=== PATIENT | female | born 1940 | race Caucasian/White ===

== ENCOUNTER → 2016-12-29 | Outpatient (CLI) | payer MEDICARE ==
[~2016-12-29] MED LIST: ALBU0.632 IH; ALBU0.8322 IH; AMLO5TAB2 PO; ASCO500T20 PO; ASP81TEC PO; CALC-755 PO; CHOL200035 PO; EPIN0.3P2 IM; FLC100T1 PO; FLUT1DIS26 IH; LEVO500T78 PO; LORA1TAB PO; MULT-963 PO; OMEP40CA36 PO; PRD20T PO
--- NOTE | 2016-12-29 15:51 | Diagnostic Imaging Report ---
PROCEDURE: Lung cancer screening CT chest without contrast. TECHNIQUE: Multiple contiguous axial images were obtained through the chest without the use of intravenous contrast. This is performed with a low-dose protocol. INDICATION: Currently asymptomatic patient with 40 pack years history of smoking Comparison: No prior similar studies are available for comparison. Findings: There is upper lobe predominant centrilobular emphysema. 2 mm calcified granuloma is noted in the superior segment of the right lower lobe. There is a tiny focus of scarring or atelectasis suggested in the inferior lingula with no significant consolidation, mass or suspicious nodule seen. No significant fibrotic changes or bronchiectasis. The heart size is normal. No pericardial or pleural effusion. Prominent coronary artery atherosclerotic calcifications are noted. No axillary lymphadenopathy is seen. The osseous structures demonstrate scoliosis convex to the right side with advanced degenerative changes. IMPRESSION: Upper lobe predominant centrilobular emphysema. No suspicious nodule seen. Lung Rads Category 2. Benign findings. Recommendations: Annual screening low-dose CT scan. Dictated by: Dictated on workstation # [id number]
== END ==
LOC: RAD 13:01
PROVIDERS: ATTEND Family Medicine
DX: Z12.2 Encounter for screening for malignant neoplasm of respiratory organs (principal); J43.9 Emphysema, unspecified; F17.210 Nicotine dependence, cigarettes, uncomplicated

== ENCOUNTER 2017-03-04 09:58 | Inpatient (IN) | payer MEDICARE ==
[~2017-03-04] VITALS: Ht 167.6 cm; Wt 71.2 kg
--- OUTSIDE RECORDS SUMMARY | 2017-03-04 10:03 | XMS REPORT | Continuity of Care Document ---
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 08/11/2011 Ot 477.9 ALLERGIC RHINITIS NOS 08/11/2011 Ot 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 08/28/2012 LAKSHMI MATAMOROS MD Ot 553.3 DIAPHRAGMATIC HERNIA 08/28/2012 LAKSHMI MATAMOROS MD Ot 562.10 DIVERTICULOSIS COLON (W/O MENT OF HEMORR 08/28/2012 SATURNINO FOSTER, LAKSHMI Lazar Ot V12.72 PERSONAL HISTORY OF COLONIC POLYPS 08/28/2012 SATURNINO FOSTER, LAKSHMI Lazar Ot V76.51 SCREEN MAL NEOP-COLON 11/17/2014 Ot 733.00 11/17/2014 Ot 781.91 11/17/2014 Ot V76.12 11/17/2014 Ot 305.1 11/17/2014 Ot 786.2 11/17/2014 Ot 733.00 11/17/2014 Ot V76.12 11/17/2014 Ot 719.07 11/17/2014 Ot 719.47 11/17/2014 Ot 733.00 11/17/2014 Ot 473.9 11/17/2014 LAKSHMI MATAMOROS MD Ot V72.84 11/17/2014 JANNY JOSEPH DO Ot 789.01 12/10/2014 STANISLAV KIRKPATRICK Ot 786.09 12/10/2014 STANISLAV KIRKPATRICK COTTON BALL BAGGER Ot 786.2 12/18/2014 VANBECSTANISLAV KHOURY [employer] B[employer] BAGGER Ot 786.09 12/18/2014 STANISLAV KIRKPATRICK COTTON BALL BAGGER Ot 786.2 03/11/2015 OPAL ROSSJANNY S Ot I65.23 03/19/2015 OPAL NGUYEN JANYN S Ot I65.23 12/29/2016 Ot 473.9 CHRONIC SINUSITIS NOS 12/29/2016 LAKSHMI MATAMOROS MD Ot V72.84 EXAM PRE-OPERATIVE NOS 12/29/2016 OPAL JANNY S Ot 789.01 ABDOMINAL PAIN, RIGHT UPPER QUADRANT 12/29/2016 STANISLAV KIRKPATRICK [employer] BAGGER Ot 786.09 RESPIRATORY ABNORM NEC 12/29/2016 STANISLAV KIRKPATRICK [employer] BAGGER Ot 786.2 COUGH 12/29/2016 ENDERIRIS NGUYEN JANNY S Ot I65.23 OCCLUSION AND STENOSIS OF BILATERAL FUENTES 12/29/2016 Ot 473.9 CHRONIC SINUSITIS NOS 12/29/2016 LAKSHMI MATAMOROS MD Ot V72.84 EXAM PRE-OPERATIVE NOS 12/29/2016 KIPCORETTA NGUYEN JANNY S Ot 789.01 ABDOMINAL PAIN, RIGHT UPPER QUADRANT 12/29/2016 STANISLAV KIRKPATRICK [employer]ALL BAGGER Ot 786.09 RESPIRATORY ABNORM NEC 12/29/2016 STANISLAV KIRKPATRICK [employer] BAGGER Ot 786.2 COUGH 12/29/2016 ENDERWILLIAM SIMMONS DOQUELINE S Ot I65.23 OCCLUSION AND STENOSIS OF BILATERAL FUENTES 01/18/2017 WILLIAM JOSEPH DOQUELINE S Ot F17.210 NICOTINE DEPENDENCE, CIGARETTES, UNCOMPL 01/18/2017 WILLIAM JOSEPH DOQUELINE S Ot J43.9 EMPHYSEMA, UNSPECIFIED 01/18/2017 WILLIAM JOSEPH DOQUELINE S Ot Z12.2 ENCNTR SCREEN FOR MALIGNANT NEOPLASM OF Procedures Results Encounters ACCT No. Visit Date/Time Discharge Status Pt. Type Provider Facility Loc./Unit Complaint [id number] 12/29/2016 13:01:00 2016 23:59:59 [facility] Outpatient ROSS JOSEPH DOLINE S [facility] RAD SCREENING [id number] 02/16/2015 10:12:00 2014 23:59:59 C[facility] Outpatient KIPER ROSSJANNY S [facility] RAD LT CAROTID BRUIT [id number] 11/17/2014 11:14:00 2014 23:59:59 CLS Outpatient STANISLAV KIRKPATRICK [facility] RAD COUGH [id number] 01/31/2013 08:56:00 2012 23:59:59 CLS Outpatient OPAL DO JANNY S [facility] RAD RUQ PAIN [id number] 08/28/2012 08:12:00 2012 12:15:00 DIS Outpatient LAKSHMI MATAMOROS MD [facility] [address] DYSPHAGIA,COLON POLYPS [id number] 08/23/2012 07:21:00 2012 23:59:59 CLS Outpatient LAKSHMI MATAMOROS MD [facility] PREOP DYSPHAGIA; COLON POLYPS [id number] 11/17/2014 11:14:00 Document Registration [id number] 11/17/2014 11:14:00 Document Registration [id number] 11/17/2014 11:14:00 Document Registration [id number] 09/16/2011 09:56:00 Document Registration [id number] 08/08/2011 12:38:00 Document Registration [id number] 04/15/2011 10:46:00 Document Registration [id number] 08/03/2010 10:17:00 Document Registration
[2017-03-04] MEDS ORDERED: RT-ALBUTEROL SULF 2.5 MG/3 ML PRE-MIX VIAL INH STA (10:13)
[2017-03-04] MEDS ORDERED: RT-ALBUTEROL/IPRATROPIUM 3 ML (DUONEB) VIAL INH ONE (10:15)
--- NOTE | 2017-03-04 10:26 | ED General ---
General Stated Complaint: COUGHING UP STUFF, BREATHING PROBLEMS Source of Information: Patient Exam Limitations: No Limitations History of Present Illness Time Seen by Provider: 10:08 Initial Comments Here with shortness of air and cough and feeling like she needs oxygen. This is been worsening over the last 2 days. Unsure about fever. Denies vomiting or diarrhea. Denies other symptoms other than breathing problems. She did do a breathing treatment this morning which helped a little bit. Does have significant history of COPD. Complains of dyspnea on exertion and wheezing. Timing/Duration: 2-3 Days, Getting Worse Severity: Moderate Associated Systoms: Cough, Fever/Chills, No Nausea/Vomiting, Shortness of Air, No Weakness Allergies and Home Medications Allergies Coded Allergies: bee venom (honey bee) (Verified Allergy, Severe, 08/08/11) Codeine (Unverified Allergy, Unknown, 03/02/10) Home Medications Albuterol Sulfate 2.5 Mg/3 Ml Solution, 2.5 MG IH Q6HR PRN, (Reported) PRN SOB Amlodipine Besylate 5 Mg Tablet, 5 MG PO DAILY, (Reported) Aspirin 81 Mg Tabec, 81 MG PO GRIMM, TU, REFUGIO, SA, (Reported) Epinephrine 0.3 Mg/0.3/Syringe Pen.injctr, 0.3 MG IM NEEDED, (Reported) PRN ALLERGIC REACTION TO BEE STINGS Fluticasone/Salmeterol 1 Disk Inhp, 1 PUFF IH BID, (Reported) 1 PUFF Lorazepam 1 Mg Tablet, 0.5 MG PO TID PRN, (Reported) TAKE 1/2 OF A 1MG TABLET PRN ANXIETY Multivitamin 1 Each Tablet, 1 TAB PO DAILY, (Reported) Omeprazole 40 Mg Capsule.dr, 40 MG PO DAILY, (Reported) Constitutional: see HPI, chills, No diaphoresis, fever, No weakness EENTM: nose congestion, No throat pain Respiratory: cough, short of breath, wheezing Cardiovascular: no symptoms reported Gastrointestinal: No nausea, No vomiting Genitourinary: no symptoms reported Musculoskeletal: no symptoms reported Skin: no symptoms reported, No rash Psychiatric/Neurological: No Symptoms Reported All Other Systems Reviewed Negative Unless Noted: Yes Past Apdfdul-Ainikf-Qewscv Hx Patient Social History Alcohol Use: Denies Use Recreational Drug Use: No Smoking Status: Current Everyday Smoker Type Used: Cigarettes Recent Foreign Travel: No Contact w/Someone Who Travel: No Immunizations Up To Date Date of Influenza Vaccine: Jan 17, 2012 Surgeries History of Surgeries: Yes Surgeries: Bladder Surgery, Hysterectomy, Orthopedic Respiratory History of Respiratory Disorde: Yes Respiratory Disorders: COPD Cardiovascular Cardiac Disorders: Hypertension Neurological History of Neurological Disord: No Reproductive System Hx Reproductive Disorders: No Genitourinary History of Genitourinary Disor: No Gastrointestinal History of Gastrointestinal Di: Yes Gastrointestinal Disorders: Gastroesophageal Reflux Musculoskeletal History of Musculoskeletal Dis: No Reviewed Nursing Assessment Reviewed/Agree w Nursing PMH: Yes Family Medical History Significant Family History: No Pertinent Family Hx Physical Exam-Suspected Sepsis Physical Exam Vital Signs Vital Sign - Last 12Hours 03/04/17 03/04/17 03/04/17 10:23 10:27 10:30 Temp 100.3 Pulse 95 Resp 16 B/P (MAP) 134/60 (84) Pulse Ox 93 O2 Delivery Nasal Cannula O2 Flow Rate 2.00 FiO2 28 Capillary Refill : General Appearance: WD/WN, Anxious HEENT: PERRL/EOMI, Pharyngeal Erythema, Other (mild to moderate nasal congestion with moderate erythema and some purulent mucus within the naris bilaterally) Neck: Normal Inspection, Non Tender, Supple Respiratory: No Accessory Muscle Use, No Respiratory Distress, Crackles (left lower lobe), Wheezing (here) Cardiovascular: Regular Rate, Rhythm, No Murmur Gastrointestinal: Non Tender, Soft Back: Normal Inspection, No CVA Tenderness, No Vertebral Tenderness Extremity: Normal Capillary Refill, Normal Inspection, Normal Range of Motion, Non Tender, No Calf Tenderness Neurologic/Psychiatric: Alert, Oriented x3 Skin: normal color, warm/dry, No rash, No ulcerations Focused Exam Evaluation Lactate Level Laboratory Tests 03/04/17 10:18: Lactic Acid Level 1.24 Lactic Acid Level Laboratory Tests Test 03/04/17 10:18 Lactic Acid Level 1.24 MMOL/L (0.50-2.00) Progress/Results/Core Measures Suspected Sepsis SIRS Temperature: Pulse: Respiratory Rate: Laboratory Tests 03/04/17 10:18: White Blood Count 8.1 Blood Pressure / Mean: Laboratory Tests 03/04/17 10:18: Lactic Acid Level 1.24 Laboratory Tests 03/04/17 10:18: Creatinine 0.94, INR Comment 1.2, Platelet Count 148, Total Bilirubin 0.2 Results/Orders Lab Results Laboratory Tests Test 03/04/17 10:18 Range/Units White Blood Count 8.1 4.3-11.0 10^3/uL Red Blood Count 2.83 L 4.35-5.85 10^6/uL Hemoglobin 8.8 L 11.5-16.0 G/DL Hematocrit 27 L 35-52 % Mean Corpuscular Volume 95 80-99 FL Mean Corpuscular Hemoglobin 31 25-34 PG Mean Corpuscular Hemoglobin Concent 33 32-36 G/DL Red Cell Distribution Width 17.6 H 10.0-14.5 % Platelet Count 148 130-400 10^3/uL Mean Platelet Volume 10.8 H 7.4-10.4 FL Neutrophils (%) (Auto) 73 42-75 % Lymphocytes (%) (Auto) 13 12-44 % Monocytes (%) (Auto) 13 H 0-12 % Eosinophils (%) (Auto) 0 0-10 % Basophils (%) (Auto) 0 0-10 % Neutrophils # (Auto) 5.9 1.8-7.8 X 10^3 Lymphocytes # (Auto) 1.1 1.0-4.0 X 10^3 Monocytes # (Auto) 1.1 H 0.0-1.0 X 10^3 Eosinophils # (Auto) 0.0 0.0-0.3 10^3/uL Basophils # (Auto) 0.0 0.0-0.1 10^3/uL Prothrombin Time 15.4 H 12.2-14.7 SEC INR Comment 1.2 0.8-1.4 Activated Partial Thromboplast Time 38 H 24-35 SEC Sodium Level 138 135-145 MMOL/L Potassium Level 3.3 L 3.6-5.0 MMOL/L Chloride Level 100 98-107 MMOL/L Carbon Dioxide Level 21 21-32 MMOL/L Anion Gap 17 H 5-14 MMOL/L Blood Urea Nitrogen 20 H 7-18 MG/DL Creatinine 0.94 0.60-1.30 MG/DL Estimat Glomerular Filtration Rate 58 BUN/Creatinine Ratio 21 Glucose Level 86 70-105 MG/DL Lactic Acid Level 1.24 0.50-2.00 MMOL/L Calcium Level 9.0 8.5-10.1 MG/DL Total Bilirubin 0.2 0.1-1.0 MG/DL Aspartate Amino Transf (AST/SGOT) 23 5-34 U/L Alanine Aminotransferase (ALT/SGPT) 14 0-55 U/L Alkaline Phosphatase 60 40-136 U/L Total Protein 9.7 H 6.4-8.2 GM/DL Albumin 2.5 L 3.2-4.5 GM/DL Micro Results Microbiology 03/04/17 Influenza Types A,B Antigen (JOANIE) - Final, Complete My Orders Orders - KRISTEN ROMERO MD Cbc With Automated Diff (03/04/17 10:13) Comprehensive Metabolic Panel (03/04/17 10:13) Lactic Acid Analyzer (03/04/17 10:13) Blood Culture (03/04/17 10:13) Sputum Culture (03/04/17 10:13) Ua Culture If Indicated (03/04/17 10:13) Protime With Inr (03/04/17 10:13) Partial Thromboplastin Time (03/04/17 10:13) Chest 1 View, Ap/Pa Only (03/04/17 10:13) O2 (03/04/17 10:13) Saline Lock/Iv-Start (03/04/17 10:13) Vital Signs Adult Sepsis Patie Q1H (03/04/17 10:13) Remove Rings In Anticipation O (03/04/17 10:13) Influenza A And B Antigens (03/04/17 10:13) Albuterol Pre-Mix Nebs (Rt) (Proventil (03/04/17 10:13) Albuterol/Ipra Inhalation Soln (Duoneb I (03/04/17 10:15) Svn Sm Volume Nebulizer Rt-Rfs (03/04/17 10:13) Svn Sm Volume Nebulizer Rt-Rfs (03/04/17 10:13) Ceftriaxone Injection (Rocephin Injectio (03/04/17 12:15) Medications Given in ED Current Medications Medications Dose Ordered Sig/David Route Start Time Stop Time Status Last Admin Dose Admin Albuterol/ Ipratropium 3 ml ONCE ONCE INH 03/04/17 10:15 03/04/17 10:16 DC 03/04/17 10:22 3 ML Vital Signs/I&O Vital Sign - Last 12Hours 03/04/17 03/04/17 03/04/17 10:23 10:27 10:30 Temp 100.3 Pulse 95 Resp 16 B/P (MAP) 134/60 (84) Pulse Ox 93 O2 Delivery Nasal Cannula O2 Flow Rate 2.00 2.00 FiO2 28 Capillary Refill : Progress Note : Progress Note Seen and evaluated. IV, labs, UA, chest x-ray, rapid influenza screen, blood cultures and lactic acid ordered. DuoNeb and albuterol treatment initiated. Patient reported subjective shortness of air so oxygen initiated at 2 L via nasal cannula although patient's oxygen saturation was 90 percent resting without oxygen. Monitor patient. 1215: Concerns for left lower lobe pneumonia and/or bibasilar pneumonia. Patient does have complications of COPD. I do not believe that she would benefit from outpatient therapy given her underlying medical problems and difficulty with breathing currently. I did discuss case with Dr. Escobar on-call for Dr. Crawford. He accepts patient for admission, inpatient status. Rocephin 1 g IV ordered. Admit, inpatient status. Patient and family agree with plan. Diagnostic Imaging Diagonstic Imaging: Xray Plain Films/CT/US/NM/MRI: chest Comments [facility]. [place], [place] NAME: COLLEEN PERSAUD [facility] REC#: [id number] PT STATUS: REG ER : 1940 PHYSICIAN: KRISTEN ROMERO MD ADMIT DATE: 03/04/17/ER Draft Date of Exam:03/04/17 CHEST 1 VIEW, AP/PA ONLY INDICATION: Shortness of air, cough Comparison: 11/17/2014 Technique: Single frontal radiograph of the chest dated 03/04/2017 Findings: The cardiac silhouette is within normal limits. No significant pulmonary vascular congestion. Vascular calcifications. Background prominence of the pulmonary interstitium is again identified, felt to relate to background interstitial lung disease. The lungs are again noted to be hyperinflated. Interstitial opacities within the lung bases appear slightly increased since the prior examination in 2014. No additional dense focal consolidation. No pleural effusion. No pneumothorax. No acute osseous abnormality. IMPRESSION: Background chronic obstructive pulmonary disease with associated interstitial lung disease. Minimally increased interstitial opacities within the lung bases are present which may relate to interval progression of interstitial lung disease, though additional pneumonitis could appear similar. Dictated on workstation # [id number] Dict: 03/04/17 1113 Trans: 03/04/17 [facility] [id number] Interpreted by: PINO DELVALLE MD Electronically signed by: Reviewed: Reviewed by Me Departure Communication (Admissions) Time/Spoke to Admitting Phy: 12:10 Impression Impression: Primary Impression: Left lower lobe pneumonia Qualified Codes: J18.1 - Lobar pneumonia, unspecified organism Additional Impression: COPD with acute exacerbation Disposition: ADMITTED INPATIENT Condition: Stable Admissions Decision to Admit Reason: Admit from ER (General) Decision to Admit/Date: Mar 04, 2017 Time/Decision to Admit Time: 12:10 Departure-Patient Inst. Referrals: JANNY CRAWFORD DO (PCP/Family) Primary Care Physician KRISTEN ROMERO MD Mar 04, 2017 10:26
[2017-03-04 10:33] LABS: BASOPHILS % (AUTO) 0 % (0-10); EOSINOPHILS % (AUTO) 0 % (0-10); LYMPHOCYTES # (AUTO) 1.1 X 10^3 (1.0-4.0); LYMPHOCYTES % (AUTO) 13 % (12-44); MEAN CORPUSCULAR HEMOGLOBIN 31 PG (25-34); MEAN CORPUSCULAR HGB CONC 33 G/DL (32-36); MEAN CORPUSCULAR VOLUME 95 FL (80-99); MEAN PLATELET VOLUME 10.8 FL (7.4-10.4); MONOCYTES # (AUTO) 1.1 X 10^3 (0.0-1.0); MONOCYTES % (AUTO) 13 % (0-12); NEUTROPHILS # (AUTO) 5.9 X 10^3 (1.8-7.8); NEUTROPHILS % (AUTO) 73 % (42-75); PLATELET COUNT 148 10^3/uL (130-400); RED BLOOD COUNT 2.83 10^6/uL (4.35-5.85); RED CELL DISTRIBUTION WIDTH 17.6 % (10.0-14.5); WHITE BLOOD COUNT 8.1 10^3/uL (4.3-11.0)
[2017-03-04 10:41] LABS: INR 1.2 (0.8-1.4); PROTHROMBIN TIME PATIENT 15.4 SEC (12.2-14.7)
[2017-03-04 10:52] LABS: ALBUMIN 2.5 GM/DL (3.2-4.5); BILIRUBIN,TOTAL 0.2 MG/DL (0.1-1.0); CREATININE SERUM 0.94 MG/DL (0.60-1.30); POTASSIUM 3.3 MMOL/L (3.6-5.0); TOTAL PROTEIN 9.7 GM/DL (6.4-8.2)
--- NOTE | 2017-03-04 11:22 | Diagnostic Imaging Report ---
INDICATION: Shortness of air, cough Comparison: 11/17/2014 Technique: Single frontal radiograph of the chest dated 03/04/2017 Findings: The cardiac silhouette is within normal limits. No significant pulmonary vascular congestion. Vascular calcifications. Background prominence of the pulmonary interstitium is again identified, felt to relate to background interstitial lung disease. The lungs are again noted to be hyperinflated. Interstitial opacities within the lung bases appear slightly increased since the prior examination in 2014. No additional dense focal consolidation. No pleural effusion. No pneumothorax. No acute osseous abnormality. IMPRESSION: Background chronic obstructive pulmonary disease with associated interstitial lung disease. Minimally increased interstitial opacities within the lung bases are present which may relate to interval progression of interstitial lung disease, though additional pneumonitis could appear similar. Dictated by: Dictated on workstation # [id number]
[2017-03-04] MEDS ORDERED: cefTRIAXone INJECTION 1,000 MG in NS (IVPB) 50 ML IV ONE (12:15)
[2017-03-04 12:33] LABS: BILIRUBIN,URINE NEGATIVE (NEGATIVE); KETONES,URINE NEGATIVE (NEGATIVE); LEUKOCYTE ESTERASE ,URINE 1+ (NEGATIVE); NITRITE,URINE NEGATIVE (NEGATIVE); PH,URINE 5 (5-9); PROTEIN,URINE 3+ (NEGATIVE); UROBILINOGEN,URINE NORMAL (NORMAL)
[2017-03-04 12:49] LABS: GRANULAR CASTS,URINE 0-2 /LPF
[2017-03-04] MEDS ORDERED: ONDANSETRON 4 MG/2 ML (SDV) Z0FRAN IV PRN (13:30)
[2017-03-04] MEDS ORDERED: AZITHROMYCIN 500 MG/NS 250 ML IVPB IV ONE ×2 (13:30)
[2017-03-04] MEDS ORDERED: RT-ALBUTEROL SULF 2.5 MG/3 ML PRE-MIX VIAL IH PRN (15:00)
[2017-03-04] MEDS ORDERED: EPINEPHrine INJECTION 1 MG/ML AMP IM PRN (15:30)
[2017-03-04] MEDS ORDERED: CHOL500044 PO (15:33)
[2017-03-04] MEDS ORDERED: CYAN100088 PO (15:33)
[2017-03-04] MEDS ORDERED: CALC-308 PO (15:39)
[2017-03-04] MEDS ORDERED: LORazepam 0.5 MG (ATIVAN) TABLET PO PRN ×2 (15:45)
[2017-03-04 15:59] VITALS: BP 115/63
[2017-03-04] MEDS: ACETAMINOPHEN 325 MG TABLET/CAPLET (TYLENOL) PO PRN (16:11)
[2017-03-04 19:11] VITALS: BP 111/58
[2017-03-04] MEDS: RT-ALBUTEROL SULF 2.5 MG/3 ML PRE-MIX VIAL IH SCH ×2 (19:48→23:22)
[2017-03-04] MEDS: RT-ADVAIR HFA 115/21 MCG PER PUFF IH SCH (19:49)
[2017-03-04] MEDS ORDERED: RT-ALBUTEROL SULF 2.5 MG/3 ML PRE-MIX VIAL IH SCH (21:00)
[2017-03-05] VITALS: BP 121/58
[2017-03-05] MEDS: RT-ALBUTEROL SULF 2.5 MG/3 ML PRE-MIX VIAL IH SCH ×6 (03:03→22:50)
[2017-03-05 04:00] VITALS: BP 116/64
[2017-03-05 05:02] LABS: PEP REPORT SEE PATH REPORT
[2017-03-05 05:04] LABS: BASOPHILS % (AUTO) 0 % (0-10); EOSINOPHILS % (AUTO) 0 % (0-10); LYMPHOCYTES # (AUTO) 1.4 X 10^3 (1.0-4.0); LYMPHOCYTES % (AUTO) 14 % (12-44); MEAN CORPUSCULAR HEMOGLOBIN 31 PG (25-34); MEAN CORPUSCULAR HGB CONC 32 G/DL (32-36); MEAN CORPUSCULAR VOLUME 96 FL (80-99); MEAN PLATELET VOLUME 11.6 FL (7.4-10.4); MONOCYTES % (AUTO) 9 % (0-12); NEUTROPHILS # (AUTO) 8.1 X 10^3 (1.8-7.8); NEUTROPHILS % (AUTO) 77 % (42-75); PLATELET COUNT 137 10^3/uL (130-400); RED BLOOD COUNT 2.72 10^6/uL (4.35-5.85); RED CELL DISTRIBUTION WIDTH 17.6 % (10.0-14.5); RETICULOCYTE % 0.79 % (0.50-2.40); WHITE BLOOD COUNT 10.5 10^3/uL (4.3-11.0)
[2017-03-05 05:30] LABS: ALANINE AMINOTRANSFERASE 14 U/L (0-55); ALBUMIN 2.3 GM/DL (3.2-4.5); ANION GAP 15 MMOL/L (5-14); ASPARTATE AMINO TRANSFERASE 27 U/L (5-34); BLOOD UREA NITROGEN 18 MG/DL (7-18); BUN/CREATININE RATIO 22; CALCIUM 8.8 MG/DL (8.5-10.1); CARBON DIOXIDE 21 MMOL/L (21-32); CHLORIDE 104 MMOL/L (98-107); CREATININE SERUM 0.82 MG/DL (0.60-1.30); GFR ESTIMATED > 60; GLUCOSE 86 MG/DL (70-105); POTASSIUM 2.9 MMOL/L (3.6-5.0); SODIUM 140 MMOL/L (135-145); TOTAL PROTEIN 9.1 GM/DL (6.4-8.2)
[2017-03-05 05:58] LABS: BILIRUBIN,TOTAL 0.2 MG/DL (0.1-1.0)
[2017-03-05] MEDS: CALCIUM CARBONATE 600 MG (CALCARB) TAB PO SCH (06:26)
[2017-03-05] MEDS: RT-ADVAIR HFA 115/21 MCG PER PUFF IH SCH ×2 (06:43→18:38)
[2017-03-05] MEDS ORDERED: KCL 10 MEQ TAB (MICRO K) PO ONE (07:30)
[2017-03-05] MEDS: PANTOPRAZOLE 40 MG (PROTONIX) TAB PO SCH (07:31)
[2017-03-05 08:00] VITALS: BP 112/62
[2017-03-05] MEDS: cefTRIAXone 1 GM/NS 50 ML IVPB IV SCH ×2 (08:46)
[2017-03-05] MEDS: ASPIRIN E.C. 81 MG (ECOTRIN) TAB PO SCH (08:47)
[2017-03-05] MEDS: CYANOCOBALAMIN 500 MCG TAB (VITAMIN B-12) PO SCH (08:47)
[2017-03-05] MEDS: amLODIPine 5 MG (NORVASC) TAB PO SCH (08:47)
[2017-03-05] MEDS: AZITHROMYCIN 250 MG TAB (ZITHROMAX) PO SCH (08:47)
[2017-03-05] MEDS: MULTIVIT W/MINERALS TAB (THERAGRAN M) PO SCH (08:47)
[2017-03-05] MEDS: VITAMIN D3 5,000 UNITS (CHOLECALCIFEROL ) CAPSULE PO SCH (08:47)
[2017-03-05] MEDS ORDERED: AMLO5TAB2 PO (10:51)
[2017-03-05] MEDS ORDERED: OMEP20CA12 PO (10:51)
[2017-03-05] MEDS ORDERED: FLUT1DIS26 IH (10:51)
[2017-03-05] MEDS ORDERED: EPIN0.3A3 IM (10:51)
[2017-03-05 12:00] VITALS: BP 113/63
--- NOTE | 2017-03-05 13:11 | History & Physical-Hospitalist ---
HPI History of Present Illness: HPI/Chief Complaint The patient is a 76-year-old white female who noted at least a week history of increased cough she reports that it is productive but she swallows sputum and does not spit it out. Symptoms became acutely worse over the past 48 hours and she presented to the emergency room secondary to shortness of breath. She denied chills or fever. She reports over the last year she has lost 50 pounds secondary to loss of appetite. She's had increased fatigue with progressive weakness. When asked about pain specifically bone related she has noted increased pain over the coccyx and sacral area. Date Seen 03/05/17 Time Seen by Provider: 08:00 Attending Physician Sarahy Crawford DO PCP Sarahy Crawford DO Referring Physician Date of Admission Mar 04, 2017 at 12:10 Home Medications & Allergies Home Medications Reviewed patient Home Medication Reconciliation Form Allergies Allergies Coded Allergies venom-honey bee (Verified Allergy, Severe, 08/08/11) codeine (Unverified Allergy, Unknown, 03/02/10) Past Mmxecli-Rytrlm-Jbabxx Hx Patient Social History Alcohol Use: Denies Use Recreational Drug Use: No Smoking Status: Current Everyday Smoker Type Used: Cigarettes Physical Abuse Screen: No Sexual Abuse: No Recent Foreign Travel: No Contact w/other who traveled: No Recent Hopitalizations: No Recent Infectious Disease Expo: No Immunizations Up To Date Pediatric: Yes Date of Pneumonia Vaccine: Feb 01, 2017 Date of Influenza Vaccine: Feb 01, 2017 Surgeries Yes Bladder Surgery, Hysterectomy, Orthopedic Respiratory Yes Currently Using CPAP: No Currently Using BIPAP: No Cardiovascular Yes (PT DENIES-HOWEVER PT TAKES BP MEDS) Hypertension Neurological No Reproductive System Hx Reproductive Disorders: No Sexually Transmitted Disease: No HIV/AIDS: No Genitourinary Yes (BLADDER SLING) Gastrointestinal Yes Gastroesophageal Reflux Musculoskeletal No Endocrine History of Endocrine Disorders: No HEENT History of HEENT Disorders: Yes HEENT Disorders: Cataract Cancer No Psychosocial History of Psychiatric Problem: No Integumentary History of Skin or Integumenta: No Blood Transfusions History of Blood Disorders: No Reviewed Nursing Assessment Reviewed/Agree w Nursing PMH: Yes Family Medical History Significant Family History: No Pertinent Family Hx Family Hx: Cardiovascular disease G8 BROTHER Neoplasm 19 MOTHER (LIVER CANCER) G8 BROTHER (THROAT CANCER) Review of Systems Constitutional: weakness, weight loss Respiratory: see HPI, cough, dyspnea on exertion, No hemoptysis, No orthopnea, phlegm, short of breath, No stridor, No wheezing, No other Cardiovascular: no symptoms reported Physical Exam Physical Exam Vital Signs Vital Sign - Last 12Hours 03/04/17 03/04/17 03/04/17 10:23 10:27 10:30 Temp 100.3 Pulse 95 Resp 16 B/P (MAP) 134/60 (84) Pulse Ox 93 O2 Delivery Nasal Cannula O2 Flow Rate 2.00 FiO2 28 Capillary Refill : Less Than 3 Seconds General Appearance: No Apparent Distress, Chronically ill HEENT: Pale Conjunctivae (L), Other (right sided conjunctival injection without exudate) Respiratory: Chest Non Tender, No Accessory Muscle Use, No Respiratory Distress , Other (basilar rales and rhonchi left greater than right no wheezing appreciated.) Cardiovascular: Regular Rate, Rhythm, No Edema, No Gallop, No JVD, No Murmur, Normal Peripheral Pulses Gastrointestinal: Normal Bowel Sounds, No Organomegaly, No Pulsatile Mass, Non Tender, Soft Extremity: Normal Capillary Refill, Normal Inspection, Normal Range of Motion, Non Tender, No Calf Tenderness, No Pedal Edema Skin: Pallor, Other (peripheral or petechia noted.) Results Results/Procedures Lab Laboratory Tests 03/04/17 10:18 03/05/17 04:41 Assessment/Plan Admission Diagnosis 1. Left lower lobe pneumonia community-acquired continue Rocephin and azithromycin. 2. Significantly elevated protein level with likely anemia of chronic disease and 50 pound weight loss over the past year all concerning for plasma cell dyscrasia/multiple myeloma in addition to an increase in sacral and coccygeal related pain. Serum protein electrophoresis pending. My concerns were discussed with the patient and her daughter after I was asked specifically if I felt anything 'bad" was going on. in evaluation and discussion of concerns with the patient and her daughter over 45 minutes care time spent. Copy Copies To 1: SARAHY CRAWFORD DO Clinical Quality Measures DVT/VTE Risk/Contraindication: Risk Factor Score Per Nursin RFS Level Per Nursing on Admit: 4+=Very High LAKSHMI MATAMOROS MD Mar 05, 2017 13:11
[2017-03-05] MEDS ORDERED: FLUT16SP22 NSEACH (13:29)
[2017-03-05] MEDS ORDERED: ASPI-983 PO (13:29)
[2017-03-05] MEDS ORDERED: CHOL10007 PO (13:29)
[2017-03-05] MEDS ORDERED: ALBU2.5V4 IH (13:29)
[2017-03-05] MEDS ORDERED: LORA1TAB PO (13:29)
[2017-03-05] MEDS ORDERED: MULT1TAB69 PO (13:29)
[2017-03-05] MEDS ORDERED: CA C1TAB80 PO (13:29)
[2017-03-05] MEDS: ACETAMINOPHEN 325 MG TABLET/CAPLET (TYLENOL) PO PRN (14:32)
[2017-03-05 15:40] VITALS: BP 116/55
[2017-03-05] MEDS: KCL 10 MEQ TAB (MICRO K) PO SCH (16:13)
[2017-03-05 16:22] LABS: %SAT TOTAL IRON BINDING CAPIC 10 % (15-50); TIBC 145 ug/dL (280-380)
[2017-03-05 19:20] VITALS: BP 119/56
[2017-03-06 00:28] VITALS: BP 115/63
[2017-03-06] MEDS: RT-ALBUTEROL SULF 2.5 MG/3 ML PRE-MIX VIAL IH SCH ×6 (02:55→22:34)
[2017-03-06 04:05] VITALS: BP 117/67
[2017-03-06] MEDS: KCL 10 MEQ TAB (MICRO K) PO SCH ×2 (06:29→17:54)
[2017-03-06] MEDS: CALCIUM CARBONATE 600 MG (CALCARB) TAB PO SCH (06:29)
[2017-03-06 06:47] LABS: ANION GAP 15 MMOL/L (5-14); BLOOD UREA NITROGEN 13 MG/DL (7-18); BUN/CREATININE RATIO 17; CALCIUM 8.7 MG/DL (8.5-10.1); CARBON DIOXIDE 23 MMOL/L (21-32); CHLORIDE 105 MMOL/L (98-107); CREATININE SERUM 0.75 MG/DL (0.60-1.30); GFR ESTIMATED > 60; GLUCOSE 80 MG/DL (70-105); SODIUM 143 MMOL/L (135-145)
[2017-03-06] MEDS: RT-ADVAIR HFA 115/21 MCG PER PUFF IH SCH ×2 (07:25→22:34)
[2017-03-06 08:00] VITALS: BP 113/56
[2017-03-06] MEDS: VITAMIN D3 5,000 UNITS (CHOLECALCIFEROL ) CAPSULE PO SCH (08:40)
[2017-03-06] MEDS: PANTOPRAZOLE 40 MG (PROTONIX) TAB PO SCH (08:41)
[2017-03-06] MEDS: CYANOCOBALAMIN 500 MCG TAB (VITAMIN B-12) PO SCH (08:41)
[2017-03-06] MEDS: AZITHROMYCIN 250 MG TAB (ZITHROMAX) PO SCH (08:41)
[2017-03-06] MEDS: MULTIVIT W/MINERALS TAB (THERAGRAN M) PO SCH (08:41)
[2017-03-06] MEDS: amLODIPine 5 MG (NORVASC) TAB PO SCH (08:41)
[2017-03-06] MEDS: ASPIRIN E.C. 81 MG (ECOTRIN) TAB PO SCH (08:41)
[2017-03-06] MEDS: cefTRIAXone 1 GM/NS 50 ML IVPB IV SCH ×2 (08:41)
[2017-03-06 12:00] VITALS: BP 112/64
[2017-03-06] MEDS ORDERED: MAGNESIUM OXIDE (MAG-OX)400 MG TAB PO NR (12:26)
[2017-03-06] MEDS ORDERED: KCL 20 MEQ TAB (K-DUR) PO NR (12:27)
[2017-03-06] MEDS ORDERED: SENNA W/DOCUSATE (SENOKOT S) TABLET PO NR (12:28)
--- NOTE | 2017-03-06 12:28 | Progress Note (SOAP) ---
Subjective Date Seen by Provider: Mar 06, 2017 Time Seen by Provider: 12:28 Subjective/Events-last exam Fwup acute pneumonia, COPD exacerbation, weakness, abnormal weight loss, anemia , hypokalemia. Still with cough but improving. Very weak. Objective Exam Vital Signs Date Time Temp Pulse Resp B/P (MAP) Pulse Ox O2 Delivery O2 Flow Rate FiO2 03/06/17 10:32 94 Nasal Cannula 2.00 03/06/17 08:00 97.0 77 20 113/56 (75) 96 Nasal Cannula 3.50 03/06/17 08:00 Nasal Cannula 2.00 03/06/17 07:27 93 Nasal Cannula 2.00 03/06/17 07:25 93 Nasal Cannula 2.00 03/06/17 04:05 98.6 70 16 117/67 (84) 97 Nasal Cannula 3.50 03/06/17 02:55 92 Nasal Cannula 2.00 03/06/17 00:28 98.4 69 18 115/63 (80) 98 Nasal Cannula 3.50 03/05/17 22:50 96 Nasal Cannula 3.00 03/05/17 19:40 Nasal Cannula 3.50 03/05/17 19:20 99.8 77 18 119/56 (77) 92 Nasal Cannula 3.50 03/05/17 18:38 Nasal Cannula 3.00 03/05/17 18:37 96 Nasal Cannula 3.00 03/05/17 15:40 98.9 75 20 116/55 (75) 94 Nasal Cannula 3.50 03/05/17 14:25 95 Nasal Cannula 4.00 I & O 03/07/17 07:00 Intake Total 50 ml Balance 50 ml Capillary Refill : Less Than 3 Seconds General Appearance: Mild Distress Neck: Supple Respiratory: Decreased Breath Sounds, Respiratory Distress, Rhonci, Wheezing Gastrointestinal: normal bowel sounds, non tender, soft Extremity: Non Tender, No Calf Tenderness, No Pedal Edema Neurologic/Psychiatric: Alert, Oriented x3 Skin: Normal Color, Warm/Dry Results Lab Laboratory Tests 03/06/17 05:58: Sodium Level 143, Potassium Level 3.0L, Chloride Level 105, Carbon Dioxide Level 23, Anion Gap 15H, Blood Urea Nitrogen 13, Creatinine 0.75, Estimat Glomerular Filtration Rate > 60, BUN/Creatinine Ratio 17, Glucose Level 80, Calcium Level 8.7 Microbiology 03/04/17 Blood Culture - Preliminary, Resulted No growth 03/04/17 Gram Stain - Final, Complete 03/04/17 Sputum Culture - Final, Complete Haemophilus Influenza Normal jeancarlos Presumptive Vianca Albicans Assessment/Plan Assessment/Plan Assess & Plan/Chief Complaint 1. Acute Pneumonia--continue abx, repeat CXR 2. Exacerbation of COPD--add solumedrol, continue oxygen and SVNs 3. Weakness--multifactorial, start PT, will likely need SWING bed 4. Anemia--Check CBC in AM, SPEP pending 5. Hypokalemia--replace potassium and check magnesium level Clinical Quality Measures DVT/VTE Risk/Contraindication: Risk Factor Score Per Nursin RFS Level Per Nursing on Admit: 4+=Very High JANNY JOSEPH DO Mar 06, 2017 12:28
[2017-03-06] MEDS ORDERED: methylPREDNISolone 40 MG/ML (Solu-MEDROL) VIAL IV NR (12:37)
--- NOTE | 2017-03-06 15:02 | Physical Therapy Evaluation ---
PT Evaluation-General Medical Diagnosis Admission Date Mar 04, 2017 at 12:10 Medical Diagnosis: Pneumonia LLL, COPD Onset Date: Mar 04, 2017 Therapy Diagnosis Therapy Diagnosis: weakness Height/Weight Height (Feet): 5 Height (Inches): 6.00 Weight (Pounds): 156 Weight (Ounces): 15.5 Precautions Precautions/Isolations: Standard Precautions Weight Bear Status Right Lower Extremity: Right Full Weight Bearing Left Lower Extremity: Left Full Weight Bearing Referral Physician: Sarahy Crawford DO Reason for Referral: Evaluation/Treatment Medical History Pertinent Medical History: HTN, Smoking Additional Medical History reflux, hysterectomy Reviewed History: Yes Social History Home: Single Level Current Living Status: Alone Entry Into Home: Stairs With Railing PT Steps Into Home: 3 Prior/Core FIM Prior Level of Function Functional [place] Measure 0=Not Assessed/NA 4=Minimal Assistance 1=Total Assistance 5=Supervision or Setup 2=Maximal Assistance 6=Modified [place] 3=Moderate Assistance 7=Complete [place] Bed Mobility: 7 Transfers (B,C,W/C) (FIM): 7 Gait: 7 Locomotion: 7 States she owns a FWW, but does not use at this point PT Evaluation-Current Subjective Patient is supine in bed upon PT entering the room. She states she is starting to feel better since admission into the hospital. She states that her balance has been getting worse as of late, so she grabs onto rails or objects if she feels unsteady. She agrees to PT eval. Pain Numeric Pain Scale: 0-No Pain Location: No Pain Reported Pt/Family Goals Patient wishes to return home and be able to live independently. Objective Patient Orientation: Normal For Age Problem Solving: Good Attachments: Oxygen 3.0 L of O2 ROM/Strength ROM Upper Extremities WNL ROM Lower Extremities WNL Strength Upper Extremities WNL Strength Lower Extremities WNL Integumentary/Posture Integumentary intact Bowel Incontinence: No Bladder Incontinence: No Neuromuscular (Tone, Coordination, Reflexes) normal Sensory Vision: Functional Hearing: Functional Sensation Right Upper Extremit: Intact Sensation Left Upper Extremity: Intact Sensation Right Lower Extremit: Intact Sensation Left Lower Extremity: Intact Transfers Functional [place] Measure 0=Not Assessed/NA 4=Minimal Assistance 1=Total Assistance 5=Supervision or Setup 2=Maximal Assistance 6=Modified [place] 3=Moderate Assistance 7=Complete [place] Transfers (B, C, W/C) (FIM): 7 Scootin Rollin Supine to/from Sit: 7 Sit to/from Stand: 7 Patient performed all bed mobility and nish to stand independently in a safe manner. Gait Mode of Locomotion: Walk Anticipated Mode of Locomotion: Walk Gait (FIM): 6 Distance: 300' Gait Level of Assist: 6 Gait Assistive Device: FWW Comments/Gait Description Patient ambulated safely with FWW. Patient states that she feels as if she can walk much faster and safer with an assistive device. Patient started to have some SOB at end of walking. Balance Sitting Static: Normal Standing Static: Normal Standing Dynamic: Normal Assessment/Needs Patient is doing well considering her recent illness. Patient would benefit from therapeutic exercise and gait progression to improve functional activity tolerance and strength. Rehab Potential: Good PT Fpc Goals Wastewater Treatment Supervisor Goals PT Fpc Goals Time Frame: Mar 10, 2017 Transfers (B,C,W/C) (FIM): 7 Gait (FIM): 6 Distance: 500' Gait Level of Assist: 6 Gait Assistive Device: FWW PT Plan Problem List Problem List: Activity Tolerance, Functional Strength, Safety, Balance, Gait Treatment/Plan Treatment Plan: Continue Plan of Care Treatment Plan: Education, Functional Activity Juma, Functional Strength, Gait , Safety, Therapeutic Exercise Treatment Duration: Mar 10, 2017 Frequency: 5 times per week Estimated Hrs Per Day: .25 hour per day Patient and/or Family Agrees t: Yes Safety Risks/Education Patient Education: Gait Training, Reviewed Precautions, Safety Issues Teaching Recipient: Patient Teaching Methods: Demonstration, Discussion Response to Teaching: Verbalize Understanding, Return Demonstration Discharge Recommendations Therapy D/C Recommendations: Home Independently Equpiment Recommendations-D/C: Front Wheeled Walker Time/GCodes Time In: 1434 Time Out: 1449 Total Billed Treatment Time: 15 Total Billed Treatment 1 visit EVM 15 min DARLINE CAIN PT Mar 06, 2017 15:02
[2017-03-06 16:00] VITALS: BP 117/69
[2017-03-06 16:07] LABS: FERRITIN 620.6 ng/mL (15.0-150.0); UIBC 130 ug/dL (55-450)
[2017-03-06] MEDS: MAGNESIUM OXIDE (MAG-OX)400 MG TAB PO SCH (17:53)
[2017-03-06] MEDS: methylPREDNISolone 40 MG/ML (Solu-MEDROL) VIAL IV SCH ×2 (17:54→23:43)
[2017-03-06 19:37] VITALS: BP 120/56
[2017-03-06] MEDS: SENNA W/DOCUSATE (SENOKOT S) TABLET PO SCH (20:09)
[2017-03-07 00:40] VITALS: BP 107/49
[2017-03-07] MEDS: RT-ALBUTEROL SULF 2.5 MG/3 ML PRE-MIX VIAL IH SCH ×6 (02:34→23:03)
[2017-03-07 04:56] VITALS: BP 104/55
[2017-03-07] MEDS: methylPREDNISolone 40 MG/ML (Solu-MEDROL) VIAL IV SCH ×4 (06:09→23:42)
[2017-03-07] MEDS: CALCIUM CARBONATE 600 MG (CALCARB) TAB PO SCH (06:09)
[2017-03-07] MEDS: KCL 10 MEQ TAB (MICRO K) PO SCH ×2 (06:09→17:33)
[2017-03-07 06:22] LABS: BASOPHILS % (AUTO) 0 % (0-10); EOSINOPHILS % (AUTO) 0 % (0-10); LYMPHOCYTES % (AUTO) 8 % (12-44); MEAN CORPUSCULAR HEMOGLOBIN 31 PG (25-34); MEAN CORPUSCULAR HGB CONC 32 G/DL (32-36); MEAN CORPUSCULAR VOLUME 97 FL (80-99); MEAN PLATELET VOLUME 11.9 FL (7.4-10.4); MONOCYTES # (AUTO) 0.2 X 10^3 (0.0-1.0); MONOCYTES % (AUTO) 2 % (0-12); NEUTROPHILS # (AUTO) 10.5 X 10^3 (1.8-7.8); NEUTROPHILS % (AUTO) 90 % (42-75); PLATELET COUNT 143 10^3/uL (130-400); RED BLOOD COUNT 2.65 10^6/uL (4.35-5.85); RED CELL DISTRIBUTION WIDTH 17.3 % (10.0-14.5); WHITE BLOOD COUNT 11.6 10^3/uL (4.3-11.0)
[2017-03-07 06:38] LABS: ANION GAP 14 MMOL/L (5-14); BLOOD UREA NITROGEN 18 MG/DL (7-18); BUN/CREATININE RATIO 25; CALCIUM 9.4 MG/DL (8.5-10.1); CARBON DIOXIDE 23 MMOL/L (21-32); CHLORIDE 102 MMOL/L (98-107); CREATININE SERUM 0.71 MG/DL (0.60-1.30); GFR ESTIMATED > 60; GLUCOSE 168 MG/DL (70-105); MAGNESIUM 1.5 MG/DL (1.8-2.4); POTASSIUM 4.1 MMOL/L (3.6-5.0); SODIUM 139 MMOL/L (135-145)
[2017-03-07] MEDS: RT-ADVAIR HFA 115/21 MCG PER PUFF IH SCH ×2 (06:51→18:52)
--- NOTE | 2017-03-07 07:54 | Diagnostic Imaging Report ---
INDICATION: Cough. COMPARISON: 03/04/2017. FINDINGS: Heterogeneous opacities in the left mid and lower lung zone have improved. No new airspace disease. No pleural effusion or pneumothorax. Heart remains borderline enlarged. Atherosclerotic aorta is unchanged. IMPRESSION: Improving left basilar heterogeneous consolidations likely due to resolving pneumonia as per patient's history. Dictated by: Dictated on workstation # [id number]
[2017-03-07 08:00] VITALS: BP 128/58
[2017-03-07] MEDS: SENNA W/DOCUSATE (SENOKOT S) TABLET PO SCH ×2 (08:40→19:48)
[2017-03-07] MEDS: MULTIVIT W/MINERALS TAB (THERAGRAN M) PO SCH (08:40)
[2017-03-07] MEDS: MAGNESIUM OXIDE (MAG-OX)400 MG TAB PO SCH ×2 (08:40→17:33)
[2017-03-07] MEDS: VITAMIN D3 5,000 UNITS (CHOLECALCIFEROL ) CAPSULE PO SCH (08:40)
[2017-03-07] MEDS: CYANOCOBALAMIN 500 MCG TAB (VITAMIN B-12) PO SCH (08:40)
[2017-03-07] MEDS: ASPIRIN E.C. 81 MG (ECOTRIN) TAB PO SCH (08:41)
[2017-03-07] MEDS: PANTOPRAZOLE 40 MG (PROTONIX) TAB PO SCH (08:41)
[2017-03-07] MEDS: AZITHROMYCIN 250 MG TAB (ZITHROMAX) PO SCH (08:41)
[2017-03-07] MEDS: amLODIPine 5 MG (NORVASC) TAB PO SCH (08:41)
[2017-03-07] MEDS: cefTRIAXone 1 GM/NS 50 ML IVPB IV SCH ×2 (08:41)
--- NOTE | 2017-03-07 11:31 | Physical Therapy Daily Note ---
PT Daily Note-Current Subjective Patient reports improved condition since admission into the hospital. She agrees to PT. Pain Numeric Pain Scale: 0-No Pain Location: No Pain Reported Appearance Patient appears generally healthy. She is left post tx in bed with call light in reach. Mental Status Patient Orientation: Normal For Age Transfers Functional [place] Measure 0=Not Assessed/NA 4=Minimal Assistance 1=Total Assistance 5=Supervision or Setup 2=Maximal Assistance 6=Modified [place] 3=Moderate Assistance 7=Complete IndependenceIRFPAI Quality Coding Scale 6 Independent with activity with or without an assistive device 5 Patient requires set up or clean up by helper. Patient completes activity by themselves 4 Supervision or touching assist (CGA). [place] provide cues , steadying assist 3 The helper provides less than half the effort to complete the activity 2 The helper provides more than half the effort to complete the activity 1 Dependent. The helper does all the effort to complete an activity 7 Patient refused to complete or attempt activity 9 The patient did not perform the activity before the current illness or injury 88 Not attempted due to Medical conditions or safety concerns Transfers (B, C, W/C) (FIM): 7 Scootin Rollin Supine to/from Sit: 7 Sit to/from Stand: 7 Patient is independent with transfers. Weight Bearing Right Lower Extremity: Right Full Weight Bearing Left Lower Extremity: Left Full Weight Bearing Gait Training Gait (FIM): 6 Distance: >300' Gait Level of Assist: 6 Gait Assistive Device: FWW Patient ambulates normally with FWW. Exercises Seated Therapy Exercises: Long arc quads, Hip flexion Seated Reps: 20 Standing: Hamstring curls, Heel/toe raises, Marching Standing Reps: 20 Assessment Current Status: Good Progress Patient is mostly independent with transfers and gait .She states today gave her a good workout. Her main limitation is SOB with activity. PT Senior Care Goals Concession Supervisor Goals PT Senior Care Goals Time Frame: Mar 10, 2017 Transfers (B,C,W/C) (FIM): 7 Gait (FIM): 6 Distance: 500' Gait Level of Assist: 6 Gait Assistive Device: FWW PT Plan Problem List Problem List: Activity Tolerance, Functional Strength, Safety, Balance, Gait Treatment/Plan Treatment Plan: Continue Plan of Care Treatment Plan: Education, Functional Activity Juma, Functional Strength, Gait , Safety, Therapeutic Exercise Treatment Duration: Mar 10, 2017 Frequency: 5 times per week Estimated Hrs Per Day: .25 hour per day Patient and/or Family Agrees t: Yes Time/GCodes Time In: 1013 Time Out: 1036 Total Billed Treatment Time: 23 Total Billed Treatment 1 visit 12 min GT 11 min EX DARLINE CAIN PT Mar 07, 2017 11:31
[2017-03-07 12:00] VITALS: BP 118/55
--- NOTE | 2017-03-07 14:40 | Progress Note (SOAP) ---
Subjective Date Seen by Provider: Mar 07, 2017 Time Seen by Provider: 12:35 Subjective/Events-last exam Fwup acute pneumonia, COPD exacerbation, weakness, abnormal weight loss, anemia , hypokalemia. Started PT. Not as short of air. Still no BM but feels like could go. Objective Exam Vital Signs Date Time Temp Pulse Resp B/P (MAP) Pulse Ox O2 Delivery O2 Flow Rate FiO2 03/07/17 14:13 94 Nasal Cannula 2.00 03/07/17 12:00 98.6 83 20 118/55 (76) 95 Nasal Cannula 2.00 03/07/17 10:53 94 Nasal Cannula 2.00 03/07/17 08:05 Nasal Cannula 2.00 03/07/17 08:00 96.8 81 20 128/58 (81) 93 Nasal Cannula 2.00 03/07/17 06:49 95 Nasal Cannula 2.00 03/07/17 04:56 97.7 82 20 104/55 (71) 95 Nasal Cannula 2.00 03/07/17 02:34 94 Nasal Cannula 2.00 03/07/17 00:40 97.5 72 18 107/49 (68) 99 Nasal Cannula 2.00 03/06/17 22:39 Nasal Cannula 2.00 03/06/17 22:34 95 Nasal Cannula 2.00 03/06/17 19:45 Nasal Cannula 2.00 03/06/17 19:37 97.1 78 20 120/56 (77) 92 Nasal Cannula 3.50 03/06/17 16:00 96.9 74 18 117/69 (85) 94 Nasal Cannula 3.50 03/06/17 15:12 95 Nasal Cannula 2.00 I & O 03/07/17 07:00 Intake Total 1790 ml Balance 1790 ml Capillary Refill : Less Than 3 Seconds General Appearance: No Apparent Distress Neck: Supple Respiratory: Decreased Breath Sounds, Rhonci Cardiovascular: Regular Rate, Rhythm Gastrointestinal: normal bowel sounds, non tender, soft Extremity: Non Tender, No Calf Tenderness, No Pedal Edema Neurologic/Psychiatric: Alert, Oriented x3 Skin: Normal Color Results Lab Laboratory Tests 03/06/17 16:46: Stool Occult Blood Immunoassay NEGATIVE 03/07/17 05:15: White Blood Count 11.6H, Red Blood Count 2.65L, Hemoglobin 8.1L, Hematocrit 26L , Mean Corpuscular Volume 97, Mean Corpuscular Hemoglobin 31, Mean Corpuscular Hemoglobin Concent 32, Red Cell Distribution Width 17.3H, Platelet Count 143, Mean Platelet Volume 11.9H, Neutrophils (%) (Auto) 90H, Lymphocytes (%) (Auto) 8L, Monocytes (%) (Auto) 2, Eosinophils (%) (Auto) 0, Basophils (%) (Auto) 0, Neutrophils # (Auto) 10.5H, Lymphocytes # (Auto) 1.0, Monocytes # (Auto) 0.2, Eosinophils # (Auto) 0.0, Basophils # (Auto) 0.0, Sodium Level 139, Potassium Level 4.1, Chloride Level 102, Carbon Dioxide Level 23, Anion Gap 14, Blood Urea Nitrogen 18, Creatinine 0.71, Estimat Glomerular Filtration Rate > 60, BUN/ Creatinine Ratio 25, Glucose Level 168H, Calcium Level 9.4, Magnesium Level 1.5L Microbiology 03/04/17 Blood Culture - Preliminary, Resulted No growth 03/04/17 Gram Stain - Final, Complete 03/04/17 Sputum Culture - Final, Complete Haemophilus Influenza Normal jeancarlos Presumptive Vianca Albicans Assessment/Plan Assessment/Plan Assess & Plan/Chief Complaint 1. Acute Pneumonia--continue abx, CXR improving 2. Exacerbation of COPD--continue solumedrol, continue oxygen and SVNs 3. Weakness--multifactorial, continue PT, SWING bed eval 4. Anemia--Check CBC in AM, SPEP pending 5. Hypokalemia--potassium improved 6. Hypomagnesemia--replace magnesium Clinical Quality Measures DVT/VTE Risk/Contraindication: Risk Factor Score Per Nursin RFS Level Per Nursing on Admit: 4+=Very High JANNY JOSEPH DO Mar 07, 2017 14:40
[2017-03-07 15:27] VITALS: BP 126/59
[2017-03-07] MEDS: MAGNESIUM 1 GM/100 ML IVPB 100 ML IV SCH ×2 (15:48→16:56)
[2017-03-07 20:00] VITALS: BP 115/56
[2017-03-08] VITALS: BP 114/56
[2017-03-08] MEDS: RT-ALBUTEROL SULF 2.5 MG/3 ML PRE-MIX VIAL IH SCH ×3 (02:54→10:57)
[2017-03-08 04:00] VITALS: BP 119/57
[2017-03-08] MEDS: methylPREDNISolone 40 MG/ML (Solu-MEDROL) VIAL IV SCH ×2 (06:05→12:46)
[2017-03-08] MEDS: CALCIUM CARBONATE 600 MG (CALCARB) TAB PO SCH (06:05)
[2017-03-08] MEDS: KCL 10 MEQ TAB (MICRO K) PO SCH (06:05)
[2017-03-08 06:26] LABS: BASOPHILS % (AUTO) 0 % (0-10); EOSINOPHILS % (AUTO) 0 % (0-10); LYMPHOCYTES # (AUTO) 0.5 X 10^3 (1.0-4.0); LYMPHOCYTES % (AUTO) 5 % (12-44); MEAN CORPUSCULAR HEMOGLOBIN 31 PG (25-34); MEAN CORPUSCULAR HGB CONC 32 G/DL (32-36); MEAN CORPUSCULAR VOLUME 98 FL (80-99); MEAN PLATELET VOLUME 11.3 FL (7.4-10.4); MONOCYTES # (AUTO) 0.5 X 10^3 (0.0-1.0); MONOCYTES % (AUTO) 5 % (0-12); NEUTROPHILS # (AUTO) 8.8 X 10^3 (1.8-7.8); NEUTROPHILS % (AUTO) 90 % (42-75); PLATELET COUNT 156 10^3/uL (130-400); RED BLOOD COUNT 2.62 10^6/uL (4.35-5.85); RED CELL DISTRIBUTION WIDTH 17.4 % (10.0-14.5); WHITE BLOOD COUNT 9.7 10^3/uL (4.3-11.0)
[2017-03-08 06:49] LABS: ANION GAP 12 MMOL/L (5-14); BLOOD UREA NITROGEN 19 MG/DL (7-18); BUN/CREATININE RATIO 29; CALCIUM 8.6 MG/DL (8.5-10.1); CARBON DIOXIDE 25 MMOL/L (21-32); CHLORIDE 105 MMOL/L (98-107); CREATININE SERUM 0.66 MG/DL (0.60-1.30); GFR ESTIMATED > 60; GLUCOSE 149 MG/DL (70-105); MAGNESIUM 1.9 MG/DL (1.8-2.4); POTASSIUM 4.1 MMOL/L (3.6-5.0); SODIUM 142 MMOL/L (135-145)
[2017-03-08] MEDS: RT-ADVAIR HFA 115/21 MCG PER PUFF IH SCH (07:01)
--- NOTE | 2017-03-08 07:16 | Physician Query-Pneumonia ---
Physician Query-Pneumonia Query to Physician: We need your assistance to accurately assign a code / DRG. Physician participation is requested in all cases of women's health care nurse practitioner uncertainty to minimize errors in code assignment and to avoid compliance issues. Based on documentation of pneumonia in the record, a review of the record revealed: Risk Factors-COPD with acute exacerbation Dyspnea on exertion/Wheezing Clinical Findings: Chest xray of 03/07/17 impression: Improving left basilar heterogeneous consolidations likely due to resolving pneumonia. Treatment: IV Rocephin, IV Azithromycin Positive sputum culture for: Haemophilus Influenza, Normal [place], Presumptive Vianca Albicans Record revealed: Infiltrate on chest x-ray, Worsening/cough,dyspnea Treatment: IV Rocephine, IV Azithromycin PHYSICIAN RESPONSE: Specific type of pneumonia: Vianca, H.Influenzae If you have questions please contact: Counter Clerk [employer]:Dustin Lazo [facility] Ext:[phone] or [phone] Thank you for your time and cooperation. Clinical Sequins Winder/Counter [employer] This is a permanent part of the medical record DUSTIN LAZO Mar 08, 2017 07:16 JANNY JOSEPH DO Mar 10, 2017 10:57
[2017-03-08 07:29] VITALS: BP 115/56
[2017-03-08 08:07] LABS: IMMUNOFIX PATH REPORT NUMBER Complete (Complete)
[2017-03-08] MEDS: amLODIPine 5 MG (NORVASC) TAB PO SCH (08:39)
[2017-03-08] MEDS: MAGNESIUM OXIDE (MAG-OX)400 MG TAB PO SCH (08:39)
[2017-03-08] MEDS: CYANOCOBALAMIN 500 MCG TAB (VITAMIN B-12) PO SCH (08:39)
[2017-03-08] MEDS: AZITHROMYCIN 250 MG TAB (ZITHROMAX) PO SCH (08:39)
[2017-03-08] MEDS: ASPIRIN E.C. 81 MG (ECOTRIN) TAB PO SCH (08:39)
[2017-03-08] MEDS: MULTIVIT W/MINERALS TAB (THERAGRAN M) PO SCH (08:39)
[2017-03-08] MEDS: SENNA W/DOCUSATE (SENOKOT S) TABLET PO SCH (08:39)
[2017-03-08] MEDS: VITAMIN D3 5,000 UNITS (CHOLECALCIFEROL ) CAPSULE PO SCH (08:39)
[2017-03-08] MEDS: PANTOPRAZOLE 40 MG (PROTONIX) TAB PO SCH (08:39)
[2017-03-08] MEDS: cefTRIAXone 1 GM/NS 50 ML IVPB IV SCH ×2 (08:40)
--- NOTE | 2017-03-08 10:37 | Physical Therapy Daily Note ---
PT Daily Note-Current Subjective Patient is doing well this a.m. She inquires if she has been accepted for swing bed yet. She agrees to PT. Pain Numeric Pain Scale: 0-No Pain Location: No Pain Reported Appearance Patient appears in good health. Mental Status Patient Orientation: Normal For Age Attachments: Oxygen 2.0 L nasal canula Transfers Functional [place] Measure 0=Not Assessed/NA 4=Minimal Assistance 1=Total Assistance 5=Supervision or Setup 2=Maximal Assistance 6=Modified [place] 3=Moderate Assistance 7=Complete IndependenceIRFPAI Quality Coding Scale 6 Independent with activity with or without an assistive device 5 Patient requires set up or clean up by helper. Patient completes activity by themselves 4 Supervision or touching assist (CGA). [place] provide cues , steadying assist 3 The helper provides less than half the effort to complete the activity 2 The helper provides more than half the effort to complete the activity 1 Dependent. The helper does all the effort to complete an activity 7 Patient refused to complete or attempt activity 9 The patient did not perform the activity before the current illness or injury 88 Not attempted due to Medical conditions or safety concerns Transfers (B, C, W/C) (FIM): 7 Scootin Rollin Supine to/from Sit: 7 Sit to/from Stand: 7 Patient is independent in the room. Weight Bearing Right Lower Extremity: Right Full Weight Bearing Left Lower Extremity: Left Full Weight Bearing Gait Training Gait (FIM): 6 Distance: 800' Gait Level of Assist: 6 Gait Assistive Device: FWW Patient walks independently in the room, but she ambulates with a FWW in the hallway. Patient gait pattern is safe reciprocal gait pattern. Treatments transfers, ambulation Assessment Current Status: Good Progress Patient has good tolerance for gait. Patient did not have any reported shortness of breath on this date with ambulation. PT will continue extended gait distance to improve aerobic capacity as well perform therapeutic exercise to improve muscular strength and endurance. PT Residential Goals Pipelaying Fitter Goals PT Pipelaying Fitter Goals Time Frame: Mar 10, 2017 Transfers (B,C,W/C) (FIM): 7 Gait (FIM): 6 Distance: 500' Gait Level of Assist: 6 Gait Assistive Device: FWW PT Plan Problem List Problem List: Activity Tolerance, Functional Strength, Safety, Balance, Gait Treatment/Plan Treatment Plan: Continue Plan of Care Treatment Plan: Education, Functional Activity Juma, Functional Strength, Gait , Safety, Therapeutic Exercise Treatment Duration: Mar 10, 2017 Frequency: 5 times per week Estimated Hrs Per Day: .25 hour per day Patient and/or Family Agrees t: Yes Safety Risks/Education Patient Education: Gait Training, Transfer Techniques, Correct Positioning, Safety Issues Teaching Recipient: Patient Teaching Methods: Demonstration, Discussion Response to Teaching: Reinforcement Needed Time/GCodes Time In: 1020 Time Out: 1034 Total Billed Treatment Time: 14 Total Billed Treatment 1 visit GT 14 min VICKY DONATO PT Mar 08, 2017 10:37
--- NOTE | 2017-03-10 10:56 | Discharge Summary ---
Diagnosis/Chief Complaint Date of Admission Mar 04, 2017 at 12:10 Date of Discharge Mar 08, 2017 at 12:49 Discharge Date: Mar 08, 2017 Discharge Diagnosis 1. Acute LLL Pneumonia with Haemophilus influenza and parish albicans-- improving 2. Exacerbation of COPD--improving 3. Iron Deficiency Anemia--H/H stable, started on IV venofer 4. Hypertension--stable 5. Weakness--PT/OT on SWING bed 6. Hypokalemia--resolved 7. Hypomagnesemia--resolved 8. Constipation 9. Weight loss, arthralgias and elevated protein--awaiting SPEP and then possible oncology evaluation--may need bone marrow Discharge Summary Hospital Course Hospital Course This is a 76 year old female brought to the emergency room with cough and shortness of air. She was found to have a left lower lobe pneumonia. She was also found to be anemic with an elevated protein level. She was admitted and placed on IV rocephin and zithromax as well as oxygen and nebulizer treatments with duoneb. IV solumedrol had to be added for wheezing and rhonchi for COPD exacerbation. Her CXR improved with the rocephin and zithromax and clinically her rhonchi and wheezing improved with the addition of IV solumedrol. A SPEP was ordered and results are still pending at the time of her discharge to SWING bed but have discussed need for oncology evaluation once results obtained and may need bone marrow biopsy. Her iron studies were low so IV venofer will be added for her anemia. Her hemoglobin has been stable at low 8s. She did have hypokalemia which was corrected orally as well as low magnesium. She also had constipation and senokot-s as well as miralax were added for this. PT was started for strengthening and it was decided she would need a SWING bed evaluation for further treatment and strengthening. She did qualify and at this time will be transferred to SWING bed status. Labs Laboratory Tests 03/08/17 05:42: Red Blood Count 2.62L, Hemoglobin 8.1L, Hematocrit 26L, Red Cell Distribution Width 17.4H, Mean Platelet Volume 11.3H, Neutrophils (%) (Auto) 90H, Lymphocytes (%) (Auto) 5L, Neutrophils # (Auto) 8.8H, Lymphocytes # (Auto) 0.5L , Blood Urea Nitrogen 19H, Glucose Level 149H Procedures None. Discharge Physical Examination Allergies: Coded Allergies: venom-honey bee (Verified Allergy, Severe, 08/08/11) codeine (Unverified Allergy, Unknown, 03/02/10) Vitals & I&Os Vital Signs Date Time Temp Pulse Resp B/P (MAP) Pulse Ox O2 Delivery O2 Flow Rate FiO2 03/08/17 10:57 97 Nasal Cannula 2.00 03/08/17 07:29 96.7 81 20 115/56 (75) 03/04/17 15:11 28 General Appearance: Alert, Oriented X3, No Acute Distress Respiratory: Clear to Auscultation Cardiovascular: Regular Rate Abdominal: Normal Bowel Sounds, Soft, No Tenderness Extremities: No Clubbing, No Cyanosis, No Edema Skin: No Rashes Psych/Mental Status: Mental Status NL, Mood NL Discharge Home Medications Reviewed and agree with Discharge Medication list on patient's Discharge Instruction sheet Instructions to Patient/Family Please see electronic discharge instructions given to patient. Clinical Quality Measures DVT/VTE Risk/Contraindication: Risk Factor Score Per Nursin RFS Level Per Nursing on Admit: 4+=Very High JANNY JOSEPH DO Mar 10, 2017 10:56
[2017-03-13] MEDS ORDERED: MAGN400T6 PO (12:21)
[2017-03-13] MEDS ORDERED: PRD20T PO (12:21)
== END 2017-03-08 12:49 | disposition swing bed (61) | DRG 177 ==
LOC: EDUNIT# 09:58 → ER 10:00 → 4TH 12:10
PROVIDERS: ADMIT Internal Medicine; ATTEND Family Medicine
DX: B37.1 Pulmonary candidiasis (principal); J14 Pneumonia due to Hemophilus influenzae; J44.1 Chronic obstructive pulmonary disease with (acute) exacerbation; J44.0 Chronic obstructive pulmonary disease with (acute) lower respiratory infection; I10 Essential (primary) hypertension; K21.9 Gastro-esophageal reflux disease without esophagitis; F17.210 Nicotine dependence, cigarettes, uncomplicated; Z66 Do not resuscitate; R63.4 Abnormal weight loss; D50.9 Iron deficiency anemia, unspecified; E87.6 Hypokalemia; E83.42 Hypomagnesemia; R77.9 Abnormality of plasma protein, unspecified; M53.3 Sacrococcygeal disorders, not elsewhere classified; R63.0 Anorexia; R53.83 Other fatigue; R53.1 Weakness; K59.00 Constipation, unspecified
CPT/HCPCS: 36415; 71010; 71020; 80048; 80053; 81000; 82274; 82607; 82728; 83540; 83605; 83735; 83883; 84155; 84165; 85025; 85045; 85610; 85730; 86334; 87040; 87070; 87077; 87205; 87804; 94640; 94664; 94760; 96365

== ENCOUNTER 2017-03-08 12:56 | Inpatient (IN) | payer MEDICARE ==
[~2017-03-08] VITALS: Ht 167.6 cm; Wt 71.2 kg
[~2017-03-08 12:56] MED LIST changes: +ALBU2.5V4 IH; +ASPI-983 PO; +CA C1TAB80 PO; +CALC-308 PO; +CHOL10007 PO; +CHOL500044 PO; +CYAN100088 PO; +EPIN0.3A3 IM; +FLUT16SP22 NSEACH; +MULT1TAB69 PO; +OMEP20CA12 PO
[2017-03-08] MEDS ORDERED: ONDANSETRON 4 MG/2 ML (SDV) Z0FRAN IV PRN (13:00)
[2017-03-08] MEDS ORDERED: ACETAMINOPHEN 325 MG TABLET/CAPLET (TYLENOL) PO PRN (13:00)
[2017-03-08] MEDS ORDERED: RT-ALBUTEROL SULF 2.5 MG/3 ML PRE-MIX VIAL IH PRN (13:00)
[2017-03-08] MEDS ORDERED: LORazepam 0.5 MG (ATIVAN) TABLET PO PRN (13:00)
[2017-03-08] MEDS ORDERED: MILK OF MAGNESIA 400 MG/5 ML 30 ML UDC PO NR (13:15)
[2017-03-08] MEDS ORDERED: CATHETER FLUSH 10 ML SYR IV PRN (13:30)
[2017-03-08] MEDS: IRON SUCROSE INJECTION 200 MG in NS (IVPB) 100 ML IV SCH (13:45)
[2017-03-08] MEDS: CATHETER FLUSH 10 ML SYR IV SCH ×2 (13:53→21:19)
--- NOTE | 2017-03-08 15:17 | Physical Therapy Evaluation ---
PT Evaluation-General Medical Diagnosis Admission Date Mar 08, 2017 at 12:56 Medical Diagnosis: Pneumonia LLL, COPD Onset Date: Mar 06, 2017 Therapy Diagnosis Therapy Diagnosis: weakness, SOB with activity Height/Weight Height (Feet): 5 Height (Inches): 6.00 Weight (Pounds): 156 Weight (Ounces): 15.5 Precautions Precautions/Isolations: Fall Prevention, Standard Precautions Weight Bear Status Right Lower Extremity: Right Full Weight Bearing Left Lower Extremity: Left Full Weight Bearing Referral Physician: Yvette Reason for Referral: Evaluation/Treatment, Strengthening, Gait Medical History Pertinent Medical History: HTN, Smoking Additional Medical History reflux, hysterectomy Social History Home: Single Level Current Living Status: Alone Entry Into Home: Stairs With Railing PT Steps Into Home: 3 Prior/Core FIM Prior Level of Function Functional [place] Measure 0=Not Assessed/NA 4=Minimal Assistance 1=Total Assistance 5=Supervision or Setup 2=Maximal Assistance 6=Modified [place] 3=Moderate Assistance 7=Complete [place] Bed Mobility: 7 Transfers (B,C,W/C) (FIM): 7 Gait: 7 Locomotion: 7 PT Evaluation-Current Subjective Patient states she is doing well this afternoon. She agrees to PT eval. Pain Numeric Pain Scale: 0-No Pain Location: No Pain Reported Pt/Family Goals Patient wishes to return to normal function at home. Objective Patient Orientation: Person, Place, Time, Situation Attachments: Oxygen 2.0 L nasal canula ROM/Strength ROM Upper Extremities WNL ROM Lower Extremities WNL Strength Upper Extremities WNL Strenght Lower Extremities bilateral hip flexion 4/5; knee flexion/extension 5/5 Integumentary/Posture Integumentary intact Bowel Incontinence: No Bladder Incontinence: No Neuromuscular (Tone, Coordination, Reflexes) normal Sensory Vision: Functional Hearing: Functional Sensation Right Upper Extremit: Intact Sensation Left Upper Extremity: Intact Sensation Right Lower Extremit: Intact Sensation Left Lower Extremity: Intact Transfers Functional [place] Measure 0=Not Assessed/NA 4=Minimal Assistance 1=Total Assistance 5=Supervision or Setup 2=Maximal Assistance 6=Modified [place] 3=Moderate Assistance 7=Complete [place] Transfers (B, C, W/C) (FIM): 6 Scootin Rollin Supine to/from Sit: 6 Sit to/from Stand: 6 Sit to Lying (QC): 6 Lying to Sitting/Side of Bed(Q: 6 Sit to Stand (QC): 6 Chair/[id number] Xfer(QC): 6 Patient ambulates safely mod I in the room. Patient is safe with all transfers and bed mobility. Gait Does the Patient Walk?: Yes Mode of Locomotion: Walk Anticipated Mode of Locomotion: Walk Gait (FIM): 6 Distance: 800' Walk 50 ft with 2 Turns(QC): 6 Walk 150 ft (QC): 6 Gait Level of Assist: 6 Gait Assistive Device: FWW Comments/Gait Description Patient ambulates with normal reciprocal gait pattern with FWW in hallways. Balance Sitting Static: Normal Sitting Dynamic: Normal Standing Static: Normal Standing Dynamic: Normal Treatment Patient performs therapeutic exercise including standing marching and hip flexion/extension/abduction, 20 repetitions bilaterally. Assessment/Needs Patient functions nearly independent in the room. Patient does have some shortness of breath with activity. PT will provide interventions to improve aerobic capacity and activity tolerance. Rehab Potential: Good PT Short Term Goals Short Term Goals Gait Assistive Device: FWW PT Penitentiary Goals Penitentiary Goals PT Penitentiary Goals Time Frame: Mar 15, 2017 Gait (FIM): 6 Distance: 1000' Walk 50ft with 2 Turns (QC): 6 Walk 150 ft (QC): 6 Gait Assistive Device: FWW PT Plan Problem List Problem List: Activity Tolerance, Functional Strength, Safety, Balance, Gait Treatment/Plan Treatment Plan: Continue Plan of Care Treatment Plan: Education, Functional Activity Juma, Functional Strength, Gait , Safety, Therapeutic Exercise Treatment Duration: Mar 15, 2017 Frequency: 6 times per week Estimated Hrs Per Day: .25 hour per day (15-30 min) Patient and/or Family Agrees t: Yes Safety Risks/Education Patient Education: Gait Training, Transfer Techniques, Correct Positioning, Safety Issues Teaching Recipient: Patient Teaching Methods: Demonstration, Discussion Response to Teaching: Verbalize Understanding, Return Demonstration Discharge Recommendations Plan Patient will perform bed mobility and transfer training, balance and endurance training, functional strengthening, stair training, gait training, and education , to improve functional mobility and independence at home. Therapy D/C Recommendations: Home w/ Family Support, Home Independently Equpiment Recommendations-D/C: Front Wheeled Walker Time/GCodes Time In: 1443 Time Out: 1513 Total Billed Treatment Time: 30 Total Billed Treatment 1 visit EVL 30 min VICKY DONATO PT Mar 08, 2017 15:17
[2017-03-08] MEDS: RT-ALBUTEROL SULF 2.5 MG/3 ML PRE-MIX VIAL IH SCH ×3 (15:29→22:22)
--- NOTE | 2017-03-08 16:30 | Occupational Therapy Eval ---
OT Evaluation-General/PLF Medical Diagnosis Admission Date Mar 08, 2017 at 12:56 Medical Diagnosis: Pneumonia LLL, COPD Onset Date: Mar 06, 2017 Therapy Diagnosis Therapy Diagnosis: Weakness Height/Weight Height (Feet): 5 Height (Inches): 6.00 Weight (Pounds): 156 Weight (Ounces): 15.5 Precautions Precautions/Isolations: Fall Prevention, Standard Precautions Weight Bear Status Weight Bearing Restriction: Weight Bearing/Tolerated Referral Physician: Yvette Referral Reason: Activity Tolerance, Self Care, Evaluation/Treatment, Strengthening/ROM Medical History Pertinent Medical History: HTN, Smoking Additional Medical History Right knee replacement, bladder surgery, hysterectomy Current History Pt. states that she was recently diagnosed with Cancer. Became ill. States, "they are running a bunch of blood tests." Reviewed History: Yes Social History Home: Single Level Current Living Status: Alone Entry Into Home: Stairs With Railing Steps Into Home: 3 ADL-Prior Level of Function ADL PLOF Comments Pt. lives alone but states that there are "lots of people in and out." Pt. states that she is independent with daily skills. DME/Equipment: Tub/Shower DME/Equipment Comments Pt. has a cane and walker that has no wheels. Drive Self: Yes OT Current Status Subjective OT offers pt. shower. Pt. states, "I just had one." No pain reported. Appearance Pt. in bed. Agrees to work with OT. Mental Status/Objective Patient Orientation: Person, Place, Time Attachments: Oxygen Current Glasses/Contacts: Yes Upper Extremity ROM WFL Upper Extremity Strength 4/5 bilateral UE strength ADL-Treatment Functional [place] Measure 0=Not Assessed/NA 4=Minimal Assistance 1=Total Assistance 5=Supervision or Setup 2=Maximal Assistance 6=Modified [place] 3=Moderate Assistance 7=Complete IndependenceIRFPAI Quality Coding Scale 6 Independent with activity with or without an assistive device 5 Patient requires set up or clean up by helper. Patient completes activity by themselves 4 Supervision or touching assist (CGA). [place] provide cues , steadying assist 3 The helper provides less than half the effort to complete the activity 2 The helper provides more than half the effort to complete the activity 1 Dependent. The helper does all the effort to complete an activity 7 Patient refused to complete or attempt activity 9 The patient did not perform the activity before the current illness or injury 88 Not attempted due to Medical conditions or safety concerns Lower Body Dressing (FIM): 6 (Pt. able to don socks with no difficulty by holding onto bedrail.) Transfers (B, C, W/C) (FIM): 6 (Mod I with walker. Pt. able to transfer supine -sit, sit-stand, and back to supine.) Other Treatments Pt. demonstrates good balance and ADL skills with some fatigue issues. OT educated her on ADL goals and strengthening goals. Pt. verbalizes understanding. OT will follow pt. and provide HEP to increase overall strength and endurance. Education OT Patient Education: Progress toward Goal/Update tx plan, Purpose of tx/ functional activities, Reviewed precautions, Rehab process Teaching Recipient: Patient Teaching Methods: Demonstration, Discussion Response to Teaching: Verbalize Understanding, Return Demonstration OT Short Term Goals Short Term Goals 1=Demonstrate adherence to instructed precautions during ADL tasks. 2=Patient will verbalize/demonstrate understanding of assistive devices/ modifications for ADL. 3=Patient will improve strength/tolerance for activity to enable patient to perform ADL's. OT [place] Stitcher Goals [place] Stitcher Goals Time Frame: Mar 15, 2017 Eating (FIM): 6 Eating (QC): 6 Groomin Oral Hygiene (QC): 6 Bathing(FIM): 6 Upper Body Dressing(FIM): 6 Lower Body Dressing(FIM): 6 Toileting(FIM): 6 Toileting Hygiene (QC): 6 Transfers (B,C,W/C) (FIM): 6 Toilet/Commode Transfer(FIM): 6 Toilet/Commode Transfer (QC): 6 Tub Transfer(FIM): 6 Shower Transfer(FIM): 6 Additional Goals: 1-Demonstrate ADL Tasks, 2-Verbalize Understanding, 3- ImproveStrength/Juma 1=Demonstrate adherence to instructed precautions during ADL tasks. 2=Patient will verbalize/demonstrate understanding of assistive devices/ modifications for ADL. 3=Patient will improve strength/tolerance for activity to enable patient to perform ADL's. OT Education/Plan Problem List/Assessment Assessment: Decreased Activ Tolerance, Decreased UE Strength, Impaired I ADL's Discharge Recommendations Plan/Recommendations: Continue POC Therapy D/C Recommendations: Home w/ Family Support Equpiment Recommendations-D/C: Bath Chair Treatment Plan/Plan of Care Treatment,Training & Education: Yes Patient would benefit from OT for education, treatment and training to promote independence in ADL's, mobility, safety and/or upper extremity function for ADL' s. Plan of Care: ADL Retraining, Functional Mobility, UE Funct Exercise/Act Treatment Duration: Mar 15, 2017 Frequency: 5 times per week Estimated Hrs Per Day: .25 hour per day Agreement: Yes Rehab Potential: Good Time/GCodes Start Time: 16:00 Stop Time: 16:25 Total Time Billed (hr/min): 25 Billed Treatment Time 1, EVL x 10minutes, ADL x 15minutes JAYCEE SHAH OT Mar 08, 2017 16:30
[2017-03-08] MEDS: KCL 10 MEQ TAB (MICRO K) PO SCH (17:37)
[2017-03-08] MEDS: MAGNESIUM OXIDE (MAG-OX)400 MG TAB PO SCH (17:37)
[2017-03-08 18:00] VITALS: BP 109/67
[2017-03-08] MEDS: RT-ADVAIR HFA 115/21 MCG PER PUFF IH SCH (18:32)
[2017-03-08] MEDS ORDERED: SENNA W/DOCUSATE (SENOKOT S) TABLET PO SCH (21:00)
[2017-03-08] MEDS: SENNA W/DOCUSATE (SENOKOT S) TABLET PO SCH (21:19)
[2017-03-08] MEDS: POLYETHYLENE GLYCOL 17 GM (MIRALAX) PACK PO SCH (21:19)
[2017-03-08] MEDS: methylPREDNISolone 40 MG/ML (Solu-MEDROL) VIAL IV SCH (21:19)
[2017-03-09] MEDS: RT-ALBUTEROL SULF 2.5 MG/3 ML PRE-MIX VIAL IH SCH ×5 (02:38→18:44)
[2017-03-09 06:00] VITALS: BP 123/59
[2017-03-09] MEDS: MULTIVIT W/MINERALS TAB (THERAGRAN M) PO SCH (06:16)
[2017-03-09] MEDS: CALCIUM CARBONATE 600 MG (CALCARB) TAB PO SCH (06:16)
[2017-03-09] MEDS: PANTOPRAZOLE 40 MG (PROTONIX) TAB PO SCH (06:16)
[2017-03-09] MEDS: KCL 10 MEQ TAB (MICRO K) PO SCH (06:16)
[2017-03-09] MEDS: CATHETER FLUSH 10 ML SYR IV SCH ×3 (06:17→20:45)
[2017-03-09 06:23] LABS: BASOPHILS % (AUTO) 0 % (0-10); EOSINOPHILS % (AUTO) 0 % (0-10); LYMPHOCYTES # (AUTO) 0.5 X 10^3 (1.0-4.0); LYMPHOCYTES % (AUTO) 6 % (12-44); MEAN CORPUSCULAR HEMOGLOBIN 31 PG (25-34); MEAN CORPUSCULAR HGB CONC 31 G/DL (32-36); MEAN CORPUSCULAR VOLUME 100 FL (80-99); MEAN PLATELET VOLUME 11.3 FL (7.4-10.4); MONOCYTES # (AUTO) 0.6 X 10^3 (0.0-1.0); MONOCYTES % (AUTO) 7 % (0-12); NEUTROPHILS # (AUTO) 7.8 X 10^3 (1.8-7.8); NEUTROPHILS % (AUTO) 87 % (42-75); PLATELET COUNT 187 10^3/uL (130-400); RED CELL DISTRIBUTION WIDTH 17.8 % (10.0-14.5); WHITE BLOOD COUNT 8.9 10^3/uL (4.3-11.0)
[2017-03-09 06:32] LABS: ANION GAP 11 MMOL/L (5-14); BLOOD UREA NITROGEN 16 MG/DL (7-18); BUN/CREATININE RATIO 25; CALCIUM 9.4 MG/DL (8.5-10.1); CARBON DIOXIDE 27 MMOL/L (21-32); CHLORIDE 103 MMOL/L (98-107); CREATININE SERUM 0.65 MG/DL (0.60-1.30); GFR ESTIMATED > 60; GLUCOSE 107 MG/DL (70-105); POTASSIUM 4.6 MMOL/L (3.6-5.0); SODIUM 141 MMOL/L (135-145)
[2017-03-09 06:47] LABS: ANISOCYTOSIS MODERATE; BAND NEUTROPHILS 1 %; BASOPHILS % (MANUAL) 0 %; EOSINOPHILS % (MANUAL) 0 %; HYPOCHROMASIA SLIGHT; LYMPHOCYTES % (MANUAL) 4 %; NEUTROPHILS % (MANUAL) 89 %; POLYCHROMASIA SLIGHT
[2017-03-09 06:48] LABS: ROULEAUX SLIGHT
[2017-03-09] MEDS: RT-ADVAIR HFA 115/21 MCG PER PUFF IH SCH ×2 (07:18→18:44)
[2017-03-09] MEDS: amLODIPine 5 MG (NORVASC) TAB PO SCH (09:01)
[2017-03-09] MEDS: MAGNESIUM OXIDE (MAG-OX)400 MG TAB PO SCH ×2 (09:01→17:15)
[2017-03-09] MEDS: CYANOCOBALAMIN 500 MCG TAB (VITAMIN B-12) PO SCH (09:01)
[2017-03-09] MEDS: methylPREDNISolone 40 MG/ML (Solu-MEDROL) VIAL IV SCH (09:01)
[2017-03-09] MEDS: SENNA W/DOCUSATE (SENOKOT S) TABLET PO SCH ×2 (09:01→20:46)
[2017-03-09] MEDS: VITAMIN D3 5,000 UNITS (CHOLECALCIFEROL ) CAPSULE PO SCH (09:01)
[2017-03-09] MEDS: ASPIRIN E.C. 81 MG (ECOTRIN) TAB PO SCH (09:02)
[2017-03-09] MEDS: cefTRIAXone INJECTION 1,000 MG in NS (IVPB) 50 ML IV SCH (09:02)
--- NOTE | 2017-03-09 09:49 | Occupational Ther Daily Note ---
OT Current Status-Daily Note Subjective Pt alert, lying in bed. Pt stated she was grumpy today and just gotten hooked up to IV. Mental Status/Objective Functional [place] Measure 0=Not Assessed/NA 4=Minimal Assistance 1=Total Assistance 5=Supervision or Setup 2=Maximal Assistance 6=Modified [place] 3=Moderate Assistance 7=Complete [place] ADL-Treatment Functional [place] Measure 0=Not Assessed/NA 4=Minimal Assistance 1=Total Assistance 5=Supervision or Setup 2=Maximal Assistance 6=Modified [place] 3=Moderate Assistance 7=Complete IndependenceIRFPAI Quality Coding Scale 6 Independent with activity with or without an assistive device 5 Patient requires set up or clean up by helper. Patient completes activity by themselves 4 Supervision or touching assist (CGA). [place] provide cues , steadying assist 3 The helper provides less than half the effort to complete the activity 2 The helper provides more than half the effort to complete the activity 1 Dependent. The helper does all the effort to complete an activity 7 Patient refused to complete or attempt activity 9 The patient did not perform the activity before the current illness or injury 88 Not attempted due to Medical conditions or safety concerns Other Treatment Pt stated that she wanted her daughter to complete shower with her this evening. MATHIAS discussed home environment and AE for safety in bathroom, bedroom and kitchen. Pt given a AE magazine for reference on AE that was discussed. After therapy, pt lying in bed with call light/phone in reach. All needs met in room. OT Short Term Goals Short Term Goals 1=Demonstrate adherence to instructed precautions during ADL tasks. 2=Patient will verbalize/demonstrate understanding of assistive devices/ modifications for ADL. 3=Patient will improve strength/tolerance for activity to enable patient to perform ADL's. OT Wire Weaver Helper Goals Correction Goals Time Frame: Mar 15, 2017 Eating (FIM): 6 Eating (QC): 6 Groomin Oral Hygiene (QC): 6 Bathing(FIM): 6 Upper Body Dressing(FIM): 6 Lower Body Dressing(FIM): 6 Toileting(FIM): 6 Toileting Hygiene (QC): 6 Transfers (B,C,W/C) (FIM): 6 Toilet/Commode Transfer(FIM): 6 Toilet/Commode Transfer (QC): 6 Tub Transfer(FIM): 6 Shower Transfer(FIM): 6 Additional Goals: 1-Demonstrate ADL Tasks, 2-Verbalize Understanding, 3- ImproveStrength/Juma 1=Demonstrate adherence to instructed precautions during ADL tasks. 2=Patient will verbalize/demonstrate understanding of assistive devices/ modifications for ADL. 3=Patient will improve strength/tolerance for activity to enable patient to perform ADL's. OT Education/Plan Discharge Recommendations Plan/Recommendations: Continue POC Treatment Plan/Plan of Care Patient would benefit from OT for education, treatment and training to promote independence in ADL's, mobility, safety and/or upper extremity function for ADL' s. Plan of Care: ADL Retraining, Functional Mobility, UE Funct Exercise/Act Treatment Duration: Mar 15, 2017 Frequency: 5 times per week Estimated Hrs Per Day: .25 hour per day Agreement: Yes Rehab Potential: Good Time/GCodes Start Time: 09:20 Stop Time: 09:43 Total Time Billed (hr/min): 23 Billed Treatment Time 1 visit-FA 2 (23 min) RICHY SWIFT Mar 09, 2017 09:49
--- NOTE | 2017-03-09 11:21 | Physical Therapy Daily Note ---
PT Daily Note-Current Subjective Patient is seated in chair upon PT entering the room. She states she is grumpy today, and she does not know why. Patient agrees to PT. Pain Numeric Pain Scale: 0-No Pain Location: No Pain Reported Appearance Patient appears in good health. Patient is left post treatment seated in chair with call light in reach. Mental Status Patient Orientation: Normal For Age Attachments: Oxygen 2.0 L of O2 Transfers Functional [place] Measure 0=Not Assessed/NA 4=Minimal Assistance 1=Total Assistance 5=Supervision or Setup 2=Maximal Assistance 6=Modified [place] 3=Moderate Assistance 7=Complete IndependenceIRFPAI Quality Coding Scale 6 Independent with activity with or without an assistive device 5 Patient requires set up or clean up by helper. Patient completes activity by themselves 4 Supervision or touching assist (CGA). [place] provide cues , steadying assist 3 The helper provides less than half the effort to complete the activity 2 The helper provides more than half the effort to complete the activity 1 Dependent. The helper does all the effort to complete an activity 7 Patient refused to complete or attempt activity 9 The patient did not perform the activity before the current illness or injury 88 Not attempted due to Medical conditions or safety concerns Transfers (B, C, W/C) (FIM): 6 Sit to/from Stand: 6 Sit to/from stand is only transfer observed on this visit. Patient states she is independent in the room. Patient transfer is deemed safe. Weight Bearing Right Lower Extremity: Right Full Weight Bearing Left Lower Extremity: Left Full Weight Bearing Gait Training Does the Patient Walk?: Yes Gait (FIM): 6 Distance: 800' Gait Level of Assist: 6 Gait Assistive Device: FWW Patient ambulates safely with normal gait pattern in the FWW in the hallways. Exercises Standing: Hip Abduction, Heel/toe raises, 3 way Ex=Flex, Abd, Ext, Marching Standing Reps: 20 Assessment Current Status: Good Progress Patient has good tolerance for gait and therapeutic exercise on this date. She is agreeable to therapeutic intervention. Patient does have some shortness of breath with exercise. PT Short Term Goals Short Term Goals Gait Assistive Device: FWW PT Correction Goals Correction Goals PT Lemon Picker Goals Time Frame: Mar 15, 2017 Rollin Gait (FIM): 6 Distance: 1000' Walk 50ft with 2 Turns (QC): 6 Walk 150 ft (QC): 6 Gait Assistive Device: FWW PT Plan Problem List Problem List: Activity Tolerance, Functional Strength, Safety, Balance, Gait Treatment/Plan Treatment Plan: Continue Plan of Care Treatment Plan: Education, Functional Activity Juma, Functional Strength, Gait , Safety, Therapeutic Exercise Treatment Duration: Mar 15, 2017 Frequency: 6 times per week Estimated Hrs Per Day: .25 hour per day (15-30 min) Patient and/or Family Agrees t: Yes Time/GCodes Time In: 1009 Time Out: 1032 Total Billed Treatment Time: 23 Total Billed Treatment 1 visit EX 10 min GT 13 min DARLINE CAIN PT Mar 09, 2017 11:21
--- NOTE | 2017-03-09 12:30 | Progress Note (SOAP) ---
Subjective Date Seen by Provider: Mar 09, 2017 Time Seen by Provider: 12:26 Subjective/Events-last exam Fwup pneumonia, COPD exacerbation, weakness, constipation, HTN, iron deficiency anemia. Only had small BM. Now admitting to pains in right shoulder, shins etc. Objective Exam Vital Signs Date Time Temp Pulse Resp B/P (MAP) Pulse Ox O2 Delivery O2 Flow Rate FiO2 03/09/17 09:00 Nasal Cannula 2.00 03/09/17 07:21 95 Nasal Cannula 2.00 03/09/17 06:00 97.8 71 20 123/59 (80) 93 03/09/17 02:38 97 Nasal Cannula 2.00 03/08/17 22:22 93 Nasal Cannula 2.00 03/08/17 21:00 Nasal Cannula 2.00 03/08/17 18:32 92 Nasal Cannula 2.00 03/08/17 18:00 97.8 77 18 109/67 (81) 95 03/08/17 15:29 94 Nasal Cannula 2.00 I & O 03/09/17 07:00 Intake Total 3850 ml Output Total 1550 ml Balance 2300 ml Capillary Refill : General Appearance: No Apparent Distress Neck: Supple Respiratory: Lungs Clear Cardiovascular: Regular Rate, Rhythm, Gallop/S4 Gastrointestinal: normal bowel sounds, non tender, soft Extremity: Non Tender, No Calf Tenderness, No Pedal Edema Neurologic/Psychiatric: Alert, Oriented x3 Results Lab Laboratory Tests 03/09/17 05:33: White Blood Count 8.9, Red Blood Count 2.80L, Hemoglobin 8.6L, Hematocrit 28L, Mean Corpuscular Volume 100H, Mean Corpuscular Hemoglobin 31, Mean Corpuscular Hemoglobin Concent 31L, Red Cell Distribution Width 17.8H, Platelet Count 187, Mean Platelet Volume 11.3H, Neutrophils (%) (Auto) 87H, Lymphocytes (%) (Auto) 6L, Monocytes (%) (Auto) 7, Eosinophils (%) (Auto) 0, Basophils (%) (Auto) 0, Neutrophils # (Auto) 7.8, Lymphocytes # (Auto) 0.5L, Monocytes # (Auto) 0.6, Eosinophils # (Auto) 0.0, Basophils # (Auto) 0.0, Neutrophils % (Manual) 89, Lymphocytes % (Manual) 4, Monocytes % (Manual) 6, Eosinophils % (Manual) 0, Basophils % (Manual) 0, Band Neutrophils 1, Toxic Granulation 1+, Polychromasia SLIGHT, Hypochromasia SLIGHT, Anisocytosis MODERATE, Macrocytosis MODERATE, Rouleau SLIGHT, Sodium Level 141, Potassium Level 4.6, Chloride Level 103, Carbon Dioxide Level 27, Anion Gap 11, Blood Urea Nitrogen 16, Creatinine 0.65, Estimat Glomerular Filtration Rate > 60, BUN/Creatinine Ratio 25, Glucose Level 107H, Calcium Level 9.4 Assessment/Plan Assessment/Plan Assess & Plan/Chief Complaint 1. Pneumonia--improving 2. COPD exacerbation--improved so will change to oral prednisone 3. HTN--stable 4. Weakness--continue PT/OT 5. Iron Def Anemia--on Venofer 6. Hypokalemia--resolved, decrease potassium dose 7. Bone pain with increased protein--awaiting final on SPEP and pathology--may need bone marrow biopsy Clinical Quality Measures DVT/VTE Risk/Contraindication: Risk Factor Score Per Nursin JANNY JOSEPH DO Mar 09, 2017 12:30
[2017-03-09] MEDS ORDERED: BISACODYL 10 MG SUPP (DULCOLAX) PR NR (14:15)
--- NOTE | 2017-03-09 17:09 | Diagnostic Imaging Report ---
BONE SURVEY COMPLETE COMPARISON: None available. INDICATION: Monoclonal gammopathy. TECHNIQUE: Multiple projections of the skull, appendicular and axial skeleton were obtained for a total of 21 views. FINDINGS: Skull: No focal lytic lesion in the calvarium. Cervical, thoracic and lumbar spine: Diffuse osteoporosis limits assessment of the vertebral bodies. Allowing for this, no pathologic compression fracture. There is degenerative levocurvature of the lumbar spine. Multilevel degenerative changes are noted. Atherosclerotic calcifications of the aorta. Chest: No definitive expansile lytic lesions in the ribs. Pelvis: No bubbly expansile lytic lesion in the pelvis to suggest plasmacytoma. Lower extremities: No focal lytic lesions or periosteal reaction. Right total knee arthroplasty. Upper extremities: No focal lytic lesions or abnormal periosteal reaction. IMPRESSION: 1. No evidence of focal lytic myelomatous lesion. Dictated by: Dictated on workstation # [id number]
[2017-03-09] MEDS: predniSONE 20 MG TAB PO SCH (17:15)
[2017-03-09 18:00] VITALS: BP 147/72
--- NOTE | 2017-03-09 19:09 | CONSULTATION REPORT ---
DATE OF SERVICE: 03/09/2017 Referring and primary physician: Sarahy Crawford M.D. The patient is admitted to room 412. ASSESSMENT: 1. A 76-year-old female admitted with a left lower lobe pneumonia and exacerbation of chronic obstructive pulmonary disease. 2. Elevated total protein noted at the time of admission. 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 Rule out multiple myeloma. RECOMMENDATIONS: 1. Continue management of pneumonia as you are doing. 2. I will obtain a skeletal survey, quantitative immunoglobulins, and beta-2 microglobulin level. 3. I will schedule the patient for a bone marrow aspiration and biopsy for next week. 4. I will follow the patient up in 7to 10 days after the bone marrow aspiration and biopsy to review the results and discuss about the findings. 5. If the patient is discharged prior to the scheduled bone marrow aspiration and biopsy, I will perform the testing on an outpatient basis. 6. Contact the Cancer Center prior to the patient being discharged so as to schedule the bone marrow aspiration biopsy as well as to follow up visit on an outpatient basis. BRIEF HISTORY: The patient is a 76-year-old female who was admitted to the hospital with increasing cough and shortness of breath. She was found to have a left lower lobe infiltrate and admitted to the hospital with a community-acquired pneumonia and exacerbation of COPD. Admission lab work showed an elevated total protein level and a serum protein electrophoresis was obtained. This showed a monoclonal gammopathy identified as IgA kappa at more than 4 grams per deciliter. Hence, an oncology consultation was requested. The patient mentioned that she has had increasing aches and pains in her lower back since the last several months. She also gives a history of 50 pound weight loss over the last year which was not intentional. She denied her mouth being dry all the time. She has had upper respiratory infections intermittently but no major infections requiring hospitalization other than the current admission. No diarrhea, hematochezia or melena, but had tendency for constipation. No chest pain, palpitations, orthopnea or PND. No tingling, numbness or weakness of the extremities. PAST MEDICAL HISTORY: Significant for hypertension and she has been on treatment for several years. She denied coronary artery disease and gives a history of cardiac catheterization several years ago. She has a significant COPD and has been using a bronchodilators for several years. She gives a history of gastroesophageal reflux disease. PAST SURGICAL HISTORY: Include hysterectomy, bladder sling surgery, and cataract surgeries. SOCIAL HISTORY: The patient is and lives by herself in [place], [place]. She has 5 children, 1 son and 4 daughters, all of whom live close by. 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 She gave significant exposure to pesticides in her young age as she [place]. She was smoking up to a pack of cigarettes a day of now but was smoking heavier in the past. In aggregate, she has approximately 70 to 27-[id number]-[id number] history of tobacco use. She denied any alcohol or other recreational drug use. FAMILY HISTORY: Significant for her mother who had metastatic cancer to the liver and lungs. Maternal grandmother had head and neck cancer and her brother had throat cancer. No other malignancies in the family that the patient knows of. PHYSICAL EXAMINATION: GENERAL: Today showed an elderly female, well nourished, awake and oriented, in no acute distress. VITAL SIGNS: Temperature was 97.8, pulse rate of 71, respirations 20, blood pressure 123/59 with 96% saturation on 2 liters of oxygen by nasal cannula. HEENT: Normocephalic, extraocular muscles intact, conjunctivae slightly pale, oral mucosa moist. NECK: Supple, with no JVD. No cervical, supraclavicular or axillary lymphadenopathy palpable. CHEST: Symmetrical. LUNGS: With diminished breath sounds bilaterally without wheezes or rales. CARDIOVASCULAR EXAM: Regular rate and rhythm with an occasional missed beat. No murmurs or gallops heard. ABDOMEN: Soft, nontender with no hepatosplenomegaly or other masses palpable. EXTREMITIES: Showed no edema. NEUROLOGIC: Grossly intact without focal motor deficits. LABORATORY DATA: CBC done today showed WBC 8.9, hemoglobin 8.6, MCV 100, platelet count 187,000 with neutrophil count of 7.8 and lymphocyte count of 0.5. Absolute reticulocyte count done on 03/05/2017 was below normal at 22,000. BMP done today showed normal electrolytes. BUN was 16 and creatinine 0.65 with GFR more than 60 mL per minute. CMP done on 03/05/2017 showed normal liver function studies except albumin level of 2.3. Total protein was elevated at 8.5. Serum iron studies done on 03/05/2017 showed serum iron below normal at 15, TIBC below normal at 145 and serum ferritin level of 620.6. Serum light chain ratio showed a free kappa elevated at 2796 with free lambda at 2.9 and a ratio of 964.14. Serum protein electrophoresis and immunofixation showed a monoclonal paraprotein to be of IgG kappa specificity and was quantitated at 4.4 grams per deciliter. Chest x-ray done at the time of admission showed background COPD with associated interstitial lung disease. Minimally increased interstitial opacities within the lung bases. Follow up chest x-ray done on 03/07/2017 showed improving left basilar heterogeneous consolidations, likely due to resolving pneumonia. Thank you for allowing me to participate in this patient's care. I will follow the patient with you and make appropriate recommendations. Job ID: [id number] DocumentID: [id number] Dictated Date: 03/09/2017 17:29:50 Job Development Specialist Date: 03/09/2017 19:08:48 Dictated By: RAAD ANTONIO MD
[2017-03-09] MEDS: POLYETHYLENE GLYCOL 17 GM (MIRALAX) PACK PO SCH (20:45)
[2017-03-10] VITALS: BP 136/64
[2017-03-10] MEDS: RT-ALBUTEROL SULF 2.5 MG/3 ML PRE-MIX VIAL IH SCH ×7 (00:02→22:11)
[2017-03-10 06:00] VITALS: BP 129/69
[2017-03-10] MEDS: CATHETER FLUSH 10 ML SYR IV SCH ×3 (06:18→20:34)
[2017-03-10] MEDS: PANTOPRAZOLE 40 MG (PROTONIX) TAB PO SCH (06:18)
[2017-03-10] MEDS: KCL 10 MEQ TAB (MICRO K) PO SCH (06:18)
[2017-03-10] MEDS: CALCIUM CARBONATE 600 MG (CALCARB) TAB PO SCH (06:19)
[2017-03-10] MEDS: MULTIVIT W/MINERALS TAB (THERAGRAN M) PO SCH (06:19)
[2017-03-10] MEDS: predniSONE 20 MG TAB PO SCH ×2 (06:19→16:38)
[2017-03-10] MEDS: RT-ADVAIR HFA 115/21 MCG PER PUFF IH SCH ×2 (07:33→19:14)
[2017-03-10] MEDS: CYANOCOBALAMIN 500 MCG TAB (VITAMIN B-12) PO SCH (09:05)
[2017-03-10] MEDS: SENNA W/DOCUSATE (SENOKOT S) TABLET PO SCH ×2 (09:06→20:34)
[2017-03-10] MEDS: VITAMIN D3 5,000 UNITS (CHOLECALCIFEROL ) CAPSULE PO SCH (09:06)
[2017-03-10] MEDS: ASPIRIN E.C. 81 MG (ECOTRIN) TAB PO SCH (09:06)
[2017-03-10] MEDS: amLODIPine 5 MG (NORVASC) TAB PO SCH (09:06)
[2017-03-10] MEDS: MAGNESIUM OXIDE (MAG-OX)400 MG TAB PO SCH ×2 (09:06→18:55)
[2017-03-10] MEDS: cefTRIAXone INJECTION 1,000 MG in NS (IVPB) 50 ML IV SCH (09:07)
--- NOTE | 2017-03-10 10:41 | Progress Note (SOAP) ---
Subjective Date Seen by Provider: Mar 10, 2017 Time Seen by Provider: 10:37 Subjective/Events-last exam Fwup pneumonia, COPD exacerbation, weakness, constipation, HTN, iron deficiency anemia, elevated protein. Still with some cough but much improved. Appetite good. Still no BM but states stomach is rumbling more so thinks may have one today. Objective Exam Vital Signs Date Time Temp Pulse Resp B/P (MAP) Pulse Ox O2 Delivery O2 Flow Rate FiO2 03/10/17 09:00 93 Nasal Cannula 0.50 03/10/17 07:34 95 Nasal Cannula 1.00 03/10/17 07:33 95 Nasal Cannula 1.00 03/10/17 06:00 97.8 78 18 129/69 (89) 96 Nasal Cannula 2.00 03/10/17 02:50 94 Nasal Cannula 1.00 03/10/17 00:00 98.2 81 18 136/64 (88) 97 Nasal Cannula 2.00 03/09/17 21:00 Nasal Cannula 2.00 03/09/17 18:44 95 Nasal Cannula 1.00 03/09/17 18:00 97.1 77 20 147/72 (97) 96 03/09/17 13:29 96 Nasal Cannula 2.00 I & O 03/10/17 07:00 Intake Total 2190 ml Output Total 700 ml Balance 1490 ml Capillary Refill : General Appearance: No Apparent Distress Neck: Supple Respiratory: Lungs Clear Cardiovascular: Regular Rate, Rhythm, Systolic Murmur Gastrointestinal: normal bowel sounds, non tender, soft Neurologic/Psychiatric: Alert, Oriented x3 Assessment/Plan Assessment/Plan Assess & Plan/Chief Complaint 1. Pneumonia--improving, repeat CXR on 2. COPD exacerbation--improved, switched to oral prednisone 3. HTN--stable 4. Weakness--continue PT/OT 5. Iron Def Anemia--on Venofer, repeat CBC on Mar 13 6. Hypokalemia--resolved 7. Bone pain with increased protein--SPEP inconclusive, bone skeletal survey negative, oncology consulted and bone marrow biopsy scheduled for next week 8. Constipation--on senokot-s and miralax, will do enema today if no BM by late afternoon Clinical Quality Measures DVT/VTE Risk/Contraindication: Risk Factor Score Per Nursin JANNY JOSEPH DO Mar 10, 2017 10:41 am
[2017-03-10] MEDS ORDERED: fluCOnazole (DIFLUCAN) 100 MG TAB PO NR (10:45)
[2017-03-10] MEDS ORDERED: FLEET ENEMA ADULT 1 EA BTL PR PRN (10:45)
--- NOTE | 2017-03-10 11:28 | Occupational Ther Daily Note ---
OT Current Status-Daily Note Subjective Pt alert, sitting up in bed. Pt agreed to therapy. No c/o pain, but stated that she needed to eat things because she had just taken medicine. Pt given coffee and had a cookie from a visitor. Mental Status/Objective Patient Orientation: Person, Place, Time, Situation Functional [place] Measure 0=Not Assessed/NA 4=Minimal Assistance 1=Total Assistance 5=Supervision or Setup 2=Maximal Assistance 6=Modified [place] 3=Moderate Assistance 7=Complete [place] Attachments: IV, Oxygen ADL-Treatment Functional [place] Measure 0=Not Assessed/NA 4=Minimal Assistance 1=Total Assistance 5=Supervision or Setup 2=Maximal Assistance 6=Modified [place] 3=Moderate Assistance 7=Complete IndependenceIRFPAI Quality Coding Scale 6 Independent with activity with or without an assistive device 5 Patient requires set up or clean up by helper. Patient completes activity by themselves 4 Supervision or touching assist (CGA). [place] provide cues , steadying assist 3 The helper provides less than half the effort to complete the activity 2 The helper provides more than half the effort to complete the activity 1 Dependent. The helper does all the effort to complete an activity 7 Patient refused to complete or attempt activity 9 The patient did not perform the activity before the current illness or injury 88 Not attempted due to Medical conditions or safety concerns Grooming (FIM): 7 (Pt able to complete all grooming by self. Ambulated into bathroom and completed at sink. Pt did drop item and was able to slat pickler off of the ground without difficulty.) Oral Hygiene (QC): 6 Bathing (FIM): 6 (Standing at sink, pt completed sponge bath.) Pt declined to switch out socks. Pt has hospital gown on with IV site. Unable to don/doff upper body clothing due to IV by self. After therapy, pt sitting up in bed with call light/phone in reach. All needs met in room. OT Short Term Goals Short Term Goals 1=Demonstrate adherence to instructed precautions during ADL tasks. 2=Patient will verbalize/demonstrate understanding of assistive devices/ modifications for ADL. 3=Patient will improve strength/tolerance for activity to enable patient to perform ADL's. OT Drawbridge Tender Goals Drawbridge Tender Goals Time Frame: Mar 15, 2017 Eating (FIM): 6 Eating (QC): 6 Groomin Oral Hygiene (QC): 6 Bathing(FIM): 6 Upper Body Dressing(FIM): 6 Lower Body Dressing(FIM): 6 Toileting(FIM): 6 Toileting Hygiene (QC): 6 Transfers (B,C,W/C) (FIM): 6 Toilet/Commode Transfer(FIM): 6 Toilet/Commode Transfer (QC): 6 Tub Transfer(FIM): 6 Shower Transfer(FIM): 6 Additional Goals: 1-Demonstrate ADL Tasks, 2-Verbalize Understanding, 3- ImproveStrength/Juma 1=Demonstrate adherence to instructed precautions during ADL tasks. 2=Patient will verbalize/demonstrate understanding of assistive devices/ modifications for ADL. 3=Patient will improve strength/tolerance for activity to enable patient to perform ADL's. OT Education/Plan Discharge Recommendations Plan/Recommendations: Continue POC Treatment Plan/Plan of Care Patient would benefit from OT for education, treatment and training to promote independence in ADL's, mobility, safety and/or upper extremity function for ADL' s. Plan of Care: ADL Retraining, Functional Mobility, UE Funct Exercise/Act Treatment Duration: Mar 15, 2017 Frequency: 5 times per week Estimated Hrs Per Day: .25 hour per day Agreement: Yes Rehab Potential: Good Time/GCodes Start Time: 09:15 Stop Time: 09:40 Total Time Billed (hr/min): 25 Billed Treatment Time 1 visit-ADL 2 (25 min) RICHY SWIFT Mar 10, 2017 11:28
--- NOTE | 2017-03-10 11:32 | Physical Therapy Daily Note ---
PT Daily Note-Current Subjective Patient is seated edge of bed upon PT entering the room with family members present. Patient is agreeable to PT. Pain Numeric Pain Scale: 0-No Pain Location: No Pain Reported Comment: states that lungs are improved; getting over her cough Appearance Patient appears to have improved health. She is left post tx seated edge of bed with call light in reach. Mental Status Patient Orientation: Normal For Age Attachments: Oxygen 2.0 L of O2 Transfers Functional [place] Measure 0=Not Assessed/NA 4=Minimal Assistance 1=Total Assistance 5=Supervision or Setup 2=Maximal Assistance 6=Modified [place] 3=Moderate Assistance 7=Complete IndependenceIRFPAI Quality Coding Scale 6 Independent with activity with or without an assistive device 5 Patient requires set up or clean up by helper. Patient completes activity by themselves 4 Supervision or touching assist (CGA). [place] provide cues , steadying assist 3 The helper provides less than half the effort to complete the activity 2 The helper provides more than half the effort to complete the activity 1 Dependent. The helper does all the effort to complete an activity 7 Patient refused to complete or attempt activity 9 The patient did not perform the activity before the current illness or injury 88 Not attempted due to Medical conditions or safety concerns Transfers (B, C, W/C) (FIM): 7 Scootin Supine to/from Sit: 7 Sit to/from Stand: 7 Patient transfers and ambulates safely in the room independently. Weight Bearing Right Lower Extremity: Right Full Weight Bearing Left Lower Extremity: Left Full Weight Bearing Gait Training Does the Patient Walk?: Yes Gait (FIM): 6 Distance: 800' Gait Level of Assist: 6 Gait Persons Needed: 1 Gait Assistive Device: FWW Patient ambulates safely with FWW in the hallways. She reports no SOB with ambulation today. Exercises Standing: Hip Abduction, Heel/toe raises, 3 way Ex=Flex, Abd, Ext, Marching Standing Reps: 20 (states "feels her lungs working at end of exercises") Assessment Current Status: Good Progress Patient health appears to have improved which has correlated with greater tolerance for gait distance and therapeutic exercise. PT will continue to progress therapeutic exercises and gait as patient tolerates. PT Short Term Goals Short Term Goals Gait Assistive Device: FWW PT Mcfp Goals Mcfp Goals PT Mcfp Goals Time Frame: Mar 15, 2017 Rollin Gait (FIM): 6 Distance: 1000' Walk 50ft with 2 Turns (QC): 6 Walk 150 ft (QC): 6 Gait Assistive Device: FWW PT Plan Problem List Problem List: Activity Tolerance, Functional Strength, Safety, Balance, Gait Treatment/Plan Treatment Plan: Continue Plan of Care Treatment Plan: Education, Functional Activity Juma, Functional Strength, Gait , Safety, Therapeutic Exercise Treatment Duration: Mar 15, 2017 Frequency: 6 times per week Estimated Hrs Per Day: .25 hour per day (15-30 min) Patient and/or Family Agrees t: Yes Time/GCodes Time In: 1047 Time Out: 1110 Total Billed Treatment Time: 23 Total Billed Treatment 1 visit GT 13 min EX 10 min DARLINE CAIN PT Mar 10, 2017 11:32
[2017-03-10] MEDS: IRON SUCROSE INJECTION 200 MG in NS (IVPB) 100 ML IV SCH (13:24)
[2017-03-10 17:08] VITALS: BP 127/62
[2017-03-10] MEDS: POLYETHYLENE GLYCOL 17 GM (MIRALAX) PACK PO SCH (20:34)
[2017-03-11] MEDS: RT-ALBUTEROL SULF 2.5 MG/3 ML PRE-MIX VIAL IH SCH ×5 (02:00→19:20)
[2017-03-11 05:23] LABS: IMMUNOGLOBULIN IGA >2800 mg/dL (71-263); IMMUNOGLOBULIN IGG 99 mg/dL (672-1680)
[2017-03-11 06:00] VITALS: BP 109/56
[2017-03-11] MEDS: RT-ADVAIR HFA 115/21 MCG PER PUFF IH SCH ×2 (06:21→19:20)
[2017-03-11] MEDS: PANTOPRAZOLE 40 MG (PROTONIX) TAB PO SCH (06:28)
[2017-03-11] MEDS: KCL 10 MEQ TAB (MICRO K) PO SCH (06:28)
[2017-03-11] MEDS: predniSONE 20 MG TAB PO SCH ×2 (06:28→16:27)
[2017-03-11] MEDS: CALCIUM CARBONATE 600 MG (CALCARB) TAB PO SCH (06:28)
[2017-03-11] MEDS: MULTIVIT W/MINERALS TAB (THERAGRAN M) PO SCH (06:28)
[2017-03-11] MEDS: CATHETER FLUSH 10 ML SYR IV SCH ×3 (06:29→22:15)
[2017-03-11] MEDS: VITAMIN D3 5,000 UNITS (CHOLECALCIFEROL ) CAPSULE PO SCH (08:05)
[2017-03-11] MEDS: ASPIRIN E.C. 81 MG (ECOTRIN) TAB PO SCH (08:05)
[2017-03-11] MEDS: amLODIPine 5 MG (NORVASC) TAB PO SCH (08:05)
[2017-03-11] MEDS: SENNA W/DOCUSATE (SENOKOT S) TABLET PO SCH ×2 (08:05→20:19)
[2017-03-11] MEDS: fluCOnazole (DIFLUCAN) 100 MG TAB PO SCH (08:05)
[2017-03-11] MEDS: CYANOCOBALAMIN 500 MCG TAB (VITAMIN B-12) PO SCH (08:05)
[2017-03-11] MEDS: MAGNESIUM OXIDE (MAG-OX)400 MG TAB PO SCH ×2 (08:05→16:27)
--- NOTE | 2017-03-11 11:14 | Physical Therapy Daily Note ---
PT Daily Note-Current Subjective Pt up in chair, agreeable. Anxious to ambulate. Off O2 at present. Mental Status Patient Orientation: Person, Place, Time, Situation Transfers Functional [place] Measure 0=Not Assessed/NA 4=Minimal Assistance 1=Total Assistance 5=Supervision or Setup 2=Maximal Assistance 6=Modified [place] 3=Moderate Assistance 7=Complete IndependenceIRFPAI Quality Coding Scale 6 Independent with activity with or without an assistive device 5 Patient requires set up or clean up by helper. Patient completes activity by themselves 4 Supervision or touching assist (CGA). [place] provide cues , steadying assist 3 The helper provides less than half the effort to complete the activity 2 The helper provides more than half the effort to complete the activity 1 Dependent. The helper does all the effort to complete an activity 7 Patient refused to complete or attempt activity 9 The patient did not perform the activity before the current illness or injury 88 Not attempted due to Medical conditions or safety concerns Sit to Stand (QC): 6 Weight Bearing Right Lower Extremity: Right Full Weight Bearing Left Lower Extremity: Left Full Weight Bearing Gait Training Does the Patient Walk?: Yes Gait (FIM): 6 Distance (FIM): 3=150 ft Distance: 800 Walk 50 ft with 2 Turns(QC): 6 Walk 150 ft (QC): 6 Gait Level of Assist: 6 Gait Persons Needed: 0 Gait Assistive Device: FWW Pt ambulated with safe, smooth gait with safe use of FWW. O2 on RA 97% post session. Up in chair with needs met. Treatments Ambulation with FWW. Assessment Current Status: Good Progress Pt tolerated very well. Safe to be up ad afia from PT standpoint, with FWW. Nursing notified. PT Short Term Goals Short Term Goals Gait Assistive Device: FWW PT Senior Living Goals Senior Living Goals PT [employer] Farmer Goals Time Frame: Mar 15, 2017 Rollin Gait (FIM): 6 Distance: 1000' Walk 50ft with 2 Turns (QC): 6 Walk 150 ft (QC): 6 Gait Assistive Device: FWW PT Plan Problem List Problem List: Activity Tolerance, Functional Strength, Balance, Gait Treatment/Plan Treatment Plan: Continue Plan of Care Treatment Plan: Education, Functional Activity Juma, Functional Strength, Gait , Safety, Therapeutic Exercise Treatment Duration: Mar 15, 2017 Frequency: 6 times per week Estimated Hrs Per Day: .25 hour per day (15-30 min) Patient and/or Family Agrees t: Yes Safety Risks/Education Teaching Recipient: Patient Teaching Methods: Discussion Response to Teaching: Verbalize Understanding Pursed lip breathing with activity Time/GCodes Time In: 1006 Time Out: 1021 Total Billed Treatment Time: 15 Total Billed Treatment 1, FA x 15 G Codes Necessary: SHAUNA Armando DPT Mar 11, 2017 11:14
--- NOTE | 2017-03-11 12:11 | Progress Note-Hospitalist ---
Progress Note Progress Notes/Assess & Plan Date Seen 03/11/17 Time Seen by Provider: 11:30 Diagonsis/Assessment & Plan Pt feels good, denies pain except her tailbone No major evacuation of her bowels so will start lactulose and give SSE since Fleets did produce small results Does not feel abdominal pain but + flatus Checked meds and labs AFVSS, Pleasant, sitting chair, family at bedside RRR, CTAB except subtle crackles lower bases bilateral No edema Assessment: 1. Pneumonia--improving, repeat CXR on Monday, 2. COPD exacerbation--improved, switched to oral prednisone 3. HTN--stable 4. Weakness--continue PT/OT 5. Iron Def Anemia--on Venofer, repeat CBC on Mar 13 6. Hypokalemia--resolved 7. Bone pain with increased protein--SPEP inconclusive, bone skeletal survey negative, oncology consulted and bone marrow biopsy scheduled for next week 8. Constipation--s/p senokot-s and miralax and minimal results so will add Lactulose and SSE Plan: Bowel meds Monitor labs Continue treatment SALOMÓN PEREZ DO Mar 11, 2017 12:10
[2017-03-11] MEDS: LACTULOSE SYRUP 10GM/15ML (ENULOSE) 30ML UDC PO SCH ×2 (12:49→16:33)
[2017-03-11 13:56] LABS: IMMUNOGLOBULIN IGM <10 mg/dL (47-209)
[2017-03-11 15:13] VITALS: BP 122/57
[2017-03-11 17:10] VITALS: BP 134/65
[2017-03-11] MEDS: POLYETHYLENE GLYCOL 17 GM (MIRALAX) PACK PO SCH (20:18)
[2017-03-12 06:00] VITALS: BP 104/51
[2017-03-12] MEDS: MULTIVIT W/MINERALS TAB (THERAGRAN M) PO SCH (06:26)
[2017-03-12] MEDS: PANTOPRAZOLE 40 MG (PROTONIX) TAB PO SCH (06:26)
[2017-03-12] MEDS: predniSONE 20 MG TAB PO SCH ×2 (06:26→17:59)
[2017-03-12] MEDS: KCL 10 MEQ TAB (MICRO K) PO SCH (06:26)
[2017-03-12] MEDS: CALCIUM CARBONATE 600 MG (CALCARB) TAB PO SCH (06:26)
[2017-03-12] MEDS: CATHETER FLUSH 10 ML SYR IV SCH ×3 (06:27→20:03)
[2017-03-12] MEDS: RT-ALBUTEROL SULF 2.5 MG/3 ML PRE-MIX VIAL IH SCH ×4 (07:19→21:00)
[2017-03-12] MEDS: RT-ADVAIR HFA 115/21 MCG PER PUFF IH SCH ×2 (07:19→21:00)
[2017-03-12] MEDS: amLODIPine 5 MG (NORVASC) TAB PO SCH (07:55)
[2017-03-12] MEDS: VITAMIN D3 5,000 UNITS (CHOLECALCIFEROL ) CAPSULE PO SCH (07:55)
[2017-03-12] MEDS: ASPIRIN E.C. 81 MG (ECOTRIN) TAB PO SCH (07:56)
[2017-03-12] MEDS: SENNA W/DOCUSATE (SENOKOT S) TABLET PO SCH ×2 (07:56→20:03)
[2017-03-12] MEDS: fluCOnazole (DIFLUCAN) 100 MG TAB PO SCH (07:56)
[2017-03-12] MEDS: LACTULOSE SYRUP 10GM/15ML (ENULOSE) 30ML UDC PO SCH ×2 (07:56→20:02)
[2017-03-12] MEDS: CYANOCOBALAMIN 500 MCG TAB (VITAMIN B-12) PO SCH (07:56)
[2017-03-12] MEDS: MAGNESIUM OXIDE (MAG-OX)400 MG TAB PO SCH ×2 (07:56→17:59)
--- NOTE | 2017-03-12 11:43 | Progress Note-Hospitalist ---
Progress Note Progress Notes/Assess & Plan Date Seen 03/12/17 Time Seen by Provider: 10:40 Diagonsis/Assessment & Plan Pt feels good, and was seen ambulating around the unit doing well s/p 7 BM's after SSE yesterday Checked meds and labs AFVSS, Pleasant, walking around on unit with walker RRR, CTAB except subtle crackles lower bases bilateral but much improved from yesterday No edema Assessment: 1. Pneumonia--improving, repeat CXR on Monday, 2. COPD exacerbation--improved, switched to oral prednisone 3. HTN--stable 4. Weakness--continue PT/OT 5. Iron Def Anemia--on Venofer, repeat CBC on Mar 13 6. Hypokalemia--resolved 7. Bone pain with increased protein--SPEP inconclusive, bone skeletal survey negative, oncology consulted and bone marrow biopsy scheduled for next week 8. Constipation--s/p resolution after SSU Plan: Bowel meds Monitor labs Continue treatment SALOMÓN PEREZ DO Mar 12, 2017 11:43
[2017-03-12] MEDS: IRON SUCROSE INJECTION 200 MG in NS (IVPB) 100 ML IV SCH (12:39)
[2017-03-12 18:00] VITALS: BP 125/62
[2017-03-12] MEDS: POLYETHYLENE GLYCOL 17 GM (MIRALAX) PACK PO SCH (20:03)
[2017-03-13] MEDS: predniSONE 20 MG TAB PO SCH (06:07)
[2017-03-13] MEDS: KCL 10 MEQ TAB (MICRO K) PO SCH (06:07)
[2017-03-13] MEDS: MULTIVIT W/MINERALS TAB (THERAGRAN M) PO SCH (06:07)
[2017-03-13] MEDS: CALCIUM CARBONATE 600 MG (CALCARB) TAB PO SCH (06:07)
[2017-03-13] MEDS: CATHETER FLUSH 10 ML SYR IV SCH (06:07)
[2017-03-13] MEDS: PANTOPRAZOLE 40 MG (PROTONIX) TAB PO SCH (06:07)
[2017-03-13 06:14] LABS: BASOPHILS % (AUTO) 0 % (0-10); EOSINOPHILS % (AUTO) 0 % (0-10); LYMPHOCYTES # (AUTO) 2.4 X 10^3 (1.0-4.0); LYMPHOCYTES % (AUTO) 11 % (12-44); MEAN CORPUSCULAR HEMOGLOBIN 31 PG (25-34); MEAN CORPUSCULAR HGB CONC 31 G/DL (32-36); MEAN CORPUSCULAR VOLUME 100 FL (80-99); MEAN PLATELET VOLUME 10.5 FL (7.4-10.4); MONOCYTES # (AUTO) 1.7 X 10^3 (0.0-1.0); MONOCYTES % (AUTO) 8 % (0-12); NEUTROPHILS # (AUTO) 18.5 X 10^3 (1.8-7.8); NEUTROPHILS % (AUTO) 82 % (42-75); PLATELET COUNT 468 10^3/uL (130-400); RED BLOOD COUNT 3.07 10^6/uL (4.35-5.85); RED CELL DISTRIBUTION WIDTH 18.6 % (10.0-14.5); WHITE BLOOD COUNT 22.7 10^3/uL (4.3-11.0)
[2017-03-13 06:32] LABS: ANISOCYTOSIS MODERATE; BAND NEUTROPHILS 2 %; BASOPHILS % (MANUAL) 0 %; EOSINOPHILS % (MANUAL) 2 %; HYPOCHROMASIA SLIGHT; LYMPHOCYTES % (MANUAL) 9 %; MICROCYTOSIS SLIGHT; NEUTROPHILS % (MANUAL) 78 %; POLYCHROMASIA SLIGHT; STOMATOCYTES SLIGHT
[2017-03-13 06:33] LABS: ALANINE AMINOTRANSFERASE 27 U/L (0-55); ALBUMIN 2.9 GM/DL (3.2-4.5); ANION GAP 15 MMOL/L (5-14); ASPARTATE AMINO TRANSFERASE 17 U/L (5-34); BILIRUBIN,TOTAL 0.3 MG/DL (0.1-1.0); BLOOD UREA NITROGEN 17 MG/DL (7-18); BUN/CREATININE RATIO 25; CALCIUM 9.6 MG/DL (8.5-10.1); CARBON DIOXIDE 29 MMOL/L (21-32); CHLORIDE 100 MMOL/L (98-107); CREATININE SERUM 0.68 MG/DL (0.60-1.30); GFR ESTIMATED > 60; GLUCOSE 67 MG/DL (70-105); POTASSIUM 3.6 MMOL/L (3.6-5.0); SODIUM 144 MMOL/L (135-145)
[2017-03-13 06:45] VITALS: BP 118/69
[2017-03-13] MEDS: RT-ALBUTEROL SULF 2.5 MG/3 ML PRE-MIX VIAL IH SCH ×2 (06:58→11:16)
[2017-03-13] MEDS: RT-ADVAIR HFA 115/21 MCG PER PUFF IH SCH (07:00)
[2017-03-13] MEDS: MAGNESIUM OXIDE (MAG-OX)400 MG TAB PO SCH (08:27)
[2017-03-13] MEDS: amLODIPine 5 MG (NORVASC) TAB PO SCH (08:27)
[2017-03-13] MEDS: VITAMIN D3 5,000 UNITS (CHOLECALCIFEROL ) CAPSULE PO SCH (08:27)
[2017-03-13] MEDS: fluCOnazole (DIFLUCAN) 100 MG TAB PO SCH (08:28)
[2017-03-13] MEDS: ASPIRIN E.C. 81 MG (ECOTRIN) TAB PO SCH (08:28)
[2017-03-13] MEDS: SENNA W/DOCUSATE (SENOKOT S) TABLET PO SCH (08:28)
[2017-03-13] MEDS: CYANOCOBALAMIN 500 MCG TAB (VITAMIN B-12) PO SCH (08:28)
[2017-03-13] MEDS: LACTULOSE SYRUP 10GM/15ML (ENULOSE) 30ML UDC PO SCH (08:28)
--- NOTE | 2017-03-13 09:12 | Diagnostic Imaging Report ---
INDICATION: Pneumonia, followup. TECHNIQUE: Two view chest at 7:31 AM. CORRELATION STUDY: 03/07/2017. FINDINGS: The heart size, mediastinum, and vasculature are generally stable. The mediastinal anatomy is somewhat distorted by rightward curvature of the thoracic spine. The lung mos[place] are with improved aeration on followup. There are some minimal areas of discoid atelectasis or perhaps scarring about the left lung base. Otherwise, no significant infiltrate. Bony demineralization. There is loss of height of multiple thoracic vertebral bodies. IMPRESSION: Improved aeration of the left lung. Minimal atelectasis or scarring is suggested about the left lung base. Dictated by: Dictated on workstation # [id number]
--- NOTE | 2017-03-13 09:29 | Physical Therapy Daily Note ---
PT Daily Note-Current Subjective Patient is up independently in room and agrees to PT. Pain Numeric Pain Scale: 0-No Pain Location: No Pain Reported Mental Status Patient Orientation: Normal For Age Transfers Functional [place] Measure 0=Not Assessed/NA 4=Minimal Assistance 1=Total Assistance 5=Supervision or Setup 2=Maximal Assistance 6=Modified [place] 3=Moderate Assistance 7=Complete IndependenceIRFPAI Quality Coding Scale 6 Independent with activity with or without an assistive device 5 Patient requires set up or clean up by helper. Patient completes activity by themselves 4 Supervision or touching assist (CGA). [place] provide cues , steadying assist 3 The helper provides less than half the effort to complete the activity 2 The helper provides more than half the effort to complete the activity 1 Dependent. The helper does all the effort to complete an activity 7 Patient refused to complete or attempt activity 9 The patient did not perform the activity before the current illness or injury 88 Not attempted due to Medical conditions or safety concerns Transfers (B, C, W/C) (FIM): 6 Scootin Roll Left to Right (QC): 6 Supine to/from Sit: 6 Sit to/from Stand: 6 Sit to Lying (QC): 6 Sit to Stand (QC): 6 Weight Bearing Right Lower Extremity: Right Full Weight Bearing Left Lower Extremity: Left Full Weight Bearing Gait Training Does the Patient Walk?: Yes Gait (FIM): 6 Distance (FIM): 3=150 ft Distance: 600' Walk 50 ft with 2 Turns(QC): 6 Walk 150 ft (QC): 6 Gait Level of Assist: 6 Gait Assistive Device: FWW safe and functional gait sequence with FWW. Patient demonstrates increase in stability and function with FWW and will require one upon dismissal. Exercises Seated Therapy Exercises: Ankle pumps, Long arc quads Seated Reps: 15 Assessment Patient is currently at [facility] with all gross motor skills. Upon evaluation, patient required CGA to SBA with functional mobility for safety. She was on O2 due to decrease in pulmonary function. She is currently on RA and has attained all functional goals and is safe to return to home, from a PT standpoint. PT to dismiss patient from services at this time. PT Short Term Goals Short Term Goals Gait Assistive Device: FWW PT Substitute Bus Driver Goals Substitute Bus Driver Goals PT Mcc Goals Time Frame: Mar 15, 2017 Transfers (B,C,W/C) (FIM): 6 (attained 03/13/17) Sit to Lying (QC): 6 (attained 03/13/17) Lying-Sitting on Side/Bed(QC): 6 (attained 03/13/17) Sit to Stand (QC): 6 (attained 03/13/17) Rollin (attained 03/13/17) Chair/Gih-xd-Qaeml Xfer(QC): 6 (attained 03/13/17) Gait (FIM): 6 (attained 03/13/17) Distance: 1000' Walk 50ft with 2 Turns (QC): 6 (attained 03/13/17) Walk 150 ft (QC): 6 (attained 03/13/17) Gait Assistive Device: FWW PT Plan Treatment/Plan Treatment Plan: Continue Plan of Care Treatment Plan: Education, Functional Activity Juma, Functional Strength, Gait , Safety, Therapeutic Exercise Treatment Duration: Mar 15, 2017 Frequency: 6 times per week Estimated Hrs Per Day: .25 hour per day (15-30 min) Patient and/or Family Agrees t: Yes Discharge Recommendations Therapy D/C Recommendations: Home w/ Family Support Equpiment Recommendations-D/C: Front Wheeled Walker, Shower Chair Time/GCodes Time In: 850 Time Out: 905 Total Billed Treatment Time: 15 Total Billed Treatment 1 visit FA 15 min DARLINE CAIN PT Mar 13, 2017 09:29
--- NOTE | 2017-03-13 09:30 | Therapy Team Discharge Summary ---
Therapy Discharge Summary Discharge Recommendations Date of Discharge Therapy D/C Recommendations: Home w/ Family Support Physical Therapy Patient is currently at [facility] with all gross motor skills. Upon evaluation, patient required CGA to SBA with functional mobility for safety. She was on O2 due to decrease in pulmonary function. She is currently on RA and has attained all functional goals and is safe to return to home, from a PT standpoint. PT to dismiss patient from services at this time. Occupational Therapy Decreased Activ Tolerance, Decreased UE Strength, Impaired I ADL's PT Group Home Goals Cupola Operator Insulation Goals PT Cupola Operator Insulation Goals Time Frame: Mar 15, 2017 Transfers (B,C,W/C) (FIM): 6 (attained 03/13/17) Sit to Lying (QC): 6 (attained 03/13/17) Lying-Sitting on Side/Bed(QC): 6 (attained 03/13/17) Sit to Stand (QC): 6 (attained 03/13/17) Rollin (attained 03/13/17) Chair/Zul-vt-Zuvcf Xfer(QC): 6 (attained 03/13/17) Gait (FIM): 6 (attained 03/13/17) Distance: 1000' Walk 50ft with 2 Turns (QC): 6 (attained 03/13/17) Walk 150 ft (QC): 6 (attained 03/13/17) Gait Assistive Device: FWW OT Group Home Goals Group Home Goals Time Frame: Mar 15, 2017 Eating (FIM): 6 Eating (QC): 6 Groomin Oral Hygiene (QC): 6 Bathing(FIM): 6 Upper Body Dressing(FIM): 6 Lower Body Dressing(FIM): 6 Toileting(FIM): 6 Toileting Hygiene (QC): 6 Transfers (B,C,W/C) (FIM): 6 Toilet/Commode Transfer(FIM): 6 Toilet/Commode Transfer (QC): 6 Tub Transfer(FIM): 6 Shower Transfer(FIM): 6 Additional Goals: 1-Demonstrate ADL Tasks, 2-Verbalize Understanding, 3- ImproveStrength/Juma 1=Demonstrate adherence to instructed precautions during ADL tasks. 2=Patient will verbalize/demonstrate understanding of assistive devices/ modifications for ADL. 3=Patient will improve strength/tolerance for activity to enable patient to perform ADL's. DARLINE CAIN PT Mar 13, 2017 09:30
[2017-03-13] MEDS ORDERED: PRD20T PO (12:21)
[2017-03-13] MEDS ORDERED: MAGN400T6 PO (12:21)
--- NOTE | 2017-03-13 12:22 | Discharge Inst-Simple/Standard ---
Discharge Inst-Standard Discharge Medications New, Converted or Re-Newed RX: Transmitted to Pharmacy Patient Instructions/Follow Up Plan of Care/Instructions/FU: Fwup 2 weeks Activity as Tolerated: Yes Discharge Diet: No Restrictions Other Inst to Patient Make sure MV has iron in it JANNY JOSEPH DO Mar 13, 2017 12:22
--- NOTE | 2017-03-14 08:33 | Therapy Team Discharge Summary ---
Therapy Discharge Summary Discharge Recommendations Date of Discharge Mar 13, 2017 at 13:35 Therapy D/C Recommendations: Home w/ Family Support Occupational Therapy Pt. was seen briefly by occupational therapy to assess ADL skills and continue with strengthening for functional return home. Pt. was provided information and education regarding home safety and equipment needs. Pt. also met goals of mod I with bathing and transfers, toileting. Declined dressing with OT. Pt. discharged home with family assist. No further OT warranted at this time. Decreased Activ Tolerance, Decreased UE Strength, Impaired I ADL's PT Client Support Analyst Goals Client Support Analyst Goals PT Client Support Analyst Goals Time Frame: Mar 15, 2017 Transfers (B,C,W/C) (FIM): 6 (attained 03/13/17) Sit to Lying (QC): 6 (attained 03/13/17) Lying-Sitting on Side/Bed(QC): 6 (attained 03/13/17) Sit to Stand (QC): 6 (attained 03/13/17) Rollin (attained 03/13/17) Chair/Ugw-ij-Edkjl Xfer(QC): 6 (attained 03/13/17) Gait (FIM): 6 (attained 03/13/17) Distance: 1000' Walk 50ft with 2 Turns (QC): 6 (attained 03/13/17) Walk 150 ft (QC): 6 (attained 03/13/17) Gait Assistive Device: FWW OT Halfway Goals Client Support Analyst Goals Time Frame: Mar 15, 2017 Eating (FIM): 6 (met) Eating (QC): 6 (met) Groomin (met) Oral Hygiene (QC): 6 (met) Bathing(FIM): 6 (met) Upper Body Dressing(FIM): 6 (not met as pt. declined practicing with OT. Completed with daughter assist.) Lower Body Dressing(FIM): 6 (not met as pt. declined practicing with OT. Practiced with daughter assist.) Toileting(FIM): 6 (met) Toileting Hygiene (QC): 6 (met) Transfers (B,C,W/C) (FIM): 6 (met) Toilet/Commode Transfer(FIM): 6 (met) Toilet/Commode Transfer (QC): 6 (met) Tub Transfer(FIM): 6 (not met) Shower Transfer(FIM): 6 (not met as daughter assisted her.) Additional Goals: 1-Demonstrate ADL Tasks, 2-Verbalize Understanding, 3- ImproveStrength/Juma 1=Demonstrate adherence to instructed precautions during ADL tasks. 2=Patient will verbalize/demonstrate understanding of assistive devices/ modifications for ADL. 3=Patient will improve strength/tolerance for activity to enable patient to perform ADL's. JAYCEE SHAH OT Mar 14, 2017 08:33
== END 2017-03-13 13:35 | disposition home or self-care (01) | DRG 177 ==
LOC: 4TH 12:56
PROVIDERS: ADMIT Family Medicine; ATTEND Family Medicine
DX: B37.1 Pulmonary candidiasis (principal); J14 Pneumonia due to Hemophilus influenzae; J44.1 Chronic obstructive pulmonary disease with (acute) exacerbation; J44.0 Chronic obstructive pulmonary disease with (acute) lower respiratory infection; I10 Essential (primary) hypertension; K21.9 Gastro-esophageal reflux disease without esophagitis; F17.210 Nicotine dependence, cigarettes, uncomplicated; Z66 Do not resuscitate; D50.9 Iron deficiency anemia, unspecified; R53.83 Other fatigue; R53.1 Weakness; K59.00 Constipation, unspecified; R77.9 Abnormality of plasma protein, unspecified
CPT/HCPCS: 36415; 71020; 77075; 80048; 80053; 82232; 82784; 85007; 85027; 94640; 94760

== ENCOUNTER 2017-06-07 12:07 | Outpatient (RCR) | payer MEDICARE ==
[2017-03-15 11:57] LABS: ABSOLUTE RETIC # 136 10e9/L (24-90); BASOPHILS % (AUTO) 0 % (0-10); EOSINOPHILS # (AUTO) 0.1 10^3/uL (0.0-0.3); EOSINOPHILS % (AUTO) 0 % (0-10); HEMATOCRIT 32 % (35-52); HEMOGLOBIN 10.1 G/DL (11.5-16.0); LYMPHOCYTES # (AUTO) 1.2 X 10^3 (1.0-4.0); LYMPHOCYTES % (AUTO) 6 % (12-44); MEAN CORPUSCULAR HEMOGLOBIN 31 PG (25-34); MEAN CORPUSCULAR HGB CONC 32 G/DL (32-36); MEAN CORPUSCULAR VOLUME 99 FL (80-99); MEAN PLATELET VOLUME 9.7 FL (7.4-10.4); MONOCYTES # (AUTO) 0.5 X 10^3 (0.0-1.0); MONOCYTES % (AUTO) 3 % (0-12); NEUTROPHILS # (AUTO) 18.3 X 10^3 (1.8-7.8); NEUTROPHILS % (AUTO) 91 % (42-75); PLATELET COUNT 449 10^3/uL (130-400); RED BLOOD COUNT 3.22 10^6/uL (4.35-5.85); RED CELL DISTRIBUTION WIDTH 19.1 % (10.0-14.5); RETICULOCYTE % 4.23 % (0.50-2.40); WHITE BLOOD COUNT 20.1 10^3/uL (4.3-11.0)
[2017-03-15 12:50] LABS: BAND NEUTROPHILS 4 %; BASOPHILS % (MANUAL) 1 %; EOSINOPHILS % (MANUAL) 0 %; LYMPHOCYTES % (MANUAL) 11 %; MONOCYTES % (MANUAL) 1 %; NEUTROPHILS % (MANUAL) 83 %
[2017-03-15 12:51] LABS: ANISOCYTOSIS SLIGHT; POLYCHROMASIA SLIGHT
[2017-04-10 14:55] LABS: BASOPHILS # (AUTO) 0.1 10^3/uL (0.0-0.1); BASOPHILS % (AUTO) 0 % (0-10); EOSINOPHILS # (AUTO) 0.2 10^3/uL (0.0-0.3); EOSINOPHILS % (AUTO) 1 % (0-10); HEMATOCRIT 33 % (35-52); HEMOGLOBIN 10.9 G/DL (11.5-16.0); LYMPHOCYTES # (AUTO) 2.4 X 10^3 (1.0-4.0); LYMPHOCYTES % (AUTO) 14 % (12-44); MEAN CORPUSCULAR HEMOGLOBIN 32 PG (25-34); MEAN CORPUSCULAR HGB CONC 33 G/DL (32-36); MEAN CORPUSCULAR VOLUME 97 FL (80-99); MEAN PLATELET VOLUME 11.1 FL (7.4-10.4); MONOCYTES # (AUTO) 1.2 X 10^3 (0.0-1.0); MONOCYTES % (AUTO) 7 % (0-12); NEUTROPHILS # (AUTO) 13.7 X 10^3 (1.8-7.8); NEUTROPHILS % (AUTO) 78 % (42-75); PLATELET COUNT 211 10^3/uL (130-400); RED BLOOD COUNT 3.41 10^6/uL (4.35-5.85); RED CELL DISTRIBUTION WIDTH 17.4 % (10.0-14.5); WHITE BLOOD COUNT 17.6 10^3/uL (4.3-11.0)
[2017-04-10 15:09] LABS: ALANINE AMINOTRANSFERASE 14 U/L (0-55); ALKALINE PHOSPHATASE 94 U/L (40-136); BILIRUBIN,TOTAL 0.2 MG/DL (0.1-1.0); BUN/CREATININE RATIO 14; CALCIUM 9.6 MG/DL (8.5-10.1); CARBON DIOXIDE 24 MMOL/L (21-32); CHLORIDE 100 MMOL/L (98-107); CREATININE SERUM 0.78 MG/DL (0.60-1.30); GFR ESTIMATED > 60; GLUCOSE 101 MG/DL (70-105); POTASSIUM 3.6 MMOL/L (3.6-5.0); SODIUM 141 MMOL/L (135-145); TOTAL PROTEIN 10.4 GM/DL (6.4-8.2)
[2017-05-03 13:10] LABS: BASOPHILS % (AUTO) 0 % (0-10); EOSINOPHILS # (AUTO) 0.2 10^3/uL (0.0-0.3); EOSINOPHILS % (AUTO) 1 % (0-10); HEMATOCRIT 32 % (35-52); HEMOGLOBIN 10.7 G/DL (11.5-16.0); LYMPHOCYTES # (AUTO) 2.3 X 10^3 (1.0-4.0); LYMPHOCYTES % (AUTO) 13 % (12-44); MEAN CORPUSCULAR HEMOGLOBIN 32 PG (25-34); MEAN CORPUSCULAR HGB CONC 33 G/DL (32-36); MEAN CORPUSCULAR VOLUME 98 FL (80-99); MONOCYTES # (AUTO) 0.9 X 10^3 (0.0-1.0); MONOCYTES % (AUTO) 5 % (0-12); NEUTROPHILS # (AUTO) 14.2 X 10^3 (1.8-7.8); NEUTROPHILS % (AUTO) 81 % (42-75); PLATELET COUNT 146 10^3/uL (130-400); RED CELL DISTRIBUTION WIDTH 16.7 % (10.0-14.5); WHITE BLOOD COUNT 17.5 10^3/uL (4.3-11.0)
[2017-05-03 13:27] LABS: BUN/CREATININE RATIO 18; CALCIUM 10.1 MG/DL (8.5-10.1); CARBON DIOXIDE 23 MMOL/L (21-32); CHLORIDE 100 MMOL/L (98-107); CREATININE SERUM 0.79 MG/DL (0.60-1.30); GFR ESTIMATED > 60; GLUCOSE 93 MG/DL (70-105); POTASSIUM 3.7 MMOL/L (3.6-5.0); SODIUM 141 MMOL/L (135-145)
[2017-05-10 13:13] LABS: BASOPHILS % (AUTO) 1 % (0-10); EOSINOPHILS # (AUTO) 0.2 10^3/uL (0.0-0.3); EOSINOPHILS % (AUTO) 3 % (0-10); HEMATOCRIT 32 % (35-52); HEMOGLOBIN 10.4 G/DL (11.5-16.0); LYMPHOCYTES # (AUTO) 1.1 X 10^3 (1.0-4.0); LYMPHOCYTES % (AUTO) 16 % (12-44); MEAN CORPUSCULAR HEMOGLOBIN 32 PG (25-34); MEAN CORPUSCULAR HGB CONC 33 G/DL (32-36); MEAN CORPUSCULAR VOLUME 97 FL (80-99); MEAN PLATELET VOLUME 11.9 FL (7.4-10.4); MONOCYTES # (AUTO) 0.3 X 10^3 (0.0-1.0); MONOCYTES % (AUTO) 5 % (0-12); NEUTROPHILS # (AUTO) 5.5 X 10^3 (1.8-7.8); NEUTROPHILS % (AUTO) 76 % (42-75); PLATELET COUNT 135 10^3/uL (130-400); RED BLOOD COUNT 3.25 10^6/uL (4.35-5.85); RED CELL DISTRIBUTION WIDTH 16.1 % (10.0-14.5); WHITE BLOOD COUNT 7.2 10^3/uL (4.3-11.0)
[2017-05-10 13:29] LABS: BUN/CREATININE RATIO 18; CALCIUM 9.7 MG/DL (8.5-10.1); CARBON DIOXIDE 22 MMOL/L (21-32); CHLORIDE 100 MMOL/L (98-107); CREATININE SERUM 0.74 MG/DL (0.60-1.30); GFR ESTIMATED > 60; GLUCOSE 92 MG/DL (70-105); POTASSIUM 3.6 MMOL/L (3.6-5.0); SODIUM 140 MMOL/L (135-145)
[2017-05-17 12:26] LABS: BASOPHILS % (AUTO) 0 % (0-10); EOSINOPHILS # (AUTO) 0.2 10^3/uL (0.0-0.3); EOSINOPHILS % (AUTO) 4 % (0-10); HEMATOCRIT 31 % (35-52); HEMOGLOBIN 10.4 G/DL (11.5-16.0); LYMPHOCYTES # (AUTO) 1.3 X 10^3 (1.0-4.0); LYMPHOCYTES % (AUTO) 26 % (12-44); MEAN CORPUSCULAR HEMOGLOBIN 32 PG (25-34); MEAN CORPUSCULAR HGB CONC 33 G/DL (32-36); MEAN CORPUSCULAR VOLUME 96 FL (80-99); MEAN PLATELET VOLUME 11.8 FL (7.4-10.4); MONOCYTES # (AUTO) 0.8 X 10^3 (0.0-1.0); MONOCYTES % (AUTO) 15 % (0-12); NEUTROPHILS # (AUTO) 2.7 X 10^3 (1.8-7.8); NEUTROPHILS % (AUTO) 54 % (42-75); PLATELET COUNT 193 10^3/uL (130-400); RED BLOOD COUNT 3.23 10^6/uL (4.35-5.85); RED CELL DISTRIBUTION WIDTH 15.4 % (10.0-14.5); WHITE BLOOD COUNT 4.9 10^3/uL (4.3-11.0)
[2017-05-17 12:45] LABS: BUN/CREATININE RATIO 24; CALCIUM 9.5 MG/DL (8.5-10.1); CARBON DIOXIDE 26 MMOL/L (21-32); CHLORIDE 101 MMOL/L (98-107); CREATININE SERUM 0.68 MG/DL (0.60-1.30); GFR ESTIMATED > 60; GLUCOSE 88 MG/DL (70-105); POTASSIUM 3.3 MMOL/L (3.6-5.0); SODIUM 139 MMOL/L (135-145)
[2017-05-24 13:40] LABS: BASOPHILS % (AUTO) 1 % (0-10); EOSINOPHILS # (AUTO) 0.3 10^3/uL (0.0-0.3); EOSINOPHILS % (AUTO) 6 % (0-10); HEMATOCRIT 33 % (35-52); HEMOGLOBIN 10.9 G/DL (11.5-16.0); LYMPHOCYTES # (AUTO) 1.2 X 10^3 (1.0-4.0); LYMPHOCYTES % (AUTO) 29 % (12-44); MEAN CORPUSCULAR HEMOGLOBIN 32 PG (25-34); MEAN CORPUSCULAR HGB CONC 33 G/DL (32-36); MEAN CORPUSCULAR VOLUME 96 FL (80-99); MEAN PLATELET VOLUME 11.5 FL (7.4-10.4); MONOCYTES # (AUTO) 0.7 X 10^3 (0.0-1.0); MONOCYTES % (AUTO) 18 % (0-12); NEUTROPHILS # (AUTO) 1.9 X 10^3 (1.8-7.8); NEUTROPHILS % (AUTO) 46 % (42-75); PLATELET COUNT 160 10^3/uL (130-400); RED BLOOD COUNT 3.43 10^6/uL (4.35-5.85); RED CELL DISTRIBUTION WIDTH 15.2 % (10.0-14.5); WHITE BLOOD COUNT 4.1 10^3/uL (4.3-11.0)
[2017-05-24 14:01] LABS: BUN/CREATININE RATIO 24; CALCIUM 8.7 MG/DL (8.5-10.1); CARBON DIOXIDE 25 MMOL/L (21-32); CHLORIDE 103 MMOL/L (98-107); CREATININE SERUM 0.63 MG/DL (0.60-1.30); GFR ESTIMATED > 60; GLUCOSE 91 MG/DL (70-105); SODIUM 141 MMOL/L (135-145)
[2017-05-25 15:43] LABS: MAGNESIUM 1.9 MG/DL (1.8-2.4)
[2017-05-31 09:09] LABS: BASOPHILS # (AUTO) 0.1 10^3/uL (0.0-0.1); BASOPHILS % (AUTO) 2 % (0-10); EOSINOPHILS # (AUTO) 0.1 10^3/uL (0.0-0.3); EOSINOPHILS % (AUTO) 1 % (0-10); HEMATOCRIT 36 % (35-52); HEMOGLOBIN 12.1 G/DL (11.5-16.0); LYMPHOCYTES # (AUTO) 1.4 X 10^3 (1.0-4.0); LYMPHOCYTES % (AUTO) 30 % (12-44); MEAN CORPUSCULAR HEMOGLOBIN 32 PG (25-34); MEAN CORPUSCULAR HGB CONC 33 G/DL (32-36); MEAN CORPUSCULAR VOLUME 95 FL (80-99); MEAN PLATELET VOLUME 11.2 FL (7.4-10.4); MONOCYTES # (AUTO) 0.8 X 10^3 (0.0-1.0); MONOCYTES % (AUTO) 17 % (0-12); NEUTROPHILS # (AUTO) 2.4 X 10^3 (1.8-7.8); NEUTROPHILS % (AUTO) 51 % (42-75); PLATELET COUNT 198 10^3/uL (130-400); RED BLOOD COUNT 3.81 10^6/uL (4.35-5.85); RED CELL DISTRIBUTION WIDTH 14.9 % (10.0-14.5); WHITE BLOOD COUNT 4.7 10^3/uL (4.3-11.0)
[2017-05-31 09:32] LABS: ALANINE AMINOTRANSFERASE 11 U/L (0-55); ALBUMIN 3.6 GM/DL (3.2-4.5); ALKALINE PHOSPHATASE 94 U/L (40-136); BILIRUBIN,TOTAL 0.4 MG/DL (0.1-1.0); BUN/CREATININE RATIO 20; CARBON DIOXIDE 28 MMOL/L (21-32); CHLORIDE 104 MMOL/L (98-107); CREATININE SERUM 0.64 MG/DL (0.60-1.30); GFR ESTIMATED > 60; GLUCOSE 91 MG/DL (70-105); POTASSIUM 3.5 MMOL/L (3.6-5.0); SODIUM 141 MMOL/L (135-145); TOTAL PROTEIN 6.7 GM/DL (6.4-8.2)
[~2017-06-07 12:07] MED LIST changes: +BORTEZOMIB 3.5 MG VELCADE SC SCH; +MAGN400T6 PO
[2017-06-07 12:25] LABS: BASOPHILS # (AUTO) 0.1 10^3/uL (0.0-0.1); BASOPHILS % (AUTO) 1 % (0-10); EOSINOPHILS # (AUTO) 0.1 10^3/uL (0.0-0.3); EOSINOPHILS % (AUTO) 2 % (0-10); HEMATOCRIT 40 % (35-52); HEMOGLOBIN 13.3 G/DL (11.5-16.0); LYMPHOCYTES # (AUTO) 0.6 X 10^3 (1.0-4.0); LYMPHOCYTES % (AUTO) 8 % (12-44); MEAN CORPUSCULAR HEMOGLOBIN 31 PG (25-34); MEAN CORPUSCULAR HGB CONC 33 G/DL (32-36); MEAN CORPUSCULAR VOLUME 94 FL (80-99); MEAN PLATELET VOLUME 11.9 FL (7.4-10.4); MONOCYTES # (AUTO) 0.2 X 10^3 (0.0-1.0); MONOCYTES % (AUTO) 2 % (0-12); NEUTROPHILS # (AUTO) 6.2 X 10^3 (1.8-7.8); NEUTROPHILS % (AUTO) 87 % (42-75); PLATELET COUNT 202 10^3/uL (130-400); RED BLOOD COUNT 4.29 10^6/uL (4.35-5.85); RED CELL DISTRIBUTION WIDTH 14.8 % (10.0-14.5); WHITE BLOOD COUNT 7.1 10^3/uL (4.3-11.0)
[2017-06-07 12:39] LABS: BUN/CREATININE RATIO 18; CARBON DIOXIDE 27 MMOL/L (21-32); CHLORIDE 104 MMOL/L (98-107); CREATININE SERUM 0.65 MG/DL (0.60-1.30); GFR ESTIMATED > 60; GLUCOSE 109 MG/DL (70-105); POTASSIUM 3.8 MMOL/L (3.6-5.0); SODIUM 139 MMOL/L (135-145)
[2017-06-14 13:38] LABS: BASOPHILS # (AUTO) 0.1 10^3/uL (0.0-0.1); BASOPHILS % (AUTO) 1 % (0-10); EOSINOPHILS # (AUTO) 0.3 10^3/uL (0.0-0.3); EOSINOPHILS % (AUTO) 4 % (0-10); HEMATOCRIT 40 % (35-52); HEMOGLOBIN 13.4 G/DL (11.5-16.0); LYMPHOCYTES # (AUTO) 0.8 X 10^3 (1.0-4.0); LYMPHOCYTES % (AUTO) 12 % (12-44); MEAN CORPUSCULAR HEMOGLOBIN 31 PG (25-34); MEAN CORPUSCULAR HGB CONC 33 G/DL (32-36); MEAN CORPUSCULAR VOLUME 92 FL (80-99); MEAN PLATELET VOLUME 12.4 FL (7.4-10.4); MONOCYTES # (AUTO) 0.8 X 10^3 (0.0-1.0); MONOCYTES % (AUTO) 12 % (0-12); NEUTROPHILS # (AUTO) 4.6 X 10^3 (1.8-7.8); NEUTROPHILS % (AUTO) 70 % (42-75); PLATELET COUNT 195 10^3/uL (130-400); RED BLOOD COUNT 4.38 10^6/uL (4.35-5.85); RED CELL DISTRIBUTION WIDTH 14.3 % (10.0-14.5); WHITE BLOOD COUNT 6.6 10^3/uL (4.3-11.0)
[2017-06-14 13:53] LABS: BUN/CREATININE RATIO 26; CALCIUM 8.6 MG/DL (8.5-10.1); CARBON DIOXIDE 26 MMOL/L (21-32); CHLORIDE 102 MMOL/L (98-107); CREATININE SERUM 0.65 MG/DL (0.60-1.30); GFR ESTIMATED > 60; GLUCOSE 95 MG/DL (70-105); POTASSIUM 3.7 MMOL/L (3.6-5.0); SODIUM 137 MMOL/L (135-145)
== END 2017-06-13 | disposition home or self-care (01) ==
LOC: ONC 12:07
PROVIDERS: ATTEND Internal Medicine Hematology & Oncology
DX: C90.00 Multiple myeloma not having achieved remission (principal); D64.9 Anemia, unspecified; M81.0 Age-related osteoporosis without current pathological fracture; J44.9 Chronic obstructive pulmonary disease, unspecified; I10 Essential (primary) hypertension; E87.6 Hypokalemia; K21.9 Gastro-esophageal reflux disease without esophagitis; Z79.82 Long term (current) use of aspirin; Z79.899 Other long term (current) drug therapy
CPT/HCPCS: 36415; 38221; 80048; 80053; 82306; 82728; 82784; 83735; 83883; 84155; 84165; 85007; 85025; 85027; 85045; 88184; 88185; 88305; 88311; 88313; 96401; 96402; 99213

== ENCOUNTER 2017-06-21 13:22 | Outpatient (RCR) | payer MEDICARE ==
[2017-06-14 13:38] LABS: BASOPHILS # (AUTO) 0.1 10^3/uL (0.0-0.1); BASOPHILS % (AUTO) 1 % (0-10); EOSINOPHILS # (AUTO) 0.3 10^3/uL (0.0-0.3); EOSINOPHILS % (AUTO) 4 % (0-10); HEMATOCRIT 40 % (35-52); HEMOGLOBIN 13.4 G/DL (11.5-16.0); LYMPHOCYTES # (AUTO) 0.8 X 10^3 (1.0-4.0); LYMPHOCYTES % (AUTO) 12 % (12-44); MEAN CORPUSCULAR HEMOGLOBIN 31 PG (25-34); MEAN CORPUSCULAR HGB CONC 33 G/DL (32-36); MEAN CORPUSCULAR VOLUME 92 FL (80-99); MEAN PLATELET VOLUME 12.4 FL (7.4-10.4); MONOCYTES # (AUTO) 0.8 X 10^3 (0.0-1.0); MONOCYTES % (AUTO) 12 % (0-12); NEUTROPHILS # (AUTO) 4.6 X 10^3 (1.8-7.8); NEUTROPHILS % (AUTO) 70 % (42-75); PLATELET COUNT 195 10^3/uL (130-400); RED BLOOD COUNT 4.38 10^6/uL (4.35-5.85); RED CELL DISTRIBUTION WIDTH 14.3 % (10.0-14.5); WHITE BLOOD COUNT 6.6 10^3/uL (4.3-11.0)
[2017-06-14 13:53] LABS: BUN/CREATININE RATIO 26; CALCIUM 8.6 MG/DL (8.5-10.1); CARBON DIOXIDE 26 MMOL/L (21-32); CHLORIDE 102 MMOL/L (98-107); CREATININE SERUM 0.65 MG/DL (0.60-1.30); GFR ESTIMATED > 60; GLUCOSE 95 MG/DL (70-105); POTASSIUM 3.7 MMOL/L (3.6-5.0); SODIUM 137 MMOL/L (135-145)
[2017-06-21 13:45] LABS: BASOPHILS # (AUTO) 0.1 10^3/uL (0.0-0.1); BASOPHILS % (AUTO) 1 % (0-10); EOSINOPHILS # (AUTO) 0.2 10^3/uL (0.0-0.3); EOSINOPHILS % (AUTO) 4 % (0-10); HEMATOCRIT 42 % (35-52); HEMOGLOBIN 13.6 G/DL (11.5-16.0); LYMPHOCYTES # (AUTO) 0.7 X 10^3 (1.0-4.0); LYMPHOCYTES % (AUTO) 12 % (12-44); MEAN CORPUSCULAR HEMOGLOBIN 30 PG (25-34); MEAN CORPUSCULAR HGB CONC 33 G/DL (32-36); MEAN CORPUSCULAR VOLUME 93 FL (80-99); MEAN PLATELET VOLUME 12.1 FL (7.4-10.4); MONOCYTES # (AUTO) 0.4 X 10^3 (0.0-1.0); MONOCYTES % (AUTO) 7 % (0-12); NEUTROPHILS # (AUTO) 4.3 X 10^3 (1.8-7.8); NEUTROPHILS % (AUTO) 76 % (42-75); PLATELET COUNT 152 10^3/uL (130-400); RED BLOOD COUNT 4.48 10^6/uL (4.35-5.85); RED CELL DISTRIBUTION WIDTH 14.2 % (10.0-14.5); WHITE BLOOD COUNT 5.7 10^3/uL (4.3-11.0)
[2017-06-21 13:59] LABS: BUN/CREATININE RATIO 25; CALCIUM 8.9 MG/DL (8.5-10.1); CARBON DIOXIDE 25 MMOL/L (21-32); CHLORIDE 104 MMOL/L (98-107); CREATININE SERUM 0.61 MG/DL (0.60-1.30); GFR ESTIMATED > 60; GLUCOSE 107 MG/DL (70-105); POTASSIUM 3.6 MMOL/L (3.6-5.0); SODIUM 137 MMOL/L (135-145)
== END 2017-06-27 15:00 | disposition home or self-care (01) ==
LOC: ONC 13:22
PROVIDERS: ATTEND Internal Medicine Hematology & Oncology
DX: C90.00 Multiple myeloma not having achieved remission (principal); D64.9 Anemia, unspecified; M81.0 Age-related osteoporosis without current pathological fracture; J44.9 Chronic obstructive pulmonary disease, unspecified; I10 Essential (primary) hypertension; E87.6 Hypokalemia; K21.9 Gastro-esophageal reflux disease without esophagitis; Z79.82 Long term (current) use of aspirin; Z79.899 Other long term (current) drug therapy
CPT/HCPCS: 36415; 80048; 85025; 96401

== ENCOUNTER 2017-10-18 08:51 | Outpatient (RCR) | payer MEDICARE ==
[2017-07-26 13:16] LABS: BASOPHILS # (AUTO) 0.2 10^3/uL (0.0-0.1); BASOPHILS % (AUTO) 3 % (0-10); EOSINOPHILS # (AUTO) 0.3 10^3/uL (0.0-0.3); EOSINOPHILS % (AUTO) 5 % (0-10); HEMATOCRIT 43 % (35-52); HEMOGLOBIN 14.5 G/DL (11.5-16.0); LYMPHOCYTES % (AUTO) 38 % (12-44); MEAN CORPUSCULAR HEMOGLOBIN 29 PG (25-34); MEAN CORPUSCULAR HGB CONC 34 G/DL (32-36); MEAN CORPUSCULAR VOLUME 87 FL (80-99); MEAN PLATELET VOLUME 11.1 FL (7.4-10.4); MONOCYTES # (AUTO) 0.9 X 10^3 (0.0-1.0); MONOCYTES % (AUTO) 16 % (0-12); NEUTROPHILS % (AUTO) 38 % (42-75); PLATELET COUNT 242 10^3/uL (130-400); RED BLOOD COUNT 4.95 10^6/uL (4.35-5.85); RED CELL DISTRIBUTION WIDTH 14.8 % (10.0-14.5); WHITE BLOOD COUNT 5.4 10^3/uL (4.3-11.0)
[2017-07-26 13:37] LABS: ALANINE AMINOTRANSFERASE 8 U/L (0-55); ALBUMIN 3.8 GM/DL (3.2-4.5); ALKALINE PHOSPHATASE 86 U/L (40-136); BILIRUBIN,TOTAL 0.5 MG/DL (0.1-1.0); BUN/CREATININE RATIO 24; CALCIUM 9.2 MG/DL (8.5-10.1); CARBON DIOXIDE 27 MMOL/L (21-32); CHLORIDE 105 MMOL/L (98-107); CREATININE SERUM 0.63 MG/DL (0.60-1.30); GFR ESTIMATED > 60; GLUCOSE 87 MG/DL (70-105); POTASSIUM 3.5 MMOL/L (3.6-5.0); SODIUM 140 MMOL/L (135-145); TOTAL PROTEIN 6.3 GM/DL (6.4-8.2)
[2017-08-02 13:20] LABS: BASOPHILS # (AUTO) 0.1 10^3/uL (0.0-0.1); BASOPHILS % (AUTO) 1 % (0-10); EOSINOPHILS # (AUTO) 0.1 10^3/uL (0.0-0.3); EOSINOPHILS % (AUTO) 2 % (0-10); HEMATOCRIT 41 % (35-52); HEMOGLOBIN 13.9 G/DL (11.5-16.0); LYMPHOCYTES # (AUTO) 0.8 X 10^3 (1.0-4.0); LYMPHOCYTES % (AUTO) 13 % (12-44); MEAN CORPUSCULAR HEMOGLOBIN 30 PG (25-34); MEAN CORPUSCULAR HGB CONC 34 G/DL (32-36); MEAN CORPUSCULAR VOLUME 88 FL (80-99); MEAN PLATELET VOLUME 11.7 FL (7.4-10.4); MONOCYTES # (AUTO) 0.2 X 10^3 (0.0-1.0); MONOCYTES % (AUTO) 3 % (0-12); NEUTROPHILS # (AUTO) 5.2 X 10^3 (1.8-7.8); NEUTROPHILS % (AUTO) 81 % (42-75); PLATELET COUNT 247 10^3/uL (130-400); RED BLOOD COUNT 4.71 10^6/uL (4.35-5.85); RED CELL DISTRIBUTION WIDTH 15.6 % (10.0-14.5); WHITE BLOOD COUNT 6.4 10^3/uL (4.3-11.0)
[2017-08-02 13:37] LABS: BUN/CREATININE RATIO 18; CALCIUM 8.9 MG/DL (8.5-10.1); CARBON DIOXIDE 25 MMOL/L (21-32); CHLORIDE 107 MMOL/L (98-107); CREATININE SERUM 0.61 MG/DL (0.60-1.30); GFR ESTIMATED > 60; GLUCOSE 107 MG/DL (70-105); POTASSIUM 3.8 MMOL/L (3.6-5.0); SODIUM 139 MMOL/L (135-145)
[2017-08-09 13:13] LABS: BASOPHILS # (AUTO) 0.1 10^3/uL (0.0-0.1); BASOPHILS % (AUTO) 1 % (0-10); EOSINOPHILS # (AUTO) 0.2 10^3/uL (0.0-0.3); EOSINOPHILS % (AUTO) 3 % (0-10); HEMATOCRIT 43 % (35-52); HEMOGLOBIN 14.2 G/DL (11.5-16.0); LYMPHOCYTES # (AUTO) 0.6 X 10^3 (1.0-4.0); LYMPHOCYTES % (AUTO) 8 % (12-44); MEAN CORPUSCULAR HEMOGLOBIN 29 PG (25-34); MEAN CORPUSCULAR HGB CONC 33 G/DL (32-36); MEAN CORPUSCULAR VOLUME 87 FL (80-99); MEAN PLATELET VOLUME 11.8 FL (7.4-10.4); MONOCYTES # (AUTO) 0.3 X 10^3 (0.0-1.0); MONOCYTES % (AUTO) 4 % (0-12); NEUTROPHILS # (AUTO) 7.1 X 10^3 (1.8-7.8); NEUTROPHILS % (AUTO) 85 % (42-75); PLATELET COUNT 202 10^3/uL (130-400); RED CELL DISTRIBUTION WIDTH 15.6 % (10.0-14.5); WHITE BLOOD COUNT 8.3 10^3/uL (4.3-11.0)
[2017-08-09 13:29] LABS: BUN/CREATININE RATIO 22; CALCIUM 8.3 MG/DL (8.5-10.1); CARBON DIOXIDE 21 MMOL/L (21-32); CHLORIDE 108 MMOL/L (98-107); CREATININE SERUM 0.67 MG/DL (0.60-1.30); GFR ESTIMATED > 60; GLUCOSE 140 MG/DL (70-105); POTASSIUM 3.2 MMOL/L (3.6-5.0); SODIUM 140 MMOL/L (135-145)
[2017-08-16 13:30] LABS: BASOPHILS # (AUTO) 0.1 10^3/uL (0.0-0.1); BASOPHILS % (AUTO) 1 % (0-10); EOSINOPHILS # (AUTO) 0.3 10^3/uL (0.0-0.3); EOSINOPHILS % (AUTO) 6 % (0-10); HEMATOCRIT 42 % (35-52); LYMPHOCYTES # (AUTO) 0.8 X 10^3 (1.0-4.0); LYMPHOCYTES % (AUTO) 14 % (12-44); MEAN CORPUSCULAR HEMOGLOBIN 29 PG (25-34); MEAN CORPUSCULAR HGB CONC 33 G/DL (32-36); MEAN CORPUSCULAR VOLUME 87 FL (80-99); MEAN PLATELET VOLUME 11.5 FL (7.4-10.4); MONOCYTES # (AUTO) 0.5 X 10^3 (0.0-1.0); MONOCYTES % (AUTO) 9 % (0-12); NEUTROPHILS # (AUTO) 3.8 X 10^3 (1.8-7.8); NEUTROPHILS % (AUTO) 71 % (42-75); PLATELET COUNT 160 10^3/uL (130-400); RED BLOOD COUNT 4.83 10^6/uL (4.35-5.85); WHITE BLOOD COUNT 5.4 10^3/uL (4.3-11.0)
[2017-08-16 13:48] LABS: BUN/CREATININE RATIO 23; CALCIUM 8.7 MG/DL (8.5-10.1); CARBON DIOXIDE 21 MMOL/L (21-32); CHLORIDE 105 MMOL/L (98-107); CREATININE SERUM 0.61 MG/DL (0.60-1.30); GFR ESTIMATED > 60; GLUCOSE 98 MG/DL (70-105); POTASSIUM 3.5 MMOL/L (3.6-5.0); SODIUM 138 MMOL/L (135-145)
[2017-08-24 11:12] LABS: BASOPHILS # (AUTO) 0.2 10^3/uL (0.0-0.1); BASOPHILS % (AUTO) 3 % (0-10); EOSINOPHILS # (AUTO) 0.2 10^3/uL (0.0-0.3); EOSINOPHILS % (AUTO) 2 % (0-10); HEMATOCRIT 42 % (35-52); HEMOGLOBIN 13.9 G/DL (11.5-16.0); LYMPHOCYTES # (AUTO) 1.8 X 10^3 (1.0-4.0); LYMPHOCYTES % (AUTO) 25 % (12-44); MEAN CORPUSCULAR HEMOGLOBIN 29 PG (25-34); MEAN CORPUSCULAR HGB CONC 34 G/DL (32-36); MEAN CORPUSCULAR VOLUME 87 FL (80-99); MEAN PLATELET VOLUME 10.7 FL (7.4-10.4); MONOCYTES # (AUTO) 1.3 X 10^3 (0.0-1.0); MONOCYTES % (AUTO) 17 % (0-12); NEUTROPHILS # (AUTO) 3.8 X 10^3 (1.8-7.8); NEUTROPHILS % (AUTO) 53 % (42-75); PLATELET COUNT 298 10^3/uL (130-400); RED BLOOD COUNT 4.77 10^6/uL (4.35-5.85); RED CELL DISTRIBUTION WIDTH 17.1 % (10.0-14.5); WHITE BLOOD COUNT 7.2 10^3/uL (4.3-11.0)
[2017-08-24 11:36] LABS: ALANINE AMINOTRANSFERASE 12 U/L (0-55); ALBUMIN 3.8 GM/DL (3.2-4.5); ALKALINE PHOSPHATASE 69 U/L (40-136); BILIRUBIN,TOTAL 0.4 MG/DL (0.1-1.0); BUN/CREATININE RATIO 21; CALCIUM 9.2 MG/DL (8.5-10.1); CARBON DIOXIDE 22 MMOL/L (21-32); CHLORIDE 111 MMOL/L (98-107); CREATININE SERUM 0.63 MG/DL (0.60-1.30); GFR ESTIMATED > 60; GLUCOSE 80 MG/DL (70-105); POTASSIUM 3.9 MMOL/L (3.6-5.0); SODIUM 143 MMOL/L (135-145)
[2017-08-30 13:08] LABS: BASOPHILS # (AUTO) 0.1 10^3/uL (0.0-0.1); BASOPHILS % (AUTO) 1 % (0-10); EOSINOPHILS # (AUTO) 0.2 10^3/uL (0.0-0.3); EOSINOPHILS % (AUTO) 3 % (0-10); HEMATOCRIT 41 % (35-52); HEMOGLOBIN 13.7 G/DL (11.5-16.0); LYMPHOCYTES # (AUTO) 0.9 X 10^3 (1.0-4.0); LYMPHOCYTES % (AUTO) 14 % (12-44); MEAN CORPUSCULAR HEMOGLOBIN 29 PG (25-34); MEAN CORPUSCULAR HGB CONC 33 G/DL (32-36); MEAN CORPUSCULAR VOLUME 87 FL (80-99); MEAN PLATELET VOLUME 11.6 FL (7.4-10.4); MONOCYTES # (AUTO) 0.4 X 10^3 (0.0-1.0); MONOCYTES % (AUTO) 7 % (0-12); NEUTROPHILS # (AUTO) 4.7 X 10^3 (1.8-7.8); NEUTROPHILS % (AUTO) 75 % (42-75); PLATELET COUNT 245 10^3/uL (130-400); RED CELL DISTRIBUTION WIDTH 17.1 % (10.0-14.5); WHITE BLOOD COUNT 6.3 10^3/uL (4.3-11.0)
[2017-08-30 13:27] LABS: BUN/CREATININE RATIO 21; CALCIUM 8.9 MG/DL (8.5-10.1); CARBON DIOXIDE 23 MMOL/L (21-32); CHLORIDE 108 MMOL/L (98-107); CREATININE SERUM 0.61 MG/DL (0.60-1.30); GFR ESTIMATED > 60; GLUCOSE 115 MG/DL (70-105); POTASSIUM 3.5 MMOL/L (3.6-5.0); SODIUM 141 MMOL/L (135-145)
[2017-09-06 13:08] LABS: BASOPHILS # (AUTO) 0.1 10^3/uL (0.0-0.1); BASOPHILS % (AUTO) 1 % (0-10); EOSINOPHILS # (AUTO) 0.2 10^3/uL (0.0-0.3); EOSINOPHILS % (AUTO) 3 % (0-10); HEMATOCRIT 41 % (35-52); HEMOGLOBIN 14.2 G/DL (11.5-16.0); LYMPHOCYTES # (AUTO) 0.8 X 10^3 (1.0-4.0); LYMPHOCYTES % (AUTO) 9 % (12-44); MEAN CORPUSCULAR HEMOGLOBIN 30 PG (25-34); MEAN CORPUSCULAR HGB CONC 35 G/DL (32-36); MEAN CORPUSCULAR VOLUME 87 FL (80-99); MEAN PLATELET VOLUME 12.1 FL (7.4-10.4); MONOCYTES # (AUTO) 0.7 X 10^3 (0.0-1.0); MONOCYTES % (AUTO) 8 % (0-12); NEUTROPHILS # (AUTO) 7.3 X 10^3 (1.8-7.8); NEUTROPHILS % (AUTO) 80 % (42-75); PLATELET COUNT 212 10^3/uL (130-400); RED BLOOD COUNT 4.74 10^6/uL (4.35-5.85); RED CELL DISTRIBUTION WIDTH 16.7 % (10.0-14.5); WHITE BLOOD COUNT 9.1 10^3/uL (4.3-11.0)
[2017-09-06 13:25] LABS: BUN/CREATININE RATIO 22; CALCIUM 9.1 MG/DL (8.5-10.1); CARBON DIOXIDE 25 MMOL/L (21-32); CHLORIDE 106 MMOL/L (98-107); CREATININE SERUM 0.65 MG/DL (0.60-1.30); GFR ESTIMATED > 60; GLUCOSE 117 MG/DL (70-105); POTASSIUM 3.6 MMOL/L (3.6-5.0); SODIUM 141 MMOL/L (135-145)
[2017-09-13 13:12] LABS: BASOPHILS % (AUTO) 0 % (0-10); EOSINOPHILS # (AUTO) 0.2 10^3/uL (0.0-0.3); EOSINOPHILS % (AUTO) 3 % (0-10); HEMATOCRIT 42 % (35-52); HEMOGLOBIN 13.9 G/DL (11.5-16.0); LYMPHOCYTES # (AUTO) 0.7 X 10^3 (1.0-4.0); LYMPHOCYTES % (AUTO) 10 % (12-44); MEAN CORPUSCULAR HEMOGLOBIN 29 PG (25-34); MEAN CORPUSCULAR HGB CONC 33 G/DL (32-36); MEAN CORPUSCULAR VOLUME 87 FL (80-99); MONOCYTES # (AUTO) 0.6 X 10^3 (0.0-1.0); MONOCYTES % (AUTO) 8 % (0-12); NEUTROPHILS # (AUTO) 5.4 X 10^3 (1.8-7.8); NEUTROPHILS % (AUTO) 78 % (42-75); PLATELET COUNT 164 10^3/uL (130-400); RED BLOOD COUNT 4.84 10^6/uL (4.35-5.85); RED CELL DISTRIBUTION WIDTH 16.8 % (10.0-14.5); WHITE BLOOD COUNT 6.9 10^3/uL (4.3-11.0)
[2017-09-13 13:33] LABS: BUN/CREATININE RATIO 16; CALCIUM 8.9 MG/DL (8.5-10.1); CARBON DIOXIDE 23 MMOL/L (21-32); CHLORIDE 105 MMOL/L (98-107); CREATININE SERUM 0.67 MG/DL (0.60-1.30); GFR ESTIMATED > 60; GLUCOSE 121 MG/DL (70-105); POTASSIUM 3.3 MMOL/L (3.6-5.0); SODIUM 140 MMOL/L (135-145)
[2017-09-20 10:54] LABS: BASOPHILS # (AUTO) 0.1 10^3/uL (0.0-0.1); BASOPHILS % (AUTO) 1 % (0-10); EOSINOPHILS # (AUTO) 0.1 10^3/uL (0.0-0.3); EOSINOPHILS % (AUTO) 3 % (0-10); HEMATOCRIT 41 % (35-52); HEMOGLOBIN 14.3 G/DL (11.5-16.0); LYMPHOCYTES # (AUTO) 1.8 X 10^3 (1.0-4.0); LYMPHOCYTES % (AUTO) 35 % (12-44); MEAN CORPUSCULAR HEMOGLOBIN 30 PG (25-34); MEAN CORPUSCULAR HGB CONC 35 G/DL (32-36); MEAN CORPUSCULAR VOLUME 88 FL (80-99); MEAN PLATELET VOLUME 11.3 FL (7.4-10.4); MONOCYTES # (AUTO) 0.9 X 10^3 (0.0-1.0); MONOCYTES % (AUTO) 17 % (0-12); NEUTROPHILS # (AUTO) 2.4 X 10^3 (1.8-7.8); NEUTROPHILS % (AUTO) 44 % (42-75); PLATELET COUNT 219 10^3/uL (130-400); RED BLOOD COUNT 4.72 10^6/uL (4.35-5.85); RED CELL DISTRIBUTION WIDTH 16.7 % (10.0-14.5); WHITE BLOOD COUNT 5.3 10^3/uL (4.3-11.0)
[2017-09-20 11:18] LABS: ALANINE AMINOTRANSFERASE 14 U/L (0-55); ALBUMIN 3.8 GM/DL (3.2-4.5); ALKALINE PHOSPHATASE 65 U/L (40-136); BILIRUBIN,TOTAL 0.5 MG/DL (0.1-1.0); BUN/CREATININE RATIO 18; CARBON DIOXIDE 22 MMOL/L (21-32); CHLORIDE 108 MMOL/L (98-107); CREATININE SERUM 0.66 MG/DL (0.60-1.30); GFR ESTIMATED > 60; GLUCOSE 110 MG/DL (70-105); POTASSIUM 2.9 MMOL/L (3.6-5.0); SODIUM 143 MMOL/L (135-145)
[~2017-10-18] VITALS: Ht 166.4 cm; Wt 72.6 kg
[~2017-10-18 08:51] MED LIST changes: +DENOSUMAB 120 MG/1.7 ML (XGEVA) SQ SCH; -EPIN0.3A3 IM; +EPIN0.3P18 IM
[2017-10-18 09:12] LABS: BASOPHILS # (AUTO) 0.2 10^3/uL (0.0-0.1); BASOPHILS % (AUTO) 5 % (0-10); EOSINOPHILS # (AUTO) 0.2 10^3/uL (0.0-0.3); EOSINOPHILS % (AUTO) 5 % (0-10); HEMATOCRIT 42 % (35-52); HEMOGLOBIN 14.4 G/DL (11.5-16.0); LYMPHOCYTES # (AUTO) 1.7 X 10^3 (1.0-4.0); LYMPHOCYTES % (AUTO) 37 % (12-44); MEAN CORPUSCULAR HEMOGLOBIN 31 PG (25-34); MEAN CORPUSCULAR HGB CONC 34 G/DL (32-36); MEAN CORPUSCULAR VOLUME 91 FL (80-99); MEAN PLATELET VOLUME 10.8 FL (7.4-10.4); MONOCYTES # (AUTO) 0.9 X 10^3 (0.0-1.0); MONOCYTES % (AUTO) 19 % (0-12); NEUTROPHILS # (AUTO) 1.5 X 10^3 (1.8-7.8); NEUTROPHILS % (AUTO) 33 % (42-75); PLATELET COUNT 223 10^3/uL (130-400); RED BLOOD COUNT 4.63 10^6/uL (4.35-5.85); RED CELL DISTRIBUTION WIDTH 15.5 % (10.0-14.5); WHITE BLOOD COUNT 4.4 10^3/uL (4.3-11.0)
[2017-10-18 09:24] LABS: ALANINE AMINOTRANSFERASE 11 U/L (0-55); ALBUMIN 3.9 GM/DL (3.2-4.5); ALKALINE PHOSPHATASE 53 U/L (40-136); BILIRUBIN,TOTAL 0.5 MG/DL (0.1-1.0); BUN/CREATININE RATIO 27; CALCIUM 9.4 MG/DL (8.5-10.1); CARBON DIOXIDE 29 MMOL/L (21-32); CHLORIDE 108 MMOL/L (98-107); CREATININE SERUM 0.66 MG/DL (0.60-1.30); GFR ESTIMATED > 60; GLUCOSE 91 MG/DL (70-105); POTASSIUM 4.1 MMOL/L (3.6-5.0); SODIUM 142 MMOL/L (135-145); TOTAL PROTEIN 6.3 GM/DL (6.4-8.2)
== END 2017-10-24 | disposition home or self-care (01) ==
LOC: ONC 08:51
PROVIDERS: ATTEND Internal Medicine Hematology & Oncology
DX: C90.00 Multiple myeloma not having achieved remission (principal); D64.9 Anemia, unspecified; M81.0 Age-related osteoporosis without current pathological fracture; J44.9 Chronic obstructive pulmonary disease, unspecified; I10 Essential (primary) hypertension; E87.6 Hypokalemia; K21.9 Gastro-esophageal reflux disease without esophagitis; Z79.82 Long term (current) use of aspirin; Z79.899 Other long term (current) drug therapy
CPT/HCPCS: 36415; 80048; 80053; 82232; 82784; 83883; 85025; 96372; 96401

== ENCOUNTER 2017-11-15 10:29 | Outpatient (RCR) | payer MEDICARE ==
[~2017-11-15 10:29] MED LIST changes: +AMLO5TAB7 PO; -BORTEZOMIB 3.5 MG VELCADE SC SCH; -DENOSUMAB 120 MG/1.7 ML (XGEVA) SQ SCH
[2017-11-15 10:49] LABS: BASOPHILS # (AUTO) 0.1 10^3/uL (0.0-0.1); BASOPHILS % (AUTO) 3 % (0-10); EOSINOPHILS # (AUTO) 0.2 10^3/uL (0.0-0.3); EOSINOPHILS % (AUTO) 5 % (0-10); HEMATOCRIT 45 % (35-52); HEMOGLOBIN 15.1 G/DL (11.5-16.0); LYMPHOCYTES # (AUTO) 1.4 X 10^3 (1.0-4.0); LYMPHOCYTES % (AUTO) 33 % (12-44); MEAN CORPUSCULAR HEMOGLOBIN 30 PG (25-34); MEAN CORPUSCULAR HGB CONC 34 G/DL (32-36); MEAN CORPUSCULAR VOLUME 90 FL (80-99); MEAN PLATELET VOLUME 10.6 FL (7.4-10.4); MONOCYTES # (AUTO) 0.7 X 10^3 (0.0-1.0); MONOCYTES % (AUTO) 16 % (0-12); NEUTROPHILS # (AUTO) 1.9 X 10^3 (1.8-7.8); NEUTROPHILS % (AUTO) 44 % (42-75); PLATELET COUNT 217 10^3/uL (130-400); RED BLOOD COUNT 5.01 10^6/uL (4.35-5.85); RED CELL DISTRIBUTION WIDTH 14.6 % (10.0-14.5); WHITE BLOOD COUNT 4.3 10^3/uL (4.3-11.0)
[2017-11-15 11:06] LABS: ALANINE AMINOTRANSFERASE 23 U/L (0-55); ALKALINE PHOSPHATASE 51 U/L (40-136); BILIRUBIN,TOTAL 0.6 MG/DL (0.1-1.0); BUN/CREATININE RATIO 17; CALCIUM 9.2 MG/DL (8.5-10.1); CARBON DIOXIDE 24 MMOL/L (21-32); CHLORIDE 107 MMOL/L (98-107); CREATININE SERUM 0.64 MG/DL (0.60-1.30); GFR ESTIMATED > 60; GLUCOSE 99 MG/DL (70-105); POTASSIUM 3.4 MMOL/L (3.6-5.0); SODIUM 141 MMOL/L (135-145); TOTAL PROTEIN 6.4 GM/DL (6.4-8.2)
[2017-11-15] MEDS ORDERED: DENOSUMAB 120 MG/1.7 ML (XGEVA) SQ SCH (11:08)
== END 2017-12-12 16:32 | disposition home or self-care (01) ==
LOC: ONC 10:29
PROVIDERS: ATTEND Internal Medicine Hematology & Oncology
DX: C90.00 Multiple myeloma not having achieved remission (principal); D64.9 Anemia, unspecified; D70.9 Neutropenia, unspecified; Z79.899 Other long term (current) drug therapy
CPT/HCPCS: 36415; 80053; 82232; 82784; 83883; 85025; 96372

== ENCOUNTER 2017-12-13 09:42 | Outpatient (RCR) | payer MEDICARE ==
[~2017-12-13 09:42] MED LIST changes: +DENOSUMAB 120 MG/1.7 ML (XGEVA) SQ SCH
[2017-12-13 09:54] LABS: BASOPHILS # (AUTO) 0.2 10^3/uL (0.0-0.1); BASOPHILS % (AUTO) 4 % (0-10); EOSINOPHILS # (AUTO) 0.3 10^3/uL (0.0-0.3); EOSINOPHILS % (AUTO) 6 % (0-10); HEMATOCRIT 45 % (35-52); HEMOGLOBIN 15.4 G/DL (11.5-16.0); LYMPHOCYTES # (AUTO) 1.7 X 10^3 (1.0-4.0); LYMPHOCYTES % (AUTO) 37 % (12-44); MEAN CORPUSCULAR HEMOGLOBIN 30 PG (25-34); MEAN CORPUSCULAR HGB CONC 34 G/DL (32-36); MEAN CORPUSCULAR VOLUME 88 FL (80-99); MONOCYTES # (AUTO) 0.7 X 10^3 (0.0-1.0); MONOCYTES % (AUTO) 16 % (0-12); NEUTROPHILS # (AUTO) 1.7 X 10^3 (1.8-7.8); NEUTROPHILS % (AUTO) 38 % (42-75); PLATELET COUNT 216 10^3/uL (130-400); RED BLOOD COUNT 5.14 10^6/uL (4.35-5.85); RED CELL DISTRIBUTION WIDTH 14.5 % (10.0-14.5); WHITE BLOOD COUNT 4.6 10^3/uL (4.3-11.0)
[2017-12-13 10:21] LABS: ALANINE AMINOTRANSFERASE 20 U/L (0-55); ALKALINE PHOSPHATASE 51 U/L (40-136); BILIRUBIN,TOTAL 0.6 MG/DL (0.1-1.0); BUN/CREATININE RATIO 15; CALCIUM 9.3 MG/DL (8.5-10.1); CARBON DIOXIDE 25 MMOL/L (21-32); CHLORIDE 107 MMOL/L (98-107); CREATININE SERUM 0.67 MG/DL (0.60-1.30); GFR ESTIMATED > 60; GLUCOSE 98 MG/DL (70-105); POTASSIUM 3.2 MMOL/L (3.6-5.0); SODIUM 141 MMOL/L (135-145); TOTAL PROTEIN 6.5 GM/DL (6.4-8.2)
== END 2017-12-31 | disposition home or self-care (01) ==
LOC: ONC 09:42
PROVIDERS: ATTEND Internal Medicine Hematology & Oncology
DX: C90.00 Multiple myeloma not having achieved remission (principal); D70.9 Neutropenia, unspecified; D64.9 Anemia, unspecified; K21.9 Gastro-esophageal reflux disease without esophagitis; J44.9 Chronic obstructive pulmonary disease, unspecified; I10 Essential (primary) hypertension; Z79.899 Other long term (current) drug therapy
CPT/HCPCS: 36415; 80053; 82232; 82784; 83883; 85025; 96372

== ENCOUNTER 2018-04-05 10:04 | Outpatient (RCR) | payer MEDICARE ==
[2018-01-10 10:45] LABS: BASOPHILS # (AUTO) 0.1 10^3/uL (0.0-0.1); BASOPHILS % (AUTO) 3 % (0-10); EOSINOPHILS # (AUTO) 0.2 10^3/uL (0.0-0.3); EOSINOPHILS % (AUTO) 6 % (0-10); HEMATOCRIT 44 % (35-52); HEMOGLOBIN 15.1 G/DL (11.5-16.0); LYMPHOCYTES # (AUTO) 1.7 X 10^3 (1.0-4.0); LYMPHOCYTES % (AUTO) 39 % (12-44); MEAN CORPUSCULAR HEMOGLOBIN 30 PG (25-34); MEAN CORPUSCULAR HGB CONC 34 G/DL (32-36); MEAN CORPUSCULAR VOLUME 88 FL (80-99); MONOCYTES # (AUTO) 0.7 X 10^3 (0.0-1.0); MONOCYTES % (AUTO) 16 % (0-12); NEUTROPHILS # (AUTO) 1.6 X 10^3 (1.8-7.8); NEUTROPHILS % (AUTO) 37 % (42-75); PLATELET COUNT 185 10^3/uL (130-400); RED BLOOD COUNT 5.02 10^6/uL (4.35-5.85); RED CELL DISTRIBUTION WIDTH 14.9 % (10.0-14.5); WHITE BLOOD COUNT 4.3 10^3/uL (4.3-11.0)
[2018-01-10 11:06] LABS: ALANINE AMINOTRANSFERASE 29 U/L (0-55); ALKALINE PHOSPHATASE 58 U/L (40-136); BILIRUBIN,TOTAL 0.5 MG/DL (0.1-1.0); BUN/CREATININE RATIO 16; CARBON DIOXIDE 26 MMOL/L (21-32); CHLORIDE 106 MMOL/L (98-107); CREATININE SERUM 0.68 MG/DL (0.60-1.30); GFR ESTIMATED > 60; GLUCOSE 102 MG/DL (70-105); POTASSIUM 3.3 MMOL/L (3.6-5.0); SODIUM 142 MMOL/L (135-145); TOTAL PROTEIN 6.4 GM/DL (6.4-8.2)
[2018-02-07 11:07] LABS: BASOPHILS # (AUTO) 0.1 10^3/uL (0.0-0.1); BASOPHILS % (AUTO) 2 % (0-10); EOSINOPHILS # (AUTO) 0.2 10^3/uL (0.0-0.3); EOSINOPHILS % (AUTO) 5 % (0-10); HEMATOCRIT 45 % (35-52); HEMOGLOBIN 15.1 G/DL (11.5-16.0); LYMPHOCYTES # (AUTO) 1.8 X 10^3 (1.0-4.0); LYMPHOCYTES % (AUTO) 39 % (12-44); MEAN CORPUSCULAR HEMOGLOBIN 30 PG (25-34); MEAN CORPUSCULAR HGB CONC 34 G/DL (32-36); MEAN CORPUSCULAR VOLUME 89 FL (80-99); MEAN PLATELET VOLUME 11.1 FL (7.4-10.4); MONOCYTES # (AUTO) 0.6 X 10^3 (0.0-1.0); MONOCYTES % (AUTO) 14 % (0-12); NEUTROPHILS # (AUTO) 1.9 X 10^3 (1.8-7.8); NEUTROPHILS % (AUTO) 41 % (42-75); PLATELET COUNT 204 10^3/uL (130-400); RED BLOOD COUNT 5.03 10^6/uL (4.35-5.85); RED CELL DISTRIBUTION WIDTH 15.4 % (10.0-14.5); WHITE BLOOD COUNT 4.6 10^3/uL (4.3-11.0)
[2018-02-07 11:28] LABS: ALANINE AMINOTRANSFERASE 17 U/L (0-55); ALBUMIN 4.1 GM/DL (3.2-4.5); ALKALINE PHOSPHATASE 54 U/L (40-136); BILIRUBIN,TOTAL 0.6 MG/DL (0.1-1.0); BUN/CREATININE RATIO 16; CALCIUM 9.5 MG/DL (8.5-10.1); CARBON DIOXIDE 29 MMOL/L (21-32); CHLORIDE 104 MMOL/L (98-107); GFR ESTIMATED > 60; GLUCOSE 98 MG/DL (70-105); POTASSIUM 3.1 MMOL/L (3.6-5.0); SODIUM 142 MMOL/L (135-145); TOTAL PROTEIN 6.8 GM/DL (6.4-8.2)
[2018-03-06 13:41] LABS: BASOPHILS # (AUTO) 0.1 10^3/uL (0.0-0.1); BASOPHILS % (AUTO) 3 % (0-10); EOSINOPHILS # (AUTO) 0.2 10^3/uL (0.0-0.3); EOSINOPHILS % (AUTO) 5 % (0-10); HEMATOCRIT 43 % (35-52); HEMOGLOBIN 14.7 G/DL (11.5-16.0); LYMPHOCYTES # (AUTO) 1.6 X 10^3 (1.0-4.0); LYMPHOCYTES % (AUTO) 38 % (12-44); MEAN CORPUSCULAR HEMOGLOBIN 30 PG (25-34); MEAN CORPUSCULAR HGB CONC 34 G/DL (32-36); MEAN CORPUSCULAR VOLUME 89 FL (80-99); MEAN PLATELET VOLUME 11.1 FL (7.4-10.4); MONOCYTES # (AUTO) 0.6 X 10^3 (0.0-1.0); MONOCYTES % (AUTO) 14 % (0-12); NEUTROPHILS # (AUTO) 1.6 X 10^3 (1.8-7.8); NEUTROPHILS % (AUTO) 39 % (42-75); PLATELET COUNT 191 10^3/uL (130-400); RED BLOOD COUNT 4.85 10^6/uL (4.35-5.85); RED CELL DISTRIBUTION WIDTH 15.5 % (10.0-14.5); WHITE BLOOD COUNT 4.1 10^3/uL (4.3-11.0)
[2018-03-06 13:58] LABS: ALANINE AMINOTRANSFERASE 23 U/L (0-55); ALBUMIN 3.8 GM/DL (3.2-4.5); ALKALINE PHOSPHATASE 54 U/L (40-136); BILIRUBIN,TOTAL 0.4 MG/DL (0.1-1.0); BUN/CREATININE RATIO 15; CALCIUM 9.1 MG/DL (8.5-10.1); CARBON DIOXIDE 25 MMOL/L (21-32); CHLORIDE 106 MMOL/L (98-107); CREATININE SERUM 0.66 MG/DL (0.60-1.30); GFR ESTIMATED > 60; GLUCOSE 115 MG/DL (70-105); POTASSIUM 2.6 MMOL/L (3.6-5.0); SODIUM 141 MMOL/L (135-145); TOTAL PROTEIN 6.6 GM/DL (6.4-8.2)
[~2018-04-05 10:04] MED LIST changes: +ZOLEDRONIC ACID (CANCER CTR) 4 MG in NS (IVPB) CANCER CENTER 100 ML IV SCH
[2018-04-05 10:24] LABS: BASOPHILS # (AUTO) 0.1 10^3/uL (0.0-0.1); BASOPHILS % (AUTO) 3 % (0-10); EOSINOPHILS # (AUTO) 0.2 10^3/uL (0.0-0.3); EOSINOPHILS % (AUTO) 5 % (0-10); HEMATOCRIT 46 % (35-52); HEMOGLOBIN 15.1 G/DL (11.5-16.0); LYMPHOCYTES # (AUTO) 1.4 X 10^3 (1.0-4.0); LYMPHOCYTES % (AUTO) 35 % (12-44); MEAN CORPUSCULAR HEMOGLOBIN 30 PG (25-34); MEAN CORPUSCULAR HGB CONC 33 G/DL (32-36); MEAN CORPUSCULAR VOLUME 90 FL (80-99); MEAN PLATELET VOLUME 11.1 FL (7.4-10.4); MONOCYTES # (AUTO) 0.6 X 10^3 (0.0-1.0); MONOCYTES % (AUTO) 15 % (0-12); NEUTROPHILS # (AUTO) 1.6 X 10^3 (1.8-7.8); NEUTROPHILS % (AUTO) 41 % (42-75); PLATELET COUNT 168 10^3/uL (130-400); RED CELL DISTRIBUTION WIDTH 15.3 % (10.0-14.5); WHITE BLOOD COUNT 3.9 10^3/uL (4.3-11.0)
[2018-04-05 10:49] LABS: ALANINE AMINOTRANSFERASE 21 U/L (0-55); ALKALINE PHOSPHATASE 52 U/L (40-136); BILIRUBIN,TOTAL 0.6 MG/DL (0.1-1.0); BUN/CREATININE RATIO 17; CALCIUM 8.9 MG/DL (8.5-10.1); CARBON DIOXIDE 25 MMOL/L (21-32); CHLORIDE 105 MMOL/L (98-107); CREATININE SERUM 0.71 MG/DL (0.60-1.30); GFR ESTIMATED > 60; GLUCOSE 96 MG/DL (70-105); POTASSIUM 3.2 MMOL/L (3.6-5.0); SODIUM 139 MMOL/L (135-145); TOTAL PROTEIN 6.7 GM/DL (6.4-8.2)
== END 2018-04-10 | disposition home or self-care (01) ==
LOC: ONC 10:04
PROVIDERS: ATTEND Internal Medicine Hematology & Oncology
DX: Z51.11 Encounter for antineoplastic chemotherapy (principal); C90.00 Multiple myeloma not having achieved remission; D70.9 Neutropenia, unspecified; D64.9 Anemia, unspecified; M81.0 Age-related osteoporosis without current pathological fracture; K21.9 Gastro-esophageal reflux disease without esophagitis; J44.9 Chronic obstructive pulmonary disease, unspecified; I10 Essential (primary) hypertension; E87.6 Hypokalemia; Z79.82 Long term (current) use of aspirin; Z79.899 Other long term (current) drug therapy
CPT/HCPCS: 36415; 80053; 82232; 82784; 83735; 83883; 85025; 96365; 96413; 99213

== ENCOUNTER 2018-06-07 10:52 | Inpatient (IN) | payer MEDICARE ==
[2018-06-07] VITALS (7 sets, daily range): BP systolic 104–136; BP diastolic 55–72
[~2018-06-07] VITALS: Ht 170.2 cm; Wt 79.0 kg
[~2018-06-07 10:52] MED LIST changes: -ALBU2.5V4 IH; +ALBU2.5V4 NEB; -AMLO5TAB7 PO; +AMLO5TAB9 PO; -DENOSUMAB 120 MG/1.7 ML (XGEVA) SQ SCH; -ZOLEDRONIC ACID (CANCER CTR) 4 MG in NS (IVPB) CANCER CENTER 100 ML IV SCH
[2018-06-07 11:56] LABS: BASOPHILS % (AUTO) 2 % (0-10); EOSINOPHILS % (AUTO) 0 % (0-10); HEMATOCRIT 41 % (35-52); HEMOGLOBIN 14.2 G/DL (11.5-16.0); LYMPHOCYTES # (AUTO) 0.2 X 10^3 (1.0-4.0); LYMPHOCYTES % (AUTO) 13 % (12-44); MEAN CORPUSCULAR HEMOGLOBIN 30 PG (25-34); MEAN CORPUSCULAR HGB CONC 34 G/DL (32-36); MEAN CORPUSCULAR VOLUME 87 FL (80-99); MEAN PLATELET VOLUME 11.2 FL (7.4-10.4); MONOCYTES # (AUTO) 0.2 X 10^3 (0.0-1.0); MONOCYTES % (AUTO) 18 % (0-12); NEUTROPHILS # (AUTO) 0.9 X 10^3 (1.8-7.8); NEUTROPHILS % (AUTO) 68 % (42-75); PLATELET COUNT 116 10^3/uL (130-400); RED CELL DISTRIBUTION WIDTH 14.9 % (10.0-14.5)
[2018-06-07 11:57] LABS: WHITE BLOOD COUNT 1.4 10^3/uL (4.3-11.0)
[2018-06-07] MEDS ORDERED: RT-ALBUTEROL/IPRATROPIUM 3 ML (DUONEB) VIAL ONE (12:04)
[2018-06-07 12:08] LABS: BILIRUBIN,URINE NEGATIVE (NEGATIVE); CLARITY,URINE CLEAR; COLOR,URINE YELLOW; GLUCOSE, URINE (UA) NEGATIVE (NEGATIVE); KETONES,URINE 2+ (NEGATIVE); LEUKOCYTE ESTERASE ,URINE NEGATIVE (NEGATIVE); NITRITE,URINE NEGATIVE (NEGATIVE); PH,URINE 6 (5-9); PROTEIN,URINE 3+ (NEGATIVE); UROBILINOGEN,URINE NORMAL (NORMAL)
[2018-06-07 12:08] LABS: ALANINE AMINOTRANSFERASE 27 U/L (0-55); ALBUMIN 3.7 GM/DL (3.2-4.5); ALKALINE PHOSPHATASE 49 U/L (40-136); BILIRUBIN,TOTAL 0.4 MG/DL (0.1-1.0); BUN/CREATININE RATIO 18; CALCIUM 8.4 MG/DL (8.5-10.1); CARBON DIOXIDE 26 MMOL/L (21-32); CHLORIDE 91 MMOL/L (98-107); CREATININE SERUM 0.88 MG/DL (0.60-1.30); GFR ESTIMATED > 60; GLUCOSE 103 MG/DL (70-105); SODIUM 131 MMOL/L (135-145); TOTAL PROTEIN 6.6 GM/DL (6.4-8.2)
[2018-06-07 12:11] LABS: INR 0.9 (0.8-1.4); POTASSIUM 2.4 MMOL/L (3.6-5.0); PROTHROMBIN TIME PATIENT 12.4 SEC (12.2-14.7)
[2018-06-07] MEDS ORDERED: NS IV 1000 ML 1,000 ML IV ONE (12:13)
[2018-06-07] MEDS ORDERED: POTASSIUM CL 10MEQ/50ML IVPB 50 ML IV ONE (12:15)
[2018-06-07 12:22] LABS: AMORPHOUS SEDIMENT,UR FEW AMOR URATES /LPF; BACTERIA,URINE NEGATIVE /HPF; RBC,URINE RARE /HPF; SQUAMOUS EPITHELIAL CELL,UR RARE /HPF
[2018-06-07 12:23] LABS: GRANULAR CASTS,URINE RARE /LPF; HYALINE CASTS, URINE 0-2 /LPF
[2018-06-07] MEDS ORDERED: OSELTAMIVIR 75 MG (TAMIFLU) CAPSULE PO ONE (12:30)
--- NOTE | 2018-06-07 12:45 | Diagnostic Imaging Report ---
CLINICAL INDICATION: Patient with shortness of air and increased oxygen requirement. Patient fell this morning on the left side. Patient has history of cancer and has been feeling bad since Monday. EXAM: Portable chest x-ray upright view. COMPARISONS: Chest x-ray dated 03/13/2017. FINDINGS: There is mild groundglass airspace opacification involving both midlung moscoso in both lung bases. There is also development of mild patchy areas of consolidation in left lung base. There is no pleural effusion or pneumothorax. Cardiac silhouette and pulmonary vasculature is within normal limits. Again seen levoscoliosis of the thoracolumbar spine. IMPRESSION: 1: There is concern for mild left basilar infiltrates/pneumonia. In the setting of trauma, pulmonary contusions may also be considered. There is no gross bone fracture seen on this exam. 2: There is mild right lung base atelectasis versus infiltrate. Dictated by: Dictated on workstation # [id number]
--- NOTE | 2018-06-07 13:08 | NUR ---
PHARMACY CALLED AND SAID TO GIVE WHEN ADMITTED
--- NOTE | 2018-06-07 13:12 | ED General ---
General Chief Complaint: Respiratory Problems Stated Complaint: FALL;LEFT SIDE RIB PAIN Nursing Triage Note: PT TO ROOM 4 CO OF SOA, PT SAT 75% ON ROOM AIR TODAY, 02 4L/NC UP TO 84%, OXY MASK 10L UP TO 95%. PT FELL THIS AM ONTO L SIDE. PT HAS HX OF CA. HAS FELT BAD SINCE MONDAY Nursing Sepsis Screen: No Definite Risk Source of Information: Patient Exam Limitations: No Limitations History of Present Illness Date Seen by Provider: Jun 07, 2018 Time Seen by Provider: 11:45 Initial Comments This 78-year-old woman presents to the emergency room accompanied by her daughter with complaints of illness for about 4 days. Illness consists of cough , shortness of air, and fever. Patient reportedly fell at home due to weakness. She denies any obvious injury but states her left lateral chest wall is tender which she presumes is from coughing. There is no obvious sign of injury on exam. She is requiring oxygen on presentation. Her oxygen saturation on room air was noted to be 75 percent and 84 percent on nasal cannula at 4 L/m. She normally does not require oxygen. She has history of multiple myeloma and COPD. Allergies and Home Medications Allergies Coded Allergies: venom-honey bee (Verified Allergy, Severe, 08/08/11) codeine (Unverified Allergy, Unknown, 03/02/10) Home Medications Albuterol Sulfate 2.5 Mg/3 Ml Vial.neb, 2.5 MG NEB QID, (Reported) Albuterol Sulfate 1 Puff Puff, 2 PUFF IH Q4H PRN for SHORTNESS OF BREATH, ( Reported) Amlodipine Besylate 5 Mg Tablet, 5 MG PO DAILY, (Reported) Azithromycin 250 Mg Tablet, PO UD, (Reported) 5 DAY THERAPY FILLED 06-04-18 Calcium Carbonate/Vitamin D3 1 Each Tablet, 1 TAB PO DAILY, (Reported) Cholecalciferol (Vitamin D3) 5,000 Unit Capsule, 5,000 UNIT PO DAILY, (Reported) Cyanocobalamin (Vitamin B-12) 1,000 Mcg Tablet, 2,000 MCG PO DAILY, (Reported) TAKES 2 (1,000 UNIT) CAPSULES Duloxetine HCl 30 Mg Capsule.dr, 30 MG PO 1500, (Reported) Epinephrine 0.3 Mg/0.3 Ml Auto.injct, 0.3 MG IM UD PRN for ALLERGIC REACTION/ BEE STINGS, (Reported) Fluticasone/Salmeterol 1 Each Blst.w.dev, 1 PUFF IH BID, (Reported) Lenalidomide 10 Mg Capsule, 10 MG PO UD, (Reported) TAKES AT BEDTIME FOR 21 DAYS THEN OFF 7 DAYS THEN REPEAT Lorazepam 1 Mg Tablet, 1 MG PO BID PRN for ANXIETY, (Reported) Magnesium Oxide 400 Mg Tablet, 400 MG PO DAILY, (Reported) Omeprazole 20 Mg Capsule.dr, 40 MG PO DAILY, (Reported) TAKES 2 (20MG) CAPSULES Potassium Chloride 10 Meq Capsule.er, 10 MEQ PO BID, (Reported) Patient Home Medication List Home Medication List Reviewed: Yes Review of Systems Review of Systems Constitutional: see HPI, weakness EENTM: no symptoms reported Respiratory: see HPI Cardiovascular: no symptoms reported Gastrointestinal: no symptoms reported Genitourinary: no symptoms reported Musculoskeletal: see HPI Skin: no symptoms reported Psychiatric/Neurological: No Symptoms Reported Hematologic/Lymphatic: No Symptoms Reported Immunological/Allergic: no symptoms reported Past Lgleoet-Qlowbm-Kmbxbn Hx Patient Social History Alcohol Use: Denies Use Recreational Drug Use: No Smoking Status: Never a Smoker Type Used: Cigarettes Recent Foreign Travel: No Contact w/Someone Who Travel: No Recent Infectious Disease Expo: No Recent Hopitalizations: No Immunizations Up To Date PED Vaccines UTD: Yes Date of Pneumonia Vaccine: Feb 01, 2017 Date of Influenza Vaccine: Feb 01, 2017 Past Medical History Surgeries: Yes Bladder Surgery, Hysterectomy, Orthopedic Respiratory: Yes COPD Currently Using CPAP: No Currently Using BIPAP: No Cardiac: Yes (PT DENIES-HOWEVER PT TAKES BP MEDS) Hypertension Neurological: No Reproductive Disorders: No Sexually Transmitted Disease: No HIV/AIDS: No Genitourinary: Yes (BLADDER SLING) Gastrointestinal: Yes Gastroesophageal Reflux Musculoskeletal: No Endocrine: No HEENT: Yes Cataract Cancer: Yes (Multiple myeloma) Psychosocial: No Integumentary: No Blood Disorders: No Family Medical History Cardiovascular disease G8 BROTHER Neoplasm 19 MOTHER (LIVER CANCER) G8 BROTHER (THROAT CANCER) No Pertinent Family Hx Physical Exam Vital Signs Vital Signs - First Documented 06/07/18 06/07/18 06/07/18 11:35 11:40 15:35 Temp 99.6 Pulse 75 Resp 26 B/P (MAP) 150/68 (95) Pulse Ox 94 O2 Delivery OxyMask O2 Flow Rate 10.00 FiO2 36 Capillary Refill : Less Than 3 Seconds Height, Weight, BMI Height: 5'8.00" Weight: 170lbs. 15.5oz. 77.095190lc; 25.3 BMI Method:Stated General Appearance: No Apparent Distress, WD/WN, Other (Appears fatigued) HEENT: PERRL/EOMI, Normal ENT Inspection, Other (Oropharynx somewhat dry) Neck: Normal Inspection, Non Tender, Supple Respiratory: Lungs Clear, Normal Breath Sounds, No Accessory Muscle Use, No Respiratory Distress, Other (Left lower lateral ribs moderately tender to palpation) Cardiovascular: Regular Rate, Rhythm, No Edema, No Murmur Gastrointestinal: Normal Bowel Sounds, Non Tender, Soft Extremity: Normal Inspection, No Pedal Edema Neurologic/Psychiatric: Alert, Oriented x3, No Motor/Sensory Deficits, Normal Mood/Affect, occupational health physiotherapist II-XII Norm as Tested Skin: Normal Color, Warm/Dry Focused Exam Lactate Level 06/07/18 11:40: Lactic Acid Level 1.95 Lactic Acid Level Progress/Results/Core Measures Suspected Sepsis Recent Fever Within 48 Hours: No Infection Criteria Present: None New/Unexplained Altered Menta: No Sepsis Screen: No Definite Risk SIRS Temperature:99.6 Pulse: 75 Respiratory Rate: 26 Laboratory Tests 06/07/18 11:40: White Blood Count 1.4*L Blood Pressure 150 /68 Mean: 95 06/07/18 11:40: Lactic Acid Level 1.95 Laboratory Tests 06/07/18 11:40: Creatinine 0.88, INR Comment 0.9, Platelet Count 116L, Total Bilirubin 0.4 Results/Orders Lab Results Laboratory Tests Test 06/07/18 11:40 06/07/18 12:00 Range/Units White Blood Count 1.4 *L 4.3-11.0 10^3/uL Red Blood Count 4.75 4.35-5.85 10^6/uL Hemoglobin 14.2 11.5-16.0 G/DL Hematocrit 41 35-52 % Mean Corpuscular Volume 87 80-99 FL Mean Corpuscular Hemoglobin 30 25-34 PG Mean Corpuscular Hemoglobin Concent 34 32-36 G/DL Red Cell Distribution Width 14.9 H 10.0-14.5 % Platelet Count 116 L 130-400 10^3/uL Mean Platelet Volume 11.2 H 7.4-10.4 FL Neutrophils (%) (Auto) 68 42-75 % Lymphocytes (%) (Auto) 13 12-44 % Monocytes (%) (Auto) 18 H 0-12 % Eosinophils (%) (Auto) 0 0-10 % Basophils (%) (Auto) 2 0-10 % Neutrophils # (Auto) 0.9 L 1.8-7.8 X 10^3 Lymphocytes # (Auto) 0.2 L 1.0-4.0 X 10^3 Monocytes # (Auto) 0.2 0.0-1.0 X 10^3 Eosinophils # (Auto) 0.0 0.0-0.3 10^3/uL Basophils # (Auto) 0.0 0.0-0.1 10^3/uL Prothrombin Time 12.4 12.2-14.7 SEC INR Comment 0.9 0.8-1.4 Activated Partial Thromboplast Time 30 24-35 SEC Sodium Level 131 L 135-145 MMOL/L Potassium Level 2.4 *L 3.6-5.0 MMOL/L Chloride Level 91 L 98-107 MMOL/L Carbon Dioxide Level 26 21-32 MMOL/L Anion Gap 14 5-14 MMOL/L Blood Urea Nitrogen 16 7-18 MG/DL Creatinine 0.88 0.60-1.30 MG/DL Estimat Glomerular Filtration Rate > 60 BUN/Creatinine Ratio 18 Glucose Level 103 70-105 MG/DL Lactic Acid Level 1.95 0.50-2.00 MMOL/L Calcium Level 8.4 L 8.5-10.1 MG/DL Corrected Calcium 8.6 8.5-10.1 MG/DL Total Bilirubin 0.4 0.1-1.0 MG/DL Aspartate Amino Transf (AST/SGOT) 40 H 5-34 U/L Alanine Aminotransferase (ALT/SGPT) 27 0-55 U/L Alkaline Phosphatase 49 40-136 U/L C-Reactive Protein High Sensitivity 2.08 H 0.00-0.50 MG/DL B-Type Natriuretic Peptide 32.5 <100.0 PG/ML Total Protein 6.6 6.4-8.2 GM/DL Albumin 3.7 3.2-4.5 GM/DL Urine Color YELLOW Urine Clarity CLEAR Urine pH 6 5-9 Urine Specific [place] 1.020 1.016-1.022 Urine Protein 3+ H NEGATIVE Urine Glucose (UA) NEGATIVE NEGATIVE Urine Ketones 2+ H NEGATIVE Urine Nitrite NEGATIVE NEGATIVE Urine Bilirubin NEGATIVE NEGATIVE Urine Urobilinogen NORMAL NORMAL MG/DL Urine Leukocyte Esterase NEGATIVE NEGATIVE Urine RBC (Auto) 4+ H NEGATIVE Urine RBC RARE /HPF Urine WBC NONE /HPF Urine Squamous Epithelial Cells RARE /HPF Urine Crystals PRESENT H /LPF Urine Amorphous Sediment FEW JHONATHAN URATES H /LPF Urine Bacteria NEGATIVE /HPF Urine Casts PRESENT /LPF Urine Hyaline Casts 0-2 H /LPF Urine Granular Casts RARE /LPF Urine Mucus SMALL H /LPF Urine Culture Indicated NO Micro Results Microbiology 06/07/18 Influenza Types A,B Antigen (JOANIE) - Final, Complete My Orders Orders - RESHMA MONTALVO MD Cbc With Automated Diff (06/07/18 11:47) Comprehensive Metabolic Panel (06/07/18 11:47) Blood Culture (06/07/18 11:47) Sputum Culture (06/07/18 11:47) Urinalysis (06/07/18 11:47) Urine Culture (06/07/18 11:47) Protime With Inr (06/07/18 11:47) Partial Thromboplastin Time (06/07/18 11:47) Chest 1 View, Ap/Pa Only (06/07/18 11:47) Saline Lock/Iv-Start (06/07/18 11:47) Saline Lock/Iv-Start (06/07/18 11:47) Vital Signs Adult Sepsis Patie Q15M (06/07/18 11:47) O2 (06/07/18 11:47) Remove Rings In Anticipation O (06/07/18 11:47) Lactic Acid Analyzer (06/07/18 11:47) Influenza A And B Antigens (06/07/18 11:47) BNP (06/07/18 11:47) Hs C Reactive Protein (06/07/18 11:47) Albuterol/Ipra Inhalation Soln (Duoneb I (06/07/18 12:04) Potassium Cl 10meq/50ml Ivpb (Kcl 10 Meq (06/07/18 12:15) Ns Iv 1000 Ml (Sodium Chloride 0.9%) (06/07/18 12:13) Oseltamivir 75 Mg Capsule (Tamiflu 75 (06/07/18 12:30) Ribs, Left 2-3 Views (06/07/18 13:12) Medications Given in ED Current Medications Medications Dose Ordered Sig/David Route Start Time Stop Time Status Last Admin Dose Admin Albuterol/ Ipratropium 3 ml STK-MED ONCE .ROUTE 06/07/18 12:04 06/07/18 12:06 DC 06/07/18 12:08 3 ML Potassium Chloride 50 ml @ 50 mls/hr ONCE ONCE IV 06/07/18 12:15 06/07/18 13:14 DC 06/07/18 12:25 50 MLS/HR Sodium Chloride 1,000 ml @ 0 mls/hr Q0M ONCE IV 06/07/18 12:13 06/07/18 12:15 DC 06/07/18 12:25 500 MLS/HR Vital Signs/I&O 06/07/18 06/07/18 06/07/18 06/07/18 11:35 11:40 12:08 14:12 Temp 99.6 Pulse 75 72 Resp 26 28 B/P (MAP) 150/68 (95) 124/72 (89) Pulse Ox 94 96 97 O2 Delivery OxyMask OxyMask OxyMask O2 Flow Rate 10.00 10.00 10.00 06/07/18 06/07/18 06/07/18 06/07/18 14:40 14:45 15:08 15:35 Temp 99.6 99.6 Pulse 71 71 72 Resp 18 18 B/P (MAP) 136/68 (90) 136/68 Pulse Ox 92 91 91 97 O2 Delivery Nasal Cannula Nasal Cannula Nasal Cannula O2 Flow Rate 4.00 4.00 4.00 FiO2 36 06/07/18 06/07/18 06/07/18 06/07/18 15:41 15:48 16:30 16:50 Temp 101.5 101.1 99.8 Pulse 72 70 72 Resp 16 20 B/P (MAP) 128/65 (86) 129/70 (89) Pulse Ox 92 92 O2 Delivery Room Air 06/07/18 06/07/18 06/07/18 06/07/18 16:55 17:45 19:00 19:02 Temp 99.9 98.6 97.2 Pulse 67 72 70 Resp 20 20 B/P (MAP) 109/55 (73) 104/64 (77) Pulse Ox 91 91 O2 Delivery Nasal Cannula Nasal Cannula O2 Flow Rate 4.00 4.00 Capillary Refill : Less Than 3 Seconds Blood Pressure Mean: 95 Progress Note : Progress Note Patient was found to be severely hypokalemic. Potassium replacement was initiated in the ER with potassium 10 mEq by IV route. She was also hydrated with 1 L IV normal saline. She was found to be influenza positive. Tamiflu was ordered. Pneumonia was felt less likely, especially since CRP was not significantly elevated. Due to some tenderness over the ribs on the left, rib films were added to the x-rays. No rib fractures were identified. Patient received a DuoNeb treatment which did help her shortness of breath and hypoxia. Case was discussed with Dr. JOSEPH and Dr. Olivera. Admission was necessary due to patient's new hypoxia. Diagnostic Imaging Diagonstic Imaging: Xray Plain Films/CT/US/NM/MRI: chest Comments NAME: [facility] REC#: [id number] PT STATUS: ADM IN : 1940 PHYSICIAN: RESHMA MONTALVO MD ADMIT DATE: 06/07/18 Signed Date of Exam: 06/07/18 CHEST 1 VIEW, AP/PA ONLY CLINICAL INDICATION: Patient with shortness of air and increased oxygen requirement. Patient fell this morning on the left side. Patient has history of cancer and has been feeling bad since Monday. EXAM: Portable chest x-ray upright view. COMPARISONS: Chest x-ray dated 03/13/2017. FINDINGS: There is mild groundglass airspace opacification involving both midlung moscoso in both lung bases. There is also development of mild patchy areas of consolidation in left lung base. There is no pleural effusion or pneumothorax. Cardiac silhouette and pulmonary vasculature is within normal limits. Again seen levoscoliosis of the thoracolumbar spine. IMPRESSION: 1: There is concern for mild left basilar infiltrates/pneumonia. In the setting of trauma, pulmonary contusions may also be considered. There is no gross bone fracture seen on this exam. 2: There is mild right lung base atelectasis versus infiltrate. Dictated by: Dictated on workstation # [id number] Dict: 06/07/18 1239 Trans: 06/07/181715 Interpreted by: CRISTOPHER LUCERO MD Electronically signed by: CRISTOPHER LUCERO MD 06/07/18 171 Diagonstic Imaging: Xray Plain Films/CT/US/NM/MRI: other (left ribs) Comments NAME: [facility] REC#: [id number] PT STATUS: ADM IN : 1940 PHYSICIAN: RESHMA MONTALVO MD ADMIT DATE: 06/07/18 Draft Date of Exam:06/07/18 RIBS, LEFT 2-3 VIEWS INDICATION: Chest wall pain with cough. Recent fall. Rib pain. COMPARISON: Earlier same day FINDINGS: Three views of the left ribs were obtained. There is no fracture, dislocation, or other acute bony abnormality identified. Visualized portions of the left lung are clear. The surrounding soft tissues appear unremarkable. No radiopaque foreign bodies are seen. IMPRESSION: No healing or displaced left rib fractures. Dictated on workstation # [id number] Dict: 06/07/18 1348 Trans: 06/07/18 1351 [facility] [id number] Interpreted by: NANCY CARREON MD Departure Communication (Admissions) Time/Spoke to Admitting Phy: 12:25 Dr. JOSEPH Time/Spoke to Consulting Phy: 12:25 Dr. Olivera Impression Primary Impression: Respiratory failure with hypoxia Qualified Codes: J96.01 - Acute respiratory failure with hypoxia Additional Impressions: Influenza A Hypokalemia Multiple myeloma Qualified Codes: C90.00 - Multiple myeloma not having achieved remission Disposition: ADMITTED INPATIENT Condition: Improved Admissions Decision to Admit Reason: Admit from ER (General) Decision to Admit/Date: Jun 07, 2018 Time/Decision to Admit Time: 11:50 Departure-Patient Inst. Referrals: JANNY JOSEPH DO (PCP) Primary Care Physician RESHMA MONTALVO MD Jun 07, 2018 13:12
--- OUTSIDE RECORDS SUMMARY | 2018-06-07 13:34 | XMS REPORT | CCD ---
Author Author SEBASTIÁN LANDIN Unknown Address [address] [address] [place] [address] Care Team Providers Care Account Resolution Specialist Name Role Phone OBIE BURKS MD Attphys Allergies Allergy Code Allergy Type Reaction Status CODEINE 0 Drug allergy Active Active Medications Unknown or Not Available. Problems Unknown or Not Available. Procedures Procedure Code Procedure Type Date Cataract removal insertion of lens; (-LT Left side of body) 52942 CPT 11/28/2016 Results Unknown or Not Available. Function Status Unknown or Not Available. History of Immunizations Unknown or Not Available. Plan of Treatment Unknown or Not Available. Social History Smoking Status Code Start Date End Date Current every day smoker [id number] Vital Signs Unknown or Not Available. Function Status Unknown or Not Available. Goals Unknown or Not Available. ASSESSMENTS Unknown or Not Available. Health Concerns Section Unknown or Not Available.
--- OUTSIDE RECORDS SUMMARY | 2018-06-07 13:34 | XMS REPORT | CCD ---
Author Author SEBASTIÁN LANDIN Unknown Address [address] [facility] [address] [place] [address] Care Team Providers Care Negative Turner Apprentice Name Role Phone OBIE BURKS MD Attphys Allergies Allergy Code Allergy Type Reaction Status CODEINE 0 Drug allergy Active Active Medications Unknown or Not Available. Problems Unknown or Not Available. Procedures Procedure Code Procedure Type Date Cataract removal insertion of lens; (-LT Left side of body) 56016 CPT 11/28/2016 Results Unknown or Not Available. Function Status Unknown or Not Available. History of Immunizations Unknown or Not Available. Plan of Treatment Unknown or Not Available. Social History Smoking Status Code Start Date End Date Current every day smoker [id number] Vital Signs Unknown or Not Available. Function Status Unknown or Not Available. Goals Unknown or Not Available. ASSESSMENTS Unknown or Not Available. Health Concerns Section Unknown or Not Available.
--- OUTSIDE RECORDS SUMMARY | 2018-06-07 13:34 | XMS REPORT | CCD ---
Author Author SEBASTIÁN LANDIN Unknown Address [address] [facility] [address] [place] [address] Care Team Providers Care Convention Manager Name Role Phone OBIE BURKS MD Attphys Allergies Allergy Code Allergy Type Reaction Status CODEINE 0 Drug allergy Active Active Medications Unknown or Not Available. Problems Unknown or Not Available. Procedures Procedure Code Procedure Type Date Cataract removal insertion of lens; (-RT Right side of body) 96217 CPT 11/09/2016 Results Unknown or Not Available. Function Status Unknown or Not Available. History of Immunizations Unknown or Not Available. Plan of Treatment Unknown or Not Available. Social History Smoking Status Code Start Date End Date Current every day smoker [id number] Vital Signs Unknown or Not Available. Function Status Unknown or Not Available. Goals Unknown or Not Available. ASSESSMENTS Unknown or Not Available. Health Concerns Section Unknown or Not Available.
--- OUTSIDE RECORDS SUMMARY | 2018-06-07 13:36 | XMS REPORT | Continuity of Care Document ---
Author Author [facility] Organization [facility] Address Unknown Phone Unavailable Allergies Active Description Code Type Severity Reaction Onset Reported/Identified Relationship to Patient Clinical Status Yes CODEINE [id number] DRUG N/A N/A Yes codeine [id number] Drug Allergy Unknown N/A 03/02/2010 Yes bee venom (honey bee) [id number] Drug Allergy Severe N/A 08/08/2011 Yes venom-honey bee [id number] Drug Allergy Severe N/A 08/08/2011 Medications There is no data. Problems Date Dx Coded Attending Type Code Diagnosis Diagnosed By 03/02/1043 PETER MONTES MD, Ot 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 03/02/1043 PETER MONTES MD, Ot D64.9 ANEMIA, UNSPECIFIED 03/02/1043 PETER MONTES MD, Ot E87.6 HYPOKALEMIA 03/02/1043 PETER MONTES MD, Ot I10 ESSENTIAL (PRIMARY) HYPERTENSION 03/02/1043 PETER MONTES MD, Ot J44.9 CHRONIC OBSTRUCTIVE PULMONARY DISEASE, U 03/02/1043 PETER MONTES MD, Ot K21.9 GASTRO-ESOPHAGEAL REFLUX DISEASE WITHOUT 03/02/1043 PETER MONTES MD, Ot M81.0 AGE-RELATED OSTEOPOROSIS W/O CURRENT PAT 03/02/1043 PETER MONTES MD, Ot Z79.82 ENAMELER (CURRENT) USE OF ASPIRIN 03/02/1043 PETER MONTES MD, Ot Z79.899 OTHER HALF-WAY (CURRENT) DRUG THERAPY 03/02/1499 RAAD ANTONIO Ot 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 03/02/1499 RAAD ANTONIO Ot D64.9 ANEMIA, UNSPECIFIED 03/02/1499 RAAD ANTONIO Ot E87.6 HYPOKALEMIA 03/02/1499 RAAD ANTONIO Ot I10 ESSENTIAL (PRIMARY) HYPERTENSION 03/02/1499 PACO, BOBAN N Ot J44.9 CHRONIC OBSTRUCTIVE PULMONARY DISEASE, U 03/02/1499 RAAD ANTONIO Ot K21.9 GASTRO-ESOPHAGEAL REFLUX DISEASE WITHOUT 03/02/1499 RAAD ANTONIO Ot M81.0 AGE-RELATED OSTEOPOROSIS W/O CURRENT PAT 03/02/1499 RAAD ANTONIO Ot Z79.82 ENAMELER (CURRENT) USE OF ASPIRIN 03/02/1499 RAAD ANTONIO Ot Z79.899 OTHER ENAMELER (CURRENT) DRUG THERAPY 08/11/2011 Ot 305.1 TOBACCO USE DISORDER 08/11/2011 Ot 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 08/11/2011 Ot 477.9 ALLERGIC RHINITIS NOS 08/11/2011 Ot 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 08/28/2012 SATURNINO FOSTER, LAKSHMI Lazar Ot 553.3 DIAPHRAGMATIC HERNIA 08/28/2012 SATURNINO FOSTER, LAKSHMI Lazar Ot 562.10 DIVERTICULOSIS COLON (W/O MENT OF [...] 11/17/2014 LAKSHMI MATAMOROS MD Ot V72.84 11/17/2014 SARAHY CRAWFORD DO Ot 789.01 12/10/2014 STANISLAV KIRKPATRICK RATER ASSOCIATE Ot 786.09 12/10/2014 STANISLAV KIRKPATRICK RATER ASSOCIATE Ot 786.2 12/18/2014 STANISLAV KIRKPATRICK M RATER ASSOCIATE Ot 786.09 12/18/2014 STANISLAV KIRKPATRICK M RATER ASSOCIATE Ot 786.2 03/11/2015 SARAHY CRAWFORD DO Ot I65.23 03/19/2015 ORENDER DO, SARAHY S Ot I65.23 12/29/2016 Ot 473.9 CHRONIC SINUSITIS NOS 12/29/2016 SATURNINO OFSTER, LAKSHMI Lazar Ot V72.84 EXAM PRE-OPERATIVE NOS 12/29/2016 ENDERNDER DO, SARAHY S Ot 789.01 ABDOMINAL PAIN, RIGHT UPPER QUADRANT 12/29/2016 VANBECELAERE, STANISLAV M RATER ASSOCIATE Ot 786.09 RESPIRATORY ABNORM NEC 12/29/2016 VANBECELAERE, STANISLAV M RATER ASSOCIATE Ot 786.2 COUGH 12/29/2016 ORENDER DO, SARAHY S Ot I65.23 OCCLUSION AND STENOSIS OF BILATERAL FUENTES 12/29/2016 Ot 473.9 CHRONIC SINUSITIS NOS 12/29/2016 SATURNINO FOSTER, LAKSHMI Lazar Ot V72.84 EXAM PRE-OPERATIVE NOS 12/29/2016 ENDERNDER DO, SARAHY S Ot 789.01 ABDOMINAL PAIN, RIGHT UPPER QUADRANT 12/29/2016 VANBECELAERE, STANISLAV M RATER ASSOCIATE Ot 786.09 RESPIRATORY ABNORM NEC 12/29/2016 VANBECELAERE, STANISLAV M RATER ASSOCIATE Ot 786.2 COUGH 12/29/2016 ORENDER DO, SARAHY S Ot I65.23 OCCLUSION AND STENOSIS OF BILATERAL FUENTES 01/18/2017 ORENDER DO, SARAHY S Ot F17.210 NICOTINE DEPENDENCE, CIGARETTES, UNCOMPL 01/18/2017 ORENDER DO, SARAHY S Ot J43.9 EMPHYSEMA, UNSPECIFIED 01/18/2017 ORENDER DO, SARAHY S Ot Z12.2 ENCNTR SCREEN FOR MALIGNANT NEOPLASM OF 03/08/2017 ORENDER DO, SARAHY S Ot D63.8 ANEMIA IN OTHER CHRONIC DISEASES CLASSIF 03/08/2017 ORENDER DO, SARAHY S Ot E83.42 HYPOMAGNESEMIA 03/08/2017 ORENDER DO, SARAHY S Ot E87.6 HYPOKALEMIA 03/08/2017 ORENDER DO, SARAHY S Ot F17.210 NICOTINE DEPENDENCE, CIGARETTES, UNCOMPL 03/08/2017 ORENDER DO, SARAHY S Ot I10 ESSENTIAL (PRIMARY) HYPERTENSION 03/08/2017 ORENDER DO, SARAHY S Ot J18.9 PNEUMONIA, UNSPECIFIED ORGANISM 03/08/2017 ORENDER DO, SARAHY S Ot J44.0 CHRONIC OBSTRUCTIVE PULMON DISEASE W ACU 03/08/2017 ENDERNDER ROSS NGUYENLINE S Ot J44.1 CHRONIC OBSTRUCTIVE PULMONARY DISEASE W 03/08/2017 ENDERNDSARAHY HITCHCOCK DO S Ot K21.9 GASTRO-ESOPHAGEAL REFLUX DISEASE WITHOUT 03/08/2017 ENDERNDROSS HITCHCOCK DOLINE S Ot M53.3 SACROCOCCYGEAL DISORDERS, NOT ELSEWHERE 03/08/2017 SARAHY CRAWFORD DO S Ot R53.1 WEAKNESS 03/08/2017 ENDERNDROSS HITCHCOCK DOLINE S Ot R53.83 OTHER FATIGUE 03/08/2017 ENDERNDROSS HITCHCOCK DOLINE S Ot R63.0 ANOREXIA 03/08/2017 SARAHY CRAWFORD DO S Ot R63.4 ABNORMAL WEIGHT LOSS 03/08/2017 ROSS CRAWFORD DOLINE S Ot Z66 DO NOT RESUSCITATE 03/08/2017 ROSS CRAWFORD DOLINE S Ot B37.1 PULMONARY CANDIDIASIS 03/08/2017 ROSS CRAWFORD DOLINE S Ot D50.9 IRON DEFICIENCY ANEMIA, UNSPECIFIED 03/08/2017 WILLIAM CRAWFORD DOQUELINE S Ot E83.42 HYPOMAGNESEMIA 03/08/2017 ROSS CRAWFORD DOLINE S Ot E87.6 HYPOKALEMIA 03/08/2017 ROSS CRAWFORD DOLINE S Ot F17.210 NICOTINE DEPENDENCE, CIGARETTES, UNCOMPL 03/08/2017 OPAL NGUYEN SARAHY S Ot I10 ESSENTIAL (PRIMARY) HYPERTENSION 03/08/2017 SARAHY CRAWFORD DO S Ot J14 PNEUMONIA DUE TO HEMOPHILUS INFLUENZAE 03/08/2017 ROSS CRAWFORD DOLINE S Ot J44.0 CHRONIC OBSTRUCTIVE PULMON DISEASE W ACU 03/08/2017 ENDERNDER WILLIAM NGUYENSARAHY S Ot J44.1 CHRONIC OBSTRUCTIVE PULMONARY DISEASE W 03/08/2017 SARAHY CRAWFORD DO S Ot K21.9 GASTRO-ESOPHAGEAL REFLUX DISEASE WITHOUT 03/08/2017 ROSS CRAWFORD DOLINE S Ot K59.00 CONSTIPATION, UNSPECIFIED 03/08/2017 ROSS CRAWFORD DOLINE S Ot M53.3 SACROCOCCYGEAL DISORDERS, NOT ELSEWHERE 03/08/2017 ORENDER DO, SARAHY S Ot R53.1 WEAKNESS 03/08/2017 ORENDER DO, SARAHY S Ot R53.83 OTHER FATIGUE 03/08/2017 ENDERNDER DO, SARAHY S Ot R63.0 ANOREXIA 03/08/2017 ORENDER DO, SARAHY S Ot R63.4 ABNORMAL WEIGHT LOSS 03/08/2017 ENDERNDER DO, SARAHY S Ot R77.9 ABNORMALITY OF PLASMA PROTEIN, UNSPECIFI 03/08/2017 ORENDER DO, SARAHY S Ot Z66 DO NOT RESUSCITATE 03/13/2017 ENDERNDER DO, SARAHY S Ot B37.1 PULMONARY CANDIDIASIS 03/13/2017 ORENDER DO, SARAHY S Ot D50.9 IRON DEFICIENCY ANEMIA, UNSPECIFIED 03/13/2017 ORENDER DO, SARAHY S Ot F17.210 NICOTINE DEPENDENCE, CIGARETTES, UNCOMPL 03/13/2017 ORENDER DO, SARAHY S Ot I10 ESSENTIAL (PRIMARY) HYPERTENSION 03/13/2017 ENDERNDER DO, SARAHY S Ot J14 PNEUMONIA DUE TO HEMOPHILUS INFLUENZAE 03/13/2017 ENDERNDER DO, SARAHY S Ot J44.0 CHRONIC OBSTRUCTIVE PULMON DISEASE W ACU 03/13/2017 ENDERNDER , SARAHY S Ot J44.1 CHRONIC OBSTRUCTIVE PULMONARY DISEASE W 03/13/2017 ENDERNDER , SARAHY S Ot K21.9 GASTRO-ESOPHAGEAL REFLUX DISEASE WITHOUT 03/13/2017 ENDERNDER DO, SARAHY S Ot K59.00 CONSTIPATION, UNSPECIFIED 03/13/2017 ENDERNDER DO, SARAHY S Ot R53.1 WEAKNESS 03/13/2017 ENDERNDER DO, SARAHY S Ot R53.83 OTHER FATIGUE 03/13/2017 ENDERNDER DO, SARAHY S Ot R77.9 ABNORMALITY OF PLASMA PROTEIN, UNSPECIFI 03/13/2017 ENDERNDER DO, SARAHY S Ot Z66 DO NOT RESUSCITATE 03/15/2017 SATURNINO FOSTER, LAKSHMI Lazar Ot V72.84 EXAM PRE-OPERATIVE NOS 03/15/2017 ENDERNDER DO, SARAHY S Ot 789.01 ABDOMINAL PAIN, RIGHT UPPER QUADRANT 03/15/2017 STANISLAV KIRKPATRICK RATER ASSOCIATE Ot 786.09 RESPIRATORY ABNORM NEC 03/15/2017 STANISLAV KIRKPATRICK RATER ASSOCIATE Ot 786.2 COUGH 03/15/2017 ORENDER DO, SARAHY S Ot I65.23 OCCLUSION AND STENOSIS OF BILATERAL FUENTES 03/15/2017 ORENDER DO, SARAHY S Ot F17.210 NICOTINE DEPENDENCE, CIGARETTES, UNCOMPL 03/15/2017 ENDERNDER DO, SARAHY S Ot J43.9 EMPHYSEMA, UNSPECIFIED 03/15/2017 ENDERNDER DO, SARAHY S Ot Z12.2 ENCNTR SCREEN FOR MALIGNANT NEOPLASM OF 03/16/2017 RAAD ANTONIO Ot D47.2 MONOCLONAL GAMMOPATHY 05/01/2017 PACORAAD TAMAYO Ot D47.2 MONOCLONAL GAMMOPATHY 05/04/2017 PACORAAD TAMAYO Ot D47.2 MONOCLONAL GAMMOPATHY 05/31/2017 RAAD ANTONIO Ot D47.2 MONOCLONAL GAMMOPATHY 06/06/2017 RAAD ANTONIO Ot D47.2 MONOCLONAL GAMMOPATHY 06/13/2017 RAAD ANTONIO Ot 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 06/13/2017 RAAD ANTOINO Ot D47.2 MONOCLONAL GAMMOPATHY 06/13/2017 RAAD ANTONIO Ot D64.9 ANEMIA, UNSPECIFIED 06/13/2017 RAAD ANTONIO Ot E87.6 HYPOKALEMIA 06/13/2017 RAAD ANTONIO Ot I10 ESSENTIAL (PRIMARY) HYPERTENSION 06/13/2017 RAAD ANTONIO Ot J44.9 CHRONIC OBSTRUCTIVE PULMONARY DISEASE, U 06/13/2017 RAAD ANTONIO Ot K21.9 GASTRO-ESOPHAGEAL REFLUX DISEASE WITHOUT 06/13/2017 RAAD ANTONIO Ot M81.0 AGE-RELATED OSTEOPOROSIS W/O CURRENT PAT 06/13/2017 RAAD ANTONIO Ot Z79.82 ENAMELER (CURRENT) USE OF ASPIRIN 06/13/2017 RAAD ANTONIO Ot Z79.899 OTHER HALF-WAY (CURRENT) DRUG THERAPY 06/15/2017 RAAD ANTONIO Ot D47.2 MONOCLONAL GAMMOPATHY 06/27/2017 RAAD ANTONIO Ot 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 06/27/2017 RAAD ANTONIO Ot D64.9 ANEMIA, UNSPECIFIED 06/27/2017 RAAD ANTONIO Ot E87.6 HYPOKALEMIA 06/27/2017 RAAD ANTONIO N Ot I10 ESSENTIAL (PRIMARY) HYPERTENSION 06/27/2017 RAAD ANTONIO N Ot J44.9 CHRONIC OBSTRUCTIVE PULMONARY DISEASE, U 06/27/2017 RAAD ANTONIO Ot K21.9 GASTRO-ESOPHAGEAL REFLUX DISEASE WITHOUT 06/27/2017 RAAD ANTONIO Ot M81.0 AGE-RELATED OSTEOPOROSIS W/O CURRENT PAT 06/27/2017 RAAD ANTONIO Ot Z79.82 HALF-WAY (CURRENT) USE OF ASPIRIN 06/27/2017 RAAD ANTONIO N Ot Z79.899 OTHER HALF-WAY (CURRENT) DRUG THERAPY 06/27/2017 PETER MONTES MD Ot 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 06/27/2017 PETER MONTES MD, Ot D64.9 ANEMIA, UNSPECIFIED 06/27/2017 PETER MONTES MD Ot E87.6 HYPOKALEMIA 06/27/2017 PETER MONTES MD Ot I10 ESSENTIAL (PRIMARY) HYPERTENSION 06/27/2017 PETER MONTES MD, Ot J44.9 CHRONIC OBSTRUCTIVE PULMONARY DISEASE, U 06/27/2017 PETER MONTES MD Ot K21.9 GASTRO-ESOPHAGEAL REFLUX DISEASE WITHOUT 06/27/2017 PETER MONTES MD Ot M81.0 AGE-RELATED OSTEOPOROSIS W/O CURRENT PAT 06/27/2017 PETER MONTES MD Ot Z79.82 HALF-WAY (CURRENT) USE OF ASPIRIN 06/27/2017 PETER MONTES MD Ot Z79.899 OTHER HALF-WAY (CURRENT) DRUG THERAPY 06/28/2017 PETER MONTES MD, Ot 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 06/28/2017 PETER MONTES MD, Ot D64.9 ANEMIA, UNSPECIFIED 06/28/2017 PETER MONTES MD Ot E87.6 HYPOKALEMIA 06/28/2017 PETER MONTES MD Ot I10 ESSENTIAL (PRIMARY) HYPERTENSION 06/28/2017 PETER MONTES MD Ot J44.9 CHRONIC OBSTRUCTIVE PULMONARY DISEASE, U 06/28/2017 PETER MONTES MD Ot K21.9 GASTRO-ESOPHAGEAL REFLUX DISEASE WITHOUT 06/28/2017 PETER MONTES MD Ot M81.0 AGE-RELATED OSTEOPOROSIS W/O CURRENT PAT 06/28/2017 PETER MONTES MD Ot Z79.82 HALF-WAY (CURRENT) USE OF ASPIRIN 06/28/2017 PETER MONTES MD, Ot Z79.899 OTHER HALF-WAY (CURRENT) DRUG THERAPY 06/29/2017 PETER MONTES MD, Ot 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 06/29/2017 PETER MONTES MD, Ot D64.9 ANEMIA, UNSPECIFIED 06/29/2017 PETER MONTES MD, Ot E87.6 HYPOKALEMIA 06/29/2017 PETER MONTES MD Ot I10 ESSENTIAL (PRIMARY) HYPERTENSION 06/29/2017 PETER MONTES MD, Ot J44.9 CHRONIC OBSTRUCTIVE PULMONARY DISEASE, U 06/29/2017 PETER MONTES MD, Ot K21.9 GASTRO-ESOPHAGEAL REFLUX DISEASE WITHOUT 06/29/2017 PETER MONTES MD, Ot M81.0 AGE-RELATED OSTEOPOROSIS W/O CURRENT PAT 06/29/2017 PETER MONTES MD, Ot Z79.82 HALF-WAY (CURRENT) USE OF ASPIRIN 06/29/2017 PETER MONTES MD, Ot Z79.899 OTHER HALF-WAY (CURRENT) DRUG THERAPY 07/12/2017 SATURNINO FOSTER, LAKSHMI Lazar Ot V72.84 EXAM PRE-OPERATIVE NOS 07/12/2017 KIPER , SARAHY S Ot 789.01 ABDOMINAL PAIN, RIGHT UPPER QUADRANT 07/12/2017 VANSTANISLAV CAO M RATER ASSOCIATE Ot 786.09 RESPIRATORY ABNORM NEC 07/12/2017 STANISLAV KIRKPATRICK M RATER ASSOCIATE Ot 786.2 COUGH 07/12/2017 ENDERNDER DO, SARAHY S Ot I65.23 OCCLUSION AND STENOSIS OF BILATERAL FUENTES 07/12/2017 ENDERNDER DO, SARAHY S Ot F17.210 NICOTINE DEPENDENCE, CIGARETTES, UNCOMPL 07/12/2017 NEDERNDCORETTA NGUYEN SARAHY S Ot J43.9 EMPHYSEMA, UNSPECIFIED 07/12/2017 ENDERNDER DO, SARAHY S Ot Z12.2 ENCNTR SCREEN FOR MALIGNANT NEOPLASM OF 07/12/2017 PETER MONTES MD, Ot 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 07/12/2017 PETER MONTES MD, Ot D64.9 ANEMIA, UNSPECIFIED 07/12/2017 PETER MONTES MD, Ot E87.6 HYPOKALEMIA 07/12/2017 PETER MONTES MD Ot I10 ESSENTIAL (PRIMARY) HYPERTENSION 07/12/2017 PETER MONTES MD, Ot J44.9 CHRONIC OBSTRUCTIVE PULMONARY DISEASE, U 07/12/2017 PETER MONTES MD, Ot K21.9 GASTRO-ESOPHAGEAL REFLUX DISEASE WITHOUT 07/12/2017 PETER MONTES MD, Ot M81.0 AGE-RELATED OSTEOPOROSIS W/O CURRENT PAT 07/12/2017 PETER MONTES MD, Ot Z79.82 ENAMELER (CURRENT) USE OF ASPIRIN 07/12/2017 PETER MONTES MD, Ot Z79.899 OTHER HALF-WAY (CURRENT) DRUG THERAPY 07/12/2017 PETER MONTES MD Ot 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 07/12/2017 PETER MONTES MD Ot D64.9 ANEMIA, UNSPECIFIED 07/12/2017 PETER MONTES MD Ot E87.6 HYPOKALEMIA 07/12/2017 PETER MONTES MD Ot I10 ESSENTIAL (PRIMARY) HYPERTENSION 07/12/2017 PETER MONTES MD, Ot J44.9 CHRONIC OBSTRUCTIVE PULMONARY DISEASE, U 07/12/2017 PETER MONTES MD, Ot K21.9 GASTRO-ESOPHAGEAL REFLUX DISEASE WITHOUT 07/12/2017 PETER MONTES MD Ot M81.0 AGE-RELATED OSTEOPOROSIS W/O CURRENT PAT 07/12/2017 PETER MONTES MD Ot Z79.82 HALF-WAY (CURRENT) USE OF ASPIRIN 07/12/2017 PETER MONTES MD Ot Z79.899 OTHER ENAMELER (CURRENT) DRUG THERAPY 07/12/2017 SATURNINO FOSTER, LAKSHMI Lazar Ot V72.84 EXAM PRE-OPERATIVE NOS 07/12/2017 ENDERNDER DO, SARAHY S Ot 789.01 ABDOMINAL PAIN, RIGHT UPPER QUADRANT 07/12/2017 VANSTANISLAV CAO RATER ASSOCIATE Ot 786.09 RESPIRATORY ABNORM NEC 07/12/2017 STANISLAV KIRKPATRICK RATER ASSOCIATE Ot 786.2 COUGH 07/12/2017 ORENDER DO, SARAHY S Ot I65.23 OCCLUSION AND STENOSIS OF BILATERAL FUENTES 07/12/2017 ORENDER DO, SARAHY S Ot F17.210 NICOTINE DEPENDENCE, CIGARETTES, UNCOMPL 07/12/2017 ORENDER DO, SARAHY S Ot J43.9 EMPHYSEMA, UNSPECIFIED 07/12/2017 ORENDER DO, SARAHY S Ot Z12.2 ENCNTR SCREEN FOR MALIGNANT NEOPLASM OF 07/12/2017 PETER MONTES MD, Ot 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 07/12/2017 PETER MONTES MD, Ot D64.9 ANEMIA, UNSPECIFIED 07/12/2017 PETER MONTES MD Ot E87.6 HYPOKALEMIA 07/12/2017 PETER MONTES MD Ot I10 ESSENTIAL (PRIMARY) HYPERTENSION 07/12/2017 PETER MONTES MD Ot J44.9 CHRONIC OBSTRUCTIVE PULMONARY DISEASE, U 07/12/2017 PETER MONTES MD Ot K21.9 GASTRO-ESOPHAGEAL REFLUX DISEASE WITHOUT 07/12/2017 PETER MONTES MD Ot M81.0 AGE-RELATED OSTEOPOROSIS W/O CURRENT PAT 07/12/2017 PETER MONTES MD Ot Z79.82 HALF-WAY (CURRENT) USE OF ASPIRIN 07/12/2017 PETER MONTES MD Ot Z79.899 OTHER HALF-WAY (CURRENT) DRUG THERAPY 07/26/2017 PETER MONTES MD Ot 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 07/26/2017 PETER MONTES MD Ot D64.9 ANEMIA, UNSPECIFIED 07/26/2017 PETER MONTES MD Ot E87.6 HYPOKALEMIA 07/26/2017 PETER MONTES MD Ot I10 ESSENTIAL (PRIMARY) HYPERTENSION 07/26/2017 PETER MONTES MD Ot J44.9 CHRONIC OBSTRUCTIVE PULMONARY DISEASE, U 07/26/2017 PETER MONTES MD Ot K21.9 GASTRO-ESOPHAGEAL REFLUX DISEASE WITHOUT 07/26/2017 PETER MONTES MD Ot M81.0 AGE-RELATED OSTEOPOROSIS W/O CURRENT PAT 07/26/2017 PETER MONTES MD Ot Z79.82 ENAMELER (CURRENT) USE OF ASPIRIN 07/26/2017 PETER MONTES MD Ot Z79.899 OTHER HALF-WAY (CURRENT) DRUG THERAPY 07/26/2017 SATURNINO FOSTER, LAKSHMI Lazar Ot V72.84 EXAM PRE-OPERATIVE NOS 07/26/2017 SARAHY CRAWFORD DO S Ot 789.01 ABDOMINAL PAIN, RIGHT UPPER QUADRANT 07/26/2017 STANISLAV KIRKPATRICK Ot 786.09 RESPIRATORY ABNORM NEC 07/26/2017 STANISLAV KIRKPATRICK Ot 786.2 COUGH 07/26/2017 SARAHY CRAWFORD DO S Ot I65.23 OCCLUSION AND STENOSIS OF BILATERAL FUENTES 07/26/2017 SARAHY CRAWFORD DO S Ot F17.210 NICOTINE DEPENDENCE, CIGARETTES, UNCOMPL 07/26/2017 SARAHY CRAWFORD DO S Ot J43.9 EMPHYSEMA, UNSPECIFIED 07/26/2017 OPAL NGUYEN SARAHY S Ot Z12.2 ENCNTR SCREEN FOR MALIGNANT NEOPLASM OF 07/26/2017 PACORAAD TAMAYO N Ot 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 07/26/2017 PACO, BOBAN N Ot D64.9 ANEMIA, UNSPECIFIED 07/26/2017 PACO, BOBAN N Ot E87.6 HYPOKALEMIA 07/26/2017 PACO BOBTOMMY N Ot I10 ESSENTIAL (PRIMARY) HYPERTENSION 07/26/2017 PACO, BOBAN N Ot J44.9 CHRONIC OBSTRUCTIVE PULMONARY DISEASE, U 07/26/2017 PACO, BOBAN N Ot K21.9 GASTRO-ESOPHAGEAL REFLUX DISEASE WITHOUT 07/26/2017 PACO, BOBAN N Ot M81.0 AGE-RELATED OSTEOPOROSIS W/O CURRENT PAT 07/26/2017 PACO, BOBAN N Ot Z79.82 ENAMELER (CURRENT) USE OF ASPIRIN 07/26/2017 PACO, BOBAN N Ot Z79.899 OTHER HALF-WAY (CURRENT) DRUG THERAPY 07/26/2017 PACO, BOBAN N Ot 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 07/26/2017 PACO, RAAD N Ot D64.9 ANEMIA, UNSPECIFIED 07/26/2017 PACO, BOBAN N Ot E87.6 HYPOKALEMIA 07/26/2017 PACO, BOBAN N Ot I10 ESSENTIAL (PRIMARY) HYPERTENSION 07/26/2017 PACO, RAAD N Ot J44.9 CHRONIC OBSTRUCTIVE PULMONARY DISEASE, U 07/26/2017 PACORAAD N Ot K21.9 GASTRO-ESOPHAGEAL REFLUX DISEASE WITHOUT 07/26/2017 PACO, BOBAN N Ot M81.0 AGE-RELATED OSTEOPOROSIS W/O CURRENT PAT 07/26/2017 PACO, BOBAN N Ot Z79.82 HALF-WAY (CURRENT) USE OF ASPIRIN 07/26/2017 PACO, BOBAN N Ot Z79.899 OTHER ENAMELER (CURRENT) DRUG THERAPY 07/27/2017 PACO, BOBAN N Ot 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 07/27/2017 PACO, BOBAN N Ot D64.9 ANEMIA, UNSPECIFIED 07/27/2017 PACO, BOBAN N Ot E87.6 HYPOKALEMIA 07/27/2017 PACO, BOBAN N Ot I10 ESSENTIAL (PRIMARY) HYPERTENSION 07/27/2017 PACO, BOBAN N Ot J44.9 CHRONIC OBSTRUCTIVE PULMONARY DISEASE, U 07/27/2017 PACO, BOBAN N Ot K21.9 GASTRO-ESOPHAGEAL REFLUX DISEASE WITHOUT 07/27/2017 PACO, BOBAN N Ot M81.0 AGE-RELATED OSTEOPOROSIS W/O CURRENT PAT 07/27/2017 PACO, BOBAN N Ot Z79.82 ENAMELER (CURRENT) USE OF ASPIRIN 07/27/2017 PACO, BOBAN N Ot Z79.899 OTHER ENAMELER (CURRENT) DRUG THERAPY 08/17/2017 PACO, BOBAN N Ot 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 08/17/2017 PACO, BOBAN N Ot D64.9 ANEMIA, UNSPECIFIED 08/17/2017 PACO, BOBAN N Ot E87.6 HYPOKALEMIA 08/17/2017 PACO, BOBAN N Ot I10 ESSENTIAL (PRIMARY) HYPERTENSION 08/17/2017 PACO, BOBAN N Ot J44.9 CHRONIC OBSTRUCTIVE PULMONARY DISEASE, U 08/17/2017 PACO, BOBAN N Ot K21.9 GASTRO-ESOPHAGEAL REFLUX DISEASE WITHOUT 08/17/2017 PACO, BOBAN N Ot M81.0 AGE-RELATED OSTEOPOROSIS W/O CURRENT PAT 08/17/2017 PACO, BOBAN N Ot Z79.82 ENAMELER (CURRENT) USE OF ASPIRIN 08/17/2017 PACO, BOBAN N Ot Z79.899 OTHER ENAMELER (CURRENT) DRUG THERAPY 08/30/2017 PACO, BOBAN N Ot 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 08/30/2017 PACO, BOBAN N Ot D64.9 ANEMIA, UNSPECIFIED 08/30/2017 PACO, BOBAN N Ot E87.6 HYPOKALEMIA 08/30/2017 PACO, BOBAN N Ot I10 ESSENTIAL (PRIMARY) HYPERTENSION 08/30/2017 PACO, BOBAN N Ot J44.9 CHRONIC OBSTRUCTIVE PULMONARY DISEASE, U 08/30/2017 PACO, BOBAN N Ot K21.9 GASTRO-ESOPHAGEAL REFLUX DISEASE WITHOUT 08/30/2017 PACO, BOBAN N Ot M81.0 AGE-RELATED OSTEOPOROSIS W/O CURRENT PAT 08/30/2017 PACO, BOBAN N Ot Z79.82 HALF-WAY (CURRENT) USE OF ASPIRIN 08/30/2017 PACO, BOBAN N Ot Z79.899 OTHER ENAMELER (CURRENT) DRUG THERAPY 10/24/2017 PACO, BOBAN N Ot 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 10/24/2017 PACO, BOBAN N Ot D64.9 ANEMIA, UNSPECIFIED 10/24/2017 PACO, BOBAN N Ot E87.6 HYPOKALEMIA 10/24/2017 PACO, BOBAN N Ot I10 ESSENTIAL (PRIMARY) HYPERTENSION 10/24/2017 PACO, BOBAN N Ot J44.9 CHRONIC OBSTRUCTIVE PULMONARY DISEASE, U 10/24/2017 PACO, BOBAN N Ot K21.9 GASTRO-ESOPHAGEAL REFLUX DISEASE WITHOUT 10/24/2017 PACO, BOBAN N Ot M81.0 AGE-RELATED OSTEOPOROSIS W/O CURRENT PAT 10/24/2017 PACO, BOBAN N Ot Z79.82 ENAMELER (CURRENT) USE OF ASPIRIN 10/24/2017 PACO, BOBAN N Ot Z79.899 OTHER ENAMELER (CURRENT) DRUG THERAPY 10/25/2017 PACO, BOBAN N Ot 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 10/25/2017 PACO, BOBAN N Ot D64.9 ANEMIA, UNSPECIFIED 10/25/2017 PACO, BOBAN N Ot E87.6 HYPOKALEMIA 10/25/2017 PACO, BOBAN N Ot I10 ESSENTIAL (PRIMARY) HYPERTENSION 10/25/2017 PACO, BOBAN N Ot J44.9 CHRONIC OBSTRUCTIVE PULMONARY DISEASE, U 10/25/2017 PACO, BOBAN N Ot K21.9 GASTRO-ESOPHAGEAL REFLUX DISEASE WITHOUT 10/25/2017 PACO, BOBAN N Ot M81.0 AGE-RELATED OSTEOPOROSIS W/O CURRENT PAT 10/25/2017 PACO, BOBAN N Ot Z79.82 HALF-WAY (CURRENT) USE OF ASPIRIN 10/25/2017 PACO, BOBAN N Ot Z79.899 OTHER ENAMELER (CURRENT) DRUG THERAPY 12/12/2017 PACO, BOBAN N Ot 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 12/12/2017 PACO, BOBAN N Ot D64.9 ANEMIA, UNSPECIFIED 12/12/2017 PACO, BOBAN N Ot D70.9 NEUTROPENIA, UNSPECIFIED 12/12/2017 PACO, BOBAN N Ot Z79.899 OTHER ENAMELER (CURRENT) DRUG THERAPY 12/31/2017 PETER MONTES MD Ot 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 12/31/2017 PETER MONTES MD Ot D64.9 ANEMIA, UNSPECIFIED 12/31/2017 PETER MONTES MD Ot D70.9 NEUTROPENIA, UNSPECIFIED 12/31/2017 PETER MONTES MD Ot I10 ESSENTIAL (PRIMARY) HYPERTENSION 12/31/2017 PETER MONTES MD Ot J44.9 CHRONIC OBSTRUCTIVE PULMONARY DISEASE, U 12/31/2017 PETER MONTES MD Ot K21.9 GASTRO-ESOPHAGEAL REFLUX DISEASE WITHOUT 12/31/2017 PETER MONTES MD Ot Z79.899 OTHER ENAMELER (CURRENT) DRUG THERAPY 02/26/2018 PACORAAD TAMAYO N Ot 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 02/26/2018 PACOSARAHAN N Ot D64.9 ANEMIA, UNSPECIFIED 02/26/2018 PACORAAD N Ot D70.9 NEUTROPENIA, UNSPECIFIED 02/26/2018 PACORAAD N Ot E87.6 HYPOKALEMIA 02/26/2018 PACO BOBAN N Ot I10 ESSENTIAL (PRIMARY) HYPERTENSION 02/26/2018 PACO BOBAN N Ot J44.9 CHRONIC OBSTRUCTIVE PULMONARY DISEASE, U 02/26/2018 PACORAAD TAMAYO N Ot K21.9 GASTRO-ESOPHAGEAL REFLUX DISEASE WITHOUT 02/26/2018 PACOSARAHAN N Ot M81.0 AGE-RELATED OSTEOPOROSIS W/O CURRENT PAT 02/26/2018 RAAD ANTONIO N Ot Z79.82 ENAMELER (CURRENT) USE OF ASPIRIN 02/26/2018 RAAD ANTONIO N Ot Z79.899 OTHER ENAMELER (CURRENT) DRUG THERAPY 04/06/2018 PACO BOBAN N Ot 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 04/06/2018 PACO BOBAN N Ot D64.9 ANEMIA, UNSPECIFIED 04/06/2018 PACO BOBAN N Ot D70.9 NEUTROPENIA, UNSPECIFIED 04/06/2018 PACO, BOBAN N Ot E87.6 HYPOKALEMIA 04/06/2018 PACO BOBAN N Ot I10 ESSENTIAL (PRIMARY) HYPERTENSION 04/06/2018 PACORAAD N Ot J44.9 CHRONIC OBSTRUCTIVE PULMONARY DISEASE, U 04/06/2018 PACO RAAD N Ot K21.9 GASTRO-ESOPHAGEAL REFLUX DISEASE WITHOUT 04/06/2018 PACORAAD TAMAYO N Ot M81.0 AGE-RELATED OSTEOPOROSIS W/O CURRENT PAT 04/06/2018 PACORAAD N Ot Z79.82 HALF-WAY (CURRENT) USE OF ASPIRIN 04/06/2018 PACORAAD N Ot Z79.899 OTHER HALF-WAY (CURRENT) DRUG THERAPY 04/10/2018 PACORAAD Ot 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 04/10/2018 PACORAAD TAMAYO N Ot D64.9 ANEMIA, UNSPECIFIED 04/10/2018 PACORAAD TAMAYO N Ot D70.9 NEUTROPENIA, UNSPECIFIED 04/10/2018 PACORAAD TAMAYO N Ot E87.6 HYPOKALEMIA 04/10/2018 PACO, BOBTOMMY N Ot I10 ESSENTIAL (PRIMARY) HYPERTENSION 04/10/2018 RAAD ANTONIO N Ot J44.9 CHRONIC OBSTRUCTIVE PULMONARY DISEASE, U 04/10/2018 RAAD ANTONIO N Ot K21.9 GASTRO-ESOPHAGEAL REFLUX DISEASE WITHOUT 04/10/2018 PACORAAD TAMAYO N Ot M81.0 AGE-RELATED OSTEOPOROSIS W/O CURRENT PAT 04/10/2018 RAAD ANTONIO N Ot Z51.11 ENCOUNTER FOR ANTINEOPLASTIC CHEMOTHERAP 04/10/2018 RAAD ANTONIO Ot Z79.82 HALF-WAY (CURRENT) USE OF ASPIRIN 04/10/2018 RAAD ANTONIO Ot Z79.899 OTHER HALF-WAY (CURRENT) DRUG THERAPY 04/16/2018 RAAD ANTONIO Ot 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 04/16/2018 RAAD ANTONIO N Ot D64.9 ANEMIA, UNSPECIFIED 04/16/2018 PACORAAD N Ot D70.9 NEUTROPENIA, UNSPECIFIED 04/16/2018 PACORAAD N Ot E87.6 HYPOKALEMIA 04/16/2018 RAAD ANTONIO N Ot I10 ESSENTIAL (PRIMARY) HYPERTENSION 04/16/2018 RAAD ANTONIO N Ot J44.9 CHRONIC OBSTRUCTIVE PULMONARY DISEASE, U 04/16/2018 RAAD ANTONIO N Ot K21.9 GASTRO-ESOPHAGEAL REFLUX DISEASE WITHOUT 04/16/2018 PACORAAD N Ot M81.0 AGE-RELATED OSTEOPOROSIS W/O CURRENT PAT 04/16/2018 PACO, RAAD Hou Ot Z51.11 ENCOUNTER FOR ANTINEOPLASTIC CHEMOTHERAP 04/16/2018 RAAD ANTONIO Ot Z79.82 HALF-WAY (CURRENT) USE OF ASPIRIN 04/16/2018 RAAD ANTONIO N Ot Z79.899 OTHER ENAMELER (CURRENT) DRUG THERAPY 05/03/2018 PACO RAAD N Ot 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 05/03/2018 PACORAAD N Ot D64.9 ANEMIA, UNSPECIFIED 05/03/2018 PACORAAD N Ot D70.9 NEUTROPENIA, UNSPECIFIED 05/03/2018 PACORAAD N Ot E87.6 HYPOKALEMIA 05/03/2018 PACORAAD N Ot I10 ESSENTIAL (PRIMARY) HYPERTENSION 05/03/2018 RAAD ANTONIO N Ot J44.9 CHRONIC OBSTRUCTIVE PULMONARY DISEASE, U 05/03/2018 PACORAAD N Ot K21.9 GASTRO-ESOPHAGEAL REFLUX DISEASE WITHOUT 05/03/2018 PACORAAD N Ot M81.0 AGE-RELATED OSTEOPOROSIS W/O CURRENT PAT 05/03/2018 RAAD ANTONIO N Ot Z79.82 HALF-WAY (CURRENT) USE OF ASPIRIN 05/03/2018 RAAD ANTONIO N Ot Z79.899 OTHER HALF-WAY (CURRENT) DRUG THERAPY 05/07/2018 RAAD ANTONIO N Ot 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 05/07/2018 RAAD ANTONIO N Ot D64.9 ANEMIA, UNSPECIFIED 05/07/2018 PACORAAD N Ot D70.9 NEUTROPENIA, UNSPECIFIED 05/07/2018 PACORAAD N Ot E87.6 HYPOKALEMIA 05/07/2018 PACORAAD N Ot I10 ESSENTIAL (PRIMARY) HYPERTENSION 05/07/2018 PACORAAD TAMAYO N Ot J44.9 CHRONIC OBSTRUCTIVE PULMONARY DISEASE, U 05/07/2018 PACORAAD N Ot K21.9 GASTRO-ESOPHAGEAL REFLUX DISEASE WITHOUT 05/07/2018 PACORAAD N Ot M81.0 AGE-RELATED OSTEOPOROSIS W/O CURRENT PAT 05/07/2018 RAAD ANTONIO N Ot Z79.82 HALF-WAY (CURRENT) USE OF ASPIRIN 05/07/2018 RAAD ANTONIO Ot Z79.899 OTHER ENAMELER (CURRENT) DRUG THERAPY 05/25/2018 RAAD ANTONIO Ot 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 05/25/2018 RAAD ANTONIO Ot D64.9 ANEMIA, UNSPECIFIED 05/25/2018 RAAD ANTONIO Ot D70.9 NEUTROPENIA, UNSPECIFIED 05/25/2018 RAAD ANTONIO Savi Ot E87.6 HYPOKALEMIA 05/25/2018 RAAD ANTONIO Savi Ot I10 ESSENTIAL (PRIMARY) HYPERTENSION 05/25/2018 RAAD ANTONIO Savi Ot J44.9 CHRONIC OBSTRUCTIVE PULMONARY DISEASE, U 05/25/2018 RAAD ANTONIO Savi Ot K21.9 GASTRO-ESOPHAGEAL REFLUX DISEASE WITHOUT 05/25/2018 RAAD ANTONIO Ot M81.0 AGE-RELATED OSTEOPOROSIS W/O CURRENT PAT 05/25/2018 RAAD ANTONIO Savi Ot Z79.82 ENAMELER (CURRENT) USE OF ASPIRIN 05/25/2018 RAAD ANTONIO Savi Ot Z79.899 OTHER HALF-WAY (CURRENT) DRUG THERAPY Procedures There is no data. Results Test Result Range Influenza virus A and B antigen detection - 03/04/17 10:17 FLU RESULT NEGATIVE FOR INFLUENZA A AND B ANTIGENS BY [facility] Complete blood count (CBC) with automated white blood cell (WBC) differential - 03/04/17 10:18 Blood leukocytes automated count (number/volume) 8.1 10*3/uL 4.3-11.0 Blood erythrocytes automated count (number/volume) 2.83 10*6/uL 4.35-5.85 Venous blood hemoglobin measurement (mass/volume) 8.8 g/dL 11.5-16.0 Blood hematocrit (volume fraction) 27 % 35-52 Automated erythrocyte mean corpuscular volume 95 [foz_us] 80-99 Automated erythrocyte mean corpuscular hemoglobin (mass per erythrocyte) 31 pg 25-34 Automated erythrocyte mean corpuscular hemoglobin concentration measurement ( mass/volume) 33 g/dL 32-36 Automated erythrocyte distribution width ratio 17.6 % 10.0-14.5 Automated blood platelet count (count/volume) 148 10*3/uL 130-400 Automated blood platelet mean volume measurement 10.8 [foz_us] 7.4-10.4 Automated blood neutrophils/100 leukocytes 73 % 42-75 Automated blood lymphocytes/100 leukocytes 13 % 12-44 Blood monocytes/100 leukocytes 13 % 0-12 Automated blood eosinophils/100 leukocytes 0 % 0-10 Automated blood basophils/100 leukocytes 0 % 0-10 Blood neutrophils automated count (number/volume) 5.9 10*3 1.8-7.8 Blood lymphocytes automated count (number/volume) 1.1 10*3 1.0-4.0 Blood monocytes automated count (number/volume) 1.1 10*3 0.0-1.0 Automated eosinophil count 0.0 10*3/uL 0.0-0.3 Automated blood basophil count (count/volume) 0.0 10*3/uL 0.0-0.1 Blood lactic acid measurement (moles/volume) - 03/04/17 10:18 Blood lactic acid measurement (moles/volume) 1.24 mmol/L 0.50-2.00 PT panel in platelet poor plasma by coagulation assay - 03/04/17 10:18 Prothrombin time (PT) in platelet poor plasma by coagulation assay 15.4 s 12.2-14.7 INR in platelet poor plasma or blood by coagulation assay 1.2 0.8-1.4 Activated partial thromboplastin time (aPTT) in platelet poor plasma bycoagulation assay - 03/04/17 10:18 Activated partial thromboplastin time (aPTT) in platelet poor plasma bycoagulation assay 38 s 24-35 Comprehensive metabolic panel - 03/04/17 10:18 Serum or plasma sodium measurement (moles/volume) 138 mmol/L 135-145 Serum or plasma potassium measurement (moles/volume) 3.3 mmol/L 3.6-5.0 Serum or plasma chloride measurement (moles/volume) 100 mmol/L 98-107 Carbon dioxide 21 mmol/L 21-32 Serum or plasma anion gap determination (moles/volume) 17 mmol/L 5-14 Serum or plasma urea nitrogen measurement (mass/volume) 20 mg/dL 7-18 Serum or plasma creatinine measurement (mass/volume) 0.94 mg/dL 0.60-1.30 Serum or plasma urea nitrogen/creatinine mass ratio 21 NRG Serum or plasma creatinine measurement with calculation of estimated glomerular filtration rate 58 NRG Serum or plasma glucose measurement (mass/volume) 86 mg/dL 70-105 Serum or plasma calcium measurement (mass/volume) 9.0 mg/dL 8.5-10.1 Serum or plasma total bilirubin measurement (mass/volume) 0.2 mg/dL 0.1-1.0 Serum or plasma alkaline phosphatase measurement (enzymatic activity/volume) 60 U/L 40-136 Serum or plasma aspartate aminotransferase measurement (enzymatic activity/ volume) 23 U/L 5-34 Serum or plasma alanine aminotransferase measurement (enzymatic activity/volume ) 14 U/L 0-55 Serum or plasma protein measurement (mass/volume) 9.7 g/dL 6.4-8.2 Serum or plasma albumin measurement (mass/volume) 2.5 g/dL 3.2-4.5 Bacterial blood culture - 03/04/17 10:18 Bacterial blood culture NG NRG Bacterial blood culture - 03/04/17 10:31 Bacterial blood culture NG NRG Sputum Gram stain - 03/04/17 11:00 GRAM STAIN SPUTUM AND MIXED BACTERIAL MARISOL NRG Bacterial sputum culture - 03/04/17 11:00 FREE TEXT EXTERNAL BETA LACTAMASE NEGATIVE NRG QUANTITY OF GROWTH Scant Growth NRG Bacterial sputum culture [id number] NRG Complete urinalysis with reflex to culture - 03/04/17 12:06 Urine color determination YELLOW NRG Urine clarity determination CLEAR NRG Urine pH measurement by test strip 5 5-9 Specific gravity of urine by test strip 1.015 1.016- 1.022 Urine protein assay by test strip, semi-quantitative 3+ NEGATIVE Urine glucose detection by automated test strip NEGATIVE NEGATIVE Erythrocytes detection in urine sediment by light microscopy 2+ NEGATIVE Urine ketones detection by automated test strip NEGATIVE NEGATIVE Urine nitrite detection by test strip NEGATIVE NEGATIVE Urine total bilirubin detection by test strip NEGATIVE NEGATIVE Urine urobilinogen measurement by automated test strip (mass/volume) NORMAL NORMAL Urine leukocyte esterase detection by dipstick 1+ NEGATIVE Automated urine sediment erythrocyte count by microscopy (number/high power field) [HPF] NRG Automated urine sediment leukocyte count by microscopy (number/high power field ) [HPF] NRG Bacteria detection in urine sediment by light microscopy TRACE NRG Squamous epithelial cells detection in urine sediment by light microscopy 2-5 NRG Crystals detection in urine sediment by light microscopy NONE NRG Casts detection in urine sediment by light microscopy PRESENT NRG Mucus detection in urine sediment by light microscopy NEGATIVE NRG Complete urinalysis with reflex to culture NO NRG Amorphous sediment detection in urine sediment by light microscopy FEW JHONATHAN URATES NRG Granular casts detection in urine sediment by light microscopy 0-2 NRG Complete blood count (CBC) with automated white blood cell (WBC) differential - 03/05/17 04:41 Blood leukocytes automated count (number/volume) 10.5 10*3/uL 4.3-11.0 Blood erythrocytes automated count (number/volume) 2.72 10*6/uL 4.35-5.85 Venous blood hemoglobin measurement (mass/volume) 8.4 g/dL 11.5-16.0 Blood hematocrit (volume fraction) 26 % 35-52 Automated erythrocyte mean corpuscular volume 96 [foz_us] 80-99 Automated erythrocyte mean corpuscular hemoglobin (mass per erythrocyte) 31 pg 25-34 Automated erythrocyte mean corpuscular hemoglobin concentration measurement ( mass/volume) 32 g/dL 32-36 Automated erythrocyte distribution width ratio 17.6 % 10.0-14.5 Automated blood platelet count (count/volume) 137 10*3/uL 130-400 Automated blood platelet mean volume measurement 11.6 [foz_us] 7.4-10.4 Automated blood neutrophils/100 leukocytes 77 % 42-75 Automated blood lymphocytes/100 leukocytes 14 % 12-44 Blood monocytes/100 leukocytes 9 % 0-12 Automated blood eosinophils/100 leukocytes 0 % 0-10 Automated blood basophils/100 leukocytes 0 % 0-10 Blood neutrophils automated count (number/volume) 8.1 10*3 1.8-7.8 Blood lymphocytes automated count (number/volume) 1.4 10*3 1.0-4.0 Blood monocytes automated count (number/volume) 1.0 10*3 0.0-1.0 Automated eosinophil count 0.0 10*3/uL 0.0-0.3 Automated blood basophil count (count/volume) 0.0 10*3/uL 0.0-0.1 Automated reticulocyte percentage - 03/05/17 04:41 Blood reticulocytes count (number/volume) 22 10*9/L 24- 90 Blood reticulocytes/100 erythrocytes 0.79 % 0.50-2.40 Comprehensive metabolic panel - 03/05/17 04:41 Serum or plasma sodium measurement (moles/volume) 140 mmol/L 135-145 Serum or plasma potassium measurement (moles/volume) 2.9 mmol/L 3.6-5.0 Serum or plasma chloride measurement (moles/volume) 104 mmol/L 98-107 Carbon dioxide 21 mmol/L 21-32 Serum or plasma anion gap determination (moles/volume) 15 mmol/L 5-14 Serum or plasma urea nitrogen measurement (mass/volume) 18 mg/dL 7-18 Serum or plasma creatinine measurement (mass/volume) 0.82 mg/dL 0.60-1.30 Serum or plasma urea nitrogen/creatinine mass ratio 22 NRG Serum or plasma creatinine measurement with calculation of estimated glomerular filtration rate > NRG Serum or plasma glucose measurement (mass/volume) 86 mg/dL 70-105 Serum or plasma calcium measurement (mass/volume) 8.8 mg/dL 8.5-10.1 Serum or plasma total bilirubin measurement (mass/volume) 0.2 mg/dL 0.1-1.0 Serum or plasma alkaline phosphatase measurement (enzymatic activity/volume) 54 U/L 40-136 Serum or plasma aspartate aminotransferase measurement (enzymatic activity/ volume) 27 U/L 5-34 Serum or plasma alanine aminotransferase measurement (enzymatic activity/volume ) 14 U/L 0-55 Serum or plasma protein measurement (mass/volume) 9.1 g/dL 6.4-8.2 Serum or plasma albumin measurement (mass/volume) 2.3 g/dL 3.2-4.5 IMMUNOFIXATION W/INTERP, SERUM - 03/05/17 04:41 Serum or plasma nordiazepam detection Complete Complete Serum iron and total iron binding capacity panel - 03/05/17 04:41 Serum or plasma iron measurement (mass/volume) 15 % 35- 180 Total iron binding capacity and transferrin saturation measurement 10 % 15-50 Iron binding capacity [mass/volume] in serum or plasma 145 % 280-380 UIBC (unsaturated iron binding capacity) 130 % 55-450 Serum or plasma ferritin measurement (mass/volume) 620.6 % 15.0-150.0 Serum protein electrophoresis - 03/05/17 04:41 Serum or plasma protein measurement (mass/volume) 8.5 % 6.4-8.1 Pathology consultation and report SEE PATH REPORT NRG Cyanocobalamin measurement - 03/05/17 04:41 Vitamin B12 > pg/mL 200-1000 Quantitative urine kappa and lambda free light chains measurement - 03/05/17 04 :41 Quantitative serum kappa light chain measurement 2796.00 % 3.30-19.40 Quantitative serum lambda light chain measurement 2.90 % 5.71-26.30 Serum immunoglobulin free kappa light chains/immunoglobulin lambda light chains mass ratio 964.14 % 0.26-1.65 Whole blood basic metabolic panel - 03/06/17 05:58 Serum or plasma sodium measurement (moles/volume) 143 mmol/L 135-145 Serum or plasma potassium measurement (moles/volume) 3.0 mmol/L 3.6-5.0 Serum or plasma chloride measurement (moles/volume) 105 mmol/L 98-107 Carbon dioxide 23 mmol/L 21-32 Serum or plasma anion gap determination (moles/volume) 15 mmol/L 5-14 Serum or plasma urea nitrogen measurement (mass/volume) 13 mg/dL 7-18 Serum or plasma creatinine measurement (mass/volume) 0.75 mg/dL 0.60-1.30 Serum or plasma urea nitrogen/creatinine mass ratio 17 NRG Serum or plasma creatinine measurement with calculation of estimated glomerular filtration rate > NRG Serum or plasma glucose measurement (mass/volume) 80 mg/dL 70-105 Serum or plasma calcium measurement (mass/volume) 8.7 mg/dL 8.5-10.1 Stool occult blood screen - 03/06/17 16:46 Stool gastrointestinal hemoglobin detection NEGATIVE NEGATIVE Complete blood count (CBC) with automated white blood cell (WBC) differential - 03/07/17 05:15 Blood leukocytes automated count (number/volume) 11.6 10*3/uL 4.3-11.0 Blood erythrocytes automated count (number/volume) 2.65 10*6/uL 4.35-5.85 Venous blood hemoglobin measurement (mass/volume) 8.1 g/dL 11.5-16.0 Blood hematocrit (volume fraction) 26 % 35-52 Automated erythrocyte mean corpuscular volume 97 [foz_us] 80-99 Automated erythrocyte mean corpuscular hemoglobin (mass per erythrocyte) 31 pg 25-34 Automated erythrocyte mean corpuscular hemoglobin concentration measurement ( mass/volume) 32 g/dL 32-36 Automated erythrocyte distribution width ratio 17.3 % 10.0-14.5 Automated blood platelet count (count/volume) 143 10*3/uL 130-400 Automated blood platelet mean volume measurement 11.9 [foz_us] 7.4-10.4 Automated blood neutrophils/100 leukocytes 90 % 42-75 Automated blood lymphocytes/100 leukocytes 8 % 12-44 Blood monocytes/100 leukocytes 2 % 0-12 Automated blood eosinophils/100 leukocytes 0 % 0-10 Automated blood basophils/100 leukocytes 0 % 0-10 Blood neutrophils automated count (number/volume) 10.5 10*3 1.8-7.8 Blood lymphocytes automated count (number/volume) 1.0 10*3 1.0-4.0 Blood monocytes automated count (number/volume) 0.2 10*3 0.0-1.0 Automated eosinophil count 0.0 10*3/uL 0.0-0.3 Automated blood basophil count (count/volume) 0.0 10*3/uL 0.0-0.1 Whole blood basic metabolic panel - 03/07/17 05:15 Serum or plasma sodium measurement (moles/volume) 139 mmol/L 135-145 Serum or plasma potassium measurement (moles/volume) 4.1 mmol/L 3.6-5.0 Serum or plasma chloride measurement (moles/volume) 102 mmol/L 98-107 Carbon dioxide 23 mmol/L 21-32 Serum or plasma anion gap determination (moles/volume) 14 mmol/L 5-14 Serum or plasma urea nitrogen measurement (mass/volume) 18 mg/dL 7-18 Serum or plasma creatinine measurement (mass/volume) 0.71 mg/dL 0.60-1.30 Serum or plasma urea nitrogen/creatinine mass ratio 25 NRG Serum or plasma creatinine measurement with calculation of estimated glomerular filtration rate > NRG Serum or plasma glucose measurement (mass/volume) 168 mg/dL 70-105 Serum or plasma calcium measurement (mass/volume) 9.4 mg/dL 8.5-10.1 Magnesium - 03/07/17 05:15 Magnesium 1.5 mg/dL 1.8-2.4 Complete blood count (CBC) with automated white blood cell (WBC) differential - 03/08/17 05:42 Blood leukocytes automated count (number/volume) 9.7 10*3/uL 4.3-11.0 Blood erythrocytes automated count (number/volume) 2.62 10*6/uL 4.35-5.85 Venous blood hemoglobin measurement (mass/volume) 8.1 g/dL 11.5-16.0 Blood hematocrit (volume fraction) 26 % 35-52 Automated erythrocyte mean corpuscular volume 98 [foz_us] 80-99 Automated erythrocyte mean corpuscular hemoglobin (mass per erythrocyte) 31 pg 25-34 Automated erythrocyte mean corpuscular hemoglobin concentration measurement ( mass/volume) 32 g/dL 32-36 Automated erythrocyte distribution width ratio 17.4 % 10.0-14.5 Automated blood platelet count (count/volume) 156 10*3/uL 130-400 Automated blood platelet mean volume measurement 11.3 [foz_us] 7.4-10.4 Automated blood neutrophils/100 leukocytes 90 % 42-75 Automated blood lymphocytes/100 leukocytes 5 % 12-44 Blood monocytes/100 leukocytes 5 % 0-12 Automated blood eosinophils/100 leukocytes 0 % 0-10 Automated blood basophils/100 leukocytes 0 % 0-10 Blood neutrophils automated count (number/volume) 8.8 10*3 1.8-7.8 Blood lymphocytes automated count (number/volume) 0.5 10*3 1.0-4.0 Blood monocytes automated count (number/volume) 0.5 10*3 0.0-1.0 Automated eosinophil count 0.0 10*3/uL 0.0-0.3 Automated blood basophil count (count/volume) 0.0 10*3/uL 0.0-0.1 Whole blood basic metabolic panel - 03/08/17 05:42 Serum or plasma sodium measurement (moles/volume) 142 mmol/L 135-145 Serum or plasma potassium measurement (moles/volume) 4.1 mmol/L 3.6-5.0 Serum or plasma chloride measurement (moles/volume) 105 mmol/L 98-107 Carbon dioxide 25 mmol/L 21-32 Serum or plasma anion gap determination (moles/volume) 12 mmol/L 5-14 Serum or plasma urea nitrogen measurement (mass/volume) 19 mg/dL 7-18 Serum or plasma creatinine measurement (mass/volume) 0.66 mg/dL 0.60-1.30 Serum or plasma urea nitrogen/creatinine mass ratio 29 NRG Serum or plasma creatinine measurement with calculation of estimated glomerular filtration rate > NRG Serum or plasma glucose measurement (mass/volume) 149 mg/dL 70-105 Serum or plasma calcium measurement (mass/volume) 8.6 mg/dL 8.5-10.1 Magnesium - 03/08/17 05:42 Magnesium 1.9 mg/dL 1.8-2.4 Complete blood count (CBC) with automated white blood cell (WBC) differential - 03/09/17 05:33 Blood leukocytes automated count (number/volume) 8.9 10*3/uL 4.3-11.0 Blood erythrocytes automated count (number/volume) 2.80 10*6/uL 4.35-5.85 Venous blood hemoglobin measurement (mass/volume) 8.6 g/dL 11.5-16.0 Blood hematocrit (volume fraction) 28 % 35-52 Automated erythrocyte mean corpuscular volume 100 [foz_us] 80-99 Automated erythrocyte mean corpuscular hemoglobin (mass per erythrocyte) 31 pg 25-34 Automated erythrocyte mean corpuscular hemoglobin concentration measurement ( mass/volume) 31 g/dL 32-36 Automated erythrocyte distribution width ratio 17.8 % 10.0-14.5 Automated blood platelet count (count/volume) 187 10*3/uL 130-400 Automated blood platelet mean volume measurement 11.3 [foz_us] 7.4-10.4 Automated blood neutrophils/100 leukocytes 87 % 42-75 Automated blood lymphocytes/100 leukocytes 6 % 12-44 Blood monocytes/100 leukocytes 7 % 0-12 Automated blood eosinophils/100 leukocytes 0 % 0-10 Automated blood basophils/100 leukocytes 0 % 0-10 Blood neutrophils automated count (number/volume) 7.8 10*3 1.8-7.8 Blood lymphocytes automated count (number/volume) 0.5 10*3 1.0-4.0 Blood monocytes automated count (number/volume) 0.6 10*3 0.0-1.0 Automated eosinophil count 0.0 10*3/uL 0.0-0.3 Automated blood basophil count (count/volume) 0.0 10*3/uL 0.0-0.1 Whole blood basic metabolic panel - 03/09/17 05:33 Serum or plasma sodium measurement (moles/volume) 141 mmol/L 135-145 Serum or plasma potassium measurement (moles/volume) 4.6 mmol/L 3.6-5.0 Serum or plasma chloride measurement (moles/volume) 103 mmol/L 98-107 Carbon dioxide 27 mmol/L 21-32 Serum or plasma anion gap determination (moles/volume) 11 mmol/L 5-14 Serum or plasma urea nitrogen measurement (mass/volume) 16 mg/dL 7-18 Serum or plasma creatinine measurement (mass/volume) 0.65 mg/dL 0.60-1.30 Serum or plasma urea nitrogen/creatinine mass ratio 25 NRG Serum or plasma creatinine measurement with calculation of estimated glomerular filtration rate > NRG Serum or plasma glucose measurement (mass/volume) 107 mg/dL 70-105 Serum or plasma calcium measurement (mass/volume) 9.4 mg/dL 8.5-10.1 Blood manual differential performed detection - 03/09/17 05:33 Blood monocytes/100 leukocytes 6 % NRG Manual blood segmented neutrophils/100 leukocytes 89 % NRG Blood band neutrophils/100 leukocytes 1 % NRG Manual blood lymphocytes/100 leukocytes 4 % NRG Manual eosinophils/100 leukocytes in nose 0 % NRG Manual blood basophils/100 leukocytes 0 % NRG Blood polychromasia detection by light microscopy SLIGHT NRG Blood anisocytosis detection by light microscopy MODERATE NRG Blood macrocytes detection by light microscopy MODERATE NRG Blood toxic granules detection by light microscopy 1+ NRG Blood hypochromia detection by light microscopy SLIGHT NRG Blood rouleaux detection by light microscopy SLIGHT NRG Serum [id number] measurement (mass/volume) - 03/09/17 05:33 [id number] [Mass/volume] in Serum or Plasma 3.61 % 0.00-1.85 [id number] - 03/09/17 05:33 [id number] <10 % 47-209 Immunoglobulin panel (IgG, IgM, IgA) serum > % 71-263 Complete blood count (CBC) with automated white blood cell (WBC) differential - 03/13/17 05:27 Blood leukocytes automated count (number/volume) 22.7 10*3/uL 4.3-11.0 Blood erythrocytes automated count (number/volume) 3.07 10*6/uL 4.35-5.85 Venous blood hemoglobin measurement (mass/volume) 9.6 g/dL 11.5-16.0 Blood hematocrit (volume fraction) 31 % 35-52 Automated erythrocyte mean corpuscular volume 100 [foz_us] 80-99 Automated erythrocyte mean corpuscular hemoglobin (mass per erythrocyte) 31 pg 25-34 Automated erythrocyte mean corpuscular hemoglobin concentration measurement ( mass/volume) 31 g/dL 32-36 Automated erythrocyte distribution width ratio 18.6 % 10.0-14.5 Automated blood platelet count (count/volume) 468 10*3/uL 130-400 Automated blood platelet mean volume measurement 10.5 [foz_us] 7.4-10.4 Automated blood neutrophils/100 leukocytes 82 % 42-75 Automated blood lymphocytes/100 leukocytes 11 % 12-44 Blood monocytes/100 leukocytes 8 % 0-12 Automated blood eosinophils/100 leukocytes 0 % 0-10 Automated blood basophils/100 leukocytes 0 % 0-10 Blood neutrophils automated count (number/volume) 18.5 10*3 1.8-7.8 Blood lymphocytes automated count (number/volume) 2.4 10*3 1.0-4.0 Blood monocytes automated count (number/volume) 1.7 10*3 0.0-1.0 Automated eosinophil count 0.0 10*3/uL 0.0-0.3 Automated blood basophil count (count/volume) 0.0 10*3/uL 0.0-0.1 Blood manual differential performed detection - 03/13/17 05:27 Blood monocytes/100 leukocytes 9 % NRG Manual blood segmented neutrophils/100 leukocytes 78 % NRG Blood band neutrophils/100 leukocytes 2 % NRG Manual blood lymphocytes/100 leukocytes 9 % NRG Manual eosinophils/100 leukocytes in nose 2 % NRG Manual blood basophils/100 leukocytes 0 % NRG Blood polychromasia detection by light microscopy SLIGHT NRG Blood anisocytosis detection by light microscopy MODERATE NRG Blood macrocytes detection by light microscopy MODERATE NRG Blood hypochromia detection by light microscopy SLIGHT NRG Blood microcytes detection by light microscopy SLIGHT NRG Blood stomatocytes detection by light microscopy SLIGHT NRG Comprehensive metabolic panel - 03/13/17 05:27 Serum or plasma sodium measurement (moles/volume) 144 mmol/L 135-145 Serum or plasma potassium measurement (moles/volume) 3.6 mmol/L 3.6-5.0 Serum or plasma chloride measurement (moles/volume) 100 mmol/L 98-107 Carbon dioxide 29 mmol/L 21-32 Serum or plasma anion gap determination (moles/volume) 15 mmol/L 5-14 Serum or plasma urea nitrogen measurement (mass/volume) 17 mg/dL 7-18 Serum or plasma creatinine measurement (mass/volume) 0.68 mg/dL 0.60-1.30 Serum or plasma urea nitrogen/creatinine mass ratio 25 NRG Serum or plasma creatinine measurement with calculation of estimated glomerular filtration rate > NRG Serum or plasma glucose measurement (mass/volume) 67 mg/dL 70-105 Serum or plasma calcium measurement (mass/volume) 9.6 mg/dL 8.5-10.1 Serum or plasma total bilirubin measurement (mass/volume) 0.3 mg/dL 0.1-1.0 Serum or plasma alkaline phosphatase measurement (enzymatic activity/volume) 81 U/L 40-136 Serum or plasma aspartate aminotransferase measurement (enzymatic activity/ volume) 17 U/L 5-34 Serum or plasma alanine aminotransferase measurement (enzymatic activity/volume ) 27 U/L 0-55 Serum or plasma protein measurement (mass/volume) 9.0 g/dL 6.4-8.2 Serum or plasma albumin measurement (mass/volume) 2.9 g/dL 3.2-4.5 Complete blood count (CBC) with automated white blood cell (WBC) differential - 03/06/18 13:30 Blood leukocytes automated count (number/volume) 4.1 10*3/uL 4.3-11.0 Blood erythrocytes automated count (number/volume) 4.85 10*6/uL 4.35-5.85 Venous blood hemoglobin measurement (mass/volume) 14.7 g/dL 11.5-16.0 Blood hematocrit (volume fraction) 43 % 35-52 Automated erythrocyte mean corpuscular volume 89 [foz_us] 80-99 Automated erythrocyte mean corpuscular hemoglobin (mass per erythrocyte) 30 pg 25-34 Automated erythrocyte mean corpuscular hemoglobin concentration measurement ( mass/volume) 34 g/dL 32-36 Automated erythrocyte distribution width ratio 15.5 % 10.0-14.5 Automated blood platelet count (count/volume) 191 10*3/uL 130-400 Automated blood platelet mean volume measurement 11.1 [foz_us] 7.4-10.4 Automated blood neutrophils/100 leukocytes 39 % 42-75 Automated blood lymphocytes/100 leukocytes 38 % 12-44 Blood monocytes/100 leukocytes 14 % 0-12 Automated blood eosinophils/100 leukocytes 5 % 0-10 Automated blood basophils/100 leukocytes 3 % 0-10 Blood neutrophils automated count (number/volume) 1.6 10*3 1.8-7.8 Blood lymphocytes automated count (number/volume) 1.6 10*3 1.0-4.0 Blood monocytes automated count (number/volume) 0.6 10*3 0.0-1.0 Automated eosinophil count 0.2 10*3/uL 0.0-0.3 Automated blood basophil count (count/volume) 0.1 10*3/uL 0.0-0.1 Comprehensive metabolic panel - 03/06/18 13:30 Serum or plasma sodium measurement (moles/volume) 141 mmol/L 135-145 Serum or plasma potassium measurement (moles/volume) 2.6 mmol/L 3.6-5.0 Serum or plasma chloride measurement (moles/volume) 106 mmol/L 98-107 Carbon dioxide 25 mmol/L 21-32 Serum or plasma anion gap determination (moles/volume) 10 mmol/L 5-14 Serum or plasma urea nitrogen measurement (mass/volume) 10 mg/dL 7-18 Serum or plasma creatinine measurement (mass/volume) 0.66 mg/dL 0.60-1.30 Serum or plasma urea nitrogen/creatinine mass ratio 15 NRG Serum or plasma creatinine measurement with calculation of estimated glomerular filtration rate > NRG Serum or plasma glucose measurement (mass/volume) 115 mg/dL 70-105 Serum or plasma calcium measurement (mass/volume) 9.1 mg/dL 8.5-10.1 Serum or plasma total bilirubin measurement (mass/volume) 0.4 mg/dL 0.1-1.0 Serum or plasma alkaline phosphatase measurement (enzymatic activity/volume) 54 U/L 40-136 Serum or plasma aspartate aminotransferase measurement (enzymatic activity/ volume) 20 U/L 5-34 Serum or plasma alanine aminotransferase measurement (enzymatic activity/volume ) 23 U/L 0-55 Serum or plasma protein measurement (mass/volume) 6.6 g/dL 6.4-8.2 Serum or plasma albumin measurement (mass/volume) 3.8 g/dL 3.2-4.5 CALCIUM CORRECTED 9.3 mg/dL 8.5-10.1 [id number] - 03/06/18 13:30 [id number] 68 % 47-209 Immunoglobulin panel (IgG, IgM, IgA) serum 181 % 71-263 Quantitative urine kappa and lambda free light chains measurement - 03/06/18 13 :30 Quantitative serum kappa light chain measurement 22.53 % 3.30-19.40 Quantitative serum lambda light chain measurement 16.27 % 5.71-26.30 Serum immunoglobulin free kappa light chains/immunoglobulin lambda light chains mass ratio 1.38 % 0.26-1.65 Complete blood count (CBC) with automated white blood cell (WBC) differential - 06/07/18 11:40 Blood leukocytes automated count (number/volume) 1.4 10*3/uL 4.3-11.0 Blood erythrocytes automated count (number/volume) 4.75 10*6/uL 4.35-5.85 Venous blood hemoglobin measurement (mass/volume) 14.2 g/dL 11.5-16.0 Blood hematocrit (volume fraction) 41 % 35-52 Automated erythrocyte mean corpuscular volume 87 [foz_us] 80-99 Automated erythrocyte mean corpuscular hemoglobin (mass per erythrocyte) 30 pg 25-34 Automated erythrocyte mean corpuscular hemoglobin concentration measurement ( mass/volume) 34 g/dL 32-36 Automated erythrocyte distribution width ratio 14.9 % 10.0-14.5 Automated blood platelet count (count/volume) 116 10*3/uL 130-400 Automated blood platelet mean volume measurement 11.2 [foz_us] 7.4-10.4 Automated blood neutrophils/100 leukocytes 68 % 42-75 Automated blood lymphocytes/100 leukocytes 13 % 12-44 Blood monocytes/100 leukocytes 18 % 0-12 Automated blood eosinophils/100 leukocytes 0 % 0-10 Automated blood basophils/100 leukocytes 2 % 0-10 Blood neutrophils automated count (number/volume) 0.9 10*3 1.8-7.8 Blood lymphocytes automated count (number/volume) 0.2 10*3 1.0-4.0 Blood monocytes automated count (number/volume) 0.2 10*3 0.0-1.0 Automated eosinophil count 0.0 10*3/uL 0.0-0.3 Automated blood basophil count (count/volume) 0.0 10*3/uL 0.0-0.1 Blood lactic acid measurement (moles/volume) - 06/07/18 11:40 Blood lactic acid measurement (moles/volume) 1.95 mmol/L 0.50-2.00 Comprehensive metabolic panel - 06/07/18 11:40 Serum or plasma sodium measurement (moles/volume) 131 mmol/L 135-145 Serum or plasma potassium measurement (moles/volume) 2.4 mmol/L 3.6-5.0 Serum or plasma chloride measurement (moles/volume) 91 mmol/L 98-107 Carbon dioxide 26 mmol/L 21-32 Serum or plasma anion gap determination (moles/volume) 14 mmol/L 5-14 Serum or plasma urea nitrogen measurement (mass/volume) 16 mg/dL 7-18 Serum or plasma creatinine measurement (mass/volume) 0.88 mg/dL 0.60-1.30 Serum or plasma urea nitrogen/creatinine mass ratio 18 NRG Serum or plasma creatinine measurement with calculation of estimated glomerular filtration rate > NRG Serum or plasma glucose measurement (mass/volume) 103 mg/dL 70-105 Serum or plasma calcium measurement (mass/volume) 8.4 mg/dL 8.5-10.1 Serum or plasma total bilirubin measurement (mass/volume) 0.4 mg/dL 0.1-1.0 Serum or plasma alkaline phosphatase measurement (enzymatic activity/volume) 49 U/L 40-136 Serum or plasma aspartate aminotransferase measurement (enzymatic activity/ volume) 40 U/L 5-34 Serum or plasma alanine aminotransferase measurement (enzymatic activity/volume ) 27 U/L 0-55 Serum or plasma protein measurement (mass/volume) 6.6 g/dL 6.4-8.2 Serum or plasma albumin measurement (mass/volume) 3.7 g/dL 3.2-4.5 CALCIUM CORRECTED 8.6 mg/dL 8.5-10.1 Serum or plasma C reactive protein measurement (mass/volume) - 06/07/18 11:40 Serum or plasma C reactive protein measurement (mass/volume) 2.08 mg /dL 0.00-0.50 Influenza virus A and B antigen detection - 06/07/18 11:40 CALL POSITIVES (F1 HELP) RESULT CALLED TO VALERIE AT 1213 [facility] FLU RESULT POSITIVE FOR INFLUENZA A ANTIGEN, NEG FOR B ANTIGEN, BY IA [facility] PT panel in platelet poor plasma by coagulation assay - 06/07/18 11:40 Prothrombin time (PT) in platelet poor plasma by coagulation assay 12.4 s 12.2-14.7 INR in platelet poor plasma or blood by coagulation assay 0.9 0.8-1.4 Activated partial thromboplastin time (aPTT) in platelet poor plasma bycoagulation assay - 06/07/18 11:40 Activated partial thromboplastin time (aPTT) in platelet poor plasma bycoagulation assay 30 s 24-35 Serum or plasma lithium measurement (moles/volume) - 06/07/18 11:40 BNP level 32.5 pg/mL <100.0 Complete urinalysis with reflex to culture - 06/07/18 12:00 Urine color determination YELLOW NRG Urine clarity determination CLEAR NRG Urine pH measurement by test strip 6 5-9 Specific gravity of urine by test strip 1.020 1.016- 1.022 Urine protein assay by test strip, semi-quantitative 3+ NEGATIVE Urine glucose detection by automated test strip NEGATIVE NEGATIVE Erythrocytes detection in urine sediment by light microscopy 4+ NEGATIVE Urine ketones detection by automated test strip 2+ NEGATIVE Urine nitrite detection by test strip NEGATIVE NEGATIVE Urine total bilirubin detection by test strip NEGATIVE NEGATIVE Urine urobilinogen measurement by automated test strip (mass/volume) NORMAL NORMAL Urine leukocyte esterase detection by dipstick NEGATIVE NEGATIVE Automated urine sediment erythrocyte count by microscopy (number/high power field) RARE NRG Automated urine sediment leukocyte count by microscopy (number/high power field ) NONE NRG Bacteria detection in urine sediment by light microscopy NEGATIVE NRG Squamous epithelial cells detection in urine sediment by light microscopy RARE NRG Crystals detection in urine sediment by light microscopy PRESENT NRG Casts detection in urine sediment by light microscopy PRESENT NRG Mucus detection in urine sediment by light microscopy SMALL NRG Complete urinalysis with reflex to culture NO NRG Amorphous sediment detection in urine sediment by light microscopy FEW JHONATHAN URATES NRG Hyaline casts detection in urine sediment by light microscopy 0-2 NRG Granular casts detection in urine sediment by light microscopy RARE NRG Encounters ACCT No. Visit Date/Time Discharge Status Pt. Type Provider Facility Loc./Unit Complaint [id number] 05/29/2018 09:46:00 05/29/2018 23:59:59 CLS Outpatient PACO RAAD Savi [facility] ONC [id number] 04/05/2018 10:04:00 04/10/2018 00:01:00 DIS Outpatient RAAD ANTONIO [facility] ONC [id number] 12/13/2017 09:42:00 12/31/2017 00:01:00 DIS Outpatient PETER MONTES MD [facility] ONC [id number] 11/15/2017 10:29:00 12/12/2017 16:32:00 DIS Outpatient RAAD ANTONIO [facility] ONC [id number] 10/18/2017 08:51:00 10/24/2017 00:01:00 DIS Outpatient RAAD ANTONIO [facility] ONC [id number] 07/19/2017 13:00:00 07/26/2017 10:44:00 DIS Outpatient PETER MONTES MD [facility] ONC [id number] 06/21/2017 13:22:00 06/27/2017 15:00:00 DIS Outpatient RAAD ANTONIO [facility] ONC [id number] 06/07/2017 12:07:00 06/13/2017 00:01:00 DIS Outpatient RAAD ANTONIO [facility] ONC [id number] 03/08/2017 12:56:00 03/13/2017 13:35:00 DIS Inpatient ORENDER DO, SARAHY S [facility] 4TH SWB [id number] 03/04/2017 12:10:00 03/08/2017 12:49:00 DIS Inpatient ORENDER DO, SARAHY S [facility] 4TH PNEUMONIA LLL, COPD [id number] 12/29/2016 13:01:00 12/29/2016 23:59:59 CLS Outpatient ORENDER DO, SARAHY S [facility] RAD SCREENING [id number] 02/16/2015 10:12:00 02/16/2015 23:59:59 CLS Outpatient ORENDER DO, SARAHY S [facility] RAD LT CAROTID BRUIT [id number] 11/17/2014 11:14:00 11/17/2014 23:59:59 CLS Outpatient VANBECELAESTANISLAV [employer]IDA [employer] ASSOC[employer]ATE [facility] RAD COUGH [id number] 01/31/2013 08:56:00 01/31/2013 23:59:59 CLS Outpatient ORENDER DO SARAHY S [facility] RAD RUQ PAIN [id number] 08/28/2012 08:12:00 08/28/2012 12:15:00 DIS Outpatient LAKSHMI MATAMOROS MD [facility] DYSPHAGIA,COLON POLYPS [id number] 08/23/2012 07:21:00 08/23/2012 23:59:59 CLS Outpatient LAKSHMI MATAMOROS MD [facility] PREOP DYSPHAGIA; COLON POLYPS [id number] 06/07/2018 11:57:00 Document Registration [id number] 11/17/2014 11:14:00 Document Registration [id number] 11/17/2014 11:14:00 Document Registration [id number] 11/17/2014 11:14:00 Document Registration [id number] 09/16/2011 09:56:00 Document Registration [id number] 08/08/2011 12:38:00 Document Registration [id number] 04/15/2011 10:46:00 Document Registration [id number] 08/03/2010 10:17:00 Document Registration [id number] 11/16/2016 16:56:21 Document Registration 08/201506/07/2018 09:06:29 ACT Outpatient Sarahy Crawford
--- NOTE | 2018-06-07 13:45 | NUR ---
CALLED REPORT TO [facility], STATES ROOM NOT READY WILL CALL WHEN ROOM READY
--- NOTE | 2018-06-07 13:51 | Diagnostic Imaging Report ---
INDICATION: Chest wall pain with cough. Recent fall. Rib pain. COMPARISON: Earlier same day FINDINGS: Three views of the left ribs were obtained. There is no fracture, dislocation, or other acute bony abnormality identified. Visualized portions of the left lung are clear. The surrounding soft tissues appear unremarkable. No radiopaque foreign bodies are seen. IMPRESSION: No healing or displaced left rib fractures. Dictated by: Dictated on workstation # [id number]
--- NOTE | 2018-06-07 14:40 | NUR ---
COLLEEN PERSAUD admitted to room 424-1, with an admitting diagnosis of HYPOXIA, FLUA, HYPOKALEMIA, on 06/07/18 from ER via BED, accompanied by ER STAFF AND FAMILY.COLLEEN PERSAUD introduced to surroundings, call light, bed controls, phone, TV, temperature control, lights, meal times, smoking policy, visitor policy, side rail policy, bathrooms and showers. Patient Rights given to patient in the handbook. COLLEEN PERSAUD verbalizes understanding that [facility] is not responsible for the loss or damage to any personal effects or valuables that are kept in the patients posession during their hospitalization. The following Patient Care Plans were discussed with the PT: Discharge Planning, IMP GAS EXCH, ALT TISSUE PERFUSION, INEFF BREATHING PATTERN, AND HIGH RISK INJURY. COLLEEN PERSAUD verbalizes understanding of Interdisciplinary Patient Education. Patient and/or family were informed about the Rapid Response Team and its purpose.
--- NOTE | 2018-06-07 14:54 | Pulmonary Consultation ---
History of Present Illness History of Present Illness Date of Consultation 06/07/18 14:49 Date of Admission History of Present Illness 78yo with hx of cancer presented to ED secondary to s/p fall onto L side, and worsening SOB and was found to have hypoxia with Sp02 of 75%. Pt is now on oxy mask at 10L to maintain Sp02 of 95%. Allergies and Home Medications Allergies Coded Allergies: venom-honey bee (Verified Allergy, Severe, 08/08/11) codeine (Unverified Allergy, Unknown, 03/02/10) Home Medications Albuterol Sulfate 2.5 Mg/3 Ml Vial.neb, 2.5 MG NEB QID, (Reported) Albuterol Sulfate 1 Puff Puff, 2 PUFF IH Q4H PRN for SHORTNESS OF BREATH, ( Reported) Amlodipine Besylate 5 Mg Tablet, 5 MG PO DAILY, (Reported) Azithromycin 250 Mg Tablet, PO UD, (Reported) 5 DAY THERAPY FILLED 06-04-18 Calcium Carbonate/Vitamin D3 1 Each Tablet, 1 TAB PO DAILY, (Reported) Cholecalciferol (Vitamin D3) 5,000 Unit Capsule, 5,000 UNIT PO DAILY, (Reported) Cyanocobalamin (Vitamin B-12) 1,000 Mcg Tablet, 2,000 MCG PO DAILY, (Reported) TAKES 2 (1,000 UNIT) CAPSULES Duloxetine HCl 30 Mg Capsule.dr, 30 MG PO 1500, (Reported) Epinephrine 0.3 Mg/0.3 Ml Auto.injct, 0.3 MG IM UD PRN for ALLERGIC REACTION/ BEE STINGS, (Reported) Fluticasone/Salmeterol 1 Each Blst.w.dev, 1 PUFF IH BID, (Reported) Lenalidomide 10 Mg Capsule, 10 MG PO UD, (Reported) TAKES AT BEDTIME FOR 21 DAYS THEN OFF 7 DAYS THEN REPEAT Lorazepam 1 Mg Tablet, 1 MG PO BID PRN for ANXIETY, (Reported) Magnesium Oxide 400 Mg Tablet, 400 MG PO DAILY, (Reported) Omeprazole 20 Mg Capsule.dr, 40 MG PO DAILY, (Reported) TAKES 2 (20MG) CAPSULES Potassium Chloride 10 Meq Capsule.er, 10 MEQ PO BID, (Reported) Past Rrpcenu-Gcuril-Ylqoqi Hx Patient Social History Alcohol Use: Denies Use Recreational Drug Use: No Smoking Status: Never a Smoker Type Used: Cigarettes Recent Foreign Travel: No Contact w/Someone Who Travel: No Recent Infectious Disease Expo: No Recent Hopitalizations: No Immunizations Up To Date PED Vaccines UTD: Yes Date of Pneumonia Vaccine: Feb 01, 2017 Date of Influenza Vaccine: Feb 01, 2017 Past Medical History Surgeries: Yes Bladder Surgery, Hysterectomy, Orthopedic Respiratory: Yes COPD Currently Using CPAP: No Currently Using BIPAP: No Cardiac: Yes (PT DENIES-HOWEVER PT TAKES BP MEDS) Hypertension Neurological: No Reproductive Disorders: No Sexually Transmitted Disease: No HIV/AIDS: No Genitourinary: Yes (BLADDER SLING) Gastrointestinal: Yes Gastroesophageal Reflux Musculoskeletal: No Endocrine: No HEENT: Yes Cataract Cancer: No Psychosocial: No Integumentary: No Blood Disorders: No Family Medical History Cardiovascular disease G8 BROTHER Neoplasm 19 MOTHER (LIVER CANCER) G8 BROTHER (THROAT CANCER) No Pertinent Family Hx Review of Systems Time Seen by Provider: 15:56 Constitutional: Fever, Chills, Sweats, Weakness, Malaise Eyes: No: Pain, Vision change, Conjunctivae inflammation, Eyelid inflammation, Other, Redness ENT: Nose congestion; No: Ear pain, Ear discharge, Nose pain, Nose discharge, Mouth pain, Mouth swelling, Throat pain, Throat swelling, Other Respiratory: Cough, Shortness of breath, SOB with excertion, Wheezing, Pleuritic Pain, Sputum; No: Hemoptysis Gastrointestinal: Nausea; No: Vomiting, Abdominal Pain, Diarrhea, Constipation , Melena, Hematochezia, Other Neurological: Weakness, Incoordination Sepsis Event Evaluation Height, Weight, BMI Height: 5'8.00" Weight: 170lbs. 15.5oz. 77.754206xc; 25.3 BMI Method:Stated Exam Exam Vital Signs Date Time Temp Pulse Resp B/P (MAP) Pulse Ox O2 Delivery O2 Flow Rate FiO2 06/07/18 14:12 72 28 124/72 (89) 97 06/07/18 12:08 96 OxyMask 10.00 06/07/18 11:40 94 OxyMask 10.00 06/07/18 11:35 99.6 75 26 150/68 (95) OxyMask 10.00 Height & Weight Height: 5'8.00" Weight: 170lbs. 15.5oz. 77.943050ef; 25.3 BMI Method:Stated General Appearance: Anxious, Thin HEENT: PERRL/EOMI, Normal ENT Inspection, Pharynx Normal Neck: Full Range of Motion, Normal Inspection, Non Tender Respiratory: No Accessory Muscle Use, No Respiratory Distress, Decreased Breath Sounds Cardiovascular: Regular Rate, Rhythm Capillary Refill: Less Than 3 Seconds Gastrointestinal: normal bowel sounds, non tender, soft Extremity: Normal Capillary Refill, Normal Inspection, No Pedal Edema Neurologic/Psychiatric: Alert, Oriented x3 Skin: Normal Color, Warm/Dry Lymphatic: No Adenopathy Results Lab Laboratory Tests 06/07/18 11:40 Assessment/Plan Assessment/Plan Acute respiratory failure with hypoxia -Change oxy mask to Vapotherm -SVNs Q4 with Duo Neb Influenza A Hx of Multiple Myeloma R ALBAN NARVAEZ DO Jun 07, 2018 14:54
[2018-06-07] MEDS ORDERED: CATHETER FLUSH 10 ML SYR IV PRN (15:15)
[2018-06-07] MEDS: NS IV 1000 ML 1,000 ML IV SCH ×2 (15:25→22:07)
[2018-06-07] MEDS: POTASSIUM CL 10 MEQ/50 ML IVPB (PRE-MIX) IV SCH ×4 (15:26→19:08)
[2018-06-07] MEDS ORDERED: AZIT250T12 PO (15:26)
[2018-06-07] MEDS ORDERED: DULO30CA48 PO (15:26)
[2018-06-07] MEDS ORDERED: CHOL5000 PO (15:26)
[2018-06-07] MEDS ORDERED: MAGN400T39 PO (15:26)
[2018-06-07] MEDS ORDERED: LENA10CA PO (15:26)
[2018-06-07] MEDS ORDERED: CALC-654 PO (15:42)
[2018-06-07] MEDS ORDERED: POTA10CA43 PO (15:42)
[2018-06-07] MEDS ORDERED: RT-ALBUINH IH (15:42)
--- NOTE | 2018-06-07 15:44 | NUR ---
WENT OVER THE EXT MED HX WITH THE PATIENT, SHE VERIFIED HOW SHE TAKES HER MEDICATIONS WELL WHAT SHE TAKES OTC.
[2018-06-07] MEDS ORDERED: RT-ALBUTEROL/IPRATROPIUM 3 ML (DUONEB) VIAL INH PRN (15:45)
[2018-06-07] MEDS: ACETAMINOPHEN 500 MG TAB (TYLENOL) PO PRN ×2 (15:48→22:54)
[2018-06-07] MEDS: OSELTAMIVIR 75 MG (TAMIFLU) CAPSULE PO SCH ×2 (16:02→20:32)
[2018-06-07] MEDS ORDERED: PATIENT MAY USE OWN MEDS, ALL MC SCH (20:15)
[2018-06-07] MEDS ORDERED: LENALIDOMIDE 10 MG PO SCH (20:15)
[2018-06-07] MEDS ORDERED: KCL 20 MEQ TAB (K-DUR) PO NR (20:15)
[2018-06-07] MEDS ORDERED: LORazepam 1 MG (ATIVAN) TAB PO PRN (20:15)
--- NOTE | 2018-06-07 20:16 | History & Physicial ---
History of Present Illness History of Present Illness Reason for visit/HPI This is a 78 year old female with a known history of multiple myeloma and COPD who presented to the emergency room after sustaining two falls and with worsening respiratory status. She was found to be hypoxic with and oxygen saturation of 75% upon arrival. She was also found to be influenza A positive. She had been exposed recently to influenza A by her grandson. Date of Admission Jun 07, 2018 at 13:29 Date Seen by a Provider: Jun 07, 2018 Time Seen by a Provider: 20:11 I consulted on this patient on 06/07/18 20:10 Attending Physician Sarahy Crawford DO Admitting Physician Sarahy Crawford DO Consult Allergies and Home Medications Allergies Coded Allergies: venom-honey bee (Verified Allergy, Severe, 08/08/11) codeine (Unverified Allergy, Unknown, 03/02/10) Home Medications Albuterol Sulfate 2.5 Mg/3 Ml Vial.neb, 2.5 MG NEB QID, (Reported) Albuterol Sulfate 1 Puff Puff, 2 PUFF IH Q4H PRN for SHORTNESS OF BREATH, ( Reported) Amlodipine Besylate 5 Mg Tablet, 5 MG PO DAILY, (Reported) Azithromycin 250 Mg Tablet, PO UD, (Reported) 5 DAY THERAPY FILLED 06-04-18 Calcium Carbonate/Vitamin D3 1 Each Tablet, 1 TAB PO DAILY, (Reported) Cholecalciferol (Vitamin D3) 5,000 Unit Capsule, 5,000 UNIT PO DAILY, (Reported) Cyanocobalamin (Vitamin B-12) 1,000 Mcg Tablet, 2,000 MCG PO DAILY, (Reported) TAKES 2 (1,000 UNIT) CAPSULES Duloxetine HCl 30 Mg Capsule.dr, 30 MG PO 1500, (Reported) Epinephrine 0.3 Mg/0.3 Ml Auto.injct, 0.3 MG IM UD PRN for ALLERGIC REACTION/ BEE STINGS, (Reported) Fluticasone/Salmeterol 1 Each Blst.w.dev, 1 PUFF IH BID, (Reported) Lenalidomide 10 Mg Capsule, 10 MG PO UD, (Reported) TAKES AT BEDTIME FOR 21 DAYS THEN OFF 7 DAYS THEN REPEAT Lorazepam 1 Mg Tablet, 1 MG PO BID PRN for ANXIETY, (Reported) Magnesium Oxide 400 Mg Tablet, 400 MG PO DAILY, (Reported) Omeprazole 20 Mg Capsule.dr, 40 MG PO DAILY, (Reported) TAKES 2 (20MG) CAPSULES Potassium Chloride 10 Meq Capsule.er, 10 MEQ PO BID, (Reported) Patient Home Medication List Home Medication List Reviewed: Yes Past Wxefwib-Itwfgp-Ugilqe Hx Patient Social History Alcohol Use: Denies Use Recreational Drug Use: No Smoking Status: Never a Smoker Type Used: Cigarettes Physical Abuse Screen: No Sexual Abuse: No Recent Foreign Travel: No Contact w/other who traveled: No Recent Hopitalizations: No Recent Infectious Disease Expo: No Immunizations Up To Date Pediatric: Yes Date of Pneumonia Vaccine: Feb 01, 2017 Date of Influenza Vaccine: Feb 01, 2017 Surgeries Yes Bladder Surgery, Hysterectomy, Orthopedic Respiratory Yes Currently Using CPAP: No Currently Using BIPAP: No Cardiovascular Yes (PT DENIES-HOWEVER PT TAKES BP MEDS) Hypertension Neurological No Reproductive System Hx Reproductive Disorders: No Sexually Transmitted Disease: No HIV/AIDS: No Genitourinary Yes (BLADDER SLING) Gastrointestinal Yes Gastroesophageal Reflux Musculoskeletal No Endocrine History of Endocrine Disorders: No HEENT History of HEENT Disorders: Yes HEENT Disorders: Cataract Cancer No Psychosocial History of Psychiatric Problem: No Integumentary History of Skin or Integumenta: No Blood Transfusions History of Blood Disorders: No Family Medical History Significant Family History: No Pertinent Family Hx Family Hx: Cardiovascular disease G8 BROTHER Neoplasm 19 MOTHER (LIVER CANCER) G8 BROTHER (THROAT CANCER) Review of Systems Constitutional: fever, weakness EENTM: nose congestion Respiratory: cough, dyspnea on exertion, orthopnea, short of breath, wheezing Cardiovascular: No no symptoms reported, No see HPI, No chest pain, No edema, No Hx of Intervention, No palpitations, No syncope, No vascular heart diseas, No other Gastrointestinal: diarrhea Genitourinary: No no symptoms reported, No see HPI, No decreased output, No discharge, No dysuria, No frequency, No hematuria, No hesitancy, No incontinence , No nocturia, No pain, No other Musculoskeletal: back pain, muscle weakness Skin: No no symptoms reported, No see HPI, No change in color, No change in hair/nails, No dryness, No hx of skin cancer, No lesions, No lumps, No pruritus , No rash, No other Psychiatric/Neurological: Weakness Physical Exam Vital Signs Vital Signs - First Documented 06/07/18 06/07/18 06/07/18 11:35 11:40 15:35 Temp 99.6 Pulse 75 Resp 26 B/P (MAP) 150/68 (95) Pulse Ox 94 O2 Delivery OxyMask O2 Flow Rate 10.00 FiO2 36 Capillary Refill : Less Than 3 Seconds Height, Weight, BMI Height: 5'7.00" Weight: 174lbs. 3.0oz. 79.774606ws; 27.3 BMI Method:Stated General Appearance: No Apparent Distress HEENT: Normal ENT Inspection Neck: Supple Respiratory: Decreased Breath Sounds Cardiovascular: Regular Rate, Rhythm, Systolic Murmur Gastrointestinal: Normal Bowel Sounds, Non Tender, Soft Rectal: Deferred Back: No CVA Tenderness Extremity: Non Tender, No Calf Tenderness, No Pedal Edema Neurologic/Psychiatric: Alert, Oriented x3 Skin: Warm/Dry Comments Laboratory Tests 06/07/18 11:40: White Blood Count 1.4*L, Red Blood Count 4.75, Hemoglobin 14.2, Hematocrit 41, Mean Corpuscular Volume 87, Mean Corpuscular Hemoglobin 30, Mean Corpuscular Hemoglobin Concent 34, Red Cell Distribution Width 14.9H, Platelet Count 116L, Mean Platelet Volume 11.2H, Neutrophils (%) (Auto) 68, Lymphocytes (%) (Auto) 13 , Monocytes (%) (Auto) 18H, Eosinophils (%) (Auto) 0, Basophils (%) (Auto) 2, Neutrophils # (Auto) 0.9L, Lymphocytes # (Auto) 0.2L, Monocytes # (Auto) 0.2, Eosinophils # (Auto) 0.0, Basophils # (Auto) 0.0, Prothrombin Time 12.4, INR Comment 0.9, Activated Partial Thromboplast Time 30, Sodium Level 131L, Potassium Level 2.4*L, Chloride Level 91L, Carbon Dioxide Level 26, Anion Gap 14 , Blood Urea Nitrogen 16, Creatinine 0.88, Estimat Glomerular Filtration Rate > 60, BUN/Creatinine Ratio 18, Glucose Level 103, Lactic Acid Level 1.95, Calcium Level 8.4L, Corrected Calcium 8.6, Total Bilirubin 0.4, Aspartate Amino Transf ( AST/SGOT) 40H, Alanine Aminotransferase (ALT/SGPT) 27, Alkaline Phosphatase 49, C-Reactive Protein High Sensitivity 2.08H, B-Type Natriuretic Peptide 32.5, Total Protein 6.6, Albumin 3.7 06/07/18 12:00: Urine Color YELLOW, Urine Clarity CLEAR, Urine pH 6, Urine Specific [place] 1.020, Urine Protein 3+H, Urine Glucose (UA) NEGATIVE, Urine Ketones 2+H, Urine Nitrite NEGATIVE, Urine Bilirubin NEGATIVE, Urine Urobilinogen NORMAL, Urine Leukocyte Esterase NEGATIVE, Urine RBC (Auto) 4+H, Urine RBC RARE, Urine WBC NONE, Urine Squamous Epithelial Cells RARE, Urine Crystals PRESENTH, Urine Amorphous Sediment FEW JHONATHAN URATESH, Urine Bacteria NEGATIVE, Urine Casts PRESENT, Urine Hyaline Casts 0-2H, Urine Granular Casts RARE, Urine Mucus SMALLH , Urine Culture Indicated NO Microbiology 06/07/18 Influenza Types A,B Antigen (JOANIE) - Final, Complete Assessment/Plan Assessment and Plan 1. Acute Respiratory Failure--admit for oxygen, SVNS, pulmonary consulted 2. Acute Influenza A--tamiflu started 3. COPD--stable 4. Multiple Myeloma--will notify oncology of admit Admission Diagnosis Admission Status: Inpatient Order (span 2 midnights) Reason for Inpatient Admission: Will require at least 2 nights for treatment and monitoring labwork Clinical Quality Measures DVT/VTE Risk/Contraindication: Risk Factor Score Per Nursin RFS Level Per Nursing on Admit: 3=High SARAHY CRAWFORD DO Jun 07, 2018 20:16
[2018-06-07] MEDS ORDERED: OSELTAMIVIR 75 MG (TAMIFLU) CAPSULE PO SCH (21:00)
[2018-06-07] MEDS: RT-ALBUTEROL/IPRATROPIUM 3 ML (DUONEB) VIAL INH SCH ×2 (21:06→22:22)
[2018-06-07] MEDS ORDERED: guaiFENesin/DM (ROBITUSSIN DM) 10 ML UDC PO PRN (22:00)
--- NOTE | 2018-06-07 22:00 | NUR ---
Dr. Crawford notified of pt intermittent coughing. New order rec for Robitussin DM 10ml q 6 hr prn.
[2018-06-07] MEDS ORDERED: guaiFENesin/DM (ROBITUSSIN DM) 10 ML UDC ONE (22:03)
--- NOTE | 2018-06-08 00:25 | NUR ---
Dr. Crawford notified of decreasing O2 saturation (was on 4-5 L NC, but found to be have O2 saturation around 87-88% with Midnight vital signs. Rt Notified and put on 12L Hi-Rhonda NC to maintain saturation around 90%). New order rec to apply VapoTherm. Will continue to monitor.
[2018-06-08 00:28] VITALS: BP 109/52
[2018-06-08] MEDS: RT-ALBUTEROL/IPRATROPIUM 3 ML (DUONEB) VIAL INH SCH ×6 (01:53→21:40)
[2018-06-08 04:35] VITALS: BP 93/48
[2018-06-08 04:51] LABS: BASOPHILS % (AUTO) 2 % (0-10); EOSINOPHILS % (AUTO) 2 % (0-10); HEMATOCRIT 37 % (35-52); HEMOGLOBIN 12.8 G/DL (11.5-16.0); LYMPHOCYTES # (AUTO) 0.3 X 10^3 (1.0-4.0); LYMPHOCYTES % (AUTO) 28 % (12-44); MEAN CORPUSCULAR HEMOGLOBIN 30 PG (25-34); MEAN CORPUSCULAR HGB CONC 34 G/DL (32-36); MEAN CORPUSCULAR VOLUME 87 FL (80-99); MEAN PLATELET VOLUME 12.4 FL (7.4-10.4); MONOCYTES # (AUTO) 0.1 X 10^3 (0.0-1.0); MONOCYTES % (AUTO) 10 % (0-12); NEUTROPHILS # (AUTO) 0.5 X 10^3 (1.8-7.8); NEUTROPHILS % (AUTO) 57 % (42-75); PLATELET COUNT 68 10^3/uL (130-400); RED CELL DISTRIBUTION WIDTH 14.6 % (10.0-14.5)
[2018-06-08 05:08] LABS: ALANINE AMINOTRANSFERASE 21 U/L (0-55); ALBUMIN 3.1 GM/DL (3.2-4.5); ALKALINE PHOSPHATASE 38 U/L (40-136); BILIRUBIN,TOTAL 0.4 MG/DL (0.1-1.0); BUN/CREATININE RATIO 13; CALCIUM 7.8 MG/DL (8.5-10.1); CARBON DIOXIDE 23 MMOL/L (21-32); CHLORIDE 105 MMOL/L (98-107); CREATININE SERUM 0.76 MG/DL (0.60-1.30); GFR ESTIMATED > 60; GLUCOSE 91 MG/DL (70-105); MAGNESIUM 1.7 MG/DL (1.8-2.4); PHOSPHORUS 1.7 MG/DL (2.3-4.7); SODIUM 138 MMOL/L (135-145); TOTAL PROTEIN 5.4 GM/DL (6.4-8.2); WHITE BLOOD COUNT 0.9 10^3/uL (4.3-11.0)
[2018-06-08 05:14] LABS: POTASSIUM 2.2 MMOL/L (3.6-5.0)
[2018-06-08] MEDS ORDERED: POTASSIUM CL 10MEQ/50ML IVPB 200 ML IV ONE (05:48)
[2018-06-08] MEDS: POTASSIUM CL 10MEQ/50ML IVPB 50 ML IV SCH ×6 (05:56→23:49)
--- NOTE | 2018-06-08 06:25 | Pulmonary Progress Note ---
Subjective Subjective/Events-last exam Pt is now requiring 100% via Vapotherm. Sepsis Event Evaluation Height, Weight, BMI Height: 5'7.00" Weight: 174lbs. 3.0oz. 79.633009yi; 27.3 BMI Method:Stated Focused Exam Lactate Level 06/07/18 11:40: Lactic Acid Level 1.95 Exam Exam Vital Signs Date Time Temp Pulse Resp B/P (MAP) Pulse Ox O2 Delivery O2 Flow Rate FiO2 06/08/18 04:35 98.2 70 28 93/48 (63) 90 Vapotherm 50.00 35.00 06/08/18 01:53 95 Vapotherm 40.00 30 06/08/18 01:50 94 Vapotherm 30.00 35.00 06/08/18 01:23 72 96 Vapotherm 30.00 40.00 06/08/18 01:20 98 Vapotherm 40.00 100 06/08/18 01:00 71 06/08/18 00:40 94 Vapotherm 40.00 100 06/08/18 00:40 75 94 Vapotherm 100.00 40.00 06/08/18 00:30 91 High Flow N/C 12.00 06/08/18 00:28 98.7 72 19 109/52 (71) 90 Nasal Cannula 5.00 06/07/18 22:23 90 Nasal Cannula 4.00 06/07/18 20:30 Nasal Cannula 4.00 06/07/18 19:02 97.2 70 20 104/64 (77) 91 Nasal Cannula 4.00 06/07/18 19:00 72 06/07/18 17:45 98.6 67 20 109/55 (73) 91 Nasal Cannula 4.00 06/07/18 16:55 99.9 06/07/18 16:50 99.8 72 20 129/70 (89) 92 Room Air 06/07/18 16:30 70 06/07/18 15:48 101.1 06/07/18 15:41 101.5 72 16 128/65 (86) 92 06/07/18 15:35 72 97 36 06/07/18 15:08 99.6 71 18 136/68 91 Nasal Cannula 4.00 06/07/18 14:45 99.6 71 18 136/68 (90) 91 Nasal Cannula 4.00 06/07/18 14:40 92 Nasal Cannula 4.00 06/07/18 14:12 72 28 124/72 (89) 97 06/07/18 12:08 96 OxyMask 10.00 06/07/18 11:40 94 OxyMask 10.00 06/07/18 11:35 99.6 75 26 150/68 (95) OxyMask 10.00 I & O 06/08/18 07:00 Intake Total 2300 ml Output Total 2400 ml Balance -100 ml Height & Weight Height: 5'7.00" Weight: 174lbs. 3.0oz. 79.368133iz; 27.3 BMI Method:Stated General Appearance: WD/WN, Chronically ill, Mild Distress, Other (Appears fatigued) HEENT: PERRL/EOMI, Normal ENT Inspection, Other (Oropharynx somewhat dry) Neck: Normal Inspection, Non Tender, Supple Respiratory: Lungs Clear, Normal Breath Sounds, No Accessory Muscle Use, No Respiratory Distress, Other (Left lower lateral ribs moderately tender to palpation) Cardiovascular: Regular Rate, Rhythm, No Edema, No Murmur Capillary Refill: Less Than 3 Seconds Gastrointestinal: normal bowel sounds, non tender, soft Extremity: Normal Inspection, No Pedal Edema Neurologic/Psychiatric: Alert, Oriented x3, No Motor/Sensory Deficits, Normal 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
[2018-06-08] MEDS: KCL 20 MEQ TAB (K-DUR) PO SCH (06:54)
[2018-06-08] MEDS: VITAMIN D3 5,000 UNITS (CHOLECALCIFEROL ) CAPSULE PO SCH (06:54)
[2018-06-08 07:00] LABS: ABG BASE EXCESS 2.8 MMOL/L (-2.5-2.5); ABG OXYGEN SATURATION 93 % (94-100); ABG PCO2 38 MMHG (35-45); ABG PH 7.46 (7.37-7.43); ABG PO2 67 MMHG (79-93); ABG TCO2 27.6 MMOL/L (21.0-31.0)
[2018-06-08 07:01] LABS: ALLENS TEST YES-POS; INSPIRED O2 50%/30L; VENTILATOR NO
[2018-06-08] MEDS: ADVAIR HFA 115/21 MCG INHALER 8 GM IH SCH ×2 (07:01→21:40)
[2018-06-08 08:00] VITALS: BP 118/54
[2018-06-08] MEDS ORDERED: RT-ADVAIR HFA 115/21 MCG PER PUFF IH SCH (08:00)
[2018-06-08] MEDS: amLODIPine 5 MG (NORVASC) TAB PO SCH (08:16)
[2018-06-08] MEDS: PANTOPRAZOLE 40 MG (PROTONIX) TAB PO SCH (08:16)
[2018-06-08] MEDS: MAGNESIUM OXIDE (MAG-OX)400 MG TAB PO SCH (08:17)
[2018-06-08] MEDS: OSELTAMIVIR 75 MG (TAMIFLU) CAPSULE PO SCH (08:17)
--- NOTE | 2018-06-08 08:25 | Diagnostic Imaging Report ---
Indication: Dyspnea and influenza A. Portable upright AP view of the chest is obtained. Comparison is made to study of one day earlier. Overall heart size and pulmonary vascularity are within normal limits. There is air trapping bilaterally. There has been mild increase in bilateral basilar atelectasis. Impression: Mild increase in basilar atelectasis without other acute abnormality or adverse change. Dictated by: Dictated on workstation # [id number]
[2018-06-08] MEDS ORDERED: AZITHROMYCIN 250 MG TAB (ZITHROMAX) PO NR (08:30)
[2018-06-08] MEDS ORDERED: POTASSIUM PHOSPHATE INJ 30 MM in NS IV 500 ML 500 ML IV ONE (09:30)
[2018-06-08] MEDS: cefTRIAXone FOR IV USE 1,000 MG in WATER (STERILE) FOR INJECTION 10 ML IV SCH (10:02)
[2018-06-08] MEDS ORDERED: CATHETER FLUSH 10 ML SYR IV PRN (10:30)
[2018-06-08] MEDS ORDERED: NS 100 ML (IVPB) BAG IV ONE (10:30)
[2018-06-08] MEDS ORDERED: RECEIVED CONTRAST 20 ML VIAL IV SCH (10:30)
[2018-06-08] MEDS ORDERED: IOHEXOL 350 MG/ML 150 ML (OMNIPAQUE 350) VIAL IV ONE (10:30)
[2018-06-08] MEDS: MAGNESIUM 1 GM/100 ML IVPB 100 ML IV SCH ×2 (11:17→12:28)
[2018-06-08 12:00] VITALS: BP 127/60
--- NOTE | 2018-06-08 12:55 | Progress Note (SOAP) ---
Subjective Date Seen by a Provider: Jun 08, 2018 Time Seen by a Provider: 11:05 Subjective/Events-last exam Fwup acute respiratory failure, Influenza A, COPD, Multiple Myeloma, Hypokalemia. More short of air--now on vapotherm. Having diarrhea. Focused Exam Lactate Level 06/07/18 11:40: Lactic Acid Level 1.95 Objective Exam Vital Signs Date Time Temp Pulse Resp B/P (MAP) Pulse Ox O2 Delivery O2 Flow Rate FiO2 06/08/18 12:00 98.7 81 18 127/60 (82) 98 Vapotherm 35.00 06/08/18 11:41 97 Vapotherm 35.00 100 06/08/18 08:00 97.0 88 24 118/54 (75) 96 Nasal Cannula 4.00 06/08/18 07:09 77 06/08/18 07:00 85 Vapotherm 35.00 50 06/08/18 04:35 98.2 70 28 93/48 (63) 90 Vapotherm 50.00 35.00 06/08/18 01:53 95 Vapotherm 40.00 30 06/08/18 01:50 94 Vapotherm 30.00 35.00 06/08/18 01:23 72 96 Vapotherm 30.00 40.00 06/08/18 01:20 98 Vapotherm 40.00 100 06/08/18 01:00 71 06/08/18 00:40 94 Vapotherm 40.00 100 06/08/18 00:40 75 94 Vapotherm 100.00 40.00 06/08/18 00:30 91 High Flow N/C 12.00 06/08/18 00:28 98.7 72 19 109/52 (71) 90 Nasal Cannula 5.00 06/07/18 22:23 90 Nasal Cannula 4.00 06/07/18 20:30 Nasal Cannula 4.00 06/07/18 19:02 97.2 70 20 104/64 (77) 91 Nasal Cannula 4.00 06/07/18 19:00 72 06/07/18 17:45 98.6 67 20 109/55 (73) 91 Nasal Cannula 4.00 06/07/18 16:55 99.9 06/07/18 16:50 99.8 72 20 129/70 (89) 92 Room Air 06/07/18 16:30 70 06/07/18 15:48 101.1 06/07/18 15:41 101.5 72 16 128/65 (86) 92 06/07/18 15:35 72 97 36 06/07/18 15:08 99.6 71 18 136/68 91 Nasal Cannula 4.00 06/07/18 14:45 99.6 71 18 136/68 (90) 91 Nasal Cannula 4.00 06/07/18 14:40 92 Nasal Cannula 4.00 06/07/18 14:12 72 28 124/72 (89) 97 I & O 06/08/18 07:00 Intake Total 2800 ml Output Total 3000 ml Balance -200 ml Capillary Refill : Less Than 3 Seconds General Appearance: No Apparent Distress Neck: Supple Respiratory: Decreased Breath Sounds, Respiratory Distress (only with movement- -non at rest) Cardiovascular: Regular Rate, Rhythm Gastrointestinal: normal bowel sounds, non tender, soft Extremity: Non Tender, No Calf Tenderness, No Pedal Edema Neurologic/Psychiatric: Alert, Oriented x3 Skin: Warm/Dry Results Lab Laboratory Tests 06/08/18 04:27: White Blood Count 0.9*L, Red Blood Count 4.28L, Hemoglobin 12.8, Hematocrit 37, Mean Corpuscular Volume 87, Mean Corpuscular Hemoglobin 30, Mean Corpuscular Hemoglobin Concent 34, Red Cell Distribution Width 14.6H, Platelet Count 68L, Mean Platelet Volume 12.4H, Neutrophils (%) (Auto) 57, Lymphocytes (%) (Auto) 28 , Monocytes (%) (Auto) 10, Eosinophils (%) (Auto) 2, Basophils (%) (Auto) 2, Neutrophils # (Auto) 0.5L, Lymphocytes # (Auto) 0.3L, Monocytes # (Auto) 0.1, Eosinophils # (Auto) 0.0, Basophils # (Auto) 0.0, Sodium Level 138, Potassium Level 2.2*L, Chloride Level 105, Carbon Dioxide Level 23, Anion Gap 10, Blood Urea Nitrogen 10, Creatinine 0.76, Estimat Glomerular Filtration Rate > 60, BUN/ Creatinine Ratio 13, Glucose Level 91, Calcium Level 7.8L, Corrected Calcium 8.5 , Phosphorus Level 1.7L, Magnesium Level 1.7L, Total Bilirubin 0.4, Aspartate Amino Transf (AST/SGOT) 37H, Alanine Aminotransferase (ALT/SGPT) 21, Alkaline Phosphatase 38L, B-Type Natriuretic Peptide 63.4, Total Protein 5.4L, Albumin 3.1L 06/08/18 06:50: Blood Gas Puncture Site LEFT RADIAL, Blood Gas Patient Temperature 99.0, Arterial Blood pH 7.46H, Arterial Blood Partial Pressure CO2 38, Arterial Blood Partial Pressure O2 67L, Arterial Blood HCO3 26, Arterial Blood Total CO2 27.6, Arterial Blood Oxygen Saturation 93L, Arterial Blood Base Excess 2.8H, Tomas Test YES-POS, Blood Gas Ventilator Setting NO, Blood Gas Inspired Oxygen 50%/30L Microbiology 06/07/18 Influenza Types A,B Antigen (JOANIE) - Final, Complete 06/07/18 Urine Culture - Final, Complete NO GROWTH Assessment/Plan Assessment/Plan Assess & Plan/Chief Complaint 1. Acute Respiratory Failure--on Vapotherm, SVNS, check CT angiogram of chest 2. Influenza A--on Tamiflu 3. COPD--on vapotherm and SVNS as well as home inhalers 4. Multiple Myeloma--hold revlimid due to neutropenia, Dr. Espinosa notified of admission 5. Hypokalemia--replace K 6. Diarrhea--check C. Diff and add colestid 7. Hypomagnesemia--replace Mg 8. Neutropenia/Thrombocytopenia--likely from virus, monitor Clinical Quality Measures Admission Status Admission Dx 1. Acute Respiratory Failure--admit for oxygen, SVNS, pulmonary consulted 2. Acute Influenza A--tamiflu started 3. COPD--stable 4. Multiple Myeloma--will notify oncology of admit DVT/VTE Risk/Contraindication: Risk Factor Score Per Nursin RFS Level Per Nursing on Admit: 3=High JANNY JOSEPH DO Jun 08, 2018 12:55
[2018-06-08] MEDS: NS IV 1000 ML 1,000 ML IV SCH (13:33)
--- NOTE | 2018-06-08 15:00 | Progress Note-Standard ---
Standard Progress Note Progress Notes/Assess & Plan Date Seen by a Provider: Jun 08, 2018 Time Seen by a Provider: 14:57 Progress/Assessment & Plan 78-year-old female admitted with influenza A and probable pneumonia. Patient also has multiple myeloma initially treated with Velcade, Revlimid and dexamethasone regimen with an excellent response. Currently she is on Revlimid maintenance. Patient was noted to have significant neutropenia and thrombocytopenia most likely due to the viral infection. I would recommend holding Revlimid therapy until she has recovered from the infection and her blood counts have improved. I am on vacation next week with Dr. Freeman covering this weekend and Dr. Gastelum covering next week for any problems. Patient was instructed to keep the regularly scheduled follow-up appointment at cancer Center. Focused Exam Lactate Level 06/07/18 11:40: Lactic Acid Level 1.95 RAAD ANTONIO Jun 08, 2018 15:00
[2018-06-08] MEDS: DULoxetine 30 MG (CYMBALTA) CAP PO SCH (15:38)
--- NOTE | 2018-06-08 15:52 | NUR ---
OIM ARCHITECT alerted this nurse that Patient had requested a Tylenol. This nurse obtained Tylenol and went to patient room to administer Tylenol and other scheduled medications. Daughter, Genny was in the patient room with patient and voiced to nurse that she had already given the patient Tylenol from her purse. Genny expressed that she gave her mother 650 mg and that she knew that it was not standard procedure for family members to administer medication while admitted to the hospital.
[2018-06-08 16:00] VITALS: BP 111/52
--- NOTE | 2018-06-08 16:52 | Diagnostic Imaging Report ---
INDICATION: Hypoxia and COPD. CTA chest obtained with IV contrast bolus and axial slices and MIP reconstructions. The pulmonary parenchymal vessels are well opacified with no CT evidence of pulmonary emboli. There is no evidence of aortic dissection or aneurysm. There are atherosclerotic changes of the aorta. There is no pleural or pericardial fluid. Lung parenchymal windows demonstrate alveolar infiltrates with air bronchograms in the lower lobes on both sides compatible with pneumonia. There are emphysematous changes. A moderate-sized hiatal hernia is present. There are some mildly enlarged nodes in the mediastinum with a subcarinal node measuring about 1.7 x 1.3 cm. There are mildly prominent bilateral hilar nodes, including a 1.5 x 1.0 cm. There is borderline adenopathy in the right hilum. IMPRESSION: No CT evidence of pulmonary emboli or aortic dissection or aneurysm. There are extensive bilateral lower lobe infiltrates which are likely secondary to pneumonia. There are some mildly enlarged nodes in the mediastinum and elizabeth which may be reactive or neoplastic, suggest follow-up. There are emphysematous changes. There is moderate-sized hiatal hernia. Dictated by: Dictated on workstation # [id number]
[2018-06-08 19:20] VITALS: BP 118/58
[2018-06-08] MEDS: OSELTAMIVIR 30 MG (TAMIFLU) CAPSULE PO SCH (21:05)
[2018-06-08] MEDS: COLESTIPOL 1 GM (COLESTID) TAB PO SCH (21:05)
[2018-06-08 21:31] LABS: BUN/CREATININE RATIO 12; CALCIUM 7.3 MG/DL (8.5-10.1); CARBON DIOXIDE 22 MMOL/L (21-32); CHLORIDE 104 MMOL/L (98-107); CREATININE SERUM 0.69 MG/DL (0.60-1.30); GFR ESTIMATED > 60; GLUCOSE 109 MG/DL (70-105); MAGNESIUM 1.9 MG/DL (1.8-2.4); PHOSPHORUS 1.3 MG/DL (2.3-4.7); SODIUM 137 MMOL/L (135-145)
[2018-06-08 21:32] LABS: POTASSIUM 2.1 MMOL/L (3.6-5.0)
[2018-06-08] MEDS ORDERED: KCL 20 MEQ TAB (K-DUR) PO ONE (21:45)
--- NOTE | 2018-06-08 21:45 | NUR ---
This RN received call from lab with critical K+ of 2.[address] Olivera wanted notified of the pt repeat labs so this RN called him at 2137. TORB given to give 30mm KPhos Bolus, 60 mEq PO of K-Dur, and repeat the same labs in AM. Orders read back and confirmed. supervisor matrix called to confirm how to order KPhos medication and boiler operators supervisor called back Dr. Olivera for different orders as pharmacy has to mix KPHOS. Dr. Olivera gave boiler operators supervisor orders to forget KPHOS, still give 60mEq PO KDUR, and to also give 500mg Neutraphos, and 40mEq K+ IVPB. Orders received by boiler operators supervisor were put in by boiler operators supervisor.
[2018-06-08] MEDS ORDERED: POT PHOS/NA PHOS (K-PHOS NEUTRAL) PO ONE (22:00)
[2018-06-09] VITALS: BP 113/70
[2018-06-09] MEDS: POTASSIUM CL 10MEQ/50ML IVPB 50 ML IV SCH ×2 (00:53→01:57)
[2018-06-09] MEDS: RT-ALBUTEROL/IPRATROPIUM 3 ML (DUONEB) VIAL INH SCH ×7 (02:08→22:13)
[2018-06-09 04:39] VITALS: BP 111/70
[2018-06-09] MEDS: NS IV 1000 ML 1,000 ML IV SCH ×2 (04:41→07:01)
[2018-06-09 06:18] LABS: BASOPHILS % (AUTO) 2 % (0-10); EOSINOPHILS % (AUTO) 1 % (0-10); HEMATOCRIT 35 % (35-52); LYMPHOCYTES # (AUTO) 0.5 X 10^3 (1.0-4.0); LYMPHOCYTES % (AUTO) 26 % (12-44); MEAN CORPUSCULAR HEMOGLOBIN 30 PG (25-34); MEAN CORPUSCULAR HGB CONC 35 G/DL (32-36); MEAN CORPUSCULAR VOLUME 87 FL (80-99); MONOCYTES # (AUTO) 0.1 X 10^3 (0.0-1.0); MONOCYTES % (AUTO) 7 % (0-12); NEUTROPHILS # (AUTO) 1.2 X 10^3 (1.8-7.8); NEUTROPHILS % (AUTO) 65 % (42-75); PLATELET COUNT 81 10^3/uL (130-400); RED CELL DISTRIBUTION WIDTH 14.9 % (10.0-14.5); WHITE BLOOD COUNT 1.9 10^3/uL (4.3-11.0)
[2018-06-09] MEDS: VITAMIN D3 5,000 UNITS (CHOLECALCIFEROL ) CAPSULE PO SCH (06:18)
[2018-06-09] MEDS: KCL 20 MEQ TAB (K-DUR) PO SCH (06:19)
[2018-06-09 06:37] LABS: BUN/CREATININE RATIO 11; CALCIUM 7.4 MG/DL (8.5-10.1); CARBON DIOXIDE 24 MMOL/L (21-32); CHLORIDE 105 MMOL/L (98-107); CREATININE SERUM 0.61 MG/DL (0.60-1.30); GFR ESTIMATED > 60; GLUCOSE 78 MG/DL (70-105); MAGNESIUM 1.8 MG/DL (1.8-2.4); PHOSPHORUS 1.2 MG/DL (2.3-4.7); SODIUM 138 MMOL/L (135-145)
[2018-06-09 06:40] LABS: POTASSIUM 2.5 MMOL/L (3.6-5.0)
[2018-06-09] MEDS: ADVAIR HFA 115/21 MCG INHALER 8 GM IH SCH ×2 (07:27→22:13)
[2018-06-09] MEDS ORDERED: POTASSIUM CHLORIDE INJ 40 MEQ in NS IV 1000 ML 1,000 ML IV SCH (07:36)
[2018-06-09] MEDS ORDERED: POTASSIUM PHOSPHATE INJ 30 MM in NS (IVPB) 250 ML IV ONE ×2 (07:45→16:45)
[2018-06-09] MEDS ORDERED: MAGNESIUM 1 GM/100 ML IVPB 100 ML IV ONE ×2 (07:45→16:45)
[2018-06-09] MEDS ORDERED: KCL 20 MEQ TAB (K-DUR) PO ONE (07:45)
--- NOTE | 2018-06-09 07:45 | Pulmonary Progress Note ---
Sepsis Event Evaluation Height, Weight, BMI Height: 5'7.00" Weight: 174lbs. 3.0oz. 79.111918fe; 27.3 BMI Method:Stated Focused Exam Lactate Level 06/07/18 11:40: Lactic Acid Level 1.95 Exam Exam Vital Signs Date Time Temp Pulse Resp B/P (MAP) Pulse Ox O2 Delivery O2 Flow Rate FiO2 06/09/18 07:27 98 30.00 80 06/09/18 07:00 66 06/09/18 04:39 97.4 68 20 111/70 (84) 98 Vapotherm 80.00 30.00 06/09/18 02:08 94 Vapotherm 33.00 85 06/09/18 01:00 70 06/09/18 00:00 97.4 65 22 113/70 (84) 98 Vapotherm 85.00 33.00 06/08/18 21:46 94 Vapotherm 33.00 85 06/08/18 21:41 95 Vapotherm 35.00 90 06/08/18 20:00 Vapotherm 35.00 90 06/08/18 19:20 97.2 63 28 118/58 (78) 96 Vapotherm 90.00 35.00 06/08/18 19:00 70 06/08/18 16:00 98.9 71 18 111/52 (71) 97 Vapotherm 35.00 06/08/18 13:00 79 06/08/18 12:00 98.7 81 18 127/60 (82) 98 Vapotherm 35.00 06/08/18 11:41 97 Vapotherm 35.00 100 06/08/18 08:00 Vapotherm 06/08/18 08:00 97.0 88 24 118/54 (75) 96 Nasal Cannula 4.00 I & O 06/09/18 07:00 Intake Total 3770 ml Output Total 3600 ml Balance 170 ml Height & Weight Height: 5'7.00" Weight: 174lbs. 3.0oz. 79.452610vs; 27.3 BMI Method:Stated General Appearance: No Apparent Distress HEENT: PERRL/EOMI, Normal ENT Inspection, Other (Oropharynx somewhat dry) Neck: Supple Respiratory: Decreased Breath Sounds, Respiratory Distress (only with movement- -non at rest) Cardiovascular: Regular Rate, Rhythm Capillary Refill: Less Than 3 Seconds Gastrointestinal: normal bowel sounds, non tender, soft Extremity: Non Tender, No Calf Tenderness, No Pedal Edema Neurologic/Psychiatric: Alert, Oriented x3 Skin: Warm/Dry Lymphatic: No Adenopathy Results Lab Laboratory Tests 06/07/18 11:40 06/08/18 04:27 06/08/18 20:56 06/09/18 05:55 Assessment/Plan Assessment/Plan Acute respiratory failure with hypoxia - Vapotherm -- is now requiring 80% -Titrate oxygen for sp02 90-92% -CTA of chest- reviewed -SVNs Q4 with Duo Neb Influenza A -Tamiflu Severe Hypokalemia, hypophos, hypomag -replace and recheck Thrombocytopenia -Monitor Leukopenia -Monitor Hx of Multiple Myeloma ALBAN NARVAEZ DO Jun 09, 2018 07:45
[2018-06-09] MEDS ORDERED: NS W/KCL 40 MEQ/L 1,000 ML IV SCH (07:46)
[2018-06-09 08:00] VITALS: BP 118/58
[2018-06-09] MEDS: cefTRIAXone FOR IV USE 1,000 MG in WATER (STERILE) FOR INJECTION 10 ML IV SCH (09:03)
[2018-06-09] MEDS: MAGNESIUM OXIDE (MAG-OX)400 MG TAB PO SCH (09:05)
[2018-06-09] MEDS: OSELTAMIVIR 30 MG (TAMIFLU) CAPSULE PO SCH ×2 (09:05→19:59)
[2018-06-09] MEDS: amLODIPine 5 MG (NORVASC) TAB PO SCH (09:05)
[2018-06-09] MEDS: PANTOPRAZOLE 40 MG (PROTONIX) TAB PO SCH (09:05)
[2018-06-09] MEDS: AZITHROMYCIN 250 MG TAB (ZITHROMAX) PO SCH (09:11)
[2018-06-09] MEDS: COLESTIPOL 1 GM (COLESTID) TAB PO SCH ×2 (09:19→19:59)
--- NOTE | 2018-06-09 13:05 | Progress Note-Hospitalist ---
Subjective HPI/CC On Admission Date Seen by Provider: Jun 09, 2018 Time Seen by Provider: 11:45 Subjective/Events-last exam Patient is improving Family at the bedside Last loose stool as last night since starting Colestid Breathing well Does not wear home oxygen Less wheezing Review of Systems General: Fatigue Pulmonary: Dyspnea Gastrointestinal: Diarrhea Focused Exam Lactate Level 06/07/18 11:40: Lactic Acid Level 1.95 Objective Exam Vital Signs Vital Signs Date Time Temp Pulse Resp B/P (MAP) Pulse Ox O2 Delivery O2 Flow Rate FiO2 06/09/18 13:02 71 06/09/18 10:26 91 High Flow N/C 10.00 06/09/18 08:00 98.5 20 118/58 (78) 06/09/18 07:27 80 Capillary Refill : Less Than 3 Seconds General Appearance: No Apparent Distress, WD/WN, Chronically ill HEENT: PERRL/EOMI, Normal ENT Inspection, Other (Oropharynx somewhat dry) Neck: Supple Respiratory: No Accessory Muscle Use, No Respiratory Distress, Decreased Breath Sounds, Wheezing Cardiovascular: Regular Rate, Rhythm, No Edema Gastrointestinal: Normal Bowel Sounds, Non Tender, Soft Rectal: Deferred Back: No CVA Tenderness Extremity: Non Tender, No Calf Tenderness, No Pedal Edema Neurologic/Psychiatric: Alert, Oriented x3 Skin: Warm/Dry Lymphatic: No Adenopathy Results/Procedures Lab Laboratory Tests 06/08/18 20:56 06/09/18 05:55 Patient resulted labs reviewed. Assessment/Plan Assessment and Plan Assess & Plan/Chief Complaint Assessment per PCP: 1. Acute Respiratory Failure--resolved 2. Influenza A--on Tamiflu 3. COPD--on vapotherm and SVNS as well as home inhalers 4. Multiple Myeloma--hold revlimid due to neutropenia, Dr. Espinosa notified of admission 5. Hypokalemia--replace K 6. Diarrhea--check C. Diff and added colestid and last loose stool was last night 7. Hypomagnesemia--replace Mg 8. Neutropenia/Thrombocytopenia--likely from virus, monitor Plan: Tamiflu Nebs O2 Colestid Supportive care Diagnosis/Problems Diagnosis/Problems (1) Respiratory failure with hypoxia Status: Resolved Qualifiers: Chronicity: acute Qualified Codes: J96.01 - Acute respiratory failure with hypoxia Resolution Date/Time: 06/09/18 @ 14:04 (2) Influenza A Status: Acute (3) Multiple myeloma Status: Chronic Qualifiers: Multiple myeloma remission status: unspecified Qualified Codes: C90.00 - Multiple myeloma not having achieved remission (4) Hypokalemia Status: Acute (5) Neutropenia Status: Acute Qualifiers: Neutropenia type: secondary to cancer chemotherapy Qualified Codes: D70.1 - Agranulocytosis secondary to cancer chemotherapy; T45.1X5A - Adverse effect of antineoplastic and immunosuppressive drugs, initial encounter Clinical Quality Measures DVT/VTE Risk/Contraindication: Risk Factor Score Per Nursin RFS Level Per Nursing on Admit: 3=High SALOMÓN PEREZ DO Jun 09, 2018 13:05
[2018-06-09] MEDS: DULoxetine 30 MG (CYMBALTA) CAP PO SCH (14:05)
[2018-06-09 16:13] LABS: BUN/CREATININE RATIO 10; CALCIUM 6.9 MG/DL (8.5-10.1); CARBON DIOXIDE 21 MMOL/L (21-32); CHLORIDE 107 MMOL/L (98-107); CREATININE SERUM 0.59 MG/DL (0.60-1.30); GFR ESTIMATED > 60; GLUCOSE 95 MG/DL (70-105); MAGNESIUM 1.8 MG/DL (1.8-2.4); PHOSPHORUS 1.3 MG/DL (2.3-4.7); POTASSIUM 3.3 MMOL/L (3.6-5.0); SODIUM 138 MMOL/L (135-145)
[2018-06-09 16:23] VITALS: BP 112/53
[2018-06-09] MEDS ORDERED: KCL 10 MEQ TAB (MICRO K) PO ONE (16:45)
[2018-06-09] MEDS: ACETAMINOPHEN 500 MG TAB (TYLENOL) PO PRN (19:23)
[2018-06-09 19:45] VITALS: BP 108/54
[2018-06-10] VITALS: BP 116/57
[2018-06-10] MEDS: RT-ALBUTEROL/IPRATROPIUM 3 ML (DUONEB) VIAL INH SCH ×6 (01:24→20:30)
--- NOTE | 2018-06-10 03:00 | NUR ---
Daylight savings in effect at this time.
[2018-06-10 04:00] VITALS: BP 119/59
[2018-06-10 05:50] LABS: HEMOGLOBIN 11.7 G/DL (11.5-16.0); MEAN PLATELET VOLUME 11.9 FL (7.4-10.4); RED CELL DISTRIBUTION WIDTH 14.9 % (10.0-14.5); WHITE BLOOD COUNT 2.6 10^3/uL (4.3-11.0)
[2018-06-10] MEDS: VITAMIN D3 5,000 UNITS (CHOLECALCIFEROL ) CAPSULE PO SCH (06:04)
[2018-06-10] MEDS: KCL 20 MEQ TAB (K-DUR) PO SCH ×2 (06:04→07:14)
[2018-06-10 06:07] LABS: BUN/CREATININE RATIO 14; CALCIUM 6.8 MG/DL (8.5-10.1); CARBON DIOXIDE 20 MMOL/L (21-32); CHLORIDE 110 MMOL/L (98-107); CREATININE SERUM 0.58 MG/DL (0.60-1.30); GFR ESTIMATED > 60; GLUCOSE 79 MG/DL (70-105); MAGNESIUM 1.8 MG/DL (1.8-2.4); PHOSPHORUS 1.4 MG/DL (2.3-4.7); POTASSIUM 3.3 MMOL/L (3.6-5.0); SODIUM 140 MMOL/L (135-145)
[2018-06-10] MEDS ORDERED: POTASSIUM PHOSPHATE INJ 30 MM in NS (IVPB) 250 ML IV ONE (06:30)
--- NOTE | 2018-06-10 06:30 | Pulmonary Progress Note ---
Sepsis Event Evaluation Height, Weight, BMI Height: 5'7.00" Weight: 174lbs. 3.0oz. 79.330705ni; 27.3 BMI Method:Stated Focused Exam Lactate Level 06/07/18 11:40: Lactic Acid Level 1.95 Exam Exam Vital Signs Date Time Temp Pulse Resp B/P (MAP) Pulse Ox O2 Delivery O2 Flow Rate FiO2 06/10/18 04:00 97.6 74 22 119/59 (79) 96 High Flow N/C 7.00 06/10/18 01:24 95 High Flow N/C 9.00 06/10/18 01:00 69 06/10/18 00:00 97.6 72 22 116/57 (76) 97 High Flow N/C 8.00 06/09/18 22:18 High Flow N/C 10.00 06/09/18 22:13 95 High Flow N/C 10.00 06/09/18 20:00 High Flow N/C 10.00 06/09/18 19:45 96.8 71 28 108/54 (72) 96 Nasal Cannula 10.00 06/09/18 19:00 81 06/09/18 16:23 97.0 72 28 112/53 (72) 96 Nasal Cannula 10.00 06/09/18 14:55 91 High Flow N/C 10.00 06/09/18 14:14 91 High Flow N/C 10.00 06/09/18 13:02 71 06/09/18 12:00 06/09/18 10:26 91 High Flow N/C 10.00 06/09/18 08:18 91 High Flow N/C 10.00 06/09/18 08:00 High Flow N/C 10.00 06/09/18 08:00 98.5 80 20 118/58 (78) 95 Vapotherm 80.00 30.00 06/09/18 07:27 98 30.00 80 06/09/18 07:00 66 I & O 06/10/18 07:00 Intake Total 2690 ml Output Total 2650 ml Balance 40 ml Height & Weight Height: 5'7.00" Weight: 174lbs. 3.0oz. 79.299608yx; 27.3 BMI Method:Stated General Appearance: No Apparent Distress, WD/WN, Chronically ill HEENT: PERRL/EOMI, Normal ENT Inspection, Other (Oropharynx somewhat dry) Neck: Supple Respiratory: No Accessory Muscle Use, No Respiratory Distress, Decreased Breath Sounds, Wheezing Cardiovascular: Regular Rate, Rhythm, No Edema Capillary Refill: Less Than 3 Seconds Gastrointestinal: normal bowel sounds, non tender, soft Extremity: Non Tender, No Calf Tenderness, No Pedal Edema Neurologic/Psychiatric: Alert, Oriented x3 Skin: Warm/Dry Lymphatic: No Adenopathy Results Lab Laboratory Tests 06/08/18 20:56 06/09/18 05:55 06/09/18 15:50 06/10/18 05:10 Assessment/Plan Assessment/Plan Acute respiratory failure with hypoxia -Titrate oxygen for sp02 90-92% -CTA of chest- reviewed -SVNs Q4 with Duo Neb Influenza A -Tamiflu Severe Hypokalemia, hypophos, hypomag -replace Thrombocytopenia -Monitor Leukopenia -Monitor Hx of Multiple Myeloma ALBAN NARVAEZ DO Jun 10, 2018 06:30
[2018-06-10] MEDS: MAGNESIUM OXIDE (MAG-OX)400 MG TAB PO SCH (07:51)
[2018-06-10] MEDS: cefTRIAXone FOR IV USE 1,000 MG in WATER (STERILE) FOR INJECTION 10 ML IV SCH (07:51)
[2018-06-10] MEDS: COLESTIPOL 1 GM (COLESTID) TAB PO SCH ×2 (07:52→21:11)
[2018-06-10] MEDS: amLODIPine 5 MG (NORVASC) TAB PO SCH (07:52)
[2018-06-10] MEDS: OSELTAMIVIR 30 MG (TAMIFLU) CAPSULE PO SCH ×2 (07:52→21:11)
[2018-06-10] MEDS: PANTOPRAZOLE 40 MG (PROTONIX) TAB PO SCH (07:52)
[2018-06-10] MEDS: AZITHROMYCIN 250 MG TAB (ZITHROMAX) PO SCH (07:52)
[2018-06-10 08:00] VITALS: BP 127/61
[2018-06-10] MEDS: ADVAIR HFA 115/21 MCG INHALER 8 GM IH SCH ×2 (10:46→20:30)
[2018-06-10 12:00] VITALS: BP 117/56
--- NOTE | 2018-06-10 12:53 | Progress Note-Hospitalist ---
Subjective HPI/CC On Admission Date Seen by Provider: Jun 10, 2018 Time Seen by Provider: 12:00 Subjective/Events-last exam Heavily involved family Now they report she hit her head during the fall prior to admission now she's having headaches so will obtain CT scan without contrast to assure this is not a subdural hematoma Family feels bad about not spending the night last night Still requiring oxygen She is very unsteady and she got out of bed in a chair on her own Lungs sound improved Daughter was a bit aggressive and approaching me about CT scan findings which the nodule she is concerned about appear to be reactive that I deferred that to primary care provider Family takes care of her at her home 24/10 and has no intention of changing that set up Overall improved Review of Systems General: Fatigue Pulmonary: Cough Objective Exam Vital Signs Vital Signs Date Time Temp Pulse Resp B/P (MAP) Pulse Ox O2 Delivery O2 Flow Rate FiO2 06/10/18 12:00 98.0 79 16 117/56 (76) 97 High Flow N/C 7.00 06/09/18 07:27 80 Capillary Refill : Less Than 3 Seconds General Appearance: No Apparent Distress, WD/WN, Chronically ill HEENT: PERRL/EOMI, Normal ENT Inspection, Other (Oropharynx somewhat dry) Neck: Supple Respiratory: No Accessory Muscle Use, No Respiratory Distress, Decreased Breath Sounds, Wheezing Cardiovascular: Regular Rate, Rhythm, No Edema Gastrointestinal: Normal Bowel Sounds, Non Tender, Soft Rectal: Deferred Back: No CVA Tenderness Extremity: Non Tender, No Calf Tenderness, No Pedal Edema Neurologic/Psychiatric: Alert, Oriented x3 (poor recall), No Motor/Sensory Deficits, Normal Mood/Affect, responder II-XII Norm as Tested Skin: Warm/Dry Lymphatic: No Adenopathy Results/Procedures Lab Laboratory Tests 06/09/18 15:50 06/10/18 05:10 Patient resulted labs reviewed. Assessment/Plan Assessment and Plan Assess & Plan/Chief Complaint Assessment per PCP: 1. Acute Respiratory Failure--resolved 2. Influenza A--on Tamiflu 3. COPD--on vapotherm and SVNS as well as home inhalers 4. Multiple Myeloma--hold revlimid due to neutropenia, Dr. Espinosa notified of admission 5. Hypokalemia--replace K 6. Diarrhea--check C. Diff and added colestid and last loose stool was last night 7. Hypomagnesemia--replace Mg 8. Neutropenia/Thrombocytopenia--likely from virus, monitor 9. Headache since fall so will obtain CT scan of brain per family request Plan: Tamiflu Nebs O2 Colestid Supportive care VERY involved family tried to reassure Check CT scan of brain which likely will be normal and no hematoma DNR Poor prognosis Diagnosis/Problems Diagnosis/Problems (1) Respiratory failure with hypoxia Status: Resolved Qualifiers: Chronicity: acute Qualified Codes: J96.01 - Acute respiratory failure with hypoxia Resolution Date/Time: 06/09/18 @ 14:04 (2) Influenza A Status: Acute (3) Multiple myeloma Status: Chronic Qualifiers: Multiple myeloma remission status: unspecified Qualified Codes: C90.00 - Multiple myeloma not having achieved remission (4) Hypokalemia Status: Acute (5) Neutropenia Status: Acute Qualifiers: Neutropenia type: secondary to cancer chemotherapy Qualified Codes: D70.1 - Agranulocytosis secondary to cancer chemotherapy; T45.1X5A - Adverse effect of antineoplastic and immunosuppressive drugs, initial encounter Clinical Quality Measures DVT/VTE Risk/Contraindication: Risk Factor Score Per Nursin RFS Level Per Nursing on Admit: 3=High SALOMÓN PEREZ DO Jun 10, 2018 12:53
[2018-06-10] MEDS: DULoxetine 30 MG (CYMBALTA) CAP PO SCH (13:02)
[2018-06-10] MEDS: ACETAMINOPHEN 500 MG TAB (TYLENOL) PO PRN (13:02)
--- NOTE | 2018-06-10 14:29 | Diagnostic Imaging Report ---
PROCEDURE: CT head without contrast. TECHNIQUE: Multiple contiguous axial images were obtained through the brain without the use of intravenous contrast. INDICATION: New onset headaches after fall. COMPARISON: None. DISCUSSION: No intracranial hemorrhage, mass, midline shift, or hydrocephalus. The ventricles and sulci are normal size and configuration for age. The visualized orbits, paranasal sinuses, mastoid air cells, and calvarium are unremarkable. Impression: 1. Negative head CT. Dictated by: Dictated on workstation # [id number]
[2018-06-10 16:18] VITALS: BP 122/60
[2018-06-10] MEDS: HYDROcodone/APAP 5 MG/325 MG (LORTAB) TAB PO PRN (16:23)
[2018-06-10 19:41] VITALS: BP 133/60
[2018-06-11] VITALS (7 sets, daily range): BP systolic 113–128; BP diastolic 56–88
[2018-06-11] MEDS: RT-ALBUTEROL/IPRATROPIUM 3 ML (DUONEB) VIAL INH SCH ×6 (00:59→22:44)
[2018-06-11] MEDS: VITAMIN D3 5,000 UNITS (CHOLECALCIFEROL ) CAPSULE PO SCH (06:11)
[2018-06-11] MEDS: KCL 20 MEQ TAB (K-DUR) PO SCH (06:11)
[2018-06-11 06:47] LABS: HEMOGLOBIN 12.7 G/DL (11.5-16.0); MEAN PLATELET VOLUME 10.4 FL (7.4-10.4); RED CELL DISTRIBUTION WIDTH 15.7 % (10.0-14.5); WHITE BLOOD COUNT 2.7 10^3/uL (4.3-11.0)
[2018-06-11] MEDS: ADVAIR HFA 115/21 MCG INHALER 8 GM IH SCH ×2 (06:59→18:55)
[2018-06-11 07:03] LABS: BUN/CREATININE RATIO 11; CALCIUM 7.2 MG/DL (8.5-10.1); CARBON DIOXIDE 17 MMOL/L (21-32); CREATININE SERUM 0.57 MG/DL (0.60-1.30); GFR ESTIMATED > 60; GLUCOSE 69 MG/DL (70-105); MAGNESIUM 1.5 MG/DL (1.8-2.4)
--- NOTE | 2018-06-11 07:25 | NUR ---
PATIENT WAS WANTING HIS IPAD; RT ASKED RN ABOUT IT AND SHE STATED THAT HIS MOM TOOK IT HOME WITH HER Addendum: 06/11/18 at 1021 by KARINA MAI RT RT CHARTED ON WRONG PATIENT
[2018-06-11 07:28] LABS: CHLORIDE 112 MMOL/L (98-107); POTASSIUM 4.2 MMOL/L (3.6-5.0); SODIUM 140 MMOL/L (135-145)
[2018-06-11] MEDS: COLESTIPOL 1 GM (COLESTID) TAB PO SCH ×2 (09:29→21:05)
[2018-06-11] MEDS: amLODIPine 5 MG (NORVASC) TAB PO SCH (09:29)
[2018-06-11] MEDS: AZITHROMYCIN 250 MG TAB (ZITHROMAX) PO SCH (09:29)
[2018-06-11] MEDS: PANTOPRAZOLE 40 MG (PROTONIX) TAB PO SCH (09:29)
[2018-06-11] MEDS: MAGNESIUM OXIDE (MAG-OX)400 MG TAB PO SCH (09:29)
[2018-06-11] MEDS: cefTRIAXone FOR IV USE 1,000 MG in WATER (STERILE) FOR INJECTION 10 ML IV SCH (09:30)
[2018-06-11] MEDS: OSELTAMIVIR 30 MG (TAMIFLU) CAPSULE PO SCH ×2 (09:46→21:04)
--- NOTE | 2018-06-11 11:30 | NUR ---
THIS RN IS CALLED INTO ROOM BY RT KARINA. KARINA RT STATES "THERE ARE MEDS OUT ON HER BEDSIDE TABLE." AND POINTS TO TABLE. ON INSPECTION THERE ARE 5 HALF TABLETS OF A PILL. THIS RN ASKS "WHAT IS THIS MEDICATION?" PATIENT STATES "THEY ARE FOR ANXIETY." THIS RN PUT MEDS INTO A BAGGIE AND PUT A PATIENT LABEL ON IT AND WALKED OVER TO [facility]. [facility] STATES THE MEDICATION IS ATIVAN 1MG. THIS RN NOTIFIED THE PATIENT THAT THE POLICY IS TO ONLY TAKE MEDICATIONS THAT WE GIVE HER AND TO HAVE FAMILY TAKE THE MEDS IN THE BAG HOME. PATIENT STATS "OKAY. MY DAUGHTER WILL BE HERE SOON AND I WILL HAVE HER TAKE THEM HOME."
[2018-06-11] MEDS: HYDROcodone/APAP 5 MG/325 MG (LORTAB) TAB PO PRN (12:04)
[2018-06-11] MEDS ORDERED: MAGNESIUM 1 GM/100 ML IVPB 100 ML IV NR (12:30)
[2018-06-11] MEDS: MEROPENEM 500 MG in WATER (STERILE) FOR INJECTION 10 ML IV SCH ×2 (13:34→19:01)
--- NOTE | 2018-06-11 14:20 | NUR ---
Pastoral care visit.
--- NOTE | 2018-06-11 16:28 | Pulmonary Progress Note ---
Subjective Time Seen by a Provider: 16:28 Subjective/Events-last exam PT appears to be doing better. Sepsis Event Evaluation Height, Weight, BMI Height: 5'7.00" Weight: 174lbs. 3.0oz. 79.459133vr; 27.3 BMI Method:Stated Exam Exam Vital Signs Date Time Temp Pulse Resp B/P (MAP) Pulse Ox O2 Delivery O2 Flow Rate FiO2 06/11/18 16:10 96.4 70 16 119/56 (77) 92 Nasal Cannula 2.00 06/11/18 14:43 90 High Flow N/C 2.00 06/11/18 13:22 68 06/11/18 11:49 97.3 75 16 122/63 (82) 93 High Flow N/C 2.00 06/11/18 11:30 92 High Flow N/C 3.00 06/11/18 08:18 97.2 73 16 126/88 (101) 93 High Flow N/C 2.00 06/11/18 07:07 High Flow N/C 3.00 06/11/18 07:05 67 06/11/18 06:59 93 High Flow N/C 3.00 06/11/18 04:00 97.4 75 22 128/77 (94) 96 High Flow N/C 4.00 06/11/18 01:00 93 High Flow N/C 4.00 06/11/18 01:00 62 06/11/18 00:36 97.1 66 18 113/70 (84) 97 High Flow N/C 4.00 06/10/18 20:45 98 High Flow N/C 4.00 06/10/18 20:31 94 High Flow N/C 4.00 06/10/18 20:00 96 High Flow N/C 5.00 06/10/18 19:41 97.2 67 18 133/60 (84) 95 High Flow N/C 5.00 06/10/18 19:00 78 I & O 06/11/18 07:00 Intake Total 2880 ml Output Total 3175 ml Balance -295 ml Height & Weight Height: 5'7.00" Weight: 174lbs. 3.0oz. 79.843736mj; 27.3 BMI Method:Stated General Appearance: No Apparent Distress, WD/WN, Chronically ill HEENT: PERRL/EOMI, Normal ENT Inspection, Other (Oropharynx somewhat dry) Neck: Supple Respiratory: No Accessory Muscle Use, No Respiratory Distress, Decreased Breath Sounds, Wheezing Cardiovascular: Regular Rate, Rhythm, No Edema Capillary Refill: Less Than 3 Seconds Gastrointestinal: normal bowel sounds, non tender, soft Extremity: Non Tender, No Calf Tenderness, No Pedal Edema Neurologic/Psychiatric: Alert, Oriented x3 (poor recall), No Motor/Sensory Deficits, Normal Mood/Affect, open shank coverer II-XII Norm as Tested Skin: Warm/Dry Lymphatic: No Adenopathy Results Lab Laboratory Tests 06/10/18 05:10 06/11/18 06:02 Assessment/Plan Assessment/Plan Acute respiratory failure with hypoxia -Titrate oxygen for sp02 90-92% -CTA of chest- reviewed -SVNs Q4 with Duo Neb Influenza A -Tamiflu Severe Hypokalemia, hypophos, hypomag -replace Thrombocytopenia -Monitor Leukopenia -Monitor Hx of Multiple Myeloma ALBAN NARVAEZ DO Jun 11, 2018 16:28
[2018-06-11] MEDS: DULoxetine 30 MG (CYMBALTA) CAP PO SCH (16:46)
--- NOTE | 2018-06-11 18:19 | Progress Note (SOAP) ---
Subjective Date Seen by a Provider: Jun 11, 2018 Time Seen by a Provider: 12:30 Subjective/Events-last exam Fwup acute respiratory failure, Influenza A, Pneumonia, COPD, Multiple Myeloma, Hypokalemia, Hypomagnesemia. Sitting up in chair but short of air with minimal exertion. Objective Exam Vital Signs Date Time Temp Pulse Resp B/P (MAP) Pulse Ox O2 Delivery O2 Flow Rate FiO2 06/11/18 16:10 96.4 70 16 119/56 (77) 92 Nasal Cannula 2.00 06/11/18 14:43 90 High Flow N/C 2.00 06/11/18 13:22 68 06/11/18 11:49 97.3 75 16 122/63 (82) 93 High Flow N/C 2.00 06/11/18 11:30 92 High Flow N/C 3.00 06/11/18 08:18 97.2 73 16 126/88 (101) 93 High Flow N/C 2.00 06/11/18 08:15 High Flow N/C 2.00 06/11/18 07:07 High Flow N/C 3.00 06/11/18 07:05 67 06/11/18 06:59 93 High Flow N/C 3.00 06/11/18 04:00 97.4 75 22 128/77 (94) 96 High Flow N/C 4.00 06/11/18 01:00 93 High Flow N/C 4.00 06/11/18 01:00 62 06/11/18 00:36 97.1 66 18 113/70 (84) 97 High Flow N/C 4.00 06/10/18 20:45 98 High Flow N/C 4.00 06/10/18 20:31 94 High Flow N/C 4.00 06/10/18 20:00 96 High Flow N/C 5.00 06/10/18 19:41 97.2 67 18 133/60 (84) 95 High Flow N/C 5.00 06/10/18 19:00 78 I & O 06/11/18 06:59 Intake Total 2880 ml Output Total 3175 ml Balance -295 ml Capillary Refill : Less Than 3 Seconds General Appearance: Mild Distress Neck: Supple Respiratory: Decreased Breath Sounds, Respiratory Distress (mild with minimal exertion) Cardiovascular: Regular Rate, Rhythm Gastrointestinal: normal bowel sounds, non tender, soft Extremity: Non Tender, No Calf Tenderness, No Pedal Edema Neurologic/Psychiatric: Alert, Oriented x3 Skin: Warm/Dry Results Lab Laboratory Tests 06/11/18 06:02: White Blood Count 2.7L, Red Blood Count 4.26L, Hemoglobin 12.7, Hematocrit 37, Mean Corpuscular Volume 88, Mean Corpuscular Hemoglobin 30, Mean Corpuscular Hemoglobin Concent 34, Red Cell Distribution Width 15.7H, Platelet Count 157, Mean Platelet Volume 10.4, Sodium Level 140, Potassium Level 4.2, Chloride Level 112H, Carbon Dioxide Level 17L, Anion Gap 11, Blood Urea Nitrogen 6L, Creatinine 0.57L, Estimat Glomerular Filtration Rate > 60, BUN/Creatinine Ratio 11, Glucose Level 69L, Calcium Level 7.2L, Magnesium Level 1.5L 06/11/18 16:15: Phosphorus Level 1.2L Microbiology 06/07/18 Blood Culture - Preliminary, Resulted No growth 06/10/18 C. difficile GDH Antigen & Toxins - Final, Complete 06/07/18 Influenza Types A,B Antigen (JOANIE) - Final, Complete 06/07/18 Urine Culture - Final, Complete NO GROWTH Assessment/Plan Assessment/Plan Assess & Plan/Chief Complaint 1. Acute Respiratory Failure--on Vapotherm, SVNS 2. Influenza A--on Tamiflu 3. COPD--on vapotherm and SVNS as well as home inhalers 4. Multiple Myeloma--hold revlimid due to neutropenia, Dr. Espinosa notified of admission 5. Hypokalemia--replace K 6. Diarrhea--improved with colestic 7. Hypomagnesemia--replace Mg 8. Neutropenia/Thrombocytopenia--likely from virus, monitor 9. Pneumonia--change to meropenem due to immunocompromised and significant bilateral pulmonary infiltrates Clinical Quality Measures Admission Status Admission Dx 1. Acute Respiratory Failure--admit for oxygen, SVNS, pulmonary consulted 2. Acute Influenza A--tamiflu started 3. COPD--stable 4. Multiple Myeloma--will notify oncology of admit DVT/VTE Risk/Contraindication: Risk Factor Score Per Nursin RFS Level Per Nursing on Admit: 3=High JANNY JOSEPH DO Jun 11, 2018 18:19
[2018-06-11] MEDS: HYDROcodone/APAP 7.5 MG/325 MG (LORTAB, LORCET PLUS) TABLET PO SCH (19:01)
[2018-06-12] VITALS (7 sets, daily range): BP systolic 122–156; BP diastolic 58–65
[2018-06-12] MEDS: MEROPENEM 500 MG in WATER (STERILE) FOR INJECTION 10 ML IV SCH ×5 (00:06→23:45)
[2018-06-12] MEDS: HYDROcodone/APAP 7.5 MG/325 MG (LORTAB, LORCET PLUS) TABLET PO SCH ×4 (00:06→19:44)
[2018-06-12] MEDS: RT-ALBUTEROL/IPRATROPIUM 3 ML (DUONEB) VIAL INH SCH ×5 (02:25→22:18)
[2018-06-12 04:24] LABS: HEMOGLOBIN 13.4 G/DL (11.5-16.0); MEAN PLATELET VOLUME 10.4 FL (7.4-10.4); RED CELL DISTRIBUTION WIDTH 15.8 % (10.0-14.5); WHITE BLOOD COUNT 2.4 10^3/uL (4.3-11.0)
[2018-06-12 04:45] LABS: BUN/CREATININE RATIO 13; CALCIUM 7.4 MG/DL (8.5-10.1); CARBON DIOXIDE 17 MMOL/L (21-32); CHLORIDE 108 MMOL/L (98-107); GFR ESTIMATED > 60; GLUCOSE 91 MG/DL (70-105); MAGNESIUM 1.6 MG/DL (1.8-2.4); PHOSPHORUS 1.5 MG/DL (2.3-4.7); POTASSIUM 4.2 MMOL/L (3.6-5.0); SODIUM 137 MMOL/L (135-145)
[2018-06-12] MEDS: KCL 20 MEQ TAB (K-DUR) PO SCH (06:36)
[2018-06-12] MEDS: COLESTIPOL 1 GM (COLESTID) TAB PO SCH ×2 (08:16→20:36)
[2018-06-12] MEDS: amLODIPine 5 MG (NORVASC) TAB PO SCH (08:17)
[2018-06-12] MEDS: PANTOPRAZOLE 40 MG (PROTONIX) TAB PO SCH ×2 (08:17→20:36)
[2018-06-12] MEDS: MAGNESIUM OXIDE (MAG-OX)400 MG TAB PO SCH (08:17)
[2018-06-12] MEDS: VITAMIN D3 5,000 UNITS (CHOLECALCIFEROL ) CAPSULE PO SCH (08:17)
[2018-06-12] MEDS ORDERED: ONDANSETRON 4 MG/2 ML (SDV) Z0FRAN IVP NR (13:15)
[2018-06-12] MEDS ORDERED: methylPREDNISolone 40 MG/ML (Solu-MEDROL) VIAL IV NR (13:15)
--- NOTE | 2018-06-12 15:03 | Occupational Ther Daily Note ---
OT Current Status-Daily Note Subjective Pt. reports 5/10 pain in hips and back. Nursing notified and gave pt. pain medicine. Appearance Pt. in bed. Agrees to shower. Mental Status/Objective Patient Orientation: Person, Place, Time, Situation Therapy Code Descriptions/Definitions Functional [place] Measure: 0=Not Assessed/NA 4=Minimal Assistance 1=Total Assistance 5=Supervision or Setup 2=Maximal Assistance 6=Modified [place] 3=Moderate Assistance 7=Complete [place] Attachments: IV, Oxygen, Telemetry ADL-Treatment Therapy Code Descriptions/Definitions Functional [place] Measure: 0=Not Assessed/NA 4=Minimal Assistance 1=Total Assistance 5=Supervision or Setup 2=Maximal Assistance 6=Modified [place] 3=Moderate Assistance 7=Complete [place] Therapy Quality Codes: 6 Independent with activity with or without an assistive device 5 Patient requires set up or clean up by helper. Patient completes activity by themselves 4 Supervision or touching assist (CGA). [place] provide cues , steadying assist 3 The helper provides less than half the effort to complete the activity 2 The helper provides more than half the effort to complete the activity 1 Dependent. The helper does all the effort to complete an activity 7 Patient refused to complete or attempt activity 9 The patient did not perform the activity before the current illness or injury 88 Not attempted due to Medical conditions or safety concerns Bathing (FIM): 3 (Due to fatigue and shortness of breath, pt. required increased assistance to quickly and efficiently complete shower.) Shower/Bathe Self (QC): 3 Lower Body Dressing (FIM): 5 (Pt. able to doff/don slipper socks and underwear. Donned fresh hospital gown.) Lower Body Dressing (QC): 4 On/Off Footwear (QC): 4 Transfers (B, C, W/C) (FIM): 4 (SBA supine-sit and hand held assist to ambulate to shower.) Shower Transfer(FIM): 4 Other Treatment Pt's daughter in room. Daughter is a nurse and states that while pt. is on 2 L 02, she has been bumping up to 3-4 L during her shower. Daughter did this to assist pt. with breathing. Pt. able to complete most things, but due to SOA and fatigue, required increased assistance overall to complete tasks. All needs met back in bed after shower. Pt. is encouraged to breathe through her nose and out of her mouth. Pt. laid down and all needs met. Education OT Patient Education: Correct positioning, Modified ADL techniques, Progress toward Goal/Update tx plan, Purpose of tx/functional activities, Reviewed precautions, Rehab process, Transfer techniques Teaching Recipient: Patient Teaching Methods: Demonstration, Discussion Response to Teaching: Verbalize Understanding, Return Demonstration OT Short Term Goals Short Term Goals 1=Demonstrate adherence to instructed precautions during ADL tasks. 2=Patient will verbalize/demonstrate understanding of assistive devices/ modifications for ADL. 3=Patient will improve strength/tolerance for activity to enable patient to perform ADL's. OT Nursing Home Goals Nursing Home Goals 1=Demonstrate adherence to instructed precautions during ADL tasks. 2=Patient will verbalize/demonstrate understanding of assistive devices/ modifications for ADL. 3=Patient will improve strength/tolerance for activity to enable patient to perform ADL's. OT Education/Plan Problem List/Assessment Assessment: Decreased Activ Tolerance, Dependent Transfers, Impaired I ADL's, Impaired Self-Care Skills Discharge Recommendations Plan/Recommendations: Continue POC Therapy D/C Recommendations: 24 hr Supervision Treatment Plan/Plan of Care Patient would benefit from OT for education, treatment and training to promote independence in ADL's, mobility, safety and/or upper extremity function for ADL' s. JAYCEE SHAH OT Jun 12, 2018 15:03
--- NOTE | 2018-06-12 15:19 | Physical Therapy Evaluation ---
PT Evaluation-General Medical Diagnosis Admission Date Jun 07, 2018 at 13:29 Medical Diagnosis: weakness Onset Date: Jun 07, 2018 Therapy Diagnosis Therapy Diagnosis: impaired mobility, endurance, strength Height/Weight Height (Feet): 5 Height (Inches): 7.00 Weight (Pounds): 174 Weight (Ounces): 3.0 Precautions Precautions/Isolations: Standard Precautions Referral Physician: Mary Crawford DO Reason for Referral: Evaluation/Treatment Medical History Pertinent Medical History: COPD, GERD, HTN, Smoking Additional Medical History multiple myeloma, cataracts, surg (bladder, hysterectomy, orthopedic) Social History Home: Single Level Current Living Status: Children Prior/Core FIM Prior Level of Function Therapy Code Descriptions/Definitions Functional [place] Measure: 0=Not Assessed/NA 4=Minimal Assistance 1=Total Assistance 5=Supervision or Setup 2=Maximal Assistance 6=Modified [place] 3=Moderate Assistance 7=Complete [place] Therapy Quality Codes: 6 Independent with activity with or without an assistive device 5 Patient requires set up or clean up by helper. Patient completes activity by themselves 4 Supervision or touching assist (CGA). [place] provide cues , steadying assist 3 The helper provides less than half the effort to complete the activity 2 The helper provides more than half the effort to complete the activity 1 Dependent. The helper does all the effort to complete an activity 7 Patient refused to complete or attempt activity 9 The patient did not perform the activity before the current illness or injury 88 Not attempted due to Medical conditions or safety concerns Functional Abilities and Goals: Independent: Patient completed the activities by him/herself, with or without an assistive device, with no assistance from a helper. Needed Some Help: Patient needed partial assistance from another person to complete activities. Dependent: A helper completed the activities for the patient. Unknown: Not Applicable: Bed Mobility: 6 Transfers (B,C,W/C) (FIM): 6 Gait: 6 Indoor Mobility (Ambulation): Independent Stairs: Independent Daughter states she used a rolling walker on occasion. PT Evaluation-Current Subjective Patient in bed pre tx, agrees to PT but states she just had OT and was very tired but agrees to stand but did not feel up to walking at this time. Pt/Family Goals "to breathe better" Objective Patient Orientation: Person, Place, Situation Attachments: Oxygen ROM/Strength ROM Lower Extremities WNL Strength Lower Extremities right lower extremity (hip flexion 3+/5, knee flexion 4+/5, knee extension 4+/5 , dorsiflexion 5/5), left lower extremity (hip flexion 4/5, knee flexion 4+/5, knee extension 4+/5, dorsiflexion 5/5) Neuromuscular (Tone, Coordination, Reflexes) NT Sensory Vision: Wears Glasses Hearing: Functional Sensation Right Lower Extremit: Intact Sensation Left Lower Extremity: Intact Transfers Therapy Code Descriptions/Definitions Functional [place] Measure: 0=Not Assessed/NA 4=Minimal Assistance 1=Total Assistance 5=Supervision or Setup 2=Maximal Assistance 6=Modified [place] 3=Moderate Assistance 7=Complete [place] Transfers (B, C, W/C) (FIM): 5 Scootin Rollin Supine to/from Sit: 5 Sit to/from Stand: 4 CGA for sit to stand. Patient was able to stand for a few minutes with cues for purse lip breathing before needing to sit down. Balance Sitting Static: Normal Sitting Dynamic: Normal Standing Static: Good Treatment supine LE ex x15 (AP, HS) Assessment/Needs Patient has impaired mobility, strength, endurance. She gets very SOB with activity. Rehab Potential: Fair PT Short Term Goals Short Term Goals Time Frame: Jun 19, 2018 Transfers (B,C,W/C) (FIM): 6 Gait (FIM): 2 Gait Distance Comment: 50' Gait Level of Assist: 5 Gait Assistive Device: FWW PT Plan Problem List Problem List: Activity Tolerance, Functional Strength, Safety, Balance, Gait, Transfer, Bed Mobility Treatment/Plan Treatment Plan: Continue Plan of Care Treatment Plan: Bed Mobility, Education, Functional Activity Juma, Functional Strength, Gait, Safety, Therapeutic Exercise, Transfers Treatment Duration: Jun 19, 2018 Frequency: 6 times per week Estimated Hrs Per Day: .25 hour per day (15-30') Patient and/or Family Agrees t: Yes Safety Risks/Education Patient Education: Transfer Techniques, Correct Positioning, Safety Issues Teaching Recipient: Patient Teaching Methods: Demonstration, Discussion Response to Teaching: Reinforcement Needed Discharge Recommendations Plan Patient will perform bed mobility and transfer training, balance and endurance training, functional strengthening, stair training, gait training, and education to improve functional mobility and independence at home. Therapy D/C Recommendations: Home w/ Family Support Time/GCodes Time In: 1458 Time Out: 1510 Total Billed Treatment Time: 12 Total Billed Treatment 1 visit EVM 12' KRTEK,VICKY PT Jun 12, 2018 15:19
--- NOTE | 2018-06-12 15:23 | Occupational Therapy Eval ---
OT Evaluation-General/PLF Medical Diagnosis Admission Date Jun 07, 2018 at 13:29 Medical Diagnosis: Acute resp failure Onset Date: Jun 07, 2018 Therapy Diagnosis Therapy Diagnosis: Weakness, SOA Height/Weight Height (Feet): 5 Height (Inches): 7.00 Weight (Pounds): 174 Weight (Ounces): 3.0 Precautions Precautions/Isolations: Standard Precautions Safety Interventions: None Weight Bear Status Weight Bearing Restriction: Weight Bearing/Tolerated Referral Physician: Dr. Crawford Referral Reason: Activity Tolerance, Self Care, Evaluation/Treatment, Strengthening/ROM Medical History Pertinent Medical History: COPD, HTN, Smoking Additional Medical History Multiple myeloma, bladder surgery, hysterectomy Current History Pt. came in with hypoxia due to falls, and influenza A. Reviewed History: Yes Social History Home: Single Level Current Living Status: Children Entry Into Home: Stairs With Railing Steps Into Home: 4 ADL-Prior Level of Function Therapy Code Descriptions/Definitions Functional [place] Measure: 0=Not Assessed/NA 4=Minimal Assistance 1=Total Assistance 5=Supervision or Setup 2=Maximal Assistance 6=Modified [place] 3=Moderate Assistance 7=Complete [place] Therapy Quality Codes: 6 Independent with activity with or without an assistive device 5 Patient requires set up or clean up by helper. Patient completes activity by themselves 4 Supervision or touching assist (CGA). [place] provide cues , steadying assist 3 The helper provides less than half the effort to complete the activity 2 The helper provides more than half the effort to complete the activity 1 Dependent. The helper does all the effort to complete an activity 7 Patient refused to complete or attempt activity 9 The patient did not perform the activity before the current illness or injury 88 Not attempted due to Medical conditions or safety concerns Functional Abilities and Goals: Independent: Patient completed the activities by him/herself, with or without an assistive device, with no assistance from a helper. Needed Some Help: Patient needed partial assistance from another person to complete activities. Dependent: A helper completed the activities for the patient. Unknown: Not Applicable: ADL PLOF Comments Pt. states that she was independent prior to this admission with daily skills. Self Care: Independent Functional Cognition: Independent DME/Equipment: Bath Chair, Grab Bars, Tub/Shower Drive Self: Yes OT Current Status Subjective Pt. reports 5/10 pain in hips and bottom. Nursing notified and gave pt. pain medication. Appearance Pt. in bed. Agrees to shower. Daughter in room and states that while pt. is on 2 L 02, she usually bumps oxygen up to 3-4 for her shower. Daughter is nurse and does this for pt. Mental Status/Objective Patient Orientation: Person, Place, Time, Situation Attachments: IV, Oxygen, Telemetry Current Upper Extremity ROM WFL ADL-Treatment Therapy Code Descriptions/Definitions Functional [place] Measure: 0=Not Assessed/NA 4=Minimal Assistance 1=Total Assistance 5=Supervision or Setup 2=Maximal Assistance 6=Modified [place] 3=Moderate Assistance 7=Complete [place] Therapy Quality Codes: 6 Independent with activity with or without an assistive device 5 Patient requires set up or clean up by helper. Patient completes activity by themselves 4 Supervision or touching assist (CGA). [place] provide cues , steadying assist 3 The helper provides less than half the effort to complete the activity 2 The helper provides more than half the effort to complete the activity 1 Dependent. The helper does all the effort to complete an activity 7 Patient refused to complete or attempt activity 9 The patient did not perform the activity before the current illness or injury 88 Not attempted due to Medical conditions or safety concerns Bathing (FIM): 3 (Pt. is able to reach all areas, but due to fatigue and SOA, wanted to get out of shower quickly. OT provided assistance for her.) Lower Body Dressing (FIM): 5 (SBA to don slipper socks and underwear.) Transfers (B, C, W/C) (FIM): 4 (SBA supine-sit. Hand held assistance to ambulate to bathroom.) Shower Transfer (FIM): 4 Education OT Patient Education: Correct positioning, Modified ADL techniques, Progress toward Goal/Update tx plan, Purpose of tx/functional activities, Reviewed precautions, Rehab process, Transfer techniques Teaching Recipient: Patient, Family Teaching Methods: Demonstration, Discussion Response to Teaching: Verbalize Understanding, Return Demonstration OT Short Term Goals Short Term Goals 1=Demonstrate adherence to instructed precautions during ADL tasks. 2=Patient will verbalize/demonstrate understanding of assistive devices/ modifications for ADL. 3=Patient will improve strength/tolerance for activity to enable patient to perform ADL's. OT Insole Lip Turner Goals Mcfp Goals Time Frame: Jun 19, 2018 Eating (FIM): 6 Grooming(FIM): 6 Bathing(FIM): 5 Upper Body Dressing(FIM): 5 Lower Body Dressing(FIM): 5 Toileting(FIM): 6 Transfers (B,C,W/C) (FIM): 6 Toilet/Commode Transfer(FIM): 6 Shower Transfer(FIM): 5 Additional Goals: 1-Demonstrate ADL Tasks, 2-Verbalize Understanding, 3- ImproveStrength/Juma 1=Demonstrate adherence to instructed precautions during ADL tasks. 2=Patient will verbalize/demonstrate understanding of assistive devices/ modifications for ADL. 3=Patient will improve strength/tolerance for activity to enable patient to perform ADL's. OT Education/Plan Problem List/Assessment Assessment: Decreased Activ Tolerance, Dependent Transfers, Impaired I ADL's, Impaired Self-Care Skills Discharge Recommendations Plan/Recommendations: Continue POC Therapy D/C Recommendations: 24 hr Supervision, Home w/ Family Support Barriers to Progress SOA due to disease process. This is limiting for independence, as pt. is physically able to do what she needs to do. Treatment Plan/Plan of Care Treatment,Training & Education: Yes Patient would benefit from OT for education, treatment and training to promote independence in ADL's, mobility, safety and/or upper extremity function for ADL' s. Plan of Care: ADL Retraining, Functional Mobility, UE Funct Exercise/Act Treatment Duration: Jun 19, 2018 Frequency: At least 5 of 7 days/Wk (IRF) Estimated Hrs Per Day: .25 hour per day Agreement: Yes Rehab Potential: Fair Time/GCodes Start Time: 14:05 Stop Time: 14:41 Total Time Billed (hr/min): 36 Billed Treatment Time 1, EVM x 15minutes, ADL x 21minutes JAYCEE SHAH OT Jun 12, 2018 15:23
[2018-06-12] MEDS: DULoxetine 30 MG (CYMBALTA) CAP PO SCH (15:41)
--- NOTE | 2018-06-12 16:18 | Pulmonary Progress Note ---
Subjective Time Seen by a Provider: 16:17 Subjective/Events-last exam pt appears to be doing better Sepsis Event Evaluation Height, Weight, BMI Height: 5'7.00" Weight: 174lbs. 3.0oz. 79.640119lm; 27.3 BMI Method:Stated Exam Exam Vital Signs Date Time Temp Pulse Resp B/P (MAP) Pulse Ox O2 Delivery O2 Flow Rate FiO2 06/12/18 15:28 92 Nasal Cannula 4.00 06/12/18 15:24 96.5 69 20 132/58 (82) 95 High Flow N/C 2.00 06/12/18 12:54 71 06/12/18 11:18 96.9 76 16 137/64 (88) 93 High Flow N/C 2.00 06/12/18 08:20 Nasal Cannula 2.00 06/12/18 07:46 95 Nasal Cannula 2.00 06/12/18 07:46 97.8 74 16 122/60 (80) 93 High Flow N/C 2.00 06/12/18 07:08 69 06/12/18 04:00 96.9 80 18 124/61 (82) 94 Nasal Cannula 2.00 06/12/18 02:26 94 High Flow N/C 2.00 06/12/18 01:00 69 06/12/18 00:00 96.9 73 22 133/63 (86) 94 Nasal Cannula 2.00 06/11/18 22:45 95 High Flow N/C 2.00 06/11/18 20:00 High Flow N/C 2.00 06/11/18 19:01 97.4 67 16 126/63 (84) 95 Nasal Cannula 2.00 06/11/18 19:00 71 06/11/18 18:56 95 High Flow N/C 2.00 I & O 06/12/18 06:59 Intake Total 1740 ml Output Total 2375 ml Balance -635 ml Height & Weight Height: 5'7.00" Weight: 174lbs. 3.0oz. 79.970714ha; 27.3 BMI Method:Stated General Appearance: No Apparent Distress, Anxious HEENT: PERRL/EOMI, Normal ENT Inspection, Other (Oropharynx somewhat dry) Neck: Supple Respiratory: Decreased Breath Sounds, Respiratory Distress (mild with minimal exertion) Cardiovascular: Regular Rate, Rhythm Capillary Refill: Less Than 3 Seconds Gastrointestinal: normal bowel sounds, non tender, soft Extremity: Non Tender, No Calf Tenderness, No Pedal Edema Neurologic/Psychiatric: Alert, Oriented x3 Skin: Warm/Dry Lymphatic: No Adenopathy Results Lab Laboratory Tests 06/11/18 06:02 06/12/18 03:37 Assessment/Plan Assessment/Plan Acute respiratory failure with hypoxia -Titrate oxygen for sp02 90-92% -CTA of chest- reviewed -repeat CXR -SVNs Q4 with Duo Neb Influenza A -Tamiflu Thrombocytopenia -Monitor Leukopenia -Monitor Hx of Multiple Myeloma ALBAN NARVAEZ DO Jun 12, 2018 16:18
[2018-06-12] MEDS: ADVAIR HFA 115/21 MCG INHALER 8 GM IH SCH ×2 (17:01→19:09)
--- NOTE | 2018-06-12 17:14 | Diagnostic Imaging Report ---
INDICATION: Hypoxemia EXAM: Portable chest at 4:44 PM FINDINGS: Heart size and pulmonary vascularity are normal. The lungs are clear. There are no effusions or pneumothoraces. IMPRESSION: Negative chest. Dictated by: Dictated on workstation # [id number]
--- NOTE | 2018-06-12 17:23 | Progress Note (SOAP) ---
Subjective Date Seen by a Provider: Jun 12, 2018 Time Seen by a Provider: 12:55 Subjective/Events-last exam Fwup acute respiratory failure, Influenza A, Pneumonia, COPD, Multiple Myeloma, Hypokalemia, Hypomagnesemia. C/O nausea. Objective Exam Vital Signs Date Time Temp Pulse Resp B/P (MAP) Pulse Ox O2 Delivery O2 Flow Rate FiO2 06/12/18 15:28 92 Nasal Cannula 4.00 06/12/18 15:24 96.5 69 20 132/58 (82) 95 High Flow N/C 2.00 06/12/18 12:54 71 06/12/18 11:18 96.9 76 16 137/64 (88) 93 High Flow N/C 2.00 06/12/18 08:20 Nasal Cannula 2.00 06/12/18 07:46 95 Nasal Cannula 2.00 06/12/18 07:46 97.8 74 16 122/60 (80) 93 High Flow N/C 2.00 06/12/18 07:08 69 06/12/18 04:00 96.9 80 18 124/61 (82) 94 Nasal Cannula 2.00 06/12/18 02:26 94 High Flow N/C 2.00 06/12/18 01:00 69 06/12/18 00:00 96.9 73 22 133/63 (86) 94 Nasal Cannula 2.00 06/11/18 22:45 95 High Flow N/C 2.00 06/11/18 20:00 High Flow N/C 2.00 06/11/18 19:01 97.4 67 16 126/63 (84) 95 Nasal Cannula 2.00 06/11/18 19:00 71 06/11/18 18:56 95 High Flow N/C 2.00 I & O 06/12/18 07:00 Intake Total 1740 ml Output Total 2375 ml Balance -635 ml Capillary Refill : Less Than 3 Seconds General Appearance: Mild Distress Respiratory: Crackles, Decreased Breath Sounds, Wheezing Cardiovascular: Regular Rate, Rhythm Gastrointestinal: normal bowel sounds, non tender, soft Extremity: Non Tender, No Calf Tenderness Neurologic/Psychiatric: Alert, Oriented x3 Skin: Warm/Dry Results Lab Laboratory Tests 06/12/18 03:37: White Blood Count 2.4L, Red Blood Count 4.49, Hemoglobin 13.4, Hematocrit 40, Mean Corpuscular Volume 88, Mean Corpuscular Hemoglobin 30, Mean Corpuscular Hemoglobin Concent 34, Red Cell Distribution Width 15.8H, Platelet Count 187, Mean Platelet Volume 10.4, Sodium Level 137, Potassium Level 4.2, Chloride Level 108H, Carbon Dioxide Level 17L, Anion Gap 12, Blood Urea Nitrogen 8, Creatinine 0.60, Estimat Glomerular Filtration Rate > 60, BUN/Creatinine Ratio 13, Glucose Level 91, Calcium Level 7.4L, Phosphorus Level 1.5L, Magnesium Level 1.6L Microbiology 06/07/18 Blood Culture - Preliminary, Resulted No growth 06/10/18 C. difficile GDH Antigen & Toxins - Final, Complete 06/07/18 Influenza Types A,B Antigen (JOANIE) - Final, Complete 06/07/18 Urine Culture - Final, Complete NO GROWTH Assessment/Plan Assessment/Plan Assess & Plan/Chief Complaint 1. Acute Respiratory Failure--on Vapotherm, SVNS 2. Influenza A--on Tamiflu 3. COPD with acute exacervation on vapotherm and SVNS as well as home inhalers but will add solumedrol as is still short of air and wheezing today 4. Multiple Myeloma--hold revlimid due to neutropenia, Dr. Espinosa notified of admission 5. Hypokalemia--improved 6. Diarrhea--improved with colestic 7. Hypomagnesemia--replace Mg 8. Neutropenia/Thrombocytopenia--likely from virus, monitor 9. Pneumonia--change to meropenem due to immunocompromised and significant bilateral pulmonary infiltrates, CXR in AM 10. Weakness/Debility--start PT/OT 11. Nausea--zofran now and prn Clinical Quality Measures Admission Status Admission Dx 1. Acute Respiratory Failure--admit for oxygen, SVNS, pulmonary consulted 2. Acute Influenza A--tamiflu started 3. COPD--stable 4. Multiple Myeloma--will notify oncology of admit DVT/VTE Risk/Contraindication: Risk Factor Score Per Nursin RFS Level Per Nursing on Admit: 3=High JANNY JOSEPH DO Jun 12, 2018 17:23
[2018-06-12] MEDS: methylPREDNISolone 40 MG/ML (Solu-MEDROL) VIAL IV SCH ×2 (18:58→23:45)
[2018-06-12] MEDS: ONDANSETRON 4 MG/2 ML (SDV) Z0FRAN IVP PRN (20:36)
[2018-06-13] MEDS: ONDANSETRON 4 MG/2 ML (SDV) Z0FRAN IVP PRN ×2 (00:16→06:22)
[2018-06-13] MEDS: ACETAMINOPHEN 500 MG TAB (TYLENOL) PO PRN (00:17)
[2018-06-13] MEDS: HYDROcodone/APAP 7.5 MG/325 MG (LORTAB, LORCET PLUS) TABLET PO SCH ×3 (00:17→12:21)
[2018-06-13] MEDS: RT-ALBUTEROL/IPRATROPIUM 3 ML (DUONEB) VIAL INH SCH ×2 (02:58→06:26)
[2018-06-13 04:03] VITALS: BP 126/60
[2018-06-13 05:38] LABS: HEMOGLOBIN 13.9 G/DL (11.5-16.0); MEAN PLATELET VOLUME 10.1 FL (7.4-10.4); WHITE BLOOD COUNT 1.8 10^3/uL (4.3-11.0)
[2018-06-13 06:10] LABS: BUN/CREATININE RATIO 27; CALCIUM 7.8 MG/DL (8.5-10.1); CARBON DIOXIDE 16 MMOL/L (21-32); CHLORIDE 108 MMOL/L (98-107); CREATININE SERUM 0.62 MG/DL (0.60-1.30); GFR ESTIMATED > 60; GLUCOSE 143 MG/DL (70-105); MAGNESIUM 1.6 MG/DL (1.8-2.4); PHOSPHORUS 1.8 MG/DL (2.3-4.7); POTASSIUM 4.8 MMOL/L (3.6-5.0); SODIUM 134 MMOL/L (135-145)
[2018-06-13] MEDS: MEROPENEM 500 MG in WATER (STERILE) FOR INJECTION 10 ML IV SCH ×2 (06:19→12:20)
[2018-06-13] MEDS: methylPREDNISolone 40 MG/ML (Solu-MEDROL) VIAL IV SCH (06:19)
[2018-06-13] MEDS: KCL 20 MEQ TAB (K-DUR) PO SCH (06:19)
[2018-06-13] MEDS: VITAMIN D3 5,000 UNITS (CHOLECALCIFEROL ) CAPSULE PO SCH (06:19)
--- NOTE | 2018-06-13 06:28 | Pulmonary Progress Note ---
Subjective Time Seen by a Provider: 07:32 Subjective/Events-last exam Pt is doing better. Sepsis Event Evaluation Height, Weight, BMI Height: 5'7.00" Weight: 174lbs. 3.0oz. 79.434543nt; 27.3 BMI Method:Stated Exam Exam Vital Signs Date Time Temp Pulse Resp B/P (MAP) Pulse Ox O2 Delivery O2 Flow Rate FiO2 06/13/18 04:03 97.4 91 18 126/60 (82) 92 Nasal Cannula 3.00 06/13/18 02:58 93 Nasal Cannula 3.00 06/13/18 01:00 87 06/12/18 23:49 97.8 96 22 132/60 (84) 94 High Flow N/C 3.00 06/12/18 22:20 96 Nasal Cannula 4.00 06/12/18 20:40 High Flow N/C 4.00 06/12/18 20:02 97.4 80 22 156/65 (95) 94 High Flow N/C 4.00 06/12/18 19:09 92 Nasal Cannula 4.00 06/12/18 19:00 76 06/12/18 15:28 92 Nasal Cannula 4.00 06/12/18 15:24 96.5 69 20 132/58 (82) 95 High Flow N/C 2.00 06/12/18 12:54 71 06/12/18 11:18 96.9 76 16 137/64 (88) 93 High Flow N/C 2.00 06/12/18 08:20 Nasal Cannula 2.00 06/12/18 07:46 95 Nasal Cannula 2.00 06/12/18 07:46 97.8 74 16 122/60 (80) 93 High Flow N/C 2.00 06/12/18 07:08 69 I & O 06/13/18 07:00 Intake Total 1990 ml Output Total 1350 ml Balance 640 ml Height & Weight Height: 5'7.00" Weight: 174lbs. 3.0oz. 79.049683ep; 27.3 BMI Method:Stated General Appearance: No Apparent Distress HEENT: PERRL/EOMI, Normal ENT Inspection, Other (Oropharynx somewhat dry) Neck: Supple Respiratory: Crackles, Decreased Breath Sounds, Wheezing Cardiovascular: Regular Rate, Rhythm Capillary Refill: Less Than 3 Seconds Gastrointestinal: normal bowel sounds, non tender, soft Extremity: Non Tender, No Calf Tenderness Neurologic/Psychiatric: Alert, Oriented x3 Skin: Warm/Dry Lymphatic: No Adenopathy Results Lab Laboratory Tests 06/12/18 03:37 06/13/18 05:10 Assessment/Plan Assessment/Plan Acute respiratory failure with hypoxia -Titrate oxygen for sp02 90-92% -SVNs Q4 with Duo Neb -Change solumedrol to prednisone taper Influenza A -Tamiflu Hypophos, hypomag -Replace Thrombocytopenia -Monitor Leukopenia -Monitor Hx of Multiple Myeloma Pt is ok for discharge from pulmonary standpoint. ALBAN NARVAEZ DO Jun 13, 2018 06:28
[2018-06-13] MEDS: ADVAIR HFA 115/21 MCG INHALER 8 GM IH SCH (06:42)
[2018-06-13] MEDS ORDERED: SODIUM PHOSPHATE INJ 30 MM in NS (IVPB) 250 ML IV ONE (07:30)
[2018-06-13 07:50] VITALS: BP 135/62
[2018-06-13] MEDS: MAGNESIUM 1 GM/100 ML IVPB 100 ML IV SCH ×2 (08:02→09:09)
[2018-06-13] MEDS: amLODIPine 5 MG (NORVASC) TAB PO SCH (08:05)
[2018-06-13] MEDS: PANTOPRAZOLE 40 MG (PROTONIX) TAB PO SCH (08:06)
[2018-06-13] MEDS: COLESTIPOL 1 GM (COLESTID) TAB PO SCH (08:06)
[2018-06-13] MEDS: MAGNESIUM OXIDE (MAG-OX)400 MG TAB PO SCH (08:08)
--- NOTE | 2018-06-13 08:36 | NUR ---
Swing Bed Note: Qualifies for swing bed for continued need for IV abx (Pneumonia) with continued need for short term Physical et Occupational therapies for ultimate goal to return to home at prior level of function. Anticipate admission to swing bed today when doctor rounds. Thank you for this referral.
--- NOTE | 2018-06-13 10:01 | Diagnostic Imaging Report ---
INDICATION: Followup pneumonia. TIME OF EXAMINATION: 7:28 AM. COMPARISON: Correlation is made with the prior study from one day earlier. FINDINGS: A right convexity thoracic scoliotic curvature is again noted. The heart size is stable. There appears to be some infiltrate or atelectasis in the medial left base, similar to the prior exam. The right lung is clear apart from minimal linear scarring or atelectasis near the right costophrenic angle. There are trace bilateral effusions noted. No pneumothorax is seen. IMPRESSION: Overall stable appearance of the chest since the exam of one day earlier. Dictated by: Dictated on workstation # [id number]
[2018-06-13 11:42] VITALS: BP 134/61
[2018-06-13] MEDS ORDERED: predniSONE 10 MG TAB PO SCH (12:00)
[2018-06-13] MEDS: DULoxetine 30 MG (CYMBALTA) CAP PO SCH (12:21)
[2018-06-13] MEDS ORDERED: RT-ALBUTEROL/IPRATROPIUM 3 ML (DUONEB) VIAL INH SCH (15:00)
--- NOTE | 2018-06-15 13:23 | Discharge Summary ---
Diagnosis/Chief Complaint Date of Admission Jun 07, 2018 at 13:29 Date of Discharge Jun 13, 2018 at 12:59 Discharge Date: Jun 13, 2018 Discharge Diagnosis 1. Acute Respiratory Failure--on Vapotherm, SVNS 2. Influenza A--on Tamiflu 3. COPD with acute exacervation on vapotherm and SVNS, home inhalers and solumedrol has been converted to prednisone 4. Multiple Myeloma--hold revlimid due to neutropenia, Dr. Espinosa notified of admission 5. Hypokalemia--improved 6. Diarrhea--improved 7. Hypomagnesemia--improved 8. Neutropenia/Thrombocytopenia--likely from virus, monitor 9. Pneumonia--switched to meropenem 10. Weakness/Debility--started PT/OT 11. Nausea--zofran now and prn 12. Chronic Tailbone Pain from MM--started on routine Hydrocodone for pain control Reason Hospital Visit This is a 78 year old female with a known history of multiple myeloma and COPD who presented to the emergency room after sustaining two falls and with worsening respiratory status. She was found to be hypoxic with and oxygen saturation of 75% upon arrival. She was also found to be influenza A positive. She had been exposed recently to influenza A by her grandson. Discharge Summary Hospital Course Hospital Course This is a 78 year old female with a known history of multiple myeloma and COPD who presented to the emergency room after sustaining two falls and with worsening respiratory status. She was found to be hypoxic with and oxygen saturation of 75% upon arrival. She was also found to be influenza A positive. She had been exposed recently to influenza A by her grandson. She was admitted and started on tamiflu for the influenza A as well as rocephin and zithromax for pneumonia. She was initially place on oxygen via nasal cannula but had to be converted to vapotherm due to worsening respiratory status. Her revlimid was held per oncology recommendations due to her neutropenia. It was felt that the worsening neutropenia was due to the influenza virus. She had hypokalemia and hypomagnesemia which had to be replaced both via IV infusion as well as orally. She was having diarrhea which responded to the addition of colestid. Once her diarrhea improved, her potassium and magnesium levels stabilized. Due to ongoing shortness of air, a CT angiogram was done to rule out PE. This was negative for any PE but showed ongoing bilateral infiltrates so her antibiotics were switched to meropenem. IV Solumedrol was also added due to wheezing. By the time of transfer to the SWING bed, her solumedrol has been converted to prednisone. She was having persistent tailbone pain but was not asking for her pain medications in a timely fashion so her hydrocodone was scheduled routinely but she then had nausea so zofran was added routinely as well. PT and OT were started for strengthening and a SWING bed evaluation was obtained as it was evident the patient would need longer duration of IV antibiotics, weaning of oxygen and strengthening with PT/OT. She is transferred to SWING bed at this time to continue her current care. Labs Laboratory Tests 06/13/18 05:10: White Blood Count 1.8L, Red Cell Distribution Width 16.0H, Sodium Level 134L, Chloride Level 108H, Carbon Dioxide Level 16L, Glucose Level 143H, Calcium Level 7.8L, Phosphorus Level 1.8L, Magnesium Level 1.6L Procedures None. Consultations Dr. Olivera--pulmonology Discharge Physical Examination Allergies: Coded Allergies: venom-honey bee (Verified Allergy, Severe, 08/08/11) codeine (Unverified Allergy, Unknown, 03/02/10) Vitals & I&Os Vital Signs Date Time Temp Pulse Resp B/P (MAP) Pulse Ox O2 Delivery O2 Flow Rate FiO2 06/13/18 12:53 97 06/13/18 11:42 97.3 16 134/61 (85) 92 High Flow N/C 4.00 06/09/18 07:27 80 General Appearance: Alert, Oriented X3, Cooperative, No Acute Distress Respiratory: Other (decreased aeration) Cardiovascular: Regular Rate Abdominal: Normal Bowel Sounds, Soft, No Tenderness Extremities: No Clubbing, No Cyanosis, No Edema Neuro: Other (weakness) Psych/Mental Status: Mental Status NL, Mood NL Discharge Home Medications Reviewed and agree with Discharge Medication list on patient's Discharge Instruction sheet Instructions to Patient/Family Please see electronic discharge instructions given to patient. Clinical Quality Measures DVT/VTE Risk/Contraindication: Risk Factor Score Per Nursin RFS Level Per Nursing on Admit: 3=High JANNY JOSEPH DO Jun 15, 2018 13:23
== END 2018-06-13 12:59 | disposition swing bed (61) | DRG 193 ==
LOC: EDUNIT# 10:52 → ER 10:53 → 4TH 13:29
PROVIDERS: ADMIT Family Medicine; ATTEND Family Medicine
DX: J11.00 Influenza due to unidentified influenza virus with unspecified type of pneumonia (principal); J96.01 Acute respiratory failure with hypoxia; J44.0 Chronic obstructive pulmonary disease with (acute) lower respiratory infection; J44.1 Chronic obstructive pulmonary disease with (acute) exacerbation; C90.00 Multiple myeloma not having achieved remission; D69.6 Thrombocytopenia, unspecified; D70.1 Agranulocytosis secondary to cancer chemotherapy; R07.89 Other chest pain; Z66 Do not resuscitate; I10 Essential (primary) hypertension; K21.9 Gastro-esophageal reflux disease without esophagitis; E87.6 Hypokalemia; E83.39 Other disorders of phosphorus metabolism; E83.42 Hypomagnesemia; Z91.81 History of falling; T45.1X5A Adverse effect of antineoplastic and immunosuppressive drugs, initial encounter
CPT/HCPCS: 36415; 36600; 51701; 70450; 71045; 71046; 71100; 71275; 80048; 80053; 81000; 82805; 83605; 83735; 83880; 84100; 85025; 85027; 85610; 85730; 86141; 87040; 87088; 87324; 87449; 87804; 94640; 94664; 94760; 96365

== ENCOUNTER 2018-06-13 08:41 | Inpatient (IN) | payer MEDICARE ==
[~2018-06-13] VITALS: Ht 170.2 cm; Wt 79.0 kg
[~2018-06-13 08:41] MED LIST changes: +AZIT250T12 PO; +CALC-654 PO; +CHOL5000 PO; +DULO30CA48 PO; +LENA10CA PO; +MAGN400T39 PO; +POTA10CA43 PO; +RT-ALBUINH IH
[2018-06-13] MEDS ORDERED: guaiFENesin/DM (ROBITUSSIN DM) 10 ML UDC PO PRN (13:15)
[2018-06-13] MEDS ORDERED: ONDANSETRON 4 MG/2 ML (SDV) Z0FRAN IVP PRN (13:15)
[2018-06-13] MEDS ORDERED: LORazepam 1 MG (ATIVAN) TAB PO PRN (13:15)
[2018-06-13] MEDS ORDERED: ACETAMINOPHEN 500 MG TAB (TYLENOL) PO PRN (13:15)
[2018-06-13] MEDS ORDERED: CATHETER FLUSH 10 ML SYR IV PRN (13:15)
[2018-06-13] MEDS ORDERED: PATIENT MAY USE OWN MEDS, ALL MC SCH (13:15)
[2018-06-13] MEDS: DULoxetine 30 MG (CYMBALTA) CAP PO SCH (13:18)
[2018-06-13] MEDS ORDERED: ONDANSETRON 4 MG/2 ML (SDV) Z0FRAN ONE (13:19)
[2018-06-13] MEDS ORDERED: RT-ALBUTEROL/IPRATROPIUM 3 ML (DUONEB) VIAL INH PRN (13:30)
--- NOTE | 2018-06-13 13:55 | NUR ---
Admission Drug Regimen Review: Date: 06/13/18 Time: 1356 Review Completed, No Issues found
[2018-06-13] MEDS: RT-ALBUTEROL/IPRATROPIUM 3 ML (DUONEB) VIAL INH SCH ×2 (14:14→21:27)
--- NOTE | 2018-06-13 15:25 | Occupational Therapy Eval ---
OT Evaluation-General/PLF Medical Diagnosis Admission Date Jun 13, 2018 at 13:15 Medical Diagnosis: Acute Respiratory failure Onset Date: Jun 12, 2018 Therapy Diagnosis Therapy Diagnosis: weakness Height/Weight Height (Feet): 5 Height (Inches): 7.00 Weight (Pounds): 174 Weight (Ounces): 3.0 Precautions Precautions/Isolations: Fall Prevention, Standard Precautions Weight Bear Status Weight Bearing Restriction: Full Weight Bearing Location Restriction: L LE, R LE Referral Referral Reason: Activity Tolerance, Self Care, Evaluation/Treatment, Strengthening/ROM Medical History Pertinent Medical History: COPD, HTN, Smoking Current History 78 yrs old W/F was admitted in acute care yesterday. Pt moved from acute to SWING BED today. Pt was admitted to ER due to Hypoxia, falls & influenza A. Reviewed History: Yes Social History Home: Single Level Current Living Status: Children Entry Into Home: Stairs With Railing Steps Into Home: 4 ADL-Prior Level of Function Therapy Code Descriptions/Definitions Functional [place] Measure: 0=Not Assessed/NA 4=Minimal Assistance 1=Total Assistance 5=Supervision or Setup 2=Maximal Assistance 6=Modified [place] 3=Moderate Assistance 7=Complete [place] Therapy Quality Codes: 6 Independent with activity with or without an assistive device 5 Patient requires set up or clean up by helper. Patient completes activity by themselves 4 Supervision or touching assist (CGA). [place] provide cues , steadying assist 3 The helper provides less than half the effort to complete the activity 2 The helper provides more than half the effort to complete the activity 1 Dependent. The helper does all the effort to complete an activity 7 Patient refused to complete or attempt activity 9 The patient did not perform the activity before the current illness or injury 88 Not attempted due to Medical conditions or safety concerns Functional Abilities and Goals: Independent: Patient completed the activities by him/herself, with or without an assistive device, with no assistance from a helper. Needed Some Help: Patient needed partial assistance from another person to complete activities. Dependent: A helper completed the activities for the patient. Unknown: Not Applicable: Self Care: Independent Functional Cognition: Independent Drive Self: No OT Current Status Subjective Pt in bed, alert, SOB, Cooperative oriented. Agree for therapy. Pain Numeric Pain Scale: 5-Moderate Pain Location: Right Location Body Site: Hip Pain Description: Throbbing Mental Status/Objective Patient Orientation: Person, Place, Time Attachments: Central Line, Becerril Catheter, Oxygen, Saline Lock, Telemetry Current Upper Extremity ROM WFL Upper Extremity Coordination Intact. Upper Extremity Sensation Intact Upper Extremity Strength MS in BUE 4/5 grossly graded. Pt fatigue soon, O2 dependent . 5 liters on continuous. Poor endurance, ADL-Treatment ADL-Current Pt needs min A in UB & LB dressing/ undressing garments, CGA in Grooming , SBA in sit to stand & SBA in walking around.with FWW. MS in BUE -4/5 grossly graded.. Hand contact center associate fair. Eating (FIM): 7 Eating (QC): 6 Grooming (FIM): 4 Oral Hygiene (QC): 4 Bathing (FIM): 4 Bathing Location: L Arm, R Arm, L Upper Leg, R Upper Leg, L Lower Leg ( including foot), R Lower Leg (including foot), Chest Shower/Bathe Self (QC): 4 Upper Body Dressing (FIM): 4 Upper Body Dressing (QC): 4 Lower Body Dressing (FIM): 4 Lower Body Dressing (QC): 4 On/Off Footwear (QC): 4 Toileting (FIM): 6 Toileting Hygiene (QC): 5 Transfers (B, C, W/C) (FIM): 6 Toilet/Commode Transfer (FIM): 6 Toilet Transfer (QC): 6 Tub Transfer (FIM): 0 Education OT Patient Education: Correct positioning, Instructions to caregiver, Modified ADL techniques, Safety issues Teaching Recipient: Patient, Family Teaching Methods: Demonstration Response to Teaching: Verbalize Understanding OT Short Term Goals Short Term Goals Time Frame: Jun 27, 2018 Additional Short Term Goals: 1-Demonstrate ADL Tasks, 2-Verbalize Understanding , 3-ImproveStrength/Juma 1=Demonstrate adherence to instructed precautions during ADL tasks. 2=Patient will verbalize/demonstrate understanding of assistive devices/ modifications for ADL. 3=Patient will improve strength/tolerance for activity to enable patient to perform ADL's. OT Fish Flipper Goals Fish Flipper Goals Time Frame: Jul 11, 2018 Eating (FIM): 7 Eating (QC): 6 Groomin Oral Hygiene (QC): 6 Bathing(FIM): 7 Bathing Location: L Arm, R Arm, L Upper Leg, R Upper Leg, L Lower Leg ( including foot), R Lower Leg (including foot), Chest Shower/Bathe Self (QC): 6 Upper Body Dressing(FIM): 7 Upper Body Dressing (QC): 6 Lower Body Dressing(FIM): 7 Lower Body Dressing (QC): 6 On/Off Footwear (QC): 6 Toileting(FIM): 7 Toileting Hygiene (QC): 6 Transfers (B,C,W/C) (FIM): 7 Toilet/Commode Transfer(FIM): 7 Toilet/Commode Transfer (QC): 6 Tub Transfer(FIM): 0 Shower Transfer(FIM): 7 Additional Goals: 1-Demonstrate ADL Tasks, 2-Verbalize Understanding, 3- ImproveStrength/Juma 1=Demonstrate adherence to instructed precautions during ADL tasks. 2=Patient will verbalize/demonstrate understanding of assistive devices/ modifications for ADL. 3=Patient will improve strength/tolerance for activity to enable patient to perform ADL's. OT Education/Plan Problem List/Assessment Assessment: Decreased Activ Tolerance, Decreased Safety Aware, Decreased UE Strength, Dependent Transfers, Impaired Bed Mobility, Impaired Funct Balance, Impaired Self-Care Skills Discharge Recommendations Plan/Recommendations: Continue POC Therapy D/C Recommendations: Home w/ Family Support Equpiment Recommendations-D/C: Extended Bath Bench, Extended Shower Sprayer, Vice President Investor Relations Patient/Family Goals To return home Independently.with AD. Treatment Plan/Plan of Care Treatment,Training & Education: Yes Patient would benefit from OT for education, treatment and training to promote independence in ADL's, mobility, safety and/or upper extremity function for ADL' s. Plan of Care: ADL Retraining, Caregiver Training, Functional Mobility, UE Funct Exercise/Act, UE Neuromus Re-Ed/Coord Treatment Duration: Jul 11, 2018 Frequency: 5 times per week Estimated Hrs Per Day: .25 hour per day Agreement: Yes Rehab Potential: Good Time/GCodes Start Time: 14:00 Stop Time: 14:38 Total Time Billed (hr/min): 38 Billed Treatment Time 1, EVM 14 min., FA 11 min, Ex 13 min. Total 38 minutes. LIO COLLIER OT Jun 13, 2018 15:25
[2018-06-13] MEDS ORDERED: SALINE NASAL SPRAY (OCEAN) 45 ML BTL PRN (15:30)
--- NOTE | 2018-06-13 15:32 | Physical Therapy Evaluation ---
PT Evaluation-General Medical Diagnosis Admission Date Jun 13, 2018 at 13:15 Medical Diagnosis: weakness Onset Date: Jun 07, 2018 Therapy Diagnosis Therapy Diagnosis: impaired mobility, strength, enduarnce Height/Weight Height (Feet): 5 Height (Inches): 7.00 Weight (Pounds): 174 Weight (Ounces): 3.0 Referral Physician: Mary Crawford DO Reason for Referral: Evaluation/Treatment Medical History Pertinent Medical History: COPD, GERD, HTN, Smoking Additional Medical History multiple myeloma, cataracts, surg (bladder, hysterectomy, orthopedic) Reviewed History: Yes Social History Home: Single Level Current Living Status: Children Prior/Core FIM Prior Level of Function Therapy Code Descriptions/Definitions Functional [place] Measure: 0=Not Assessed/NA 4=Minimal Assistance 1=Total Assistance 5=Supervision or Setup 2=Maximal Assistance 6=Modified [place] 3=Moderate Assistance 7=Complete [place] Therapy Quality Codes: 6 Independent with activity with or without an assistive device 5 Patient requires set up or clean up by helper. Patient completes activity by themselves 4 Supervision or touching assist (CGA). [place] provide cues , steadying assist 3 The helper provides less than half the effort to complete the activity 2 The helper provides more than half the effort to complete the activity 1 Dependent. The helper does all the effort to complete an activity 7 Patient refused to complete or attempt activity 9 The patient did not perform the activity before the current illness or injury 88 Not attempted due to Medical conditions or safety concerns Functional Abilities and Goals: Independent: Patient completed the activities by him/herself, with or without an assistive device, with no assistance from a helper. Needed Some Help: Patient needed partial assistance from another person to complete activities. Dependent: A helper completed the activities for the patient. Unknown: Not Applicable: Bed Mobility: 6 Transfers (B,C,W/C) (FIM): 6 Gait: 6 Stairs: 6 Indoor Mobility (Ambulation): Independent Stairs: Independent Daughter states she used a rolling walker on occasion. PT Evaluation-Current Subjective Patient in bed pre tx, agrees to PT reluctantly, has no complaints of pain. Patient states she just got through with OT and was very tired. Pt/Family Goals to be independent at home Objective Patient Orientation: Person, Place, Situation Attachments: Oxygen ROM/Strength ROM Lower Extremities WNL Strenght Lower Extremities right lower extremity (hip flexion 3+/5, knee flexion 4+/5, knee extension 4+/5 , dorsiflexion 5/5), left lower extremity (hip flexion 4/5, knee flexion 4+/5, knee extension 4+/5, dorsiflexion 5/5) Neuromuscular (Tone, Coordination, Reflexes) NT Sensory Vision: Wears Glasses Hearing: Functional Sensation Right Lower Extremit: Intact Sensation Left Lower Extremity: Intact Transfers Therapy Code Descriptions/Definitions Functional [place] Measure: 0=Not Assessed/NA 4=Minimal Assistance 1=Total Assistance 5=Supervision or Setup 2=Maximal Assistance 6=Modified [place] 3=Moderate Assistance 7=Complete [place] Therapy Quality Codes: 6 Independent with activity with or without an assistive device 5 Patient requires set up or clean up by helper. Patient completes activity by themselves 4 Supervision or touching assist (CGA). [place] provide cues , steadying assist 3 The helper provides less than half the effort to complete the activity 2 The helper provides more than half the effort to complete the activity 1 Dependent. The helper does all the effort to complete an activity 7 Patient refused to complete or attempt activity 9 The patient did not perform the activity before the current illness or injury 88 Not attempted due to Medical conditions or safety concerns Transfers (B, C, W/C) (FIM): 5 Scootin Rollin Roll Left to Right (QC): 4 Supine to/from Sit: 5 Sit to/from Stand: 5 Sit to Lying (QC): 4 Lying to Sitting/Side of Bed(Q: 4 Sit to Stand (QC): 4 Chair/Hcf-wo-Wyjpu Xfer(QC): 4 Patient performs bed mobility with SBA, supine <-> sit with SBA, sit <-> stand with SBA, transfers with SBA. Gait Does the Patient Walk?: Yes Mode of Locomotion: Walk Anticipated Mode of Locomotion: Walk Gait (FIM): 1 Walk 10 feet (QC): 4 Distance: 20' Gait Level of Assist: 4 Gait Persons Needed: 1 Gait Assistive Device: FWW Comments/Gait Description Patient ambulated 20' with a rolling walker with CGA. Patient has steady ambulation but gets SOB very quickly. Balance Sitting Static: Normal Sitting Dynamic: Normal Standing Static: Good Standing Dynamic: Good Treatment seated exercises x15 (AP, LAQ) Assessment/Needs Patient transfers with SBA and has steady ambulation but gets SOB with every activity, even seated exercises and needs frequent rest breaks to recover. Rehab Potential: Fair PT Typesetters Printer Goals Typesetters Printer Goals PT Retirement Goals Time Frame: Jun 20, 2018 Transfers (B,C,W/C) (FIM): 6 Sit to Lying (QC): 6 Lying-Sitting on Side/Bed(QC): 6 Sit to Stand (QC): 6 Rollin Roll Left to Right (QC): 6 Chair/Fbi-ph-Rohxr Xfer(QC): 6 Gait (FIM): 2 Distance: 50' Walk 10 feet (QC): 4 Walk 50ft with 2 Turns (QC): 4 Gait Assistive Device: FWW PT Plan Problem List Problem List: Activity Tolerance, Functional Strength, Safety, Balance, Gait, Transfer, Bed Mobility Treatment/Plan Treatment Plan: Continue Plan of Care Treatment Plan: Bed Mobility, Education, Functional Activity Juma, Functional Strength, Gait, Safety, Therapeutic Exercise, Transfers Treatment Duration: Jun 20, 2018 Frequency: 6 times per week Estimated Hrs Per Day: .25 hour per day (15-30') Patient and/or Family Agrees t: Yes Safety Risks/Education Patient Education: Gait Training, Transfer Techniques, Correct Positioning, Safety Issues Teaching Recipient: Patient Teaching Methods: Demonstration, Discussion Response to Teaching: Reinforcement Needed Discharge Recommendations Plan Patient will perform bed mobility and transfer training, balance and endurance training, functional strengthening, stair training, gait training, and education , to improve functional mobility and independence at home. Therapy D/C Recommendations: Home w/ Family Support Time/GCodes Time In: 1500 Time Out: 1530 Total Billed Treatment Time: 30 Total Billed Treatment 1 visit EVM 20' FA 10' VICKY DONATO PT Jun 13, 2018 15:32
--- NOTE | 2018-06-13 16:00 | NUR ---
COLLEEN PERSAUD admitted to swing bed status to room 424-1, with an admitting diagnosis of SWB hypoxia, on 06/15/18 from acute inpatient status. Therapy to evaluate patient for activity needs. COLLEEN PERSAUD and family introduced to surroundings, call light, bed controls, phone, TV, temperature control, lights, meal times, smoking policy, visitor policy, side rail policy, bathrooms, and showers. Patient rights given to patient in the handbook.. COLLEEN PERSAUD and family member verbalized understanding that [facility] is not responsible for the loss or damage to any personal effects or valuables that are kept in the patients possession during their hospitalization. The following care plans and discharge plans were discussed with COLLEEN PERSAUD. COLLEEN PERSAUD and family verbalizes understanding of the Interdisciplinary Patient Education. Patient and family were informed about the Rapid Response Team and its purpose. Call light with in reach and patient demonstrates understanding of how to use. COLLEEN PERSAUD reports no further needs at this time.
[2018-06-13 16:20] VITALS: BP 140/58
[2018-06-13] MEDS: HYDROcodone/APAP 7.5 MG/325 MG (LORTAB, LORCET PLUS) TABLET PO SCH ×2 (16:56→23:36)
[2018-06-13] MEDS: MEROPENEM 500 MG in WATER (STERILE) FOR INJECTION 10 ML IV SCH ×2 (16:58→23:36)
[2018-06-13] MEDS: ONDANSETRON 4 MG/2 ML (SDV) Z0FRAN IVP SCH ×2 (19:08→23:36)
[2018-06-13 20:07] VITALS: BP 136/61
[2018-06-13] MEDS: PANTOPRAZOLE 40 MG (PROTONIX) TAB PO SCH (20:32)
[2018-06-13] MEDS: ADVAIR HFA 115/21 MCG INHALER 8 GM IH SCH (21:27)
[2018-06-14] MEDS: RT-ALBUTEROL/IPRATROPIUM 3 ML (DUONEB) VIAL INH SCH ×4 (01:51→20:19)
[2018-06-14] MEDS: KCL 20 MEQ TAB (K-DUR) PO SCH (06:21)
[2018-06-14] MEDS: VITAMIN D3 5,000 UNITS (CHOLECALCIFEROL ) CAPSULE PO SCH (06:21)
[2018-06-14] MEDS: HYDROcodone/APAP 7.5 MG/325 MG (LORTAB, LORCET PLUS) TABLET PO SCH ×4 (06:22→23:54)
[2018-06-14] MEDS: predniSONE 10 MG TAB PO SCH (06:24)
[2018-06-14] MEDS: ONDANSETRON 4 MG/2 ML (SDV) Z0FRAN IVP SCH ×4 (06:25→23:54)
[2018-06-14] MEDS: MEROPENEM 500 MG in WATER (STERILE) FOR INJECTION 10 ML IV SCH ×4 (06:25→23:54)
[2018-06-14 06:28] VITALS: BP 125/56
[2018-06-14] MEDS: MAGNESIUM OXIDE (MAG-OX)400 MG TAB PO SCH (07:59)
[2018-06-14] MEDS: amLODIPine 5 MG (NORVASC) TAB PO SCH (07:59)
[2018-06-14] MEDS: PANTOPRAZOLE 40 MG (PROTONIX) TAB PO SCH ×2 (07:59→21:05)
--- NOTE | 2018-06-14 09:47 | Pulmonary Progress Note ---
Subjective Time Seen by a Provider: 11:52 Subjective/Events-last exam Pt is doing well. SOB is stable Sepsis Event Evaluation Height, Weight, BMI Height: 5'7.00" Weight: 174lbs. 3.0oz. 79.651160yd; 27.3 BMI Method:Stated Exam Exam Vital Signs Date Time Temp Pulse Resp B/P (MAP) Pulse Ox O2 Delivery O2 Flow Rate FiO2 06/14/18 06:28 97.6 77 20 125/56 (79) 95 Nasal Cannula 4.00 06/14/18 01:51 95 High Flow N/C 4.00 06/13/18 21:35 94 High Flow N/C 4.00 06/13/18 21:27 93 High Flow N/C 4.00 06/13/18 21:00 High Flow N/C 4.00 06/13/18 20:07 97.4 80 22 136/61 (86) 95 Nasal Cannula 4.00 06/13/18 16:20 97.1 90 22 140/58 (85) 95 Nasal Cannula 4.00 06/13/18 14:14 93 High Flow N/C 3.00 I & O 06/14/18 06:59 Intake Total 850 ml Output Total 500 ml Balance 350 ml Height & Weight Height: 5'7.00" Weight: 174lbs. 3.0oz. 79.416845eq; 27.3 BMI Method:Stated General Appearance: No Apparent Distress, WD/WN, Anxious HEENT: PERRL/EOMI, Normal ENT Inspection, Pharynx Normal Neck: Full Range of Motion, Normal Inspection, Non Tender, Supple Respiratory: Chest Non Tender, Normal Breath Sounds, No Accessory Muscle Use, Decreased Breath Sounds Cardiovascular: Regular Rate, Rhythm Gastrointestinal: normal bowel sounds, non tender, soft Extremity: Normal Capillary Refill, Normal Inspection Neurologic/Psychiatric: Alert, Oriented x3 Skin: Normal Color, Warm/Dry Lymphatic: No Adenopathy Assessment/Plan Assessment/Plan COPDAE -Pt will probably need home 02 upon discharge -Titrate oxygen for sp02 90-92% -Will need out pt PFT/workup -SVNs Q4 with Duo Neb -prednisone taper -Merrem currently Thrombocytopenia -Monitor Leukopenia -Monitor Hx of Multiple Myeloma ALBAN NARVAEZ DO Jun 14, 2018 09:47
--- NOTE | 2018-06-14 11:02 | Physical Therapy Daily Note ---
PT Daily Note-Current Subjective Patient just complete with OT and agrees to PT. She reports she is feeling and breathing much better to day. Pain Numeric Pain Scale: 0-No Pain Location: No Pain Reported Mental Status Patient Orientation: Normal For Age Attachments: Oxygen (5L NC HF) Transfers Therapy Code Descriptions/Definitions Functional [place] Measure: 0=Not Assessed/NA 4=Minimal Assistance 1=Total Assistance 5=Supervision or Setup 2=Maximal Assistance 6=Modified [place] 3=Moderate Assistance 7=Complete [place] Therapy Quality Codes: 6 Independent with activity with or without an assistive device 5 Patient requires set up or clean up by helper. Patient completes activity by themselves 4 Supervision or touching assist (CGA). [place] provide cues , steadying assist 3 The helper provides less than half the effort to complete the activity 2 The helper provides more than half the effort to complete the activity 1 Dependent. The helper does all the effort to complete an activity 7 Patient refused to complete or attempt activity 9 The patient did not perform the activity before the current illness or injury 88 Not attempted due to Medical conditions or safety concerns Transfers (B, C, W/C) (FIM): 7 Scootin Supine to/from Sit: 7 Sit to/from Stand: 7 Sit to Lying (QC): 6 Sit to Stand (QC): 6 Chair/Ygn-sg-Uzlrl Xfer(QC): 6 Bed to/from Chair: 7 Car Transfer (QC): 6 patient is up independently in room Gait Training Does the Patient Walk?: Yes Gait (FIM): 6 Distance (FIM): 3=150 ft Distance: 250' x 2 Walk 10 feet (QC): 6 Walk 50 ft with 2 Turns(QC): 6 Walk 150 ft (QC): 6 Gait Level of Assist: 6 Gait Assistive Device: FWW slow, steady, functional gait sequence/PT assist for O2 only Stair Training Stair Training: Handrails/: 2 handrails Stairs (FIM): 2 #of Steps: 4 1 Step (curb) (QC): 6 4 Steps (QC): 6 12 Steps (QC): 9 Stairs: Pattern: Reciprocal Level of Assist: 6 Balance Picking up an Object (QC): 6 Exercises Seated Therapy Exercises: Ankle pumps, Long arc quads, Hip flexion, Hip abd/add Seated Reps: 20 (2 sets) Assessment Patient is very motivated with progress and reports desire to return to home with family support. Patient tolerated treatment well . PT Theater Projectionist Goals Theater Projectionist Goals PT Theater Projectionist Goals Time Frame: Jun 20, 2018 Transfers (B,C,W/C) (FIM): 6 Sit to Lying (QC): 6 Lying-Sitting on Side/Bed(QC): 6 Sit to Stand (QC): 6 Rollin Roll Left to Right (QC): 6 Chair/Fch-zs-Lttbv Xfer(QC): 6 Gait (FIM): 2 Distance: 50' Walk 10 feet (QC): 4 Walk 50ft with 2 Turns (QC): 4 Gait Assistive Device: FWW PT Plan Treatment/Plan Treatment Plan: Continue Plan of Care Treatment Plan: Bed Mobility, Education, Functional Activity Juma, Functional Strength, Gait, Safety, Therapeutic Exercise, Transfers Treatment Duration: Jun 20, 2018 Frequency: 6 times per week Estimated Hrs Per Day: .25 hour per day (15-30') Patient and/or Family Agrees t: Yes Time/GCodes Time In: 1027 Time Out: 1050 Total Billed Treatment Time: 23 Total Billed Treatment 1 visit FA 15 min EX 8 min DARLINE CAIN PT Jun 14, 2018 11:02
--- NOTE | 2018-06-14 11:41 | Occupational Ther Daily Note ---
OT Current Status-Daily Note Subjective Pt in bed, alert, oriented, cooperative & agree for therapy. " Pt states that, I am feeling better than yesterday as my daughter brought Fan & I can breath lot better now. " Pain Location: No Pain Reported Mental Status/Objective Patient Orientation: Person, Place, Time Therapy Code Descriptions/Definitions Functional [place] Measure: 0=Not Assessed/NA 4=Minimal Assistance 1=Total Assistance 5=Supervision or Setup 2=Maximal Assistance 6=Modified [place] 3=Moderate Assistance 7=Complete [place] Attachments: Oxygen ADL-Treatment Pt participate in strengthening ex to BUE , bed mobility ,func transfers & func mobility inside the room.. Pt completed 25 reps x 2 sets x 2 lb wts with BUE flexion/ext of both Elbow & shoulders, 30 reps with both UE in all planes of motion & 40 reps using Hand gripper with both Hand to increase hand concrete layer.to participate in all ADLs. & pt ambulate with fww inside the room only as pt was tired & fatigue. Pt O2 dependent 4 liters on continuous. Therapy Code Descriptions/Definitions Functional [place] Measure: 0=Not Assessed/NA 4=Minimal Assistance 1=Total Assistance 5=Supervision or Setup 2=Maximal Assistance 6=Modified [place] 3=Moderate Assistance 7=Complete [place] Therapy Quality Codes: 6 Independent with activity with or without an assistive device 5 Patient requires set up or clean up by helper. Patient completes activity by themselves 4 Supervision or touching assist (CGA). [place] provide cues , steadying assist 3 The helper provides less than half the effort to complete the activity 2 The helper provides more than half the effort to complete the activity 1 Dependent. The helper does all the effort to complete an activity 7 Patient refused to complete or attempt activity 9 The patient did not perform the activity before the current illness or injury 88 Not attempted due to Medical conditions or safety concerns Eating (FIM): 7 Eating (QC): 6 Grooming (FIM): 7 Oral Hygiene (QC): 6 Upper Body (FIM): 7 Upper Body Dressing (QC): 6 Toileting (FIM): 7 Toileting Hygiene (QC): 6 Transfers (B, C, W/C) (FIM): 7 Toilet/Commode Transfer (FIM): 7 Toilet Transfer (QC): 6 Tub Transfer(FIM): 0 Shower Transfer(FIM): 0 Education OT Patient Education: Correct positioning, Safety issues Teaching Recipient: Patient Teaching Methods: Demonstration Response to Teaching: Verbalize Understanding OT Short Term Goals Short Term Goals Time Frame: Jun 27, 2018 Additional Short Term Goals: 1-Demonstrate ADL Tasks, 2-Verbalize Understanding , 3-ImproveStrength/Juma 1=Demonstrate adherence to instructed precautions during ADL tasks. 2=Patient will verbalize/demonstrate understanding of assistive devices/ modifications for ADL. 3=Patient will improve strength/tolerance for activity to enable patient to perform ADL's. OT Intermediate Goals Intermediate Goals Time Frame: Jul 11, 2018 Eating (FIM): 7 Eating (QC): 6 Groomin Oral Hygiene (QC): 6 Bathing(FIM): 7 Bathing Location: L Arm, R Arm, L Upper Leg, R Upper Leg, L Lower Leg ( including foot), R Lower Leg (including foot), Chest Shower/Bathe Self (QC): 6 Upper Body Dressing(FIM): 7 Upper Body Dressing (QC): 6 Lower Body Dressing(FIM): 7 Lower Body Dressing (QC): 6 On/Off Footwear (QC): 6 Toileting(FIM): 7 Toileting Hygiene (QC): 6 Transfers (B,C,W/C) (FIM): 7 Toilet/Commode Transfer(FIM): 7 Toilet/Commode Transfer (QC): 6 Tub Transfer(FIM): 0 Shower Transfer(FIM): 7 Additional Goals: 1-Demonstrate ADL Tasks, 2-Verbalize Understanding, 3- ImproveStrength/Juma 1=Demonstrate adherence to instructed precautions during ADL tasks. 2=Patient will verbalize/demonstrate understanding of assistive devices/ modifications for ADL. 3=Patient will improve strength/tolerance for activity to enable patient to perform ADL's. OT Education/Plan Problem List/Assessment Assessment: Decreased Activ Tolerance, Decreased Safety Aware, Decreased UE Strength, Dependent Transfers, Impaired Bed Mobility, Impaired Funct Balance, Impaired Self-Care Skills Discharge Recommendations Plan/Recommendations: Continue POC Equpiment Recommendations-D/C: Extended Bath Bench, Funder, Hip Kit Treatment Plan/Plan of Care Treatment,Training & Education: Yes Patient would benefit from OT for education, treatment and training to promote independence in ADL's, mobility, safety and/or upper extremity function for ADL' s. Plan of Care: ADL Retraining, Caregiver Training, Functional Mobility, UE Funct Exercise/Act, UE Neuromus Re-Ed/Coord Treatment Duration: Jul 11, 2018 Frequency: 5 times per week Estimated Hrs Per Day: .25 hour per day Agreement: Yes Rehab Potential: Good Time/GCodes Start Time: 09:55 Stop Time: 10:20 Total Time Billed (hr/min): 25 Billed Treatment Time 1, FA, 12 min, Ex 13 min. Total 25 minutes LIO COLLIER OT Jun 14, 2018 11:41
--- NOTE | 2018-06-14 12:30 | Progress Note (SOAP) ---
Subjective Date Seen by a Provider: Jun 14, 2018 Time Seen by a Provider: 12:26 Subjective/Events-last exam Fwup acute respiratory failure, Influenza A, Pneumonia, COPD, Multiple Myeloma, Hypokalemia, Hypomagnesemia, Nausea. Sitting up eating. Feeling better. Still no BM but passing flatus. Objective Exam Vital Signs Date Time Temp Pulse Resp B/P (MAP) Pulse Ox O2 Delivery O2 Flow Rate FiO2 06/14/18 06:28 97.6 77 20 125/56 (79) 95 Nasal Cannula 4.00 06/14/18 01:51 95 High Flow N/C 4.00 06/13/18 21:35 94 High Flow N/C 4.00 06/13/18 21:27 93 High Flow N/C 4.00 06/13/18 21:00 High Flow N/C 4.00 06/13/18 20:07 97.4 80 22 136/61 (86) 95 Nasal Cannula 4.00 06/13/18 16:20 97.1 90 22 140/58 (85) 95 Nasal Cannula 4.00 06/13/18 14:14 93 High Flow N/C 3.00 I & O 06/14/18 07:00 Intake Total 850 ml Output Total 500 ml Balance 350 ml Capillary Refill : General Appearance: No Apparent Distress Neck: Supple Respiratory: Lungs Clear, Decreased Breath Sounds Cardiovascular: Regular Rate, Rhythm Gastrointestinal: normal bowel sounds, non tender, soft Extremity: Non Tender, No Calf Tenderness, No Pedal Edema Neurologic/Psychiatric: Alert, Oriented x3 Assessment/Plan Assessment/Plan Assess & Plan/Chief Complaint 1. Acute Pneumonia--on meropenem 2. COPD with acute exac--on prednisone, SVNS, oxygen 3. Acute Respiratory Failure--down to nasal cannula 4. Hypokalemia/Hypomagnesemia--repeat levels in AM 5. Neutropenia/Thrombocytopenia--likely viral, recheck in AM 6. Multiple Myeloma--therapy on hold during illness 7. Weakness--doing PT/OT Clinical Quality Measures DVT/VTE Risk/Contraindication: Risk Factor Score Per Nursin JANNY JOSEPH DO Jun 14, 2018 12:30
[2018-06-14] MEDS: ADVAIR HFA 115/21 MCG INHALER 8 GM IH SCH ×2 (13:41→20:19)
[2018-06-14] MEDS: DULoxetine 30 MG (CYMBALTA) CAP PO SCH (15:24)
[2018-06-14 18:42] VITALS: BP 138/60
[2018-06-15] MEDS: RT-ALBUTEROL/IPRATROPIUM 3 ML (DUONEB) VIAL INH SCH ×4 (01:23→22:22)
[2018-06-15 06:16] LABS: BASOPHILS % (AUTO) 0 % (0-10); EOSINOPHILS % (AUTO) 0 % (0-10); HEMATOCRIT 38 % (35-52); HEMOGLOBIN 12.7 G/DL (11.5-16.0); LYMPHOCYTES # (AUTO) 1.6 X 10^3 (1.0-4.0); LYMPHOCYTES % (AUTO) 50 % (12-44); MEAN CORPUSCULAR HEMOGLOBIN 30 PG (25-34); MEAN CORPUSCULAR HGB CONC 34 G/DL (32-36); MEAN CORPUSCULAR VOLUME 90 FL (80-99); MEAN PLATELET VOLUME 9.8 FL (7.4-10.4); MONOCYTES # (AUTO) 0.8 X 10^3 (0.0-1.0); MONOCYTES % (AUTO) 25 % (0-12); NEUTROPHILS # (AUTO) 0.8 X 10^3 (1.8-7.8); NEUTROPHILS % (AUTO) 25 % (42-75); PLATELET COUNT 291 10^3/uL (130-400); RED CELL DISTRIBUTION WIDTH 16.3 % (10.0-14.5); WHITE BLOOD COUNT 3.1 10^3/uL (4.3-11.0)
[2018-06-15] MEDS: MEROPENEM 500 MG in WATER (STERILE) FOR INJECTION 10 ML IV SCH ×3 (06:27→17:29)
[2018-06-15] MEDS: KCL 20 MEQ TAB (K-DUR) PO SCH (06:27)
[2018-06-15] MEDS: ONDANSETRON 4 MG/2 ML (SDV) Z0FRAN IVP SCH ×3 (06:27→17:29)
[2018-06-15] MEDS: VITAMIN D3 5,000 UNITS (CHOLECALCIFEROL ) CAPSULE PO SCH (06:27)
[2018-06-15] MEDS: HYDROcodone/APAP 7.5 MG/325 MG (LORTAB, LORCET PLUS) TABLET PO SCH ×3 (06:28→17:29)
[2018-06-15] MEDS: predniSONE 10 MG TAB PO SCH (06:28)
[2018-06-15 06:32] VITALS: BP 128/63
[2018-06-15 06:37] LABS: ALANINE AMINOTRANSFERASE 22 U/L (0-55); ALBUMIN 3.3 GM/DL (3.2-4.5); ALKALINE PHOSPHATASE 49 U/L (40-136); BILIRUBIN,TOTAL 0.4 MG/DL (0.1-1.0); BUN/CREATININE RATIO 36; CALCIUM 7.8 MG/DL (8.5-10.1); CARBON DIOXIDE 23 MMOL/L (21-32); CHLORIDE 106 MMOL/L (98-107); CREATININE SERUM 0.61 MG/DL (0.60-1.30); GFR ESTIMATED > 60; GLUCOSE 83 MG/DL (70-105); MAGNESIUM 1.8 MG/DL (1.8-2.4); POTASSIUM 4.2 MMOL/L (3.6-5.0); SODIUM 137 MMOL/L (135-145); TOTAL PROTEIN 6.2 GM/DL (6.4-8.2)
[2018-06-15 07:06] LABS: NEUTROPHILS % (MANUAL) 49 %
[2018-06-15 07:07] LABS: ANISOCYTOSIS SLIGHT; LYMPHOCYTES % (MANUAL) 26 %; MONOCYTES % (MANUAL) 24 %; REACTIVE LYMPHOCYTES 1 %
[2018-06-15] MEDS: ADVAIR HFA 115/21 MCG INHALER 8 GM IH SCH ×2 (07:39→22:22)
[2018-06-15] MEDS: amLODIPine 5 MG (NORVASC) TAB PO SCH (07:51)
[2018-06-15] MEDS: PANTOPRAZOLE 40 MG (PROTONIX) TAB PO SCH ×2 (07:51→21:58)
[2018-06-15] MEDS: MAGNESIUM OXIDE (MAG-OX)400 MG TAB PO SCH (07:51)
[2018-06-15 08:00] VITALS: BP 123/59
--- NOTE | 2018-06-15 10:09 | Pulmonary Progress Note ---
Subjective Time Seen by a Provider: 10:08 Subjective/Events-last exam complains of SOB nonproductive cough Sepsis Event Evaluation Height, Weight, BMI Height: 5'7.00" Weight: 174lbs. 3.0oz. [id number]; 27.3 BMI Method:Stated Exam Exam Vital Signs Date Time Temp Pulse Resp B/P (MAP) Pulse Ox O2 Delivery O2 Flow Rate FiO2 06/15/18 09:00 High Flow N/C 2.00 06/15/18 08:00 96.7 73 18 123/59 (80) Nasal Cannula 2.00 06/15/18 07:41 High Flow N/C 3.00 06/15/18 07:39 94 High Flow N/C 3.00 06/15/18 06:32 96.6 76 18 128/63 (84) 94 Nasal Cannula 2.00 06/15/18 01:23 97 High Flow N/C 3.00 06/14/18 21:00 High Flow N/C 4.00 06/14/18 20:24 High Flow N/C 3.00 06/14/18 20:20 96 High Flow N/C 4.00 06/14/18 18:42 96.0 88 16 138/60 (86) 94 06/14/18 13:42 94 High Flow N/C 4.00 I & O 06/15/18 07:00 Intake Total 1940 ml Output Total 600 ml Balance 1340 ml Height & Weight Height: 5'7.00" Weight: 174lbs. 3.0oz. [id number]; 27.3 BMI Method:Stated General Appearance: No Apparent Distress, WD/WN, Anxious HEENT: PERRL/EOMI, Normal ENT Inspection, Pharynx Normal Neck: Full Range of Motion, Normal Inspection, Non Tender, Supple Respiratory: Chest Non Tender, Normal Breath Sounds, No Accessory Muscle Use, Decreased Breath Sounds Cardiovascular: Regular Rate, Rhythm Gastrointestinal: normal bowel sounds, non tender, soft Extremity: Normal Capillary Refill, Normal Inspection Neurologic/Psychiatric: Alert, Oriented x3 Skin: Normal Color, Warm/Dry Lymphatic: No Adenopathy Results Lab Laboratory Tests 06/15/18 05:25 Assessment/Plan Assessment/Plan COPDAE -Pt will probably need home 02 upon discharge -Titrate oxygen for sp02 90-92% -Will need out pt PFT/workup -SVNs Q4 with Duo Neb -prednisone taper -Merrem currently Thrombocytopenia -Monitor Leukopenia -Monitor Hx of Multiple Myeloma ALBAN NARVAEZ DO Jun 15, 2018 10:09
--- NOTE | 2018-06-15 10:50 | Physical Therapy Daily Note ---
PT Daily Note-Current Subjective Patient is in bed eating crackers and agrees to PT. Pain Numeric Pain Scale: 0-No Pain Location: No Pain Reported Mental Status Patient Orientation: Normal For Age Attachments: Oxygen Transfers Therapy Code Descriptions/Definitions Functional [place] Measure: 0=Not Assessed/NA 4=Minimal Assistance 1=Total Assistance 5=Supervision or Setup 2=Maximal Assistance 6=Modified [place] 3=Moderate Assistance 7=Complete [place] Therapy Quality Codes: 6 Independent with activity with or without an assistive device 5 Patient requires set up or clean up by helper. Patient completes activity by themselves 4 Supervision or touching assist (CGA). [place] provide cues , steadying assist 3 The helper provides less than half the effort to complete the activity 2 The helper provides more than half the effort to complete the activity 1 Dependent. The helper does all the effort to complete an activity 7 Patient refused to complete or attempt activity 9 The patient did not perform the activity before the current illness or injury 88 Not attempted due to Medical conditions or safety concerns Transfers (B, C, W/C) (FIM): 7 Scootin Rollin Roll Left to Right (QC): 6 Supine to/from Sit: 7 Sit to/from Stand: 7 Sit to Lying (QC): 6 Sit to Stand (QC): 6 Chair/Xio-tr-Ixiye Xfer(QC): 6 Bed to/from Chair: 7 Gait Training Does the Patient Walk?: Yes Gait (FIM): 6 Distance (FIM): 3=150 ft Distance: >1000' Walk 10 feet (QC): 6 Walk 50 ft with 2 Turns(QC): 6 Walk 150 ft (QC): 6 Walking 10ft/uneven surface-QC: 6 (carpet) Gait Level of Assist: 6 Gait Assistive Device: FWW assist for O2 tank only Exercises Supine Ex: Ankle pumps, Quad Set, Heel Slides, Straight leg raise Supine Reps: 15 Seated Therapy Exercises: Ankle pumps, Long arc quads, Hip flexion Seated Reps: 15 Assessment Patient progressing with treatment plan and desires to return to home soon. PT Snf Goals Song Writer Goals PT Snf Goals Time Frame: Jun 20, 2018 Transfers (B,C,W/C) (FIM): 6 Sit to Lying (QC): 6 Lying-Sitting on Side/Bed(QC): 6 Sit to Stand (QC): 6 Rollin Roll Left to Right (QC): 6 Chair/Wbi-iv-Tmeov Xfer(QC): 6 Gait (FIM): 2 Distance: 50' Walk 10 feet (QC): 4 Walk 50ft with 2 Turns (QC): 4 Gait Assistive Device: FWW PT Plan Treatment/Plan Treatment Plan: Continue Plan of Care Treatment Plan: Bed Mobility, Education, Functional Activity Juma, Functional Strength, Gait, Safety, Therapeutic Exercise, Transfers Treatment Duration: Jun 20, 2018 Frequency: 6 times per week Estimated Hrs Per Day: .25 hour per day (15-30') Patient and/or Family Agrees t: Yes Time/GCodes Time In: 925 Time Out: 948 Total Billed Treatment Time: 23 Total Billed Treatment 1 visit FA 14 min EX 9 min DARLINE CAIN PT Jun 15, 2018 10:50
--- NOTE | 2018-06-15 11:29 | Progress Note (SOAP) ---
Subjective Date Seen by a Provider: Jun 15, 2018 Time Seen by a Provider: 11:27 Subjective/Events-last exam Fwup acute respiratory failure, Influenza A, Pneumonia, COPD, Multiple Myeloma, Hypokalemia, Hypomagnesemia, Nausea, pleural effusions, constipation. Little more short of air this morning. Still no BM. Objective Exam Vital Signs Date Time Temp Pulse Resp B/P (MAP) Pulse Ox O2 Delivery O2 Flow Rate FiO2 06/15/18 09:00 High Flow N/C 2.00 06/15/18 08:00 96.7 73 18 123/59 (80) Nasal Cannula 2.00 06/15/18 07:41 High Flow N/C 3.00 06/15/18 07:39 94 High Flow N/C 3.00 06/15/18 06:32 96.6 76 18 128/63 (84) 94 Nasal Cannula 2.00 06/15/18 01:23 97 High Flow N/C 3.00 06/14/18 21:00 High Flow N/C 4.00 06/14/18 20:24 High Flow N/C 3.00 06/14/18 20:20 96 High Flow N/C 4.00 06/14/18 18:42 96.0 88 16 138/60 (86) 94 06/14/18 13:42 94 High Flow N/C 4.00 I & O 06/15/18 07:00 Intake Total 1940 ml Output Total 600 ml Balance 1340 ml Capillary Refill : General Appearance: No Apparent Distress Neck: Supple Respiratory: Crackles, Decreased Breath Sounds Gastrointestinal: non tender, soft Extremity: Non Tender, No Calf Tenderness, No Pedal Edema Neurologic/Psychiatric: Alert, Oriented x3 Skin: Warm/Dry Results Lab Laboratory Tests 06/15/18 05:25: White Blood Count 3.1L, Red Blood Count 4.22L, Hemoglobin 12.7, Hematocrit 38, Mean Corpuscular Volume 90, Mean Corpuscular Hemoglobin 30, Mean Corpuscular Hemoglobin Concent 34, Red Cell Distribution Width 16.3H, Platelet Count 291, Mean Platelet Volume 9.8, Neutrophils (%) (Auto) 25L, Lymphocytes (%) (Auto) 50H , Monocytes (%) (Auto) 25H, Eosinophils (%) (Auto) 0, Basophils (%) (Auto) 0, Neutrophils # (Auto) 0.8L, Lymphocytes # (Auto) 1.6, Monocytes # (Auto) 0.8, Eosinophils # (Auto) 0.0, Basophils # (Auto) 0.0, Neutrophils % (Manual) 49, Lymphocytes % (Manual) 26, Monocytes % (Manual) 24, Reactive Lymphocytes 1, Anisocytosis SLIGHT, Sodium Level 137, Potassium Level 4.2, Chloride Level 106, Carbon Dioxide Level 23, Anion Gap 8, Blood Urea Nitrogen 22H, Creatinine 0.61, Estimat Glomerular Filtration Rate > 60, BUN/Creatinine Ratio 36, Glucose Level 83, Calcium Level 7.8L, Corrected Calcium 8.4L, Magnesium Level 1.8, Total Bilirubin 0.4, Aspartate Amino Transf (AST/SGOT) 21, Alanine Aminotransferase ( ALT/SGPT) 22, Alkaline Phosphatase 49, Total Protein 6.2L, Albumin 3.3 Assessment/Plan Assessment/Plan Assess & Plan/Chief Complaint 1. Acute Pneumonia--on meropenem 2. COPD with acute exac--on prednisone, SVNS, oxygen 3. Acute Respiratory Failure--down to nasal cannula 4. Hypokalemia/Hypomagnesemia--repeat levels in AM 5. Neutropenia/Thrombocytopenia--likely viral, recheck in AM 6. Multiple Myeloma--therapy on hold during illness 7. Weakness--doing PT/OT 8. Pleural Effusions--lasix and potassium x1 today to see if assists respiratory status 9. Constipation--add senokot-S Clinical Quality Measures DVT/VTE Risk/Contraindication: Risk Factor Score Per Nursin JANNY JOSEPH DO Jun 15, 2018 11:29
[2018-06-15] MEDS ORDERED: KCL 8 MEQ (MICRO K) TABLET PO NR (11:30)
[2018-06-15] MEDS ORDERED: SENNA W/DOCUSATE (SENOKOT S) TABLET PO NR (11:30)
[2018-06-15] MEDS ORDERED: FUROSEMIDE 40 MG (LASIX) TAB PO NR (11:30)
[2018-06-15] MEDS: DULoxetine 30 MG (CYMBALTA) CAP PO SCH (12:04)
--- NOTE | 2018-06-15 13:43 | Occupational Ther Daily Note ---
OT Current Status-Daily Note Subjective Pt alert, lying in bed. Pt agrees to therapy. No c/o pain, c/o breathing is worse today. Stating that it is due to weather. Mental Status/Objective Patient Orientation: Person, Place, Time, Situation Therapy Code Descriptions/Definitions Functional [place] Measure: 0=Not Assessed/NA 4=Minimal Assistance 1=Total Assistance 5=Supervision or Setup 2=Maximal Assistance 6=Modified [place] 3=Moderate Assistance 7=Complete [place] Other Treatment Mod I for bed mobility using HOB elevated and bedrails. Pt completed UE exercises with resistance to increase strength and activity tolerance for daily functional tasks. Pt required recovery breaks due to SOA. Pt has good AROM of UE's. After therapy, pt lying in bed with call light/phone in reach. All needs met in room. OT Short Term Goals Short Term Goals Time Frame: Jun 27, 2018 Additional Short Term Goals: 1-Demonstrate ADL Tasks, 2-Verbalize Understanding , 3-ImproveStrength/Juma 1=Demonstrate adherence to instructed precautions during ADL tasks. 2=Patient will verbalize/demonstrate understanding of assistive devices/ modifications for ADL. 3=Patient will improve strength/tolerance for activity to enable patient to perform ADL's. OT Drilling Fluids Specialist Goals [facility] Goals Time Frame: Jul 11, 2018 Eating (FIM): 7 Grooming(FIM): 7 Bathing(FIM): 7 Bathing Location: L Arm, R Arm, L Upper Leg, R Upper Leg, L Lower Leg ( including foot), R Lower Leg (including foot), Chest Upper Body Dressing(FIM): 7 Lower Body Dressing(FIM): 7 Toileting(FIM): 7 Transfers (B,C,W/C) (FIM): 7 Toilet/Commode Transfer(FIM): 7 Tub Transfer(FIM): 0 Shower Transfer(FIM): 7 Additional Goals: 1-Demonstrate ADL Tasks, 2-Verbalize Understanding, 3- ImproveStrength/Juma 1=Demonstrate adherence to instructed precautions during ADL tasks. 2=Patient will verbalize/demonstrate understanding of assistive devices/ modifications for ADL. 3=Patient will improve strength/tolerance for activity to enable patient to perform ADL's. OT Education/Plan Problem List/Assessment Assessment: Decreased Activ Tolerance, Decreased UE Strength Discharge Recommendations Plan/Recommendations: Continue POC Treatment Plan/Plan of Care Patient would benefit from OT for education, treatment and training to promote independence in ADL's, mobility, safety and/or upper extremity function for ADL' s. Plan of Care: ADL Retraining, Caregiver Training, Functional Mobility, UE Funct Exercise/Act, UE Neuromus Re-Ed/Coord Treatment Duration: Jul 11, 2018 Frequency: 5 times per week Estimated Hrs Per Day: .25 hour per day Agreement: Yes Rehab Potential: Good Time/GCodes Start Time: 11:10 Stop Time: 11:25 Total Time Billed (hr/min): 15 Billed Treatment Time 1 visit-EX 1 (15 min) RICHY SWIFT Jun 15, 2018 13:43
[2018-06-15 20:15] VITALS: BP 131/61
[2018-06-15] MEDS: SENNA W/DOCUSATE (SENOKOT S) TABLET PO SCH (21:58)
[2018-06-16] MEDS: MEROPENEM 500 MG in WATER (STERILE) FOR INJECTION 10 ML IV SCH ×5 (00:45→23:59)
[2018-06-16] MEDS: ONDANSETRON 4 MG/2 ML (SDV) Z0FRAN IVP SCH ×5 (00:45→23:59)
[2018-06-16] MEDS: HYDROcodone/APAP 7.5 MG/325 MG (LORTAB, LORCET PLUS) TABLET PO SCH ×5 (00:46→23:59)
[2018-06-16] MEDS: RT-ALBUTEROL/IPRATROPIUM 3 ML (DUONEB) VIAL INH SCH ×3 (03:14→19:35)
[2018-06-16 05:47] LABS: BASOPHILS % (AUTO) 0 % (0-10); EOSINOPHILS % (AUTO) 0 % (0-10); HEMATOCRIT 37 % (35-52); HEMOGLOBIN 12.5 G/DL (11.5-16.0); LYMPHOCYTES # (AUTO) 1.6 X 10^3 (1.0-4.0); LYMPHOCYTES % (AUTO) 45 % (12-44); MEAN CORPUSCULAR HEMOGLOBIN 30 PG (25-34); MEAN CORPUSCULAR HGB CONC 33 G/DL (32-36); MEAN CORPUSCULAR VOLUME 91 FL (80-99); MEAN PLATELET VOLUME 9.9 FL (7.4-10.4); MONOCYTES # (AUTO) 0.7 X 10^3 (0.0-1.0); MONOCYTES % (AUTO) 19 % (0-12); NEUTROPHILS # (AUTO) 1.3 X 10^3 (1.8-7.8); NEUTROPHILS % (AUTO) 36 % (42-75); PLATELET COUNT 225 10^3/uL (130-400); RED CELL DISTRIBUTION WIDTH 16.4 % (10.0-14.5); WHITE BLOOD COUNT 3.5 10^3/uL (4.3-11.0)
[2018-06-16 06:07] LABS: ALANINE AMINOTRANSFERASE 27 U/L (0-55); ALBUMIN 3.2 GM/DL (3.2-4.5); ALKALINE PHOSPHATASE 56 U/L (40-136); BILIRUBIN,TOTAL 0.3 MG/DL (0.1-1.0); BUN/CREATININE RATIO 43; CALCIUM 8.1 MG/DL (8.5-10.1); CARBON DIOXIDE 22 MMOL/L (21-32); CHLORIDE 106 MMOL/L (98-107); GFR ESTIMATED > 60; GLUCOSE 84 MG/DL (70-105); POTASSIUM 3.9 MMOL/L (3.6-5.0); SODIUM 137 MMOL/L (135-145); TOTAL PROTEIN 5.9 GM/DL (6.4-8.2)
[2018-06-16 06:15] VITALS: BP 137/63
[2018-06-16] MEDS: predniSONE 10 MG TAB PO SCH (06:29)
[2018-06-16] MEDS: VITAMIN D3 5,000 UNITS (CHOLECALCIFEROL ) CAPSULE PO SCH (06:29)
[2018-06-16] MEDS: KCL 20 MEQ TAB (K-DUR) PO SCH (06:29)
[2018-06-16] MEDS: ADVAIR HFA 115/21 MCG INHALER 8 GM IH SCH ×2 (08:32→19:35)
[2018-06-16 08:46] VITALS: BP 137/63
--- NOTE | 2018-06-16 08:51 | Pulmonary Progress Note ---
Subjective Time Seen by a Provider: 08:51 Subjective/Events-last exam PT is doing better. Sepsis Event Evaluation Height, Weight, BMI Height: 5'7.00" Weight: 174lbs. 3.0oz. 79.709603at; 27.3 BMI Method:Stated Exam Exam Vital Signs Date Time Temp Pulse Resp B/P (MAP) Pulse Ox O2 Delivery O2 Flow Rate FiO2 06/16/18 08:32 96 High Flow N/C 2.00 06/16/18 06:15 97.6 72 20 137/63 (87) 96 Nasal Cannula 4.00 06/16/18 03:14 95 High Flow N/C 2.00 06/15/18 22:22 High Flow N/C 2.00 06/15/18 22:22 94 High Flow N/C 2.00 06/15/18 20:15 Nasal Cannula 1.00 06/15/18 20:15 98.0 70 20 131/61 (84) Nasal Cannula 06/15/18 14:36 95 High Flow N/C 3.00 06/15/18 09:00 High Flow N/C 2.00 I & O 06/16/18 07:00 Intake Total 1980 ml Balance 1980 ml Height & Weight Height: 5'7.00" Weight: 174lbs. 3.0oz. 79.720043dv; 27.3 BMI Method:Stated General Appearance: No Apparent Distress, WD/WN, Anxious HEENT: PERRL/EOMI, Normal ENT Inspection, Pharynx Normal Neck: Full Range of Motion, Normal Inspection, Non Tender, Supple Respiratory: Chest Non Tender, Normal Breath Sounds, No Accessory Muscle Use, Decreased Breath Sounds Cardiovascular: Regular Rate, Rhythm Gastrointestinal: normal bowel sounds, non tender, soft Extremity: Normal Capillary Refill, Normal Inspection Neurologic/Psychiatric: Alert, Oriented x3 Skin: Normal Color, Warm/Dry Lymphatic: No Adenopathy Results Lab Laboratory Tests 06/15/18 05:25 06/16/18 04:52 06/16/18 04:53 Assessment/Plan Assessment/Plan COPDAE -Pt will probably need home 02 upon discharge -Titrate oxygen for sp02 90-92% -Will need out pt PFT/workup -SVNs Q4 with Duo Neb -prednisone taper -Merrem currently Hx of Multiple Myeloma ALBAN NARVAEZ DO Jun 16, 2018 08:51
[2018-06-16] MEDS: SENNA W/DOCUSATE (SENOKOT S) TABLET PO SCH ×2 (09:06→20:50)
[2018-06-16] MEDS: PANTOPRAZOLE 40 MG (PROTONIX) TAB PO SCH ×2 (09:06→20:50)
[2018-06-16] MEDS: amLODIPine 5 MG (NORVASC) TAB PO SCH (09:06)
[2018-06-16] MEDS: MAGNESIUM OXIDE (MAG-OX)400 MG TAB PO SCH (09:06)
--- NOTE | 2018-06-16 09:13 | NUR ---
Dr. Olivera in to see pt, spoke w her re: 02, resp status, states to turn off 02, & check sat in 10 min approx, to attempt to wean off 02, as pt doesn't have 02 at home, wants to keep 02 sat 90-92% on R/A Pt verbalized understanding.
--- NOTE | 2018-06-16 10:07 | Diagnostic Imaging Report ---
Indication: Dyspnea. Comparison: 06/13/2018. Discussion: Single portable upright view of the chest was obtained. Underlying COPD is again noted. Stable normal heart size. No focal consolidation, pleural fluid, or pneumothorax. No osseous abnormality. Impression: 1. No acute cardiopulmonary process. Dictated by: Dictated on workstation # [id number]
--- NOTE | 2018-06-16 12:03 | NUR ---
Pt walked w PT w gait belt, FWW, see their notes, 02 sat remained > 93%, pt states, on R/A
--- NOTE | 2018-06-16 12:06 | Physical Therapy Daily Note ---
PT Daily Note-Current Subjective Pt reports the took her off oxygen today but she is to monitor it with activity. Transfers Therapy Code Descriptions/Definitions Functional [place] Measure: 0=Not Assessed/NA 4=Minimal Assistance 1=Total Assistance 5=Supervision or Setup 2=Maximal Assistance 6=Modified [place] 3=Moderate Assistance 7=Complete [place] Therapy Quality Codes: 6 Independent with activity with or without an assistive device 5 Patient requires set up or clean up by helper. Patient completes activity by themselves 4 Supervision or touching assist (CGA). [place] provide cues , steadying assist 3 The helper provides less than half the effort to complete the activity 2 The helper provides more than half the effort to complete the activity 1 Dependent. The helper does all the effort to complete an activity 7 Patient refused to complete or attempt activity 9 The patient did not perform the activity before the current illness or injury 88 Not attempted due to Medical conditions or safety concerns Transfers (B, C, W/C) (FIM): 6 Gait Training Gait (FIM): 6 Distance: 1000+ Gait Level of Assist: 6 Gait Persons Needed: 1 Gait Assistive Device: FWW Ambulated with FWW at Mod I level, oxygen sats measure each 150ft. Levels remained at 93% Assessment Improving activity tolerance. Tolerated gait this session without supplemental Ox PT Railroad Car Letterer Goals Railroad Car Letterer Goals PT Shelter Goals Time Frame: Jun 20, 2018 Transfers (B,C,W/C) (FIM): 6 Sit to Lying (QC): 6 Lying-Sitting on Side/Bed(QC): 6 Sit to Stand (QC): 6 Rollin Roll Left to Right (QC): 6 Chair/Rqs-ev-Stdcx Xfer(QC): 6 Gait (FIM): 2 Distance: 50' Walk 10 feet (QC): 4 Walk 50ft with 2 Turns (QC): 4 Gait Assistive Device: FWW PT Plan Treatment/Plan Treatment Plan: Continue Plan of Care Treatment Plan: Bed Mobility, Education, Functional Activity Juma, Functional Strength, Gait, Safety, Therapeutic Exercise, Transfers Treatment Duration: Jun 20, 2018 Frequency: 6 times per week Estimated Hrs Per Day: .25 hour per day (15-30') Patient and/or Family Agrees t: Yes Time/GCodes Time In: 1131 Time Out: 1150 Total Billed Treatment Time: 19 Total Billed Treatment visit, gait 19min TEMO RYAN PT Jun 16, 2018 12:06
[2018-06-16] MEDS ORDERED: BISACODYL 10 MG SUPP (DULCOLAX) PR PRN (12:45)
--- NOTE | 2018-06-16 12:49 | Progress Note-Hospitalist ---
Subjective HPI/CC On Admission Date Seen by Provider: Jun 16, 2018 Time Seen by Provider: 12:30 Subjective/Events-last exam Patient weaned off O2 now Family at bedside Now constipated so will give more meds today for that Eating well No cough Improved strength Review of Systems Gastrointestinal: Constipation Objective Exam Vital Signs Vital Signs Date Time Temp Pulse Resp B/P (MAP) Pulse Ox O2 Delivery O2 Flow Rate FiO2 06/16/18 09:28 83 20 95 Room Air 06/16/18 09:04 2.00 06/16/18 08:46 28 06/16/18 06:15 97.6 137/63 (87) Capillary Refill : General Appearance: No Apparent Distress, WD/WN, Anxious HEENT: PERRL/EOMI, Normal ENT Inspection, Pharynx Normal Neck: Full Range of Motion, Normal Inspection, Non Tender, Supple Respiratory: Chest Non Tender, Lungs Clear, Normal Breath Sounds, No Accessory Muscle Use, No Respiratory Distress Cardiovascular: Regular Rate, Rhythm Extremity: Normal Capillary Refill, Normal Inspection Neurologic/Psychiatric: Alert, Oriented x3 Skin: Normal Color, Warm/Dry Lymphatic: No Adenopathy Results/Procedures Lab Laboratory Tests 06/16/18 04:52 06/16/18 04:53 Patient resulted labs reviewed. Assessment/Plan Assessment and Plan Assess & Plan/Chief Complaint Assessment: Debility following influenza Diarrhea resolved Constipation MM Plan: BM regimen Monitor closely Diagnosis/Problems Diagnosis/Problems (1) Influenza Status: Resolved Resolution Date/Time: 06/16/18 @ 13:48 (2) Hypoxia Status: Resolved Resolution Date/Time: 06/16/18 @ 13:48 (3) Constipation Status: Acute Qualifiers: Constipation type: slow transit constipation Qualified Codes: K59.01 - Slow transit constipation (4) Neutropenia Status: Resolved Resolution Date/Time: 06/16/18 @ 13:48 Clinical Quality Measures DVT/VTE Risk/Contraindication: Risk Factor Score Per Nursin SALOMÓN PEREZ DO Jun 16, 2018 12:49
[2018-06-16] MEDS: DULoxetine 30 MG (CYMBALTA) CAP PO SCH (14:30)
[2018-06-16 17:49] VITALS: BP 162/71
[2018-06-16] MEDS: LACTULOSE SYRUP 10GM/15ML (ENULOSE) 30ML UDC PO SCH (20:52)
[2018-06-17 06:10] VITALS: BP 138/62
[2018-06-17] MEDS: VITAMIN D3 5,000 UNITS (CHOLECALCIFEROL ) CAPSULE PO SCH (06:10)
[2018-06-17] MEDS: predniSONE 10 MG TAB PO SCH (06:10)
[2018-06-17] MEDS: HYDROcodone/APAP 7.5 MG/325 MG (LORTAB, LORCET PLUS) TABLET PO SCH ×4 (06:10→23:54)
[2018-06-17] MEDS: MEROPENEM 500 MG in WATER (STERILE) FOR INJECTION 10 ML IV SCH ×4 (06:10→23:54)
[2018-06-17] MEDS: ONDANSETRON 4 MG/2 ML (SDV) Z0FRAN IVP SCH ×4 (06:10→23:54)
[2018-06-17] MEDS: KCL 20 MEQ TAB (K-DUR) PO SCH (06:10)
[2018-06-17] MEDS: RT-ALBUTEROL/IPRATROPIUM 3 ML (DUONEB) VIAL INH SCH ×2 (07:56→20:05)
[2018-06-17] MEDS: ADVAIR HFA 115/21 MCG INHALER 8 GM IH SCH ×2 (07:56→20:06)
[2018-06-17] MEDS: SENNA W/DOCUSATE (SENOKOT S) TABLET PO SCH ×2 (09:32→21:26)
[2018-06-17] MEDS: amLODIPine 5 MG (NORVASC) TAB PO SCH (09:32)
[2018-06-17] MEDS: MAGNESIUM OXIDE (MAG-OX)400 MG TAB PO SCH (09:32)
[2018-06-17] MEDS: PANTOPRAZOLE 40 MG (PROTONIX) TAB PO SCH ×2 (09:32→21:26)
[2018-06-17] MEDS: LACTULOSE SYRUP 10GM/15ML (ENULOSE) 30ML UDC PO SCH ×2 (09:32→21:26)
--- NOTE | 2018-06-17 14:40 | Pulmonary Progress Note ---
Sepsis Event Evaluation Height, Weight, BMI Height: 5'7.00" Weight: 174lbs. 3.0oz. 79.826340xx; 27.3 BMI Method:Stated Exam Exam Vital Signs Date Time Temp Pulse Resp B/P (MAP) Pulse Ox O2 Delivery O2 Flow Rate FiO2 06/17/18 08:20 Room Air 06/17/18 07:59 Room Air 06/17/18 07:56 91 Room Air 06/17/18 06:10 96.4 71 22 138/62 (87) 92 Nasal Cannula 2.00 06/16/18 21:00 Room Air 06/16/18 19:35 Room Air 06/16/18 19:35 90 Room Air 06/16/18 17:49 96.6 76 24 162/71 (101) 92 Room Air 06/16/18 15:19 78 20 96 Room Air I & O 06/17/18 07:00 Intake Total 2150 ml Balance 2150 ml Height & Weight Height: 5'7.00" Weight: 174lbs. 3.0oz. 79.674973fl; 27.3 BMI Method:Stated General Appearance: No Apparent Distress, WD/WN, Anxious HEENT: PERRL/EOMI, Normal ENT Inspection, Pharynx Normal Neck: Full Range of Motion, Normal Inspection, Non Tender, Supple Respiratory: Chest Non Tender, Lungs Clear, Normal Breath Sounds, No Accessory Muscle Use, No Respiratory Distress Cardiovascular: Regular Rate, Rhythm Gastrointestinal: normal bowel sounds, non tender, soft Extremity: Normal Capillary Refill, Normal Inspection Neurologic/Psychiatric: Alert, Oriented x3 Skin: Normal Color, Warm/Dry Lymphatic: No Adenopathy Results Lab Laboratory Tests 06/16/18 04:52 06/16/18 04:53 Assessment/Plan Assessment/Plan COPDAE -Pt will probably need home 02 upon discharge -Titrate oxygen for sp02 90-92% -Will need out pt PFT/workup -SVNs Q4 with Duo Neb -prednisone taper -Merrem currently Hx of Multiple Myeloma ALBAN NARVAEZ DO Jun 17, 2018 14:40
[2018-06-17] MEDS: DULoxetine 30 MG (CYMBALTA) CAP PO SCH (15:57)
[2018-06-17 18:00] VITALS: BP 132/63
[2018-06-18 00:43] VITALS: BP 128/66
--- NOTE | 2018-06-18 01:00 | NUR ---
took over care of patient. agree with previous nurse assessment
[2018-06-18 06:00] VITALS: BP 145/68
[2018-06-18] MEDS: MEROPENEM 500 MG in WATER (STERILE) FOR INJECTION 10 ML IV SCH (06:40)
[2018-06-18] MEDS: ONDANSETRON 4 MG/2 ML (SDV) Z0FRAN IVP SCH ×2 (06:40→12:17)
[2018-06-18] MEDS: KCL 20 MEQ TAB (K-DUR) PO SCH (06:41)
[2018-06-18] MEDS: VITAMIN D3 5,000 UNITS (CHOLECALCIFEROL ) CAPSULE PO SCH (06:41)
[2018-06-18] MEDS: HYDROcodone/APAP 7.5 MG/325 MG (LORTAB, LORCET PLUS) TABLET PO SCH ×2 (06:41→12:17)
[2018-06-18] MEDS: predniSONE 10 MG TAB PO SCH (06:44)
[2018-06-18] MEDS: RT-ALBUTEROL/IPRATROPIUM 3 ML (DUONEB) VIAL INH SCH (08:22)
[2018-06-18] MEDS: ADVAIR HFA 115/21 MCG INHALER 8 GM IH SCH (08:23)
[2018-06-18] MEDS: MAGNESIUM OXIDE (MAG-OX)400 MG TAB PO SCH (09:36)
[2018-06-18] MEDS: amLODIPine 5 MG (NORVASC) TAB PO SCH (09:36)
[2018-06-18] MEDS: LACTULOSE SYRUP 10GM/15ML (ENULOSE) 30ML UDC PO SCH (09:36)
[2018-06-18] MEDS: PANTOPRAZOLE 40 MG (PROTONIX) TAB PO SCH (09:36)
[2018-06-18] MEDS: SENNA W/DOCUSATE (SENOKOT S) TABLET PO SCH (09:37)
--- NOTE | 2018-06-18 10:18 | Physical Therapy Daily Note ---
PT Daily Note-Current Subjective Patient agrees to PT and reports she is going home today. Pain Numeric Pain Scale: 0-No Pain Location: No Pain Reported Mental Status Patient Orientation: Normal For Age Transfers Therapy Code Descriptions/Definitions Functional [place] Measure: 0=Not Assessed/NA 4=Minimal Assistance 1=Total Assistance 5=Supervision or Setup 2=Maximal Assistance 6=Modified [place] 3=Moderate Assistance 7=Complete [place] Therapy Quality Codes: 6 Independent with activity with or without an assistive device 5 Patient requires set up or clean up by helper. Patient completes activity by themselves 4 Supervision or touching assist (CGA). [place] provide cues , steadying assist 3 The helper provides less than half the effort to complete the activity 2 The helper provides more than half the effort to complete the activity 1 Dependent. The helper does all the effort to complete an activity 7 Patient refused to complete or attempt activity 9 The patient did not perform the activity before the current illness or injury 88 Not attempted due to Medical conditions or safety concerns Transfers (B, C, W/C) (FIM): 7 Scootin Rollin Roll Left to Right (QC): 6 Supine to/from Sit: 7 Sit to/from Stand: 7 Sit to Lying (QC): 6 Sit to Stand (QC): 6 Chair/Rnx-bj-Xiigo Xfer(QC): 6 Bed to/from Chair: 7 Car Transfer (QC): 6 Gait Training Does the Patient Walk?: Yes Gait (FIM): 6 Distance (FIM): 3=150 ft Distance: >1000' Walk 10 feet (QC): 6 Walk 50 ft with 2 Turns(QC): 6 Walk 150 ft (QC): 6 Walking 10ft/uneven surface-QC: 6 (carpet) Gait Level of Assist: 6 Gait Assistive Device: FWW safe and functional Assessment Patient is currently on RA with SAO2 >95% with activity. Patient performs all gross motor skills and functional mobility at [facility]. Patient ambulates with FWW >1000' with no deviation. Patient has attained all functional goals. PT to dismiss patient from services at this time. PT Mexican Food Cook Goals Mexican Food Cook Goals PT [facility] Goals Time Frame: Jun 20, 2018 Transfers (B,C,W/C) (FIM): 6 (met 06/18/18) Sit to Lying (QC): 6 (met 06/18/18) Lying-Sitting on Side/Bed(QC): 6 (met 06/18/18) Sit to Stand (QC): 6 (met 06/18/18) Rollin (met 06/18/18) Roll Left to Right (QC): 6 (met 06/18/18) Chair/Lbj-wn-Xyala Xfer(QC): 6 (met 06/18/18) Gait (FIM): 2 (met 06/18/18) Distance: 50' Walk 10 feet (QC): 4 (met 06/18/18) Walk 50ft with 2 Turns (QC): 4 (met 06/18/18) Gait Assistive Device: FWW PT Plan Treatment/Plan Treatment Plan: Discontinue PT, goals met Treatment Plan: Bed Mobility, Education, Functional Activity Juma, Functional Strength, Gait, Safety, Therapeutic Exercise, Transfers Treatment Duration: Jun 20, 2018 Frequency: 6 times per week Estimated Hrs Per Day: .25 hour per day (15-30') Patient and/or Family Agrees t: Yes Time/GCodes Time In: 950 Time Out: 1009 Total Billed Treatment Time: 19 Total Billed Treatment 1 visit FA 19 min DARLINE CAIN PT Jun 18, 2018 10:18
--- NOTE | 2018-06-18 10:19 | Therapy Team Discharge Summary ---
Therapy Discharge Summary Discharge Recommendations Date of Discharge Therapy D/C Recommendations: Home w/ Family Support Physical Therapy Patient is currently on RA with SAO2 >95% with activity. Patient performs all gross motor skills and functional mobility at [facility]. Patient ambulates with FWW >1000' with no deviation. Patient has attained all functional goals. PT to dismiss patient from services at this time. Occupational Therapy Decreased Activ Tolerance, Decreased UE Strength PT Residential Goals Crumb Packer Goals PT Crumb Packer Goals Time Frame: Jun 20, 2018 Transfers (B,C,W/C) (FIM): 6 (met 06/18/18) Sit to Lying (QC): 6 (met 06/18/18) Lying-Sitting on Side/Bed(QC): 6 (met 06/18/18) Sit to Stand (QC): 6 (met 06/18/18) Rollin (met 06/18/18) Chair/Wrq-dp-Jpzdt Xfer(QC): 6 (met 06/18/18) Gait (FIM): 2 (met 06/18/18) Distance: 50' Walk 50ft with 2 Turns (QC): 4 (met 06/18/18) Gait Assistive Device: FWW OT Crumb Packer Goals Residential Goals Time Frame: Jul 11, 2018 Eating (FIM): 7 Eating (QC): 6 Groomin Oral Hygiene (QC): 6 Bathing(FIM): 7 Bathing Location: L Arm, R Arm, L Upper Leg, R Upper Leg, L Lower Leg ( including foot), R Lower Leg (including foot), Chest Upper Body Dressing(FIM): 7 Lower Body Dressing(FIM): 7 Toileting(FIM): 7 Toileting Hygiene (QC): 6 Transfers (B,C,W/C) (FIM): 7 Toilet/Commode Transfer(FIM): 7 Toilet/Commode Transfer (QC): 6 Tub Transfer(FIM): 0 Shower Transfer(FIM): 7 Additional Goals: 1-Demonstrate ADL Tasks, 2-Verbalize Understanding, 3- ImproveStrength/Juma 1=Demonstrate adherence to instructed precautions during ADL tasks. 2=Patient will verbalize/demonstrate understanding of assistive devices/ modifications for ADL. 3=Patient will improve strength/tolerance for activity to enable patient to perform ADL's. DARLINE CAIN PT Jun 18, 2018 10:19
[2018-06-18] MEDS: DULoxetine 30 MG (CYMBALTA) CAP PO SCH (12:17)
[2018-06-18] MEDS ORDERED: ONDA4TAB11 PO (12:33)
[2018-06-18] MEDS ORDERED: POTA10CA43 PO (12:33)
[2018-06-18] MEDS ORDERED: HYDR-34 PO (12:33)
[2018-06-18] MEDS ORDERED: PRD10T PO (12:33)
--- NOTE | 2018-06-18 12:35 | Discharge Inst-Simple/Standard ---
Discharge Inst-Standard Discharge Medications New, Converted or Re-Newed RX: Transmitted to Pharmacy Patient Instructions/Follow Up Plan of Care/Instructions/FU: Fwup with Dr. Espinosa next week and with me in 2 weeks Activity as Tolerated: Yes Discharge Diet: No Restrictions JANNY JOSEPH DO Jun 18, 2018 12:35
--- NOTE | 2018-06-19 08:36 | Therapy Team Discharge Summary ---
Therapy Discharge Summary Discharge Recommendations Date of Discharge Jun 18, 2018 at 14:48 Therapy D/C Recommendations: Home w/ Family Support Occupational Therapy Decreased Activ Tolerance, Decreased UE Strength PT Equities Analyst Goals Equities Analyst Goals PT Nursing Home Goals Time Frame: Jun 20, 2018 Transfers (B,C,W/C) (FIM): 6 (met 06/18/18) Sit to Lying (QC): 6 (met 06/18/18) Lying-Sitting on Side/Bed(QC): 6 (met 06/18/18) Sit to Stand (QC): 6 (met 06/18/18) Rollin (met 06/18/18) Chair/Ekd-nq-Bulpc Xfer(QC): 6 (met 06/18/18) Gait (FIM): 2 (met 06/18/18) Distance: 50' Walk 50ft with 2 Turns (QC): 4 (met 06/18/18) Gait Assistive Device: FWW OT Nursing Home Goals Nursing Home Goals Time Frame: Jul 11, 2018 Eating (FIM): 7 (7) Eating (QC): 6 (6) Groomin (7) Oral Hygiene (QC): 6 (6) Bathing(FIM): 7 (7) Bathing Location: L Arm, R Arm, L Upper Leg, R Upper Leg, L Lower Leg ( including foot), R Lower Leg (including foot), Chest Upper Body Dressing(FIM): 7 (7) Lower Body Dressing(FIM): 7 (7) Toileting(FIM): 7 (7) Toileting Hygiene (QC): 6 (6) Transfers (B,C,W/C) (FIM): 7 (7) Toilet/Commode Transfer(FIM): 7 (7) Toilet/Commode Transfer (QC): 6 (6) Tub Transfer(FIM): 0 (0 Not applied.) Shower Transfer(FIM): 7 (7) Pt met all goals as PLOF. Additional Goals: 1-Demonstrate ADL Tasks, 2-Verbalize Understanding, 3- ImproveStrength/Juma 1=Demonstrate adherence to instructed precautions during ADL tasks. 2=Patient will verbalize/demonstrate understanding of assistive devices/ modifications for ADL. 3=Patient will improve strength/tolerance for activity to enable patient to perform ADL's. LIO COLLIER OT Jun 19, 2018 08:36
== END 2018-06-18 14:48 | disposition home or self-care (01) | DRG 194 ==
LOC: 4TH 13:15
PROVIDERS: ADMIT Family Medicine; ATTEND Family Medicine
DX: J10.01 Influenza due to other identified influenza virus with the same other identified influenza virus pneumonia (principal); J44.0 Chronic obstructive pulmonary disease with (acute) lower respiratory infection; J18.9 Pneumonia, unspecified organism; J44.1 Chronic obstructive pulmonary disease with (acute) exacerbation; C90.00 Multiple myeloma not having achieved remission; D70.8 Other neutropenia; D69.6 Thrombocytopenia, unspecified; R53.1 Weakness; Z66 Do not resuscitate; K59.01 Slow transit constipation
CPT/HCPCS: 36415; 71045; 80053; 83735; 85007; 85025; 85027; 94640; 94760

== ENCOUNTER 2018-07-24 09:38 | Outpatient (RCR) | payer MEDICARE ==
[2018-05-03 10:59] LABS: BASOPHILS # (AUTO) 0.1 10^3/uL (0.0-0.1); BASOPHILS % (AUTO) 3 % (0-10); EOSINOPHILS # (AUTO) 0.1 10^3/uL (0.0-0.3); EOSINOPHILS % (AUTO) 4 % (0-10); HEMATOCRIT 43 % (35-52); HEMOGLOBIN 14.5 G/DL (11.5-16.0); LYMPHOCYTES # (AUTO) 1.3 X 10^3 (1.0-4.0); LYMPHOCYTES % (AUTO) 44 % (12-44); MEAN CORPUSCULAR HEMOGLOBIN 30 PG (25-34); MEAN CORPUSCULAR HGB CONC 34 G/DL (32-36); MEAN CORPUSCULAR VOLUME 87 FL (80-99); MEAN PLATELET VOLUME 11.8 FL (7.4-10.4); MONOCYTES # (AUTO) 0.3 X 10^3 (0.0-1.0); MONOCYTES % (AUTO) 12 % (0-12); NEUTROPHILS # (AUTO) 1.1 X 10^3 (1.8-7.8); NEUTROPHILS % (AUTO) 38 % (42-75); PLATELET COUNT 134 10^3/uL (130-400); RED CELL DISTRIBUTION WIDTH 14.3 % (10.0-14.5); WHITE BLOOD COUNT 2.9 10^3/uL (4.3-11.0)
[2018-05-03 11:19] LABS: BUN/CREATININE RATIO 15; CARBON DIOXIDE 24 MMOL/L (21-32); CHLORIDE 101 MMOL/L (98-107); CREATININE SERUM 0.75 MG/DL (0.60-1.30); POTASSIUM 2.9 MMOL/L (3.6-5.0); SODIUM 137 MMOL/L (135-145)
[2018-05-03 11:20] LABS: ALANINE AMINOTRANSFERASE 21 U/L (0-55); ALBUMIN 3.9 GM/DL (3.2-4.5); ALKALINE PHOSPHATASE 52 U/L (40-136); BILIRUBIN,TOTAL 0.5 MG/DL (0.1-1.0); CALCIUM 9.3 MG/DL (8.5-10.1); GFR ESTIMATED > 60; GLUCOSE 100 MG/DL (70-105); MAGNESIUM 1.7 MG/DL (1.8-2.4)
[2018-05-29 10:05] LABS: BASOPHILS # (AUTO) 0.1 10^3/uL (0.0-0.1); BASOPHILS % (AUTO) 3 % (0-10); EOSINOPHILS # (AUTO) 0.2 10^3/uL (0.0-0.3); EOSINOPHILS % (AUTO) 7 % (0-10); HEMATOCRIT 44 % (35-52); HEMOGLOBIN 15.1 G/DL (11.5-16.0); LYMPHOCYTES # (AUTO) 1.2 X 10^3 (1.0-4.0); LYMPHOCYTES % (AUTO) 32 % (12-44); MEAN CORPUSCULAR HEMOGLOBIN 31 PG (25-34); MEAN CORPUSCULAR HGB CONC 34 G/DL (32-36); MEAN CORPUSCULAR VOLUME 90 FL (80-99); MEAN PLATELET VOLUME 11.2 FL (7.4-10.4); MONOCYTES # (AUTO) 0.6 X 10^3 (0.0-1.0); MONOCYTES % (AUTO) 16 % (0-12); NEUTROPHILS # (AUTO) 1.6 X 10^3 (1.8-7.8); NEUTROPHILS % (AUTO) 43 % (42-75); PLATELET COUNT 198 10^3/uL (130-400); RED CELL DISTRIBUTION WIDTH 15.6 % (10.0-14.5); WHITE BLOOD COUNT 3.6 10^3/uL (4.3-11.0)
[2018-05-29 10:29] LABS: ALANINE AMINOTRANSFERASE 32 U/L (0-55); ALBUMIN 4.1 GM/DL (3.2-4.5); ALKALINE PHOSPHATASE 55 U/L (40-136); BILIRUBIN,TOTAL 0.6 MG/DL (0.1-1.0); BUN/CREATININE RATIO 13; CALCIUM 9.2 MG/DL (8.5-10.1); CARBON DIOXIDE 25 MMOL/L (21-32); CHLORIDE 105 MMOL/L (98-107); CREATININE SERUM 0.79 MG/DL (0.60-1.30); GFR ESTIMATED > 60; GLUCOSE 96 MG/DL (70-105); POTASSIUM 3.4 MMOL/L (3.6-5.0); SODIUM 139 MMOL/L (135-145); TOTAL PROTEIN 7.1 GM/DL (6.4-8.2)
[2018-06-26 11:00] LABS: BASOPHILS % (AUTO) 1 % (0-10); EOSINOPHILS # (AUTO) 0.1 10^3/uL (0.0-0.3); EOSINOPHILS % (AUTO) 2 % (0-10); HEMATOCRIT 41 % (35-52); HEMOGLOBIN 13.8 G/DL (11.5-16.0); LYMPHOCYTES # (AUTO) 1.4 X 10^3 (1.0-4.0); LYMPHOCYTES % (AUTO) 28 % (12-44); MEAN CORPUSCULAR HEMOGLOBIN 31 PG (25-34); MEAN CORPUSCULAR HGB CONC 33 G/DL (32-36); MEAN CORPUSCULAR VOLUME 93 FL (80-99); MEAN PLATELET VOLUME 10.3 FL (7.4-10.4); MONOCYTES # (AUTO) 0.7 X 10^3 (0.0-1.0); MONOCYTES % (AUTO) 13 % (0-12); NEUTROPHILS # (AUTO) 2.8 X 10^3 (1.8-7.8); NEUTROPHILS % (AUTO) 55 % (42-75); PLATELET COUNT 222 10^3/uL (130-400); RED CELL DISTRIBUTION WIDTH 16.9 % (10.0-14.5)
[2018-06-26 11:18] LABS: ALANINE AMINOTRANSFERASE 30 U/L (0-55); ALBUMIN 3.6 GM/DL (3.2-4.5); ALKALINE PHOSPHATASE 82 U/L (40-136); BILIRUBIN,TOTAL 0.4 MG/DL (0.1-1.0); BUN/CREATININE RATIO 22; CALCIUM 9.2 MG/DL (8.5-10.1); CARBON DIOXIDE 23 MMOL/L (21-32); CHLORIDE 108 MMOL/L (98-107); CREATININE SERUM 0.74 MG/DL (0.60-1.30); GFR ESTIMATED > 60; GLUCOSE 102 MG/DL (70-105); MAGNESIUM 1.6 MG/DL (1.8-2.4); POTASSIUM 4.1 MMOL/L (3.6-5.0); SODIUM 139 MMOL/L (135-145); TOTAL PROTEIN 6.3 GM/DL (6.4-8.2)
[~2018-07-24 09:38] MED LIST changes: +HYDR-34 PO; +ONDA4TAB11 PO; +PRD10T PO; +ZOLEDRONIC ACID (CANCER CTR) 4 MG in NS (IVPB) CANCER CENTER 100 ML IV SCH
[2018-07-24 10:15] LABS: BASOPHILS # (AUTO) 0.1 10^3/uL (0.0-0.1); BASOPHILS % (AUTO) 2 % (0-10); EOSINOPHILS # (AUTO) 0.1 10^3/uL (0.0-0.3); EOSINOPHILS % (AUTO) 2 % (0-10); HEMATOCRIT 43 % (35-52); HEMOGLOBIN 14.4 G/DL (11.5-16.0); LYMPHOCYTES # (AUTO) 1.6 X 10^3 (1.0-4.0); LYMPHOCYTES % (AUTO) 42 % (12-44); MEAN CORPUSCULAR HEMOGLOBIN 31 PG (25-34); MEAN CORPUSCULAR HGB CONC 34 G/DL (32-36); MEAN CORPUSCULAR VOLUME 92 FL (80-99); MEAN PLATELET VOLUME 10.4 FL (7.4-10.4); MONOCYTES # (AUTO) 0.6 X 10^3 (0.0-1.0); MONOCYTES % (AUTO) 17 % (0-12); NEUTROPHILS # (AUTO) 1.4 X 10^3 (1.8-7.8); NEUTROPHILS % (AUTO) 37 % (42-75); PLATELET COUNT 238 10^3/uL (130-400); WHITE BLOOD COUNT 3.8 10^3/uL (4.3-11.0)
[2018-07-24 10:32] LABS: ALANINE AMINOTRANSFERASE 16 U/L (0-55); ALBUMIN 3.9 GM/DL (3.2-4.5); ALKALINE PHOSPHATASE 60 U/L (40-136); BILIRUBIN,TOTAL 0.4 MG/DL (0.1-1.0); BUN/CREATININE RATIO 14; CARBON DIOXIDE 25 MMOL/L (21-32); CHLORIDE 109 MMOL/L (98-107); CREATININE SERUM 0.69 MG/DL (0.60-1.30); GFR ESTIMATED > 60; GLUCOSE 100 MG/DL (70-105); MAGNESIUM 1.7 MG/DL (1.8-2.4); POTASSIUM 3.9 MMOL/L (3.6-5.0); SODIUM 142 MMOL/L (135-145); TOTAL PROTEIN 6.7 GM/DL (6.4-8.2)
== END 2018-08-01 | disposition home or self-care (01) ==
LOC: ONC 09:38
PROVIDERS: ATTEND Internal Medicine Hematology & Oncology
DX: C90.00 Multiple myeloma not having achieved remission (principal); D70.9 Neutropenia, unspecified; D64.9 Anemia, unspecified; M81.0 Age-related osteoporosis without current pathological fracture; K21.9 Gastro-esophageal reflux disease without esophagitis; J44.9 Chronic obstructive pulmonary disease, unspecified; I10 Essential (primary) hypertension; E87.6 Hypokalemia; Z79.82 Long term (current) use of aspirin; Z79.899 Other long term (current) drug therapy
CPT/HCPCS: 36415; 80053; 82232; 82784; 83735; 83883; 84155; 84165; 85025; 96365

== ENCOUNTER 2018-11-13 10:29 | Outpatient (RCR) | payer MEDICARE ==
[2018-08-21 11:20] LABS: BASOPHILS # (AUTO) 0.1 10^3/uL (0.0-0.1); BASOPHILS % (AUTO) 3 % (0-10); EOSINOPHILS # (AUTO) 0.2 10^3/uL (0.0-0.3); EOSINOPHILS % (AUTO) 5 % (0-10); HEMATOCRIT 41 % (35-52); HEMOGLOBIN 14.2 G/DL (11.5-16.0); LYMPHOCYTES # (AUTO) 1.9 X 10^3 (1.0-4.0); LYMPHOCYTES % (AUTO) 50 % (12-44); MEAN CORPUSCULAR HEMOGLOBIN 30 PG (25-34); MEAN CORPUSCULAR HGB CONC 34 G/DL (32-36); MEAN CORPUSCULAR VOLUME 88 FL (80-99); MEAN PLATELET VOLUME 10.7 FL (7.4-10.4); MONOCYTES # (AUTO) 0.5 X 10^3 (0.0-1.0); MONOCYTES % (AUTO) 12 % (0-12); NEUTROPHILS # (AUTO) 1.2 X 10^3 (1.8-7.8); NEUTROPHILS % (AUTO) 30 % (42-75); PLATELET COUNT 233 10^3/uL (130-400); RED CELL DISTRIBUTION WIDTH 14.8 % (10.0-14.5); WHITE BLOOD COUNT 3.8 10^3/uL (4.3-11.0)
[2018-08-21 11:46] LABS: ALANINE AMINOTRANSFERASE 14 U/L (0-55); ALBUMIN 3.8 GM/DL (3.2-4.5); ALKALINE PHOSPHATASE 53 U/L (40-136); BILIRUBIN,TOTAL 0.4 MG/DL (0.1-1.0); BUN/CREATININE RATIO 11; CARBON DIOXIDE 21 MMOL/L (21-32); CHLORIDE 108 MMOL/L (98-107); GFR ESTIMATED > 60; GLUCOSE 98 MG/DL (70-105); MAGNESIUM 1.6 MG/DL (1.8-2.4); POTASSIUM 3.2 MMOL/L (3.6-5.0); SODIUM 142 MMOL/L (135-145); TOTAL PROTEIN 6.3 GM/DL (6.4-8.2)
[2018-09-18 09:17] LABS: BASOPHILS # (AUTO) 0.1 10^3/uL (0.0-0.1); BASOPHILS % (AUTO) 3 % (0-10); EOSINOPHILS # (AUTO) 0.2 10^3/uL (0.0-0.3); EOSINOPHILS % (AUTO) 6 % (0-10); HEMATOCRIT 45 % (35-52); HEMOGLOBIN 14.6 G/DL (11.5-16.0); LYMPHOCYTES # (AUTO) 1.5 X 10^3 (1.0-4.0); LYMPHOCYTES % (AUTO) 44 % (12-44); MEAN CORPUSCULAR HEMOGLOBIN 29 PG (25-34); MEAN CORPUSCULAR HGB CONC 33 G/DL (32-36); MEAN CORPUSCULAR VOLUME 89 FL (80-99); MEAN PLATELET VOLUME 10.6 FL (7.4-10.4); MONOCYTES # (AUTO) 0.4 X 10^3 (0.0-1.0); MONOCYTES % (AUTO) 13 % (0-12); NEUTROPHILS # (AUTO) 1.1 X 10^3 (1.8-7.8); NEUTROPHILS % (AUTO) 34 % (42-75); PLATELET COUNT 186 10^3/uL (130-400); RED CELL DISTRIBUTION WIDTH 14.5 % (10.0-14.5); WHITE BLOOD COUNT 3.3 10^3/uL (4.3-11.0)
[2018-09-18 09:42] LABS: ALANINE AMINOTRANSFERASE 13 U/L (0-55); ALKALINE PHOSPHATASE 56 U/L (40-136); BILIRUBIN,TOTAL 0.4 MG/DL (0.1-1.0); BUN/CREATININE RATIO 15; CALCIUM 9.3 MG/DL (8.5-10.1); CARBON DIOXIDE 23 MMOL/L (21-32); CHLORIDE 107 MMOL/L (98-107); CREATININE SERUM 0.74 MG/DL (0.60-1.30); GFR ESTIMATED > 60; GLUCOSE 94 MG/DL (70-105); MAGNESIUM 1.9 MG/DL (1.8-2.4); POTASSIUM 3.7 MMOL/L (3.6-5.0); SODIUM 141 MMOL/L (135-145); TOTAL PROTEIN 6.9 GM/DL (6.4-8.2)
[2018-09-24 13:38] LABS: BASOPHILS # (AUTO) 0.1 10^3/uL (0.0-0.1); BASOPHILS % (AUTO) 2 % (0-10); EOSINOPHILS # (AUTO) 0.2 10^3/uL (0.0-0.3); EOSINOPHILS % (AUTO) 4 % (0-10); HEMATOCRIT 42 % (35-52); HEMOGLOBIN 13.7 G/DL (11.5-16.0); LYMPHOCYTES # (AUTO) 2.1 X 10^3 (1.0-4.0); LYMPHOCYTES % (AUTO) 50 % (12-44); MEAN CORPUSCULAR HEMOGLOBIN 30 PG (25-34); MEAN CORPUSCULAR HGB CONC 33 G/DL (32-36); MEAN CORPUSCULAR VOLUME 91 FL (80-99); MEAN PLATELET VOLUME 10.3 FL (7.4-10.4); MONOCYTES # (AUTO) 0.6 X 10^3 (0.0-1.0); MONOCYTES % (AUTO) 15 % (0-12); NEUTROPHILS # (AUTO) 1.2 X 10^3 (1.8-7.8); NEUTROPHILS % (AUTO) 29 % (42-75); PLATELET COUNT 256 10^3/uL (130-400); RED CELL DISTRIBUTION WIDTH 14.4 % (10.0-14.5); WHITE BLOOD COUNT 4.2 10^3/uL (4.3-11.0)
[2018-10-16 11:05] LABS: BASOPHILS % (AUTO) 1 % (0-10); EOSINOPHILS # (AUTO) 0.2 10^3/uL (0.0-0.3); EOSINOPHILS % (AUTO) 7 % (0-10); HEMATOCRIT 44 % (35-52); HEMOGLOBIN 14.8 G/DL (11.5-16.0); LYMPHOCYTES # (AUTO) 1.3 X 10^3 (1.0-4.0); LYMPHOCYTES % (AUTO) 41 % (12-44); MEAN CORPUSCULAR HEMOGLOBIN 29 PG (25-34); MEAN CORPUSCULAR HGB CONC 33 G/DL (32-36); MEAN CORPUSCULAR VOLUME 88 FL (80-99); MEAN PLATELET VOLUME 10.9 FL (7.4-10.4); MONOCYTES # (AUTO) 0.5 X 10^3 (0.0-1.0); MONOCYTES % (AUTO) 16 % (0-12); NEUTROPHILS # (AUTO) 1.1 X 10^3 (1.8-7.8); NEUTROPHILS % (AUTO) 34 % (42-75); PLATELET COUNT 169 10^3/uL (130-400); RED CELL DISTRIBUTION WIDTH 14.9 % (10.0-14.5); WHITE BLOOD COUNT 3.1 10^3/uL (4.3-11.0)
[2018-10-16 11:22] LABS: ALANINE AMINOTRANSFERASE 13 U/L (0-55); ALKALINE PHOSPHATASE 56 U/L (40-136); BILIRUBIN,TOTAL 0.5 MG/DL (0.1-1.0); BUN/CREATININE RATIO 13; CALCIUM 9.2 MG/DL (8.5-10.1); CARBON DIOXIDE 23 MMOL/L (21-32); CHLORIDE 106 MMOL/L (98-107); GFR ESTIMATED > 60; GLUCOSE 88 MG/DL (70-105); POTASSIUM 3.4 MMOL/L (3.6-5.0); SODIUM 139 MMOL/L (135-145); TOTAL PROTEIN 6.7 GM/DL (6.4-8.2)
[2018-10-22 12:02] LABS: BASOPHILS # (AUTO) 0.1 10^3/uL (0.0-0.1); BASOPHILS % (AUTO) 2 % (0-10); EOSINOPHILS # (AUTO) 0.1 10^3/uL (0.0-0.3); EOSINOPHILS % (AUTO) 2 % (0-10); HEMATOCRIT 43 % (35-52); HEMOGLOBIN 14.5 G/DL (11.5-16.0); LYMPHOCYTES # (AUTO) 2.2 X 10^3 (1.0-4.0); LYMPHOCYTES % (AUTO) 52 % (12-44); MEAN CORPUSCULAR HEMOGLOBIN 30 PG (25-34); MEAN CORPUSCULAR HGB CONC 34 G/DL (32-36); MEAN CORPUSCULAR VOLUME 88 FL (80-99); MEAN PLATELET VOLUME 10.1 FL (7.4-10.4); MONOCYTES # (AUTO) 0.6 X 10^3 (0.0-1.0); MONOCYTES % (AUTO) 14 % (0-12); NEUTROPHILS # (AUTO) 1.3 X 10^3 (1.8-7.8); NEUTROPHILS % (AUTO) 30 % (42-75); PLATELET COUNT 286 10^3/uL (130-400); RED CELL DISTRIBUTION WIDTH 14.9 % (10.0-14.5); WHITE BLOOD COUNT 4.2 10^3/uL (4.3-11.0)
[~2018-11-13 10:29] MED LIST changes: -CA C1TAB80 PO; -DULO30CA48 PO; +DULO30CA49 PO; -OMEP20CA12 PO; +OMEP20CA13 PO; +VIACTIV SOFT C1 EAC1 PO
[2018-11-13 11:09] LABS: BASOPHILS % (AUTO) 1 % (0-10); EOSINOPHILS # (AUTO) 0.2 10^3/uL (0.0-0.3); EOSINOPHILS % (AUTO) 5 % (0-10); HEMATOCRIT 45 % (35-52); HEMOGLOBIN 15.1 G/DL (11.5-16.0); LYMPHOCYTES # (AUTO) 1.4 X 10^3 (1.0-4.0); LYMPHOCYTES % (AUTO) 33 % (12-44); MEAN CORPUSCULAR HEMOGLOBIN 29 PG (25-34); MEAN CORPUSCULAR HGB CONC 33 G/DL (32-36); MEAN CORPUSCULAR VOLUME 88 FL (80-99); MEAN PLATELET VOLUME 11.1 FL (7.4-10.4); MONOCYTES # (AUTO) 0.7 X 10^3 (0.0-1.0); MONOCYTES % (AUTO) 16 % (0-12); NEUTROPHILS # (AUTO) 1.9 X 10^3 (1.8-7.8); NEUTROPHILS % (AUTO) 45 % (42-75); PLATELET COUNT 168 10^3/uL (130-400); RED CELL DISTRIBUTION WIDTH 15.9 % (10.0-14.5); WHITE BLOOD COUNT 4.2 10^3/uL (4.3-11.0)
[2018-11-13 11:28] LABS: ALANINE AMINOTRANSFERASE 13 U/L (0-55); ALKALINE PHOSPHATASE 64 U/L (40-136); BILIRUBIN,TOTAL 0.5 MG/DL (0.1-1.0); BUN/CREATININE RATIO 13; CALCIUM 9.3 MG/DL (8.5-10.1); CARBON DIOXIDE 22 MMOL/L (21-32); CHLORIDE 108 MMOL/L (98-107); CREATININE SERUM 0.78 MG/DL (0.60-1.30); GFR ESTIMATED > 60; GLUCOSE 94 MG/DL (70-105); POTASSIUM 3.5 MMOL/L (3.6-5.0); SODIUM 142 MMOL/L (135-145)
== END 2018-11-19 | disposition home or self-care (01) ==
LOC: ONC 10:29
PROVIDERS: ATTEND Internal Medicine Hematology & Oncology
DX: C90.00 Multiple myeloma not having achieved remission (principal); D70.9 Neutropenia, unspecified; D64.9 Anemia, unspecified; M81.0 Age-related osteoporosis without current pathological fracture; K21.9 Gastro-esophageal reflux disease without esophagitis; J44.9 Chronic obstructive pulmonary disease, unspecified; I10 Essential (primary) hypertension; E87.6 Hypokalemia; Z79.82 Long term (current) use of aspirin; Z79.899 Other long term (current) drug therapy
CPT/HCPCS: 36415; 80053; 82232; 82784; 83735; 83883; 84155; 84165; 85025; 96365

== ENCOUNTER 2019-02-18 09:53 | Outpatient (RCR) | payer MEDICARE ==
[2018-11-27 09:59] LABS: BASOPHILS # (AUTO) 0.1 10^3/uL (0.0-0.1); BASOPHILS % (AUTO) 3 % (0-10); EOSINOPHILS # (AUTO) 0.1 10^3/uL (0.0-0.3); EOSINOPHILS % (AUTO) 2 % (0-10); HEMATOCRIT 43 % (35-52); HEMOGLOBIN 14.6 G/DL (11.5-16.0); LYMPHOCYTES % (AUTO) 46 % (12-44); MEAN CORPUSCULAR HEMOGLOBIN 30 PG (25-34); MEAN CORPUSCULAR HGB CONC 34 G/DL (32-36); MEAN CORPUSCULAR VOLUME 88 FL (80-99); MEAN PLATELET VOLUME 9.9 FL (7.4-10.4); MONOCYTES # (AUTO) 0.6 X 10^3 (0.0-1.0); MONOCYTES % (AUTO) 13 % (0-12); NEUTROPHILS # (AUTO) 1.6 X 10^3 (1.8-7.8); NEUTROPHILS % (AUTO) 36 % (42-75); PLATELET COUNT 287 10^3/uL (130-400); RED CELL DISTRIBUTION WIDTH 16.1 % (10.0-14.5); WHITE BLOOD COUNT 4.4 10^3/uL (4.3-11.0)
[2018-12-24 09:57] LABS: BASOPHILS # (AUTO) 0.1 10^3/uL (0.0-0.1); BASOPHILS % (AUTO) 3 % (0-10); EOSINOPHILS # (AUTO) 0.1 10^3/uL (0.0-0.3); EOSINOPHILS % (AUTO) 2 % (0-10); HEMATOCRIT 44 % (35-52); HEMOGLOBIN 14.8 G/DL (11.5-16.0); LYMPHOCYTES # (AUTO) 1.7 X 10^3 (1.0-4.0); LYMPHOCYTES % (AUTO) 48 % (12-44); MEAN CORPUSCULAR HEMOGLOBIN 30 PG (25-34); MEAN CORPUSCULAR HGB CONC 33 G/DL (32-36); MEAN CORPUSCULAR VOLUME 89 FL (80-99); MEAN PLATELET VOLUME 10.4 FL (7.4-10.4); MONOCYTES # (AUTO) 0.4 X 10^3 (0.0-1.0); MONOCYTES % (AUTO) 11 % (0-12); NEUTROPHILS # (AUTO) 1.3 X 10^3 (1.8-7.8); NEUTROPHILS % (AUTO) 36 % (42-75); PLATELET COUNT 234 10^3/uL (130-400); RED CELL DISTRIBUTION WIDTH 15.5 % (10.0-14.5); WHITE BLOOD COUNT 3.5 10^3/uL (4.3-11.0)
[2018-12-24 10:27] LABS: ALANINE AMINOTRANSFERASE 13 U/L (0-55); ALBUMIN 4.1 GM/DL (3.2-4.5); ALKALINE PHOSPHATASE 54 U/L (40-136); BILIRUBIN,TOTAL 0.4 MG/DL (0.1-1.0); BUN/CREATININE RATIO 16; CALCIUM 9.4 MG/DL (8.5-10.1); CARBON DIOXIDE 23 MMOL/L (21-32); CHLORIDE 108 MMOL/L (98-107); CREATININE SERUM 0.77 MG/DL (0.60-1.30); GFR ESTIMATED > 60; GLUCOSE 91 MG/DL (70-105); MAGNESIUM 1.9 MG/DL (1.6-2.4); POTASSIUM 3.7 MMOL/L (3.6-5.0); SODIUM 140 MMOL/L (135-145)
[2019-01-21 10:33] LABS: BASOPHILS # (AUTO) 0.1 10^3/uL (0.0-0.1); BASOPHILS % (AUTO) 2 % (0-10); EOSINOPHILS # (AUTO) 0.1 10^3/uL (0.0-0.3); EOSINOPHILS % (AUTO) 3 % (0-10); HEMATOCRIT 43 % (35-52); HEMOGLOBIN 14.3 G/DL (11.5-16.0); LYMPHOCYTES # (AUTO) 1.4 X 10^3 (1.0-4.0); LYMPHOCYTES % (AUTO) 39 % (12-44); MEAN CORPUSCULAR HEMOGLOBIN 30 PG (25-34); MEAN CORPUSCULAR HGB CONC 34 G/DL (32-36); MEAN CORPUSCULAR VOLUME 89 FL (80-99); MEAN PLATELET VOLUME 9.9 FL (7.4-10.4); MONOCYTES # (AUTO) 0.4 X 10^3 (0.0-1.0); MONOCYTES % (AUTO) 12 % (0-12); NEUTROPHILS # (AUTO) 1.6 X 10^3 (1.8-7.8); NEUTROPHILS % (AUTO) 45 % (42-75); PLATELET COUNT 291 10^3/uL (130-400); RED CELL DISTRIBUTION WIDTH 14.9 % (10.0-14.5); WHITE BLOOD COUNT 3.5 10^3/uL (4.3-11.0)
[2019-01-21 10:51] LABS: ALANINE AMINOTRANSFERASE 10 U/L (0-55); ALBUMIN 3.8 GM/DL (3.2-4.5); ALKALINE PHOSPHATASE 60 U/L (40-136); BILIRUBIN,TOTAL 0.3 MG/DL (0.1-1.0); BUN/CREATININE RATIO 14; CALCIUM 8.9 MG/DL (8.5-10.1); CARBON DIOXIDE 24 MMOL/L (21-32); CHLORIDE 106 MMOL/L (98-107); CREATININE SERUM 0.78 MG/DL (0.60-1.30); GFR ESTIMATED > 60; GLUCOSE 99 MG/DL (70-105); MAGNESIUM 1.8 MG/DL (1.6-2.4); POTASSIUM 3.3 MMOL/L (3.6-5.0); SODIUM 139 MMOL/L (135-145); TOTAL PROTEIN 6.7 GM/DL (6.4-8.2)
[2019-02-18 10:10] LABS: BASOPHILS # (AUTO) 0.1 10^3/uL (0.0-0.1); BASOPHILS % (AUTO) 3 % (0-10); EOSINOPHILS # (AUTO) 0.1 10^3/uL (0.0-0.3); EOSINOPHILS % (AUTO) 2 % (0-10); HEMATOCRIT 45 % (35-52); HEMOGLOBIN 14.8 G/DL (11.5-16.0); LYMPHOCYTES # (AUTO) 1.8 X 10^3 (1.0-4.0); LYMPHOCYTES % (AUTO) 46 % (12-44); MEAN CORPUSCULAR HEMOGLOBIN 30 PG (25-34); MEAN CORPUSCULAR HGB CONC 33 G/DL (32-36); MEAN CORPUSCULAR VOLUME 89 FL (80-99); MEAN PLATELET VOLUME 10.1 FL (7.4-10.4); MONOCYTES # (AUTO) 0.5 X 10^3 (0.0-1.0); MONOCYTES % (AUTO) 13 % (0-12); NEUTROPHILS # (AUTO) 1.4 X 10^3 (1.8-7.8); NEUTROPHILS % (AUTO) 36 % (42-75); PLATELET COUNT 238 10^3/uL (130-400); RED CELL DISTRIBUTION WIDTH 15.3 % (10.0-14.5); WHITE BLOOD COUNT 3.8 10^3/uL (4.3-11.0)
[2019-02-18 10:27] LABS: ALANINE AMINOTRANSFERASE 13 U/L (0-55); ALBUMIN 4.2 GM/DL (3.2-4.5); ALKALINE PHOSPHATASE 51 U/L (40-136); BILIRUBIN,TOTAL 0.5 MG/DL (0.1-1.0); BUN/CREATININE RATIO 15; CALCIUM 9.7 MG/DL (8.5-10.1); CARBON DIOXIDE 25 MMOL/L (21-32); CHLORIDE 104 MMOL/L (98-107); CREATININE SERUM 0.78 MG/DL (0.60-1.30); GFR ESTIMATED > 60; GLUCOSE 94 MG/DL (70-105); MAGNESIUM 1.6 MG/DL (1.6-2.4); POTASSIUM 3.8 MMOL/L (3.6-5.0); SODIUM 140 MMOL/L (135-145); TOTAL PROTEIN 7.2 GM/DL (6.4-8.2)
== END 2019-02-25 | disposition home or self-care (01) ==
LOC: ONC 09:53
PROVIDERS: ATTEND Internal Medicine Hematology & Oncology
DX: C90.00 Multiple myeloma not having achieved remission (principal); D70.9 Neutropenia, unspecified; D64.9 Anemia, unspecified; M81.0 Age-related osteoporosis without current pathological fracture; K21.9 Gastro-esophageal reflux disease without esophagitis; J44.9 Chronic obstructive pulmonary disease, unspecified; I10 Essential (primary) hypertension; E87.6 Hypokalemia; Z79.82 Long term (current) use of aspirin; Z79.899 Other long term (current) drug therapy
CPT/HCPCS: 36415; 80053; 82232; 82784; 83735; 83883; 85025; 96365

== ENCOUNTER 2019-07-09 10:30 | Outpatient (RCR) | payer MEDICARE ==
[2019-04-11 09:45] LABS: BASOPHILS % (AUTO) 1 % (0-10); EOSINOPHILS # (AUTO) 0.1 10^3/uL (0.0-0.3); EOSINOPHILS % (AUTO) 4 % (0-10); HEMATOCRIT 43 % (35-52); HEMOGLOBIN 14.4 G/DL (11.5-16.0); LYMPHOCYTES # (AUTO) 1.3 X 10^3 (1.0-4.0); LYMPHOCYTES % (AUTO) 47 % (12-44); MEAN CORPUSCULAR HEMOGLOBIN 30 PG (25-34); MEAN CORPUSCULAR HGB CONC 34 G/DL (32-36); MEAN CORPUSCULAR VOLUME 89 FL (80-99); MONOCYTES # (AUTO) 0.4 X 10^3 (0.0-1.0); MONOCYTES % (AUTO) 13 % (0-12); NEUTROPHILS % (AUTO) 36 % (42-75); PLATELET COUNT 200 10^3/uL (130-400); RED CELL DISTRIBUTION WIDTH 15.4 % (10.0-14.5); WHITE BLOOD COUNT 2.8 10^3/uL (4.3-11.0)
[2019-04-11 10:09] LABS: ALANINE AMINOTRANSFERASE 11 U/L (0-55); ALBUMIN 3.9 GM/DL (3.2-4.5); ALKALINE PHOSPHATASE 51 U/L (40-136); BILIRUBIN,TOTAL 0.5 MG/DL (0.1-1.0); BUN/CREATININE RATIO 12; CALCIUM 8.9 MG/DL (8.5-10.1); CARBON DIOXIDE 22 MMOL/L (21-32); CHLORIDE 105 MMOL/L (98-107); CREATININE SERUM 0.78 MG/DL (0.60-1.30); GFR ESTIMATED > 60; GLUCOSE 90 MG/DL (70-105); MAGNESIUM 1.7 MG/DL (1.6-2.4); POTASSIUM 3.3 MMOL/L (3.6-5.0); SODIUM 138 MMOL/L (135-145); TOTAL PROTEIN 6.7 GM/DL (6.4-8.2)
[2019-05-16 10:40] LABS: BASOPHILS # (AUTO) 0.1 10^3/uL (0.0-0.1); BASOPHILS % (AUTO) 2 % (0-10); EOSINOPHILS # (AUTO) 0.1 10^3/uL (0.0-0.3); EOSINOPHILS % (AUTO) 4 % (0-10); HEMATOCRIT 43 % (35-52); HEMOGLOBIN 14.3 G/DL (11.5-16.0); LYMPHOCYTES # (AUTO) 1.1 X 10^3 (1.0-4.0); LYMPHOCYTES % (AUTO) 43 % (12-44); MEAN CORPUSCULAR HEMOGLOBIN 30 PG (25-34); MEAN CORPUSCULAR HGB CONC 33 G/DL (32-36); MEAN CORPUSCULAR VOLUME 92 FL (80-99); MEAN PLATELET VOLUME 10.8 FL (7.4-10.4); MONOCYTES # (AUTO) 0.4 X 10^3 (0.0-1.0); MONOCYTES % (AUTO) 14 % (0-12); NEUTROPHILS # (AUTO) 0.9 X 10^3 (1.8-7.8); NEUTROPHILS % (AUTO) 36 % (42-75); PLATELET COUNT 179 10^3/uL (130-400); RED CELL DISTRIBUTION WIDTH 15.8 % (10.0-14.5); WHITE BLOOD COUNT 2.5 10^3/uL (4.3-11.0)
[2019-05-16 10:52] LABS: ALANINE AMINOTRANSFERASE 12 U/L (0-55); ALKALINE PHOSPHATASE 52 U/L (40-136); BILIRUBIN,TOTAL 0.4 MG/DL (0.1-1.0); BUN/CREATININE RATIO 17; CALCIUM 9.2 MG/DL (8.5-10.1); CARBON DIOXIDE 21 MMOL/L (21-32); CHLORIDE 105 MMOL/L (98-107); CREATININE SERUM 0.77 MG/DL (0.60-1.30); GFR ESTIMATED > 60; GLUCOSE 95 MG/DL (70-105); MAGNESIUM 1.8 MG/DL (1.6-2.4); POTASSIUM 3.5 MMOL/L (3.6-5.0); SODIUM 137 MMOL/L (135-145); TOTAL PROTEIN 6.7 GM/DL (6.4-8.2)
[2019-06-13 10:34] LABS: BASOPHILS # (AUTO) 0.1 10^3/uL (0.0-0.1); BASOPHILS % (AUTO) 2 % (0-10); EOSINOPHILS # (AUTO) 0.2 10^3/uL (0.0-0.3); EOSINOPHILS % (AUTO) 7 % (0-10); HEMATOCRIT 42 % (35-52); HEMOGLOBIN 14.1 G/DL (11.5-16.0); LYMPHOCYTES % (AUTO) 33 % (12-44); MEAN CORPUSCULAR HEMOGLOBIN 30 PG (25-34); MEAN CORPUSCULAR HGB CONC 33 G/DL (32-36); MEAN CORPUSCULAR VOLUME 91 FL (80-99); MEAN PLATELET VOLUME 10.7 FL (7.4-10.4); MONOCYTES # (AUTO) 0.5 X 10^3 (0.0-1.0); MONOCYTES % (AUTO) 15 % (0-12); NEUTROPHILS # (AUTO) 1.4 X 10^3 (1.8-7.8); NEUTROPHILS % (AUTO) 44 % (42-75); PLATELET COUNT 170 10^3/uL (130-400); RED CELL DISTRIBUTION WIDTH 14.9 % (10.0-14.5); WHITE BLOOD COUNT 3.1 10^3/uL (4.3-11.0)
[2019-06-13 10:51] LABS: ALANINE AMINOTRANSFERASE 9 U/L (0-55); ALBUMIN 3.9 GM/DL (3.2-4.5); ALKALINE PHOSPHATASE 52 U/L (40-136); BILIRUBIN,TOTAL 0.5 MG/DL (0.1-1.0); BUN/CREATININE RATIO 15; CALCIUM 9.1 MG/DL (8.5-10.1); CARBON DIOXIDE 26 MMOL/L (21-32); CHLORIDE 104 MMOL/L (98-107); CREATININE SERUM 0.81 MG/DL (0.60-1.30); GFR ESTIMATED > 60; GLUCOSE 94 MG/DL (70-105); MAGNESIUM 2.3 MG/DL (1.6-2.4); POTASSIUM 3.2 MMOL/L (3.6-5.0); SODIUM 138 MMOL/L (135-145); TOTAL PROTEIN 6.9 GM/DL (6.4-8.2)
[~2019-07-09 10:30] MED LIST changes: -MAGN400T6 PO; +MAGN400T8 PO; -OMEP20CA13 PO; +OMEP20CA18 PO
[2019-07-09 10:52] LABS: BASOPHILS # (AUTO) 0.1 10^3/uL (0.0-0.1); BASOPHILS % (AUTO) 2 % (0-10); EOSINOPHILS # (AUTO) 0.3 10^3/uL (0.0-0.3); EOSINOPHILS % (AUTO) 8 % (0-10); HEMATOCRIT 44 % (35-52); HEMOGLOBIN 14.4 G/DL (11.5-16.0); LYMPHOCYTES # (AUTO) 1.3 X 10^3 (1.0-4.0); LYMPHOCYTES % (AUTO) 39 % (12-44); MEAN CORPUSCULAR HEMOGLOBIN 30 PG (25-34); MEAN CORPUSCULAR HGB CONC 33 G/DL (32-36); MEAN CORPUSCULAR VOLUME 91 FL (80-99); MEAN PLATELET VOLUME 11.4 FL (7.4-10.4); MONOCYTES # (AUTO) 0.6 X 10^3 (0.0-1.0); MONOCYTES % (AUTO) 16 % (0-12); NEUTROPHILS # (AUTO) 1.2 X 10^3 (1.8-7.8); NEUTROPHILS % (AUTO) 36 % (42-75); PLATELET COUNT 141 10^3/uL (130-400); RED CELL DISTRIBUTION WIDTH 14.9 % (10.0-14.5); WHITE BLOOD COUNT 3.5 10^3/uL (4.3-11.0)
[2019-07-09 11:03] LABS: CHLORIDE 108 MMOL/L (98-107); SODIUM 138 MMOL/L (135-145)
[2019-07-09 11:04] LABS: CALCIUM 8.7 MG/DL (8.5-10.1)
[2019-07-09 11:05] LABS: GLUCOSE 88 MG/DL (70-105)
[2019-07-09 11:06] LABS: TOTAL PROTEIN 6.9 GM/DL (6.4-8.2)
[2019-07-09 11:07] LABS: BILIRUBIN,TOTAL 0.4 MG/DL (0.1-1.0); CARBON DIOXIDE 18 MMOL/L (21-32)
[2019-07-09 11:09] LABS: ALKALINE PHOSPHATASE 51 U/L (40-136); CREATININE SERUM 0.84 MG/DL (0.60-1.30); GFR ESTIMATED > 60
[2019-07-09 11:10] LABS: BUN/CREATININE RATIO 13
[2019-07-09 11:12] LABS: ALANINE AMINOTRANSFERASE 14 U/L (0-55); MAGNESIUM 1.9 MG/DL (1.6-2.4)
== END 2019-07-10 | disposition home or self-care (01) ==
LOC: ONC 10:30
PROVIDERS: ATTEND Internal Medicine Hematology & Oncology
DX: C90.00 Multiple myeloma not having achieved remission (principal); D70.9 Neutropenia, unspecified; D64.9 Anemia, unspecified; M81.0 Age-related osteoporosis without current pathological fracture; K21.9 Gastro-esophageal reflux disease without esophagitis; J44.9 Chronic obstructive pulmonary disease, unspecified; I10 Essential (primary) hypertension; E87.6 Hypokalemia; Z79.82 Long term (current) use of aspirin; Z79.899 Other long term (current) drug therapy
CPT/HCPCS: 36415; 80053; 82232; 82784; 83735; 83883; 85025; 96365

== ENCOUNTER 2019-10-07 11:03 | Outpatient (RCR) | payer MEDICARE ==
[2019-08-07 10:23] LABS: BASOPHILS # (AUTO) 0.1 10^3/uL (0.0-0.1); BASOPHILS % (AUTO) 2 % (0-10); EOSINOPHILS # (AUTO) 0.3 10^3/uL (0.0-0.3); EOSINOPHILS % (AUTO) 8 % (0-10); HEMATOCRIT 44 % (35-52); HEMOGLOBIN 14.3 G/DL (11.5-16.0); LYMPHOCYTES # (AUTO) 1.5 X 10^3 (1.0-4.0); LYMPHOCYTES % (AUTO) 44 % (12-44); MEAN CORPUSCULAR HEMOGLOBIN 29 PG (25-34); MEAN CORPUSCULAR HGB CONC 32 G/DL (32-36); MEAN CORPUSCULAR VOLUME 90 FL (80-99); MEAN PLATELET VOLUME 11.4 FL (7.4-10.4); MONOCYTES # (AUTO) 0.4 X 10^3 (0.0-1.0); MONOCYTES % (AUTO) 11 % (0-12); NEUTROPHILS # (AUTO) 1.2 X 10^3 (1.8-7.8); NEUTROPHILS % (AUTO) 35 % (42-75); PLATELET COUNT 145 10^3/uL (130-400); RED CELL DISTRIBUTION WIDTH 14.9 % (10.0-14.5); WHITE BLOOD COUNT 3.4 10^3/uL (4.3-11.0)
[2019-08-07 10:42] LABS: ALANINE AMINOTRANSFERASE 11 U/L (0-55); ALBUMIN 3.9 GM/DL (3.2-4.5); ALKALINE PHOSPHATASE 57 U/L (40-136); BILIRUBIN,TOTAL 0.4 MG/DL (0.1-1.0); BUN/CREATININE RATIO 12; CALCIUM 8.8 MG/DL (8.5-10.1); CARBON DIOXIDE 22 MMOL/L (21-32); CHLORIDE 106 MMOL/L (98-107); CREATININE SERUM 0.86 MG/DL (0.60-1.30); GFR ESTIMATED > 60; GLUCOSE 101 MG/DL (70-105); MAGNESIUM 1.8 MG/DL (1.6-2.4); POTASSIUM 3.7 MMOL/L (3.6-5.0); SODIUM 138 MMOL/L (135-145); TOTAL PROTEIN 6.8 GM/DL (6.4-8.2)
[2019-09-03 10:58] LABS: BASOPHILS % (AUTO) 1 % (0-10); EOSINOPHILS # (AUTO) 0.2 10^3/uL (0.0-0.3); EOSINOPHILS % (AUTO) 5 % (0-10); HEMATOCRIT 43 % (35-52); HEMOGLOBIN 14.4 G/DL (11.5-16.0); LYMPHOCYTES # (AUTO) 1.4 X 10^3 (1.0-4.0); LYMPHOCYTES % (AUTO) 44 % (12-44); MEAN CORPUSCULAR HEMOGLOBIN 30 PG (25-34); MEAN CORPUSCULAR HGB CONC 34 G/DL (32-36); MEAN CORPUSCULAR VOLUME 88 FL (80-99); MONOCYTES # (AUTO) 0.5 X 10^3 (0.0-1.0); MONOCYTES % (AUTO) 14 % (0-12); NEUTROPHILS # (AUTO) 1.1 X 10^3 (1.8-7.8); NEUTROPHILS % (AUTO) 36 % (42-75); PLATELET COUNT 139 10^3/uL (130-400); RED CELL DISTRIBUTION WIDTH 15.2 % (10.0-14.5); WHITE BLOOD COUNT 3.2 10^3/uL (4.3-11.0)
[2019-09-03 11:14] LABS: ALANINE AMINOTRANSFERASE 12 U/L (0-55); ALBUMIN 3.8 GM/DL (3.2-4.5); ALKALINE PHOSPHATASE 51 U/L (40-136); BILIRUBIN,TOTAL 0.5 MG/DL (0.1-1.0); BUN/CREATININE RATIO 14; CALCIUM 9.1 MG/DL (8.5-10.1); CARBON DIOXIDE 22 MMOL/L (21-32); CHLORIDE 104 MMOL/L (98-107); CREATININE SERUM 0.86 MG/DL (0.60-1.30); GFR ESTIMATED > 60; GLUCOSE 87 MG/DL (70-105); POTASSIUM 3.7 MMOL/L (3.6-5.0); SODIUM 136 MMOL/L (135-145); TOTAL PROTEIN 6.7 GM/DL (6.4-8.2)
[2019-10-02 09:48] LABS: BASOPHILS % (AUTO) 2 % (0-10); EOSINOPHILS # (AUTO) 0.2 10^3/uL (0.0-0.3); EOSINOPHILS % (AUTO) 9 % (0-10); HEMATOCRIT 42 % (35-52); HEMOGLOBIN 14.1 G/DL (11.5-16.0); LYMPHOCYTES # (AUTO) 0.9 X 10^3 (1.0-4.0); LYMPHOCYTES % (AUTO) 37 % (12-44); MEAN CORPUSCULAR HEMOGLOBIN 30 PG (25-34); MEAN CORPUSCULAR HGB CONC 34 G/DL (32-36); MEAN CORPUSCULAR VOLUME 89 FL (80-99); MEAN PLATELET VOLUME 10.8 FL (7.4-10.4); MONOCYTES # (AUTO) 0.4 X 10^3 (0.0-1.0); MONOCYTES % (AUTO) 18 % (0-12); NEUTROPHILS # (AUTO) 0.8 X 10^3 (1.8-7.8); NEUTROPHILS % (AUTO) 34 % (42-75); PLATELET COUNT 142 10^3/uL (130-400); RED CELL DISTRIBUTION WIDTH 15.7 % (10.0-14.5); WHITE BLOOD COUNT 2.3 10^3/uL (4.3-11.0)
[2019-10-02 10:11] LABS: ALANINE AMINOTRANSFERASE 12 U/L (0-55); ALBUMIN 3.8 GM/DL (3.2-4.5); ALKALINE PHOSPHATASE 55 U/L (40-136); BILIRUBIN,TOTAL 0.5 MG/DL (0.1-1.0); BUN/CREATININE RATIO 16; CALCIUM 9.2 MG/DL (8.5-10.1); CARBON DIOXIDE 21 MMOL/L (21-32); CHLORIDE 106 MMOL/L (98-107); CREATININE SERUM 0.79 MG/DL (0.60-1.30); GFR ESTIMATED > 60; GLUCOSE 95 MG/DL (70-105); SODIUM 137 MMOL/L (135-145); TOTAL PROTEIN 6.7 GM/DL (6.4-8.2)
[~2019-10-07 11:03] MED LIST changes: +MULT-567 PO; -MULT1TAB69 PO
[2019-10-07 11:26] LABS: BASOPHILS # (AUTO) 0.1 10^3/uL (0.0-0.1); BASOPHILS % (AUTO) 2 % (0-10); EOSINOPHILS # (AUTO) 0.1 10^3/uL (0.0-0.3); EOSINOPHILS % (AUTO) 3 % (0-10); HEMATOCRIT 40 % (35-52); HEMOGLOBIN 13.4 G/DL (11.5-16.0); LYMPHOCYTES # (AUTO) 1.7 X 10^3 (1.0-4.0); LYMPHOCYTES % (AUTO) 46 % (12-44); MEAN CORPUSCULAR HEMOGLOBIN 30 PG (25-34); MEAN CORPUSCULAR HGB CONC 33 G/DL (32-36); MEAN CORPUSCULAR VOLUME 90 FL (80-99); MEAN PLATELET VOLUME 9.9 FL (7.4-10.4); MONOCYTES # (AUTO) 0.5 X 10^3 (0.0-1.0); MONOCYTES % (AUTO) 13 % (0-12); NEUTROPHILS # (AUTO) 1.4 X 10^3 (1.8-7.8); NEUTROPHILS % (AUTO) 36 % (42-75); PLATELET COUNT 256 10^3/uL (130-400); RED CELL DISTRIBUTION WIDTH 15.5 % (10.0-14.5); WHITE BLOOD COUNT 3.8 10^3/uL (4.3-11.0)
== END 2019-11-05 | disposition home or self-care (01) ==
LOC: ONC 11:03
PROVIDERS: ATTEND Internal Medicine Hematology & Oncology
DX: C90.00 Multiple myeloma not having achieved remission (principal); D70.9 Neutropenia, unspecified; D64.9 Anemia, unspecified; M81.0 Age-related osteoporosis without current pathological fracture; K21.9 Gastro-esophageal reflux disease without esophagitis; J44.9 Chronic obstructive pulmonary disease, unspecified; I10 Essential (primary) hypertension; E87.6 Hypokalemia; G62.9 Polyneuropathy, unspecified; Z79.899 Other long term (current) drug therapy; Z79.82 Long term (current) use of aspirin
CPT/HCPCS: 80053; 82232; 82306; 82784 ×3; 83735; 83883; 85025; G0463; 36415; 96365; 99213

== ENCOUNTER → 2020-02-04 | Outpatient (RCR) | payer MEDICARE ==
[2019-11-06 10:17] LABS: BASOPHILS # (AUTO) 0.1 10^3/uL (0.0-0.1); BASOPHILS % (AUTO) 3 % (0-10); EOSINOPHILS # (AUTO) 0.1 10^3/uL (0.0-0.3); EOSINOPHILS % (AUTO) 2 % (0-10); HEMATOCRIT 44 % (35-52); HEMOGLOBIN 14.5 G/DL (11.5-16.0); LYMPHOCYTES # (AUTO) 1.9 X 10^3 (1.0-4.0); LYMPHOCYTES % (AUTO) 47 % (12-44); MEAN CORPUSCULAR HEMOGLOBIN 30 PG (25-34); MEAN CORPUSCULAR HGB CONC 33 G/DL (32-36); MEAN CORPUSCULAR VOLUME 90 FL (80-99); MEAN PLATELET VOLUME 9.9 FL (7.4-10.4); MONOCYTES # (AUTO) 0.6 X 10^3 (0.0-1.0); MONOCYTES % (AUTO) 15 % (0-12); NEUTROPHILS # (AUTO) 1.3 X 10^3 (1.8-7.8); NEUTROPHILS % (AUTO) 33 % (42-75); PLATELET COUNT 305 10^3/uL (130-400); WHITE BLOOD COUNT 4.1 10^3/uL (4.3-11.0)
[2019-11-06 10:39] LABS: ALANINE AMINOTRANSFERASE 11 U/L (0-55); ALKALINE PHOSPHATASE 55 U/L (40-136); BILIRUBIN,TOTAL 0.4 MG/DL (0.1-1.0); BUN/CREATININE RATIO 16; CALCIUM 9.5 MG/DL (8.5-10.1); CARBON DIOXIDE 23 MMOL/L (21-32); CHLORIDE 103 MMOL/L (98-107); CREATININE SERUM 0.86 MG/DL (0.60-1.30); GFR ESTIMATED > 60; GLUCOSE 89 MG/DL (70-105); POTASSIUM 4.2 MMOL/L (3.6-5.0); SODIUM 139 MMOL/L (135-145); TOTAL PROTEIN 7.2 GM/DL (6.4-8.2)
[2019-12-04 09:14] LABS: BASOPHILS # (AUTO) 0.1 10^3/uL (0.0-0.1); BASOPHILS % (AUTO) 3 % (0-10); EOSINOPHILS # (AUTO) 0.1 10^3/uL (0.0-0.3); EOSINOPHILS % (AUTO) 2 % (0-10); HEMATOCRIT 44 % (35-52); HEMOGLOBIN 14.5 G/DL (11.5-16.0); LYMPHOCYTES # (AUTO) 1.6 X 10^3 (1.0-4.0); LYMPHOCYTES % (AUTO) 42 % (12-44); MEAN CORPUSCULAR HEMOGLOBIN 30 PG (25-34); MEAN CORPUSCULAR HGB CONC 33 G/DL (32-36); MEAN CORPUSCULAR VOLUME 90 FL (80-99); MEAN PLATELET VOLUME 9.9 FL (7.4-10.4); MONOCYTES # (AUTO) 0.6 X 10^3 (0.0-1.0); MONOCYTES % (AUTO) 16 % (0-12); NEUTROPHILS # (AUTO) 1.4 X 10^3 (1.8-7.8); NEUTROPHILS % (AUTO) 37 % (42-75); PLATELET COUNT 268 10^3/uL (130-400); WHITE BLOOD COUNT 3.8 10^3/uL (4.3-11.0)
[2019-12-04 09:35] LABS: ALANINE AMINOTRANSFERASE 12 U/L (0-55); ALBUMIN 3.9 GM/DL (3.2-4.5); ALKALINE PHOSPHATASE 51 U/L (40-136); BILIRUBIN,TOTAL 0.4 MG/DL (0.1-1.0); BUN/CREATININE RATIO 17; CALCIUM 9.5 MG/DL (8.5-10.1); CARBON DIOXIDE 23 MMOL/L (21-32); CHLORIDE 102 MMOL/L (98-107); CREATININE SERUM 0.88 MG/DL (0.60-1.30); GFR ESTIMATED > 60; GLUCOSE 91 MG/DL (70-105); MAGNESIUM 2.1 MG/DL (1.6-2.4); POTASSIUM 4.3 MMOL/L (3.6-5.0); SODIUM 137 MMOL/L (135-145); TOTAL PROTEIN 6.7 GM/DL (6.4-8.2)
[2020-01-01 10:44] LABS: BASOPHILS # (AUTO) 0.1 10^3/uL (0.0-0.1); BASOPHILS % (AUTO) 3 % (0-10); EOSINOPHILS # (AUTO) 0.1 10^3/uL (0.0-0.3); EOSINOPHILS % (AUTO) 2 % (0-10); HEMATOCRIT 44 % (35-52); HEMOGLOBIN 14.4 g/dL (11.5-16.0); LYMPHOCYTES # (AUTO) 1.6 10^3/uL (1.0-4.0); LYMPHOCYTES % (AUTO) 44 % (12-44); MEAN CORPUSCULAR HEMOGLOBIN 30 pg (25-34); MEAN CORPUSCULAR HGB CONC 33 g/dL (32-36); MEAN CORPUSCULAR VOLUME 90 fL (80-99); MEAN PLATELET VOLUME 9.9 fL (9.0-12.2); MONOCYTES # (AUTO) 0.4 10^3/uL (0.0-1.0); MONOCYTES % (AUTO) 12 % (0-12); NEUTROPHILS # (AUTO) 1.4 10^3/uL (1.8-7.8); NEUTROPHILS % (AUTO) 39 % (42-75); PLATELET COUNT 264 10^3/uL (130-400); WHITE BLOOD COUNT 3.6 10^3/uL (4.3-11.0)
[2020-01-01 11:21] LABS: ALANINE AMINOTRANSFERASE 12 U/L (0-55); ALBUMIN 3.8 GM/DL (3.2-4.5); ALKALINE PHOSPHATASE 57 U/L (40-136); BILIRUBIN,TOTAL 0.4 MG/DL (0.1-1.0); BUN/CREATININE RATIO 15; CALCIUM 9.5 MG/DL (8.5-10.1); CARBON DIOXIDE 21 MMOL/L (21-32); CHLORIDE 104 MMOL/L (98-107); CREATININE SERUM 0.89 MG/DL (0.60-1.30); GFR ESTIMATED > 60; GLUCOSE 92 MG/DL (70-105); POTASSIUM 4.1 MMOL/L (3.6-5.0); SODIUM 137 MMOL/L (135-145); TOTAL PROTEIN 6.8 GM/DL (6.4-8.2)
[2020-01-29 13:29] LABS: BASOPHILS # (AUTO) 0.1 10^3/uL (0.0-0.1); BASOPHILS % (AUTO) 4 % (0-10); EOSINOPHILS # (AUTO) 0.1 10^3/uL (0.0-0.3); EOSINOPHILS % (AUTO) 2 % (0-10); HEMATOCRIT 42 % (35-52); HEMOGLOBIN 13.6 g/dL (11.5-16.0); LYMPHOCYTES # (AUTO) 1.7 10^3/uL (1.0-4.0); LYMPHOCYTES % (AUTO) 47 % (12-44); MEAN CORPUSCULAR HEMOGLOBIN 30 pg (25-34); MEAN CORPUSCULAR HGB CONC 32 g/dL (32-36); MEAN CORPUSCULAR VOLUME 92 fL (80-99); MONOCYTES # (AUTO) 0.6 10^3/uL (0.0-1.0); MONOCYTES % (AUTO) 16 % (0-12); NEUTROPHILS # (AUTO) 1.1 10^3/uL (1.8-7.8); NEUTROPHILS % (AUTO) 31 % (42-75); PLATELET COUNT 254 10^3/uL (130-400); WHITE BLOOD COUNT 3.6 10^3/uL (4.3-11.0)
[2020-01-29 13:50] LABS: ALANINE AMINOTRANSFERASE 9 U/L (0-55); ALBUMIN 3.7 GM/DL (3.2-4.5); ALKALINE PHOSPHATASE 53 U/L (40-136); BILIRUBIN,TOTAL 0.3 MG/DL (0.1-1.0); BUN/CREATININE RATIO 18; CARBON DIOXIDE 26 MMOL/L (21-32); CHLORIDE 105 MMOL/L (98-107); CREATININE SERUM 0.82 MG/DL (0.60-1.30); GFR ESTIMATED > 60; GLUCOSE 78 MG/DL (70-105); POTASSIUM 3.8 MMOL/L (3.6-5.0); SODIUM 139 MMOL/L (135-145); TOTAL PROTEIN 6.6 GM/DL (6.4-8.2)
[~2020-02-04] MED LIST changes: +AMLO-250 PO; -AMLO5TAB9 PO; +ASPI-1238 PO; -ASPI-983 PO
[2020-02-04 10:47] LABS: BASOPHILS # (AUTO) 0.1 10^3/uL (0.0-0.1); BASOPHILS % (AUTO) 3 % (0-10); EOSINOPHILS % (AUTO) 1 % (0-10); HEMATOCRIT 42 % (35-52); HEMOGLOBIN 13.8 g/dL (11.5-16.0); LYMPHOCYTES # (AUTO) 1.6 10^3/uL (1.0-4.0); LYMPHOCYTES % (AUTO) 44 % (12-44); MEAN CORPUSCULAR HEMOGLOBIN 30 pg (25-34); MEAN CORPUSCULAR HGB CONC 33 g/dL (32-36); MEAN CORPUSCULAR VOLUME 91 fL (80-99); MEAN PLATELET VOLUME 10.1 fL (9.0-12.2); MONOCYTES # (AUTO) 0.4 10^3/uL (0.0-1.0); MONOCYTES % (AUTO) 12 % (0-12); NEUTROPHILS # (AUTO) 1.5 10^3/uL (1.8-7.8); NEUTROPHILS % (AUTO) 40 % (42-75); PLATELET COUNT 208 10^3/uL (130-400); WHITE BLOOD COUNT 3.6 10^3/uL (4.3-11.0)
== END | disposition home or self-care (01) ==
LOC: ONC 11-06 10:03
PROVIDERS: ATTEND Internal Medicine Hematology & Oncology
DX: C90.00 Multiple myeloma not having achieved remission (principal); D70.9 Neutropenia, unspecified; D64.9 Anemia, unspecified; M81.0 Age-related osteoporosis without current pathological fracture; K21.9 Gastro-esophageal reflux disease without esophagitis; J44.9 Chronic obstructive pulmonary disease, unspecified; I10 Essential (primary) hypertension; E87.6 Hypokalemia; G62.9 Polyneuropathy, unspecified; Z79.899 Other long term (current) drug therapy; Z79.82 Long term (current) use of aspirin
CPT/HCPCS: 80053; 82232; 82784 ×3; 83883; 85025; G0463; 36415; 83735; 96365; 99213

== ENCOUNTER 2020-02-26 09:15 | Outpatient (RCR) | payer MEDICARE ==
[~2020-02-26 09:15] MED LIST changes: -ZOLEDRONIC ACID (CANCER CTR) 4 MG in NS (IVPB) CANCER CENTER 100 ML IV SCH
[2020-02-26 09:24] LABS: BASOPHILS % (AUTO) 2 % (0-10); EOSINOPHILS # (AUTO) 0.1 10^3/uL (0.0-0.3); EOSINOPHILS % (AUTO) 4 % (0-10); HEMATOCRIT 45 % (35-52); HEMOGLOBIN 14.5 g/dL (11.5-16.0); LYMPHOCYTES # (AUTO) 1.1 10^3/uL (1.0-4.0); LYMPHOCYTES % (AUTO) 45 % (12-44); MEAN CORPUSCULAR HEMOGLOBIN 30 pg (25-34); MEAN CORPUSCULAR HGB CONC 33 g/dL (32-36); MEAN CORPUSCULAR VOLUME 90 fL (80-99); MEAN PLATELET VOLUME 11.2 fL (9.0-12.2); MONOCYTES # (AUTO) 0.3 10^3/uL (0.0-1.0); MONOCYTES % (AUTO) 12 % (0-12); NEUTROPHILS # (AUTO) 0.9 10^3/uL (1.8-7.8); NEUTROPHILS % (AUTO) 36 % (42-75); PLATELET COUNT 210 10^3/uL (130-400); WHITE BLOOD COUNT 2.4 10^3/uL (4.3-11.0)
[2020-02-26 09:44] LABS: ALANINE AMINOTRANSFERASE 13 U/L (0-55); ALBUMIN 3.9 GM/DL (3.2-4.5); ALKALINE PHOSPHATASE 57 U/L (40-136); BILIRUBIN,TOTAL 0.5 MG/DL (0.1-1.0); BUN/CREATININE RATIO 11; CALCIUM 9.2 MG/DL (8.5-10.1); CARBON DIOXIDE 24 MMOL/L (21-32); CHLORIDE 101 MMOL/L (98-107); CREATININE SERUM 0.89 MG/DL (0.60-1.30); GFR ESTIMATED > 60; GLUCOSE 92 MG/DL (70-105); POTASSIUM 4.3 MMOL/L (3.6-5.0); SODIUM 136 MMOL/L (135-145); TOTAL PROTEIN 6.8 GM/DL (6.4-8.2)
== END 2020-04-06 10:24 | disposition home or self-care (01) ==
LOC: ONC 09:15
PROVIDERS: ATTEND Internal Medicine Hematology & Oncology
DX: C90.00 Multiple myeloma not having achieved remission (principal); D70.9 Neutropenia, unspecified; D64.9 Anemia, unspecified; M81.0 Age-related osteoporosis without current pathological fracture; K21.9 Gastro-esophageal reflux disease without esophagitis; J44.9 Chronic obstructive pulmonary disease, unspecified; I10 Essential (primary) hypertension; E87.6 Hypokalemia; G62.9 Polyneuropathy, unspecified; Z79.899 Other long term (current) drug therapy; Z79.82 Long term (current) use of aspirin
CPT/HCPCS: 80053; 82232; 82784 ×3; 83883; 85025; G0463; 99213

== ENCOUNTER → 2020-07-06 | Outpatient (RCR) | payer MEDICARE ==
[2020-04-07 10:25] LABS: BASOPHILS # (AUTO) 0.1 10^3/uL (0.0-0.1); BASOPHILS % (AUTO) 3 % (0-10); EOSINOPHILS % (AUTO) 1 % (0-10); HEMATOCRIT 42 % (35-52); HEMOGLOBIN 13.5 g/dL (11.5-16.0); LYMPHOCYTES # (AUTO) 1.5 10^3/uL (1.0-4.0); LYMPHOCYTES % (AUTO) 34 % (12-44); MEAN CORPUSCULAR HEMOGLOBIN 30 pg (25-34); MEAN CORPUSCULAR HGB CONC 33 g/dL (32-36); MEAN CORPUSCULAR VOLUME 92 fL (80-99); MONOCYTES # (AUTO) 0.5 10^3/uL (0.0-1.0); MONOCYTES % (AUTO) 10 % (0-12); NEUTROPHILS # (AUTO) 2.4 10^3/uL (1.8-7.8); NEUTROPHILS % (AUTO) 53 % (42-75); PLATELET COUNT 323 10^3/uL (130-400); WHITE BLOOD COUNT 4.5 10^3/uL (4.3-11.0)
[2020-04-07 10:43] LABS: ALANINE AMINOTRANSFERASE 14 U/L (0-55); ALBUMIN 3.5 GM/DL (3.2-4.5); ALKALINE PHOSPHATASE 57 U/L (40-136); BILIRUBIN,TOTAL 0.2 MG/DL (0.1-1.0); BUN/CREATININE RATIO 15; CARBON DIOXIDE 21 MMOL/L (21-32); CHLORIDE 106 MMOL/L (98-107); CREATININE SERUM 0.81 MG/DL (0.60-1.30); GFR ESTIMATED > 60; GLUCOSE 91 MG/DL (70-105); POTASSIUM 3.9 MMOL/L (3.6-5.0); SODIUM 137 MMOL/L (135-145); TOTAL PROTEIN 6.7 GM/DL (6.4-8.2)
[2020-05-05 09:11] LABS: BASOPHILS # (AUTO) 0.1 10^3/uL (0.0-0.1); BASOPHILS % (AUTO) 3 % (0-10); EOSINOPHILS # (AUTO) 0.1 10^3/uL (0.0-0.3); EOSINOPHILS % (AUTO) 3 % (0-10); HEMATOCRIT 45 % (35-52); HEMOGLOBIN 14.5 g/dL (11.5-16.0); LYMPHOCYTES # (AUTO) 1.6 10^3/uL (1.0-4.0); LYMPHOCYTES % (AUTO) 40 % (12-44); MEAN CORPUSCULAR HEMOGLOBIN 30 pg (25-34); MEAN CORPUSCULAR HGB CONC 32 g/dL (32-36); MEAN CORPUSCULAR VOLUME 92 fL (80-99); MEAN PLATELET VOLUME 10.1 fL (9.0-12.2); MONOCYTES # (AUTO) 0.6 10^3/uL (0.0-1.0); MONOCYTES % (AUTO) 14 % (0-12); NEUTROPHILS # (AUTO) 1.6 10^3/uL (1.8-7.8); NEUTROPHILS % (AUTO) 40 % (42-75); PLATELET COUNT 241 10^3/uL (130-400)
[2020-05-05 09:30] LABS: ALANINE AMINOTRANSFERASE 8 U/L (0-55); ALBUMIN 3.8 GM/DL (3.2-4.5); ALKALINE PHOSPHATASE 59 U/L (40-136); BILIRUBIN,TOTAL 0.5 MG/DL (0.1-1.0); BUN/CREATININE RATIO 15; CALCIUM 9.5 MG/DL (8.5-10.1); CARBON DIOXIDE 26 MMOL/L (21-32); CHLORIDE 101 MMOL/L (98-107); CREATININE SERUM 0.85 MG/DL (0.60-1.30); GFR ESTIMATED > 60; GLUCOSE 81 MG/DL (70-105); POTASSIUM 4.4 MMOL/L (3.6-5.0); SODIUM 137 MMOL/L (135-145)
[2020-06-02 09:59] LABS: BASOPHILS # (AUTO) 0.1 10^3/uL (0.0-0.1); BASOPHILS % (AUTO) 2 % (0-10); EOSINOPHILS # (AUTO) 0.1 10^3/uL (0.0-0.3); EOSINOPHILS % (AUTO) 1 % (0-10); HEMATOCRIT 45 % (35-52); HEMOGLOBIN 14.4 g/dL (11.5-16.0); LYMPHOCYTES # (AUTO) 1.8 10^3/uL (1.0-4.0); LYMPHOCYTES % (AUTO) 51 % (12-44); MEAN CORPUSCULAR HEMOGLOBIN 30 pg (25-34); MEAN CORPUSCULAR HGB CONC 32 g/dL (32-36); MEAN CORPUSCULAR VOLUME 93 fL (80-99); MEAN PLATELET VOLUME 10.1 fL (9.0-12.2); MONOCYTES # (AUTO) 0.5 10^3/uL (0.0-1.0); MONOCYTES % (AUTO) 13 % (0-12); NEUTROPHILS # (AUTO) 1.2 10^3/uL (1.8-7.8); NEUTROPHILS % (AUTO) 33 % (42-75); PLATELET COUNT 269 10^3/uL (130-400); WHITE BLOOD COUNT 3.6 10^3/uL (4.3-11.0)
[2020-06-02 10:20] LABS: ALBUMIN 3.9 GM/DL (3.2-4.5); BILIRUBIN,TOTAL 0.4 MG/DL (0.1-1.0); CALCIUM 9.6 MG/DL (8.5-10.1); CREATININE SERUM 0.9 MG/DL (0.60-1.30); POTASSIUM 4.2 MMOL/L (3.6-5.0); TOTAL PROTEIN 6.8 GM/DL (6.4-8.2)
[2020-06-30 09:46] LABS: BASOPHILS # (AUTO) 0.1 10^3/uL (0.0-0.1); BASOPHILS % (AUTO) 3 % (0-10); EOSINOPHILS # (AUTO) 0.2 10^3/uL (0.0-0.3); EOSINOPHILS % (AUTO) 6 % (0-10); HEMATOCRIT 44 % (35-52); HEMOGLOBIN 14.3 g/dL (11.5-16.0); LYMPHOCYTES # (AUTO) 1.4 10^3/uL (1.0-4.0); LYMPHOCYTES % (AUTO) 48 % (12-44); MEAN CORPUSCULAR HEMOGLOBIN 29 pg (25-34); MEAN CORPUSCULAR HGB CONC 32 g/dL (32-36); MEAN CORPUSCULAR VOLUME 91 fL (80-99); MEAN PLATELET VOLUME 10.3 fL (9.0-12.2); MONOCYTES # (AUTO) 0.5 10^3/uL (0.0-1.0); MONOCYTES % (AUTO) 17 % (0-12); NEUTROPHILS # (AUTO) 0.8 10^3/uL (1.8-7.8); NEUTROPHILS % (AUTO) 26 % (42-75); PLATELET COUNT 212 10^3/uL (130-400); WHITE BLOOD COUNT 2.9 10^3/uL (4.3-11.0)
[2020-06-30 10:10] LABS: ALANINE AMINOTRANSFERASE 12 U/L (0-55); ALBUMIN 3.7 GM/DL (3.2-4.5); ALKALINE PHOSPHATASE 57 U/L (40-136); BILIRUBIN,TOTAL 0.5 MG/DL (0.1-1.0); BUN/CREATININE RATIO 10; CALCIUM 8.9 MG/DL (8.5-10.1); CARBON DIOXIDE 22 MMOL/L (21-32); CHLORIDE 107 MMOL/L (98-107); CREATININE SERUM 0.87 MG/DL (0.60-1.30); GFR ESTIMATED > 60; GLUCOSE 96 MG/DL (70-105); POTASSIUM 3.9 MMOL/L (3.6-5.0); SODIUM 140 MMOL/L (135-145); TOTAL PROTEIN 6.7 GM/DL (6.4-8.2)
[~2020-07-06] MED LIST changes: +ZOLEDRONIC ACID (CANCER CTR) 4 MG in NS (IVPB) CANCER CENTER 100 ML IV SCH
[2020-07-06 10:46] LABS: BASOPHILS # (AUTO) 0.1 10^3/uL (0.0-0.1); BASOPHILS % (AUTO) 3 % (0-10); EOSINOPHILS # (AUTO) 0.1 10^3/uL (0.0-0.3); EOSINOPHILS % (AUTO) 2 % (0-10); HEMATOCRIT 44 % (35-52); HEMOGLOBIN 14.2 g/dL (11.5-16.0); LYMPHOCYTES % (AUTO) 45 % (12-44); MEAN CORPUSCULAR HEMOGLOBIN 30 pg (25-34); MEAN CORPUSCULAR HGB CONC 32 g/dL (32-36); MEAN CORPUSCULAR VOLUME 93 fL (80-99); MEAN PLATELET VOLUME 10.2 fL (9.0-12.2); MONOCYTES # (AUTO) 0.6 10^3/uL (0.0-1.0); MONOCYTES % (AUTO) 14 % (0-12); NEUTROPHILS # (AUTO) 1.6 10^3/uL (1.8-7.8); NEUTROPHILS % (AUTO) 36 % (42-75); PLATELET COUNT 279 10^3/uL (130-400); WHITE BLOOD COUNT 4.4 10^3/uL (4.3-11.0)
== END | disposition home or self-care (01) ==
LOC: ONC 04-07 09:54
PROVIDERS: ATTEND Internal Medicine Hematology & Oncology
DX: C90.00 Multiple myeloma not having achieved remission (principal); D70.9 Neutropenia, unspecified; D64.9 Anemia, unspecified; M81.0 Age-related osteoporosis without current pathological fracture; K21.9 Gastro-esophageal reflux disease without esophagitis; J44.9 Chronic obstructive pulmonary disease, unspecified; I10 Essential (primary) hypertension; E87.6 Hypokalemia; G62.9 Polyneuropathy, unspecified; Z79.899 Other long term (current) drug therapy; Z79.82 Long term (current) use of aspirin
CPT/HCPCS: 80053; 82232; 82784 ×3; 83883; 85025; 96365; G0463; 36415; 99213

== ENCOUNTER 2020-09-28 10:26 | Outpatient (RCR) | payer MEDICARE ==
[2020-08-03 09:57] LABS: BASOPHILS # (AUTO) 0.1 10^3/uL (0.0-0.1); BASOPHILS % (AUTO) 2 % (0-10); EOSINOPHILS # (AUTO) 0.1 10^3/uL (0.0-0.3); EOSINOPHILS % (AUTO) 2 % (0-10); HEMATOCRIT 47 % (35-52); HEMOGLOBIN 14.9 g/dL (11.5-16.0); LYMPHOCYTES # (AUTO) 2.1 10^3/uL (1.0-4.0); LYMPHOCYTES % (AUTO) 44 % (12-44); MEAN CORPUSCULAR HEMOGLOBIN 30 pg (25-34); MEAN CORPUSCULAR HGB CONC 32 g/dL (32-36); MEAN CORPUSCULAR VOLUME 93 fL (80-99); MEAN PLATELET VOLUME 10.1 fL (9.0-12.2); MONOCYTES # (AUTO) 0.6 10^3/uL (0.0-1.0); MONOCYTES % (AUTO) 12 % (0-12); NEUTROPHILS # (AUTO) 1.9 10^3/uL (1.8-7.8); NEUTROPHILS % (AUTO) 40 % (42-75); PLATELET COUNT 257 10^3/uL (130-400); WHITE BLOOD COUNT 4.7 10^3/uL (4.3-11.0)
[2020-08-03 10:19] LABS: ALANINE AMINOTRANSFERASE 13 U/L (0-55); ALBUMIN 3.9 GM/DL (3.2-4.5); ALKALINE PHOSPHATASE 57 U/L (40-136); BILIRUBIN,TOTAL 0.5 MG/DL (0.1-1.0); BUN/CREATININE RATIO 15; CALCIUM 9.1 MG/DL (8.5-10.1); CARBON DIOXIDE 22 MMOL/L (21-32); CHLORIDE 107 MMOL/L (98-107); CREATININE SERUM 0.86 MG/DL (0.60-1.30); GFR ESTIMATED > 60; GLUCOSE 97 MG/DL (70-105); POTASSIUM 4.1 MMOL/L (3.6-5.0); SODIUM 138 MMOL/L (135-145); TOTAL PROTEIN 6.9 GM/DL (6.4-8.2)
[2020-09-01 10:25] LABS: BASOPHILS # (AUTO) 0.1 10^3/uL (0.0-0.1); BASOPHILS % (AUTO) 1 % (0-10); EOSINOPHILS % (AUTO) 0 % (0-10); HEMATOCRIT 45 % (35-52); LYMPHOCYTES # (AUTO) 1.4 10^3/uL (1.0-4.0); LYMPHOCYTES % (AUTO) 21 % (12-44); MEAN CORPUSCULAR HEMOGLOBIN 29 pg (25-34); MEAN CORPUSCULAR HGB CONC 31 g/dL (32-36); MEAN CORPUSCULAR VOLUME 93 fL (80-99); MEAN PLATELET VOLUME 10.5 fL (9.0-12.2); MONOCYTES # (AUTO) 0.9 10^3/uL (0.0-1.0); MONOCYTES % (AUTO) 14 % (0-12); NEUTROPHILS # (AUTO) 4.2 10^3/uL (1.8-7.8); NEUTROPHILS % (AUTO) 63 % (42-75); PLATELET COUNT 213 10^3/uL (130-400); WHITE BLOOD COUNT 6.7 10^3/uL (4.3-11.0)
[2020-09-01 10:35] LABS: ALANINE AMINOTRANSFERASE 9 U/L (0-55); ALBUMIN 3.7 GM/DL (3.2-4.5); ALKALINE PHOSPHATASE 49 U/L (40-136); BILIRUBIN,TOTAL 0.7 MG/DL (0.1-1.0); BUN/CREATININE RATIO 14; CALCIUM 9.2 MG/DL (8.5-10.1); CARBON DIOXIDE 23 MMOL/L (21-32); CHLORIDE 103 MMOL/L (98-107); CREATININE SERUM 0.88 MG/DL (0.60-1.30); GFR ESTIMATED > 60; GLUCOSE 94 MG/DL (70-105); POTASSIUM 3.8 MMOL/L (3.6-5.0); SODIUM 136 MMOL/L (135-145); TOTAL PROTEIN 6.7 GM/DL (6.4-8.2)
[2020-09-28 10:52] LABS: BASOPHILS # (AUTO) 0.1 10^3/uL (0.0-0.1); BASOPHILS % (AUTO) 2 % (0-10); EOSINOPHILS # (AUTO) 0.1 10^3/uL (0.0-0.3); EOSINOPHILS % (AUTO) 3 % (0-10); HEMATOCRIT 45 % (35-52); HEMOGLOBIN 14.5 g/dL (11.5-16.0); LYMPHOCYTES # (AUTO) 1.9 10^3/uL (1.0-4.0); LYMPHOCYTES % (AUTO) 45 % (12-44); MEAN CORPUSCULAR HEMOGLOBIN 29 pg (25-34); MEAN CORPUSCULAR HGB CONC 32 g/dL (32-36); MEAN CORPUSCULAR VOLUME 91 fL (80-99); MEAN PLATELET VOLUME 10.8 fL (9.0-12.2); MONOCYTES # (AUTO) 0.6 10^3/uL (0.0-1.0); MONOCYTES % (AUTO) 13 % (0-12); NEUTROPHILS # (AUTO) 1.6 10^3/uL (1.8-7.8); NEUTROPHILS % (AUTO) 36 % (42-75); PLATELET COUNT 232 10^3/uL (130-400); WHITE BLOOD COUNT 4.3 10^3/uL (4.3-11.0)
[2020-09-28 11:10] LABS: ALANINE AMINOTRANSFERASE 14 U/L (0-55); ALBUMIN 3.8 GM/DL (3.2-4.5); ALKALINE PHOSPHATASE 55 U/L (40-136); BILIRUBIN,TOTAL 0.4 MG/DL (0.1-1.0); BUN/CREATININE RATIO 16; CALCIUM 9.5 MG/DL (8.5-10.1); CARBON DIOXIDE 22 MMOL/L (21-32); CHLORIDE 108 MMOL/L (98-107); CREATININE SERUM 0.83 MG/DL (0.60-1.30); GFR ESTIMATED > 60; GLUCOSE 99 MG/DL (70-105); POTASSIUM 3.9 MMOL/L (3.6-5.0); SODIUM 139 MMOL/L (135-145); TOTAL PROTEIN 6.7 GM/DL (6.4-8.2)
== END 2020-11-01 | disposition home or self-care (01) ==
LOC: ONC 10:26
PROVIDERS: ATTEND Internal Medicine Hematology & Oncology
DX: C90.00 Multiple myeloma not having achieved remission (principal); D70.9 Neutropenia, unspecified; D64.9 Anemia, unspecified; M81.0 Age-related osteoporosis without current pathological fracture; K21.9 Gastro-esophageal reflux disease without esophagitis; I10 Essential (primary) hypertension; E87.6 Hypokalemia; G62.9 Polyneuropathy, unspecified; R19.7 Diarrhea, unspecified; Z79.899 Other long term (current) drug therapy; Z79.82 Long term (current) use of aspirin; E66.9 Obesity, unspecified; Z68.28 Body mass index [BMI] 28.0-28.9, adult; Z87.891 Personal history of nicotine dependence
CPT/HCPCS: 80053; 82232; 82784 ×3; 83883; 85025; G0463; 36415; 84155; 84165; 99213

== ENCOUNTER 2021-01-22 09:24 | Outpatient (RCR) | payer MEDICARE ==
[2020-11-02 10:53] LABS: BASOPHILS # (AUTO) 0.1 10^3/uL (0.0-0.1); BASOPHILS % (AUTO) 2 % (0-10); EOSINOPHILS # (AUTO) 0.1 10^3/uL (0.0-0.3); EOSINOPHILS % (AUTO) 2 % (0-10); HEMATOCRIT 44 % (35-52); HEMOGLOBIN 14.3 g/dL (11.5-16.0); LYMPHOCYTES # (AUTO) 1.7 10^3/uL (1.0-4.0); LYMPHOCYTES % (AUTO) 35 % (12-44); MEAN CORPUSCULAR HEMOGLOBIN 29 pg (25-34); MEAN CORPUSCULAR HGB CONC 32 g/dL (32-36); MEAN CORPUSCULAR VOLUME 90 fL (80-99); MEAN PLATELET VOLUME 10.2 fL (9.0-12.2); MONOCYTES # (AUTO) 0.5 10^3/uL (0.0-1.0); MONOCYTES % (AUTO) 9 % (0-12); NEUTROPHILS # (AUTO) 2.5 10^3/uL (1.8-7.8); NEUTROPHILS % (AUTO) 52 % (42-75); PLATELET COUNT 331 10^3/uL (130-400); WHITE BLOOD COUNT 4.8 10^3/uL (4.3-11.0)
[2020-11-02 11:11] LABS: ALBUMIN 3.7 GM/DL (3.2-4.5); BILIRUBIN,TOTAL 0.3 MG/DL (0.1-1.0); CALCIUM 9.3 MG/DL (8.5-10.1); CREATININE SERUM 0.87 MG/DL (0.60-1.30); POTASSIUM 4.1 MMOL/L (3.6-5.0); TOTAL PROTEIN 6.9 GM/DL (6.4-8.2)
[2020-11-30 11:30] LABS: BASOPHILS # (AUTO) 0.1 10^3/uL (0.0-0.1); BASOPHILS % (AUTO) 3 % (0-10); EOSINOPHILS # (AUTO) 0.1 10^3/uL (0.0-0.3); EOSINOPHILS % (AUTO) 1 % (0-10); HEMATOCRIT 45 % (35-52); HEMOGLOBIN 14.6 g/dL (11.5-16.0); LYMPHOCYTES # (AUTO) 1.9 10^3/uL (1.0-4.0); LYMPHOCYTES % (AUTO) 44 % (12-44); MEAN CORPUSCULAR HEMOGLOBIN 29 pg (25-34); MEAN CORPUSCULAR HGB CONC 33 g/dL (32-36); MEAN CORPUSCULAR VOLUME 88 fL (80-99); MEAN PLATELET VOLUME 10.1 fL (9.0-12.2); MONOCYTES # (AUTO) 0.5 10^3/uL (0.0-1.0); MONOCYTES % (AUTO) 13 % (0-12); NEUTROPHILS # (AUTO) 1.7 10^3/uL (1.8-7.8); NEUTROPHILS % (AUTO) 39 % (42-75); PLATELET COUNT 321 10^3/uL (130-400); WHITE BLOOD COUNT 4.3 10^3/uL (4.3-11.0)
[2020-11-30 11:50] LABS: ALBUMIN 3.9 GM/DL (3.2-4.5); BILIRUBIN,TOTAL 0.5 MG/DL (0.1-1.0); CALCIUM 9.9 MG/DL (8.5-10.1); CREATININE SERUM 0.85 MG/DL (0.60-1.30); POTASSIUM 4.2 MMOL/L (3.6-5.0); TOTAL PROTEIN 7.1 GM/DL (6.4-8.2)
[2020-12-29 09:09] LABS: BASOPHILS # (AUTO) 0.1 10^3/uL (0.0-0.1); BASOPHILS % (AUTO) 3 % (0-10); EOSINOPHILS # (AUTO) 0.1 10^3/uL (0.0-0.3); EOSINOPHILS % (AUTO) 2 % (0-10); HEMATOCRIT 49 % (35-52); HEMOGLOBIN 15.2 g/dL (11.5-16.0); LYMPHOCYTES # (AUTO) 1.9 10^3/uL (1.0-4.0); LYMPHOCYTES % (AUTO) 43 % (12-44); MEAN CORPUSCULAR HEMOGLOBIN 28 pg (25-34); MEAN CORPUSCULAR HGB CONC 31 g/dL (32-36); MEAN CORPUSCULAR VOLUME 90 fL (80-99); MEAN PLATELET VOLUME 10.2 fL (9.0-12.2); MONOCYTES # (AUTO) 0.7 10^3/uL (0.0-1.0); MONOCYTES % (AUTO) 16 % (0-12); NEUTROPHILS # (AUTO) 1.6 10^3/uL (1.8-7.8); NEUTROPHILS % (AUTO) 37 % (42-75); PLATELET COUNT 300 10^3/uL (130-400); WHITE BLOOD COUNT 4.3 10^3/uL (4.3-11.0)
[2020-12-29 09:27] LABS: ALBUMIN 3.7 GM/DL (3.2-4.5); BILIRUBIN,TOTAL 0.5 MG/DL (0.1-1.0); CALCIUM 9.9 MG/DL (8.5-10.1); CREATININE SERUM 0.87 MG/DL (0.60-1.30); POTASSIUM 4.7 MMOL/L (3.6-5.0)
[~2021-01-22 09:24] MED LIST changes: -MAGN400T8 PO; +MGX400T PO
[2021-01-22 09:34] LABS: BASOPHILS # (AUTO) 0.1 10^3/uL (0.0-0.1); BASOPHILS % (AUTO) 2 % (0-10); EOSINOPHILS # (AUTO) 0.2 10^3/uL (0.0-0.3); EOSINOPHILS % (AUTO) 4 % (0-10); HEMATOCRIT 46 % (35-52); HEMOGLOBIN 14.5 g/dL (11.5-16.0); LYMPHOCYTES # (AUTO) 1.5 10^3/uL (1.0-4.0); LYMPHOCYTES % (AUTO) 45 % (12-44); MEAN CORPUSCULAR HEMOGLOBIN 29 pg (25-34); MEAN CORPUSCULAR HGB CONC 32 g/dL (32-36); MEAN CORPUSCULAR VOLUME 90 fL (80-99); MEAN PLATELET VOLUME 10.6 fL (9.0-12.2); MONOCYTES # (AUTO) 0.4 10^3/uL (0.0-1.0); MONOCYTES % (AUTO) 13 % (0-12); NEUTROPHILS # (AUTO) 1.2 10^3/uL (1.8-7.8); NEUTROPHILS % (AUTO) 35 % (42-75); PLATELET COUNT 190 10^3/uL (130-400); WHITE BLOOD COUNT 3.4 10^3/uL (4.3-11.0)
[2021-01-22 09:56] LABS: ALBUMIN 3.7 GM/DL (3.2-4.5); BILIRUBIN,TOTAL 0.4 MG/DL (0.1-1.0); CALCIUM 9.4 MG/DL (8.5-10.1); CREATININE SERUM 0.83 MG/DL (0.60-1.30); POTASSIUM 4.1 MMOL/L (3.6-5.0); TOTAL PROTEIN 6.8 GM/DL (6.4-8.2)
[2021-01-29 14:31] LABS: IMMUNOFIX PATH REPORT NUMBER Complete (Complete)
== END 2021-01-31 | disposition home or self-care (01) ==
LOC: ONC 09:24
PROVIDERS: ATTEND Internal Medicine Hematology & Oncology
DX: C90.00 Multiple myeloma not having achieved remission (principal); D70.9 Neutropenia, unspecified; I10 Essential (primary) hypertension; E87.6 Hypokalemia; E66.9 Obesity, unspecified; Z87.891 Personal history of nicotine dependence; Z79.899 Other long term (current) drug therapy
CPT/HCPCS: 80053; 82784 ×3; 83883; 84165; 85025; G0463; 36415; 82232; 84155; 86334; 96365; 99213

== ENCOUNTER 2021-03-23 08:53 | Outpatient (RCR) | payer MEDICARE ==
[2021-02-16 09:18] LABS: BASOPHILS # (AUTO) 0.1 10^3/uL (0.0-0.1); BASOPHILS % (AUTO) 2 % (0-10); EOSINOPHILS # (AUTO) 0.2 10^3/uL (0.0-0.3); EOSINOPHILS % (AUTO) 6 % (0-10); HEMATOCRIT 45 % (35-52); HEMOGLOBIN 14.9 g/dL (11.5-16.0); LYMPHOCYTES # (AUTO) 1.4 10^3/uL (1.0-4.0); LYMPHOCYTES % (AUTO) 44 % (12-44); MEAN CORPUSCULAR HEMOGLOBIN 29 pg (25-34); MEAN CORPUSCULAR HGB CONC 33 g/dL (32-36); MEAN CORPUSCULAR VOLUME 88 fL (80-99); MEAN PLATELET VOLUME 10.8 fL (9.0-12.2); MONOCYTES # (AUTO) 0.4 10^3/uL (0.0-1.0); MONOCYTES % (AUTO) 13 % (0-12); NEUTROPHILS # (AUTO) 1.1 10^3/uL (1.8-7.8); NEUTROPHILS % (AUTO) 35 % (42-75); PLATELET COUNT 176 10^3/uL (130-400); WHITE BLOOD COUNT 3.1 10^3/uL (4.3-11.0)
[2021-02-16 09:41] LABS: ALBUMIN 3.8 GM/DL (3.2-4.5); BILIRUBIN,TOTAL 0.5 MG/DL (0.1-1.0); CALCIUM 9.2 MG/DL (8.5-10.1); CREATININE SERUM 0.78 MG/DL (0.60-1.30); POTASSIUM 4.2 MMOL/L (3.6-5.0); TOTAL PROTEIN 6.8 GM/DL (6.4-8.2)
[2021-02-23 10:00] LABS: BASOPHILS # (AUTO) 0.1 10^3/uL (0.0-0.1); BASOPHILS % (AUTO) 3 % (0-10); EOSINOPHILS # (AUTO) 0.1 10^3/uL (0.0-0.3); EOSINOPHILS % (AUTO) 2 % (0-10); HEMATOCRIT 44 % (35-52); HEMOGLOBIN 14.5 g/dL (11.5-16.0); LYMPHOCYTES # (AUTO) 1.7 10^3/uL (1.0-4.0); LYMPHOCYTES % (AUTO) 42 % (12-44); MEAN CORPUSCULAR HEMOGLOBIN 30 pg (25-34); MEAN CORPUSCULAR HGB CONC 33 g/dL (32-36); MEAN CORPUSCULAR VOLUME 90 fL (80-99); MEAN PLATELET VOLUME 9.6 fL (9.0-12.2); MONOCYTES # (AUTO) 0.6 10^3/uL (0.0-1.0); MONOCYTES % (AUTO) 14 % (0-12); NEUTROPHILS # (AUTO) 1.6 10^3/uL (1.8-7.8); NEUTROPHILS % (AUTO) 40 % (42-75); PLATELET COUNT 284 10^3/uL (130-400)
[2021-03-23 09:19] LABS: BASOPHILS # (AUTO) 0.1 10^3/uL (0.0-0.1); BASOPHILS % (AUTO) 3 % (0-10); EOSINOPHILS # (AUTO) 0.1 10^3/uL (0.0-0.3); EOSINOPHILS % (AUTO) 3 % (0-10); HEMATOCRIT 45 % (35-52); HEMOGLOBIN 14.5 g/dL (11.5-16.0); LYMPHOCYTES # (AUTO) 1.5 10^3/uL (1.0-4.0); LYMPHOCYTES % (AUTO) 46 % (12-44); MEAN CORPUSCULAR HEMOGLOBIN 29 pg (25-34); MEAN CORPUSCULAR HGB CONC 32 g/dL (32-36); MEAN CORPUSCULAR VOLUME 91 fL (80-99); MEAN PLATELET VOLUME 10.7 fL (9.0-12.2); MONOCYTES # (AUTO) 0.5 10^3/uL (0.0-1.0); MONOCYTES % (AUTO) 15 % (0-12); NEUTROPHILS # (AUTO) 1.1 10^3/uL (1.8-7.8); NEUTROPHILS % (AUTO) 33 % (42-75); PLATELET COUNT 242 10^3/uL (130-400); WHITE BLOOD COUNT 3.2 10^3/uL (4.3-11.0)
[2021-03-23 09:48] LABS: ALBUMIN 3.7 GM/DL (3.2-4.5); BILIRUBIN,TOTAL 0.4 MG/DL (0.1-1.0); CALCIUM 9.6 MG/DL (8.5-10.1); CREATININE SERUM 0.83 MG/DL (0.60-1.30); POTASSIUM 4.1 MMOL/L (3.6-5.0); TOTAL PROTEIN 7.1 GM/DL (6.4-8.2)
== END 2021-04-02 | disposition home or self-care (01) ==
LOC: ONC 08:53
PROVIDERS: ATTEND Internal Medicine Hematology & Oncology
DX: C90.00 Multiple myeloma not having achieved remission (principal); I10 Essential (primary) hypertension; D70.9 Neutropenia, unspecified; E66.9 Obesity, unspecified; E87.6 Hypokalemia; K21.9 Gastro-esophageal reflux disease without esophagitis; Z79.811 Long term (current) use of aromatase inhibitors; Z87.891 Personal history of nicotine dependence; Z79.899 Other long term (current) drug therapy; Z79.82 Long term (current) use of aspirin; Z79.891 Long term (current) use of opiate analgesic; Z68.28 Body mass index [BMI] 28.0-28.9, adult
CPT/HCPCS: 80053; 82232; 82784 ×3; 83883; 84165; 85025; 96365; G0463; 36415; 84155; 96367

== ENCOUNTER 2021-12-07 10:07 | Emergency (ER) | payer MEDICARE ==
[~2021-12-07] VITALS: Ht 165 cm; Wt 77.1 kg
[~2021-12-07 10:07] MED LIST changes: -ZOLEDRONIC ACID (CANCER CTR) 4 MG in NS (IVPB) CANCER CENTER 100 ML IV SCH
--- NOTE | 2021-12-07 10:41 | ED Abdominal Pain ---
General Chief Complaint: Abdominal/GI Problems Stated Complaint: ABDOMINAL PAIN, TROUBLE BREATHING Source of Information: Patient Exam Limitations: No Limitations History of Present Illness Date Seen by Provider: Dec 07, 2021 Time Seen by Provider: 10:19 Initial Comments Patient to the ER by private conveyance with her significant other chief complaint that 9 days ago patient started experiencing some generalized epigastric pain, nausea radiating through to her left shoulder blade. She thinks is her gallbladder. She is had a hysterectomy, tubal ligation and C- sections in the past. She is having some nausea now but no vomiting. Last time she ate was sometime yesterday. She is not anything to drink and not even taken her medicines this morning. She has no history of heart disease. She does have COPD and smokes about three quarters of a pack per day. She is not having any shortness of air. Patient has a history of multiple myeloma with monoclonal antibody treatment. Hypertension, denies hyperlipidemia, diabetes or smoking. Primary care by Dr. Crawford. Echocardiogram in [address] Johnson demonstrating EF of 60%. Allergies and Home Medications Allergies Coded Allergies: venom-honey bee (Verified Allergy, Severe, 08/08/11) codeine (Unverified Allergy, Unknown, 03/02/10) Patient Home Medication List Home Medication List Reviewed: Yes Albuterol Sulfate (Albuterol Sulfate) 2.5 Mg/3 Ml Vial.neb, 2.5 MG NEB QID, (Reported) Entered as Reported by: ANÍBAL BOOGIE on 03/05/17 1329 Albuterol Sulfate (Proair Hfa) 1 Puff Puff, 2 PUFF IH Q4H PRN for SHORTNESS OF BREATH, (Reported) Entered as Reported by: REG BENDER on 06/07/18 1542 Amlodipine Besylate (Amlodipine Besylate) 5 Mg Tablet, 5 MG PO DAILY, (Reported) Entered as Reported by: ANÍBAL BOOGIE on 03/05/17 1051 Calcium Carbonate/Vitamin D3 (Calcium 500 + D Tablet) 1 Each Tablet, 1 TAB PO DAILY, (Reported) Entered as Reported by: REG BENDER on 06/07/18 1542 Cholecalciferol (Vitamin D3) (Vitamin D3) 5,000 Unit Capsule, 5,000 UNIT PO DAILY, (Reported) Entered as Reported by: REG BENDER on 06/07/18 1526 Cyanocobalamin (Vitamin B-12) (B-12) 1,000 Mcg Tablet, 2,000 MCG PO DAILY, (Reported) Entered as Reported by: JOSEPH ARAMBULA on 03/04/17 1533 Duloxetine HCl (Duloxetine HCl) 30 Mg Capsule.dr, 30 MG PO 1500, (Reported) Entered as Reported by: REG BENDER on 06/07/18 1526 Epinephrine (Epinephrine) 0.3 Mg/0.3 Ml Auto.injct, 0.3 MG IM UD PRN for ALLERGIC REACTION/BEE STINGS, (Reported) Entered as Reported by: ANÍBAL BOOGIE on 03/05/17 1051 Fluticasone/Salmeterol (Advair 250-50 Diskus) 1 Each Blst.w.dev, 1 PUFF IH BID, (Reported) Entered as Reported by: ANÍBAL BOOGIE on 03/05/17 1051 Hydrocodone Bit/Acetaminophen (Lortab 7.5 Mg Tablet) 1 Ea Tablet, 1 EA PO Q6HR Prescribed by: JANNY CRAWFORD on 06/18/18 1233 Hydrocodone/Acetaminophen (Hydrocodone-Acetamin 5-325 mg) 5 Mg-325 Mg Tablet, 1 TAB PO Q6H PRN for PAIN-MODERATE (5-7) Prescribed by: ISAIAH RODRIGUEZ on 12/07/21 1344 Lorazepam (Lorazepam) 1 Mg Tablet, 1 MG PO BID PRN for ANXIETY, (Reported) Entered as Reported by: ANÍBAL BOOGIE on 03/05/17 1329 Magnesium Oxide (Magnesium) 400 Mg Tablet, 400 MG PO DAILY, (Reported) Entered as Reported by: REG BENDER on 06/07/18 1526 Omeprazole (Omeprazole) 20 Mg Capsule.dr, 40 MG PO DAILY, (Reported) Entered as Reported by: ANÍBAL BOOGIE on 03/05/17 1051 Ondansetron (Ondansetron Odt) 4 Mg Tab.rapdis, 4 MG PO QID Prescribed by: JANNY CRAWFORD on 06/18/18 1233 Ondansetron (Ondansetron Odt) 4 Mg Tab.rapdis, 4-8 MG PO Q6H PRN for NAUSEA/VOM ITING Prescribed by: ISAIAH RODRIGUEZ on 12/07/21 1343 Potassium Chloride (Potassium Chloride) 10 Meq Capsule.er, 20 MEQ PO BID Prescribed by: JANNY CRAWFORD on 06/18/18 1233 Prednisone (Prednisone) 10 Mg Tab, 30 MG PO DAILY@0700 Prescribed by: JANNY CRAWFORD on 06/18/18 1233 Review of Systems Review of Systems Constitutional: No chills, No diaphoresis, No fever, No malaise EENTM: No Blurred Vision, No Double Vision Respiratory: Denies Cough, Denies Orthopnea Cardiovascular: See HPI, Chest Pain; Denies Lightheadedness Gastrointestinal: See HPI, Abdominal Pain; Denies Constipated, Denies Diarrhea; Nausea; Denies Vomiting Genitourinary: Denies Burning, Denies Discharge Musculoskeletal: No back pain, No joint pain All Other Systems Reviewed Negative Unless Noted: Yes Past Iewgfrw-Xucsfp-Thzldb Hx Patient Social History Tobacco Use?: No Use of E-Cig and/or Vaping dev: No Substance use?: No Immunizations Up To Date PED Vaccines UTD: Yes Past Medical History Surgeries: Yes Bladder Surgery, Hysterectomy, Orthopedic Respiratory: Yes COPD Currently Using CPAP: No Currently Using BIPAP: No Cardiac: Yes (PT DENIES-HOWEVER PT TAKES BP MEDS) Hypertension Neurological: No Reproductive Disorders: No Sexually Transmitted Disease: No HIV/AIDS: No Genitourinary: Yes (BLADDER SLING) Gastrointestinal: Yes Gastroesophageal Reflux Musculoskeletal: No Endocrine: No HEENT: Yes Cataract Cancer: Yes (Multiple myeloma) Psychosocial: No Integumentary: No Blood Disorders: No Family Medical History Cardiovascular disease G8 BROTHER Neoplasm 19 MOTHER (LIVER CANCER) G8 BROTHER (THROAT CANCER) No Pertinent Family Hx Physical Exam Vital Signs Vital Signs - First Documented 12/07/21 10:18 Temp 36.7 Pulse 85 Resp 20 B/P (MAP) 137/78 (97) Capillary Refill : Height/Weight/BMI Height: 5'7.00" Weight: 174lbs. 3.0oz. [id number]; 27.3 BMI Method:Stated General Appearance: WD/WN, mild distress HEENT: PERRL/EOMI, pharynx normal Neck: full range of motion, normal inspection Respiratory: lungs clear, normal breath sounds, no respiratory distress, no accessory muscle use Cardiovascular: normal peripheral pulses, regular rate, rhythm Peripheral Pulses: 2+ Radial Pulses (R), 2+ Radial Pulses (L) Gastrointestinal: normal bowel sounds, soft, tenderness (Right upper quadrant without Rodriguez sign. Negative for McBurney's point tenderness. Negative for mesenteric signs) Back: normal inspection, no vertebral tenderness Neurologic/Psychiatric: alert, normal mood/affect, oriented x 3 Skin: normal color, warm/dry Progress/Results/Core Measures Results/Orders Lab Results Laboratory Tests Test 12/07/21 11:08 12/07/21 13:57 Range/Units White Blood Count 4.2 L 4.3-11.0 10^3/uL Red Blood Count 4.78 3.80-5.11 10^6/uL Hemoglobin 13.7 11.5-16.0 g/dL Hematocrit 42 35-52 % Mean Corpuscular Volume 87 80-99 fL Mean Corpuscular Hemoglobin 29 25-34 pg Mean Corpuscular Hemoglobin Concent 33 32-36 g/dL Red Cell Distribution Width 14.5 10.0-14.5 % Platelet Count 235 130-400 10^3/uL Mean Platelet Volume 10.6 9.0-12.2 fL Immature Granulocyte % (Auto) 0 % Neutrophils (%) (Auto) 39 L 42-75 % Lymphocytes (%) (Auto) 38 12-44 % Monocytes (%) (Auto) 14 H 0-12 % Eosinophils (%) (Auto) 7 0-10 % Basophils (%) (Auto) 2 0-10 % Neutrophils # (Auto) 1.7 L 1.8-7.8 10^3/uL Lymphocytes # (Auto) 1.6 1.0-4.0 10^3/uL Monocytes # (Auto) 0.6 0.0-1.0 10^3/uL Eosinophils # (Auto) 0.3 0.0-0.3 10^3/uL Basophils # (Auto) 0.1 0.0-0.1 10^3/uL Immature Granulocyte # (Auto) 0.0 0.0-0.1 10^3/uL Prothrombin Time 13.3 12.2-14.7 SEC INR Comment 1.0 0.8-1.4 Activated Partial Thromboplast Time 26 24-35 SEC Sodium Level 138 135-145 MMOL/L Potassium Level 3.7 3.6-5.0 MMOL/L Chloride Level 104 98-107 MMOL/L Carbon Dioxide Level 24 21-32 MMOL/L Anion Gap 10 5-14 MMOL/L Blood Urea Nitrogen 14 7-18 MG/DL Creatinine 0.70 0.60-1.30 MG/DL Estimat Glomerular Filtration Rate 87 BUN/Creatinine Ratio 20 Glucose Level 94 70-105 MG/DL Calcium Level 9.3 8.5-10.1 MG/DL Corrected Calcium 9.7 8.5-10.1 MG/DL Magnesium Level 1.9 1.6-2.4 MG/DL Total Bilirubin 0.4 0.1-1.0 MG/DL Aspartate Amino Transf (AST/SGOT) 12 5-34 U/L Alanine Aminotransferase (ALT/SGPT) 10 0-55 U/L Alkaline Phosphatase 60 40-136 U/L Myoglobin 143.2 H 10.0-92.0 NG/ML Troponin I < 0.028 < 0.028 <0.028 NG/ML B-Type Natriuretic Peptide 41.8 <100.0 PG/ML Total Protein 6.8 6.4-8.2 GM/DL Albumin 3.5 3.2-4.5 GM/DL Lipase 16 8-78 U/L My Orders Orders - MICHAEL,ISAIAH J Continuous Ekg Monitoring (12/07/21 10:22) Ekg Tracing (12/07/21 10:22) Cbc With Automated Diff (12/07/21 10:33) Magnesium (12/07/21 10:33) Chest 1 View, Ap/Pa Only (12/07/21 10:33) Comprehensive Metabolic Panel (12/07/21 10:33) Myoglobin Serum (12/07/21 10:33) Protime With Inr (12/07/21 10:33) Partial Thromboplastin Time (12/07/21 10:33) O2 (12/07/21 10:33) Lipid Panel (12/08/21 06:00) Ed Iv/Invasive Line Start (12/07/21 10:33) Lipase (12/07/21 10:33) Bnp Yates (12/07/21 10:33) Troponin I Yates (12/07/21 10:33) Ed Iv/Invasive Line Start (12/07/21 10:33) Ns Iv 500 Ml (Sodium Chloride 0.9%) (12/07/21 10:45) Fentanyl Inj (Sublimaze Injection) (12/07/21 10:45) Us Gallbladder [id number] (12/07/21 10:35) Ed Iv/Invasive Line Start (12/07/21 10:35) Ondansetron Injection (Zofran Injectio (12/07/21 10:45) Pantoprazole Injection (Protonix Injecti (12/07/21 10:45) Troponin I Yates (12/07/21 14:00) Medications Given in ED Current Medications Medications Dose Ordered Sig/David Route Start Time Stop Time Status Last Admin Dose Admin Fentanyl Citrate 50 mcg ONCE ONCE IVP 12/07/21 10:45 12/07/21 10:46 DC 12/07/21 11:09 50 MCG Ondansetron HCl 8 mg ONCE ONCE IVP 12/07/21 10:45 12/07/21 10:46 DC 12/07/21 11:09 8 MG Sodium Chloride 500 ml @ 0 mls/hr Q0M ONCE IV 12/07/21 10:45 12/07/21 10:46 DC 12/07/21 12:06 999 MLS/HR Vital Signs/I&O 12/07/21 10:18 Temp 36.7 Pulse 85 Resp 20 B/P (MAP) 137/78 (97) Progress Progress Note #1: Time: 10:38 Progress Note We will get an ultrasound to evaluate her gallbladder as well as EKG, chest x- ray and labs to evaluate for atypical angina. She has declined the aspirin at this time. We will give her 500 cc of fluids. Vital signs are aseptic. Progress Note #2: Time: 12:50 Progress Note Patient is pain-free and nausea free. Plan to do a delta troponin at 1400. We will get her set up with Dr. Rene and outpatient follow-up with Dr. Johnson. Ultrasound unrevealing and we discussed a HIDA scan with her. Progress Note #3: Time: 12:57 Progress Note Left message for Dr. Rene. Initial ECG Impression Date: Dec 07, 2021 Initial ECG Impression Time: 10:24 Initial ECG Rate: 80 Initial ECG Rhythm: Normal Sinus Initial ECG Intervals: Normal Initial ECG Impression: Normal Comment Normal sinus rhythm without clinically relevant ST elevation or depression Diagnostic Imaging Diagonstic Imaging: Xray Plain Films/CT/US/NM/MRI: chest Comments [facility] [place] [place] NAME: COLLEEN PERSAUD [facility] REC#: [id number] PT STATUS: REG ER : 1940 PHYSICIAN: ISAIAH RODRIGUEZ MD ADMIT DATE: 12/07/21/ER Signed Date of Exam:12/07/21 CHEST 1 VIEW, AP/PA ONLY INDICATION: Chest pain and shortness of breath. Frontal chest obtained at 10:44 a.m. and compared to 06/16/2018. FINDINGS: Heart is borderline in size. Mediastinal silhouette is unremarkable. There is hyperinflation. There is no focal infiltrate on the left side. There is some mild infiltrate versus atelectasis in the right lateral base. There is no pneumothorax or pleural fluid. IMPRESSION: Hyperinflation. Mild infiltrate versus atelectasis in the right lateral base, follow-up is recommended. Dictated by: Dictated on workstation # [id number] Dict: 12/07/21 1059 Trans: 12/07/21 1108 [id number] Interpreted by: OTILIA TABARES MD Electronically signed by: OTILIA TABARES MD 12/07/21 1108 Reviewed: Reviewed by [place] Diagonstic Imaging: Ultrasound Plain Films/CT/US/NM/MRI: abdomen (Gallbladder) Comments [facility] [place] [place] NAME: COLLEEN PERSAUD [facility] REC#: [id number] PT STATUS: REG ER : 1940 PHYSICIAN: ISAIAH RODRIGUEZ MD ADMIT DATE: 12/07/21/ER Draft Date of Exam:12/07/21 US GALLBLADDER [id number] PROCEDURE: US Gallbladder. TECHNIQUE: Multiple real-time grayscale images were obtained over the right upper quadrant in various projections. INDICATION: Right upper quadrant pain and nausea. FINDINGS: Liver measures 13.4 cm in size. The portal vein is patent and shows normal direction of flow. Gallbladder is without stones or sludge. There is no wall thickening or biliary duct dilatation. Visualized pancreas is unremarkable. Aorta is nonaneurysmal. Right kidney is without calculi or hydronephrosis. There is no ascites. IMPRESSION: No evidence of cholelithiasis or acute cholecystitis. Dictated on workstation # [id number] Dict: 12/07/21 1205 Trans: 12/07/21 1209 [id number] Interpreted by: ASHLEY TINEO MD Electronically signed by: Reviewed: Reviewed by Me Consults : Consulting Physician: ALEX RENE DO Consults Notes Discussed the case with Dr. Rene who would like to see her tomorrow afternoon in the clinic. Call his clinic and set her up for a 130 appointment. Departure Impression Primary Impression: Biliary colic Disposition: HOME, SELF-CARE Condition: Stable Departure-Patient Inst. Decision time for Depature: 14:26 Referrals: JANNY CRAWFORD DO (PCP) Primary Care Physician ALEX RENE ALI MD [facility] Patient Instructions: Gallbladder Diet Add. Discharge Instructions: Avoid greasy foods such as dairy, fried foods etc. High-fiber diet. Omeprazole 40 mg daily until you see the surgeon. You have an appointment to see Dr. Rene, general surgery tomorrow afternoon at 1:30 PM, 12/08/2021. Ondansetron 1 or 2 tablets every 6 hours as needed for nausea and/or vomiting. Hydrocodone 1 tablet every 6 hours as needed for pain. All discharge instructions reviewed with patient and/or family. Voiced understanding. Scripts Ondansetron (Ondansetron Odt) 4 Mg Tab.rapdis 4-8 MG PO Q6H PRN for NAUSEA/VOMITING, #10 TAB 0 Refills Prov: ISAIAH RODRIGUEZ 12/07/21 Hydrocodone/Acetaminophen (Hydrocodone-Acetamin 5-325 mg) 5 Mg-325 Mg Tablet 1 TAB PO Q6H PRN for PAIN-MODERATE (5-7), #12 TAB 0 Refills Prov: ISAIAH RODRIGUEZ 12/07/21 Copy Copies To 1: ALEX RENE DO; FOREST JOHNSON MD [facility] ISAIAH RODRIGUEZ Dec 07, 2021 10:41
[2021-12-07] MEDS ORDERED: fentaNYL INJ 100 MCG/2 ML AMP IVP ONE (10:45)
[2021-12-07] MEDS ORDERED: PANTOPRAZOLE 40 MG (PROTONIX) VIAL IV ONE (10:45)
[2021-12-07] MEDS ORDERED: ONDANSETRON 4 MG/2 ML (SDV) Z0FRAN IVP ONE (10:45)
[2021-12-07] MEDS ORDERED: NS IV 500 ML 500 ML IV ONE (10:45)
--- NOTE | 2021-12-07 11:03 | Diagnostic Imaging Report ---
INDICATION: Chest pain and shortness of breath. Frontal chest obtained at 10:44 a.m. and compared to 06/16/2018. FINDINGS: Heart is borderline in size. Mediastinal silhouette is unremarkable. There is hyperinflation. There is no focal infiltrate on the left side. There is some mild infiltrate versus atelectasis in the right lateral base. There is no pneumothorax or pleural fluid. IMPRESSION: Hyperinflation. Mild infiltrate versus atelectasis in the right lateral base, follow-up is recommended. Dictated by: Dictated on workstation # [id number]
[2021-12-07 11:19] LABS: BASOPHILS # (AUTO) 0.1 10^3/uL (0.0-0.1); BASOPHILS % (AUTO) 2 % (0-10); EOSINOPHILS # (AUTO) 0.3 10^3/uL (0.0-0.3); EOSINOPHILS % (AUTO) 7 % (0-10); HEMATOCRIT 42 % (35-52); HEMOGLOBIN 13.7 g/dL (11.5-16.0); LYMPHOCYTES # (AUTO) 1.6 10^3/uL (1.0-4.0); LYMPHOCYTES % (AUTO) 38 % (12-44); MEAN CORPUSCULAR HEMOGLOBIN 29 pg (25-34); MEAN CORPUSCULAR HGB CONC 33 g/dL (32-36); MEAN CORPUSCULAR VOLUME 87 fL (80-99); MEAN PLATELET VOLUME 10.6 fL (9.0-12.2); MONOCYTES # (AUTO) 0.6 10^3/uL (0.0-1.0); MONOCYTES % (AUTO) 14 % (0-12); NEUTROPHILS # (AUTO) 1.7 10^3/uL (1.8-7.8); NEUTROPHILS % (AUTO) 39 % (42-75); PLATELET COUNT 235 10^3/uL (130-400); WHITE BLOOD COUNT 4.2 10^3/uL (4.3-11.0)
[2021-12-07 11:37] LABS: ALBUMIN 3.5 GM/DL (3.2-4.5); POTASSIUM 3.7 MMOL/L (3.6-5.0); PROTHROMBIN TIME PATIENT 13.3 SEC (12.2-14.7)
[2021-12-07 11:39] LABS: CALCIUM 9.3 MG/DL (8.5-10.1)
[2021-12-07 11:40] LABS: TOTAL PROTEIN 6.8 GM/DL (6.4-8.2)
[2021-12-07 11:42] LABS: BILIRUBIN,TOTAL 0.4 MG/DL (0.1-1.0)
[2021-12-07 11:43] LABS: CREATININE SERUM 0.7 MG/DL (0.60-1.30)
[2021-12-07 11:46] LABS: MAGNESIUM 1.9 MG/DL (1.6-2.4)
--- NOTE | 2021-12-07 12:09 | Diagnostic Imaging Report ---
PROCEDURE: US Gallbladder. TECHNIQUE: Multiple real-time grayscale images were obtained over the right upper quadrant in various projections. INDICATION: Right upper quadrant pain and nausea. FINDINGS: Liver measures 13.4 cm in size. The portal vein is patent and shows normal direction of flow. Gallbladder is without stones or sludge. There is no wall thickening or biliary duct dilatation. Visualized pancreas is unremarkable. Aorta is nonaneurysmal. Right kidney is without calculi or hydronephrosis. There is no ascites. IMPRESSION: No evidence of cholelithiasis or acute cholecystitis. Dictated by: Dictated on workstation # [id number]
[2021-12-07] MEDS ORDERED: ONDA4TAB11 PO ×2 (13:43→14:45)
[2021-12-07] MEDS ORDERED: ACHD5005 PO ×2 (13:43→14:45)
[2021-12-07 14:49] VITALS: BP 144/78
== END 2021-12-07 14:48 | disposition home or self-care (01) ==
LOC: EDUNIT# 10:07 → ER 10:11
DX: K80.50 Calculus of bile duct without cholangitis or cholecystitis without obstruction (principal)
CPT/HCPCS: 36415; 71045; 76705; 80053; 83690; 83735; 83874; 83880; 84484; 85025; 85610; 85730; 93005

== ENCOUNTER → 2022-04-15 | Outpatient (CLI) | payer MEDICARE ==
[~2022-04-15] MED LIST changes: +ACHD5005 PO; +ALBU8.5H6 IH; -POTA10CA43 PO; +POTA10CA44 PO; -RT-ALBUINH IH
--- NOTE | 2022-04-15 17:40 | Diagnostic Imaging Report ---
Clinical indication: Patient with TIA. Comparison: Ultrasound of the carotid arteries dated 02/16/2015. Exam: Real-time ultrasound carotid Doppler duplex imaging is performed bilaterally with multiple real-time grayscale images obtained in various projections. Additional spectral analysis and color Doppler duple images were also obtained. Peak systolic velocity, ICA/CCA peak systolic ratio, spectral analysis, and vascular morphology are studied. Findings: ARTERY VELOCITY Right Left CCA 0.90 m/s 0.67 m/s ICA 1.19 m/s 0.72 m/s ECA 1.01 m/s 0.83 m/s ICA/CCA 1.3 1.1 VERT.ART Antegrade Antegrade There is mild bilateral carotid artery atherosclerotic disease. Impression: There is no grayscale or Doppler evidence of significant vascular stenosis. Dictated by: Dictated on workstation # [id number]
== END ==
LOC: RAD 13:11
PROVIDERS: ATTEND Family Medicine
DX: G45.9 Transient cerebral ischemic attack, unspecified (principal)
CPT/HCPCS: 93880